=== PATIENT | male | born 1950 | race Caucasian/White ===

== ENCOUNTER → 2020-12-21 14:18 | Outpatient (CLI) | payer MEDICARE, OTHER, SELFPAY ==
[2020-12-21 14:54] LABS: Hematocrit 48.9 % (40-54); Hemoglobin 15.7 g/dL (13.0-16.5); Mean Corp Hgb Conc 32.1 g/dL (32-36); Mean Corpuscular Hgb 31.2 pg (27.0-32.0); Mean Corpuscular Volume 97.2 fL (80-94); Mean Platelet Vol. 8.6 fl (6.2-12.0); Platelet Count 229 K/mm3 (150-450); RBC Distribution Width CV 14.2 % (11.6-14.6); RBC Distribution Width SD 51.6 fl (35.1-43.9); Red Blood Count 5.03 M/mm3 (4.6-6.2); White Blood Count 6.3 K/mm3 (4.4-11.0)
[2020-12-21 15:49] LABS: Anion Gap 4 (5-15); BUN 10 mg/dL (7-18); BUN/Creat Ratio 8.8 RATIO (10-20); Calcium,Total 8.8 mg/dL (8.5-10.1); Chloride 106 mmol/L (98-107); Creatinine, Serum 1.13 mg/dL (0.70-1.30); EST Glomerular Filtration Rate 68 mL/min (>60); Est Glom Filt Rate - Afr Amer 83 mL/min (>60); Glucose 93 mg/dL (74-106); Potassium 3.8 mmol/L (3.5-5.1); Sodium Level 138 mmol/L (136-145)
== END ==
LOC: LABSPEC 14:29 → LAB 12-22 05:41
PROVIDERS: Referring Provider Urology; Visit Provider Urology
DX: Z01.812 Encounter for preprocedural laboratory examination (principal)
CPT/HCPCS: 36415; 80048; 85027

== ENCOUNTER → 2021-04-11 12:52 | Outpatient (CLI) | payer MEDICARE, OTHER, SELFPAY ==
--- NOTE | 2021-04-11 12:55 | ECHOD_ITS ---
Version 3 Reason For Study: Arrhythmia Procedure This was a 2D Doppler, Color Flow transthoracic echocardiogram. Exam performed in department. Left Ventricle Normal LV size. Left ventricular systolic function is normal. The estimated ejection fraction is 55 %. Stage 1 diastolic dysfunction. No regional wall motion abnormalities noted. Right Ventricle Normal RV size. Normal systolic function. Atria Normal left atrium. Normal right atrium. Mitral Valve Normal mitral valve. Tricuspid Valve Normal tricuspid valve. Mild tricuspid valve insufficiency. Pulmonary artery systolic pressure is 24 mmHg. Aortic Valve Normal aortic valve. Trisinus/trileaflet aortic valve. Pulmonic Valve Normal pulmonic valve. Great Vessels Normal aortic root. The pulmonary artery is normal size. Normal inferior vena cava. Pericardium/Pleural No pericardial effusion. MMode/2D Measurements & Calculations LVIDd: 4.3 cm IVSd: 1.1 cm Ao root diam: 3.5 cm LVIDs: 2.8 cm LVPWd: 1.1 cm RVDd: 3.3 cm FS: 35.5 % LAV(MOD-bp): 42.2 ml LVAd ap4: 37.4 cm2 LVAd ap2: 35.9 cm2 LAV(MOD-bp) Indexed: 19.5 ml/m2 LVLd ap4: 9.2 cm LVLd ap2: 9.7 cm LAV(MOD-sp2): 39.5 ml EDV(MOD-sp4): 127.4 ml EDV(MOD-sp2): 114.9 ml LAV(MOD-sp4): 42.6 ml EDV(sp4-el): 129.4 ml EDV(sp2-el): 113.3 ml LVAs ap4: 25.1 cm2 LVAs ap2: 22.5 cm2 LVLs ap4: 8.3 cm LVLs ap2: 8.1 cm ESV(MOD-sp4): 65.7 ml ESV(MOD-sp2): 55.9 ml ESV(sp4-el): 64.2 ml ESV(sp2-el): 52.7 ml EF(MOD-sp4): 48.4 % EF(MOD-sp2): 51.4 % EF(sp4-el): 50.4 % SV(MOD-sp4): 61.7 ml SV(MOD-sp2): 59.0 ml SV(sp4-el): 65.2 ml LA dimension(2D): 3.7 cm LA A4 area: 17.0 cm2 RA A4 area: 12.2 cm2 Doppler Measurements & Calculations MV E max trey: 48.4 cm/sec Lat Peak E' Trey: 7.6 cm/sec Med Peak E' Trey: 5.5 cm/sec MV A max trey: 68.7 cm/sec E/E' lat: 6.4 E/E' med: 8.8 MV E/A: 0.70 Ao V2 max: 93.2 cm/sec LV V1 max: 85.4 cm/sec PA V2 max: 101.6 cm/sec Ao max P.5 mmHg LV V1 max P.9 mmHg TR max trey: 228.8 cm/sec TR max P.9 mmHg ECHO/Echo Complete Interpretation Summary Normal LV size. Left ventricular systolic function is normal. The estimated ejection fraction is 55 %. Pulmonary artery systolic pressure is 24 mmHg. Stage 1 diastolic dysfunction. Structurally normal valves. Ordering Physician: Roger Love Referring Physician: Zenia PCP Performed By: Jessika Lucas RDCS
== END ==
PROVIDERS: Referring Provider Internal Medicine Cardiovascular Disease; Visit Provider Internal Medicine Cardiovascular Disease
DX: R06.00 Dyspnea, unspecified (principal)
CPT/HCPCS: 93306

== ENCOUNTER → 2021-04-30 13:51 | Outpatient (CLI) | payer MEDICARE, OTHER, SELFPAY ==
[2021-04-30 15:02] LABS: Hematocrit 50.2 % (40-54); Hemoglobin 16.1 g/dL (13.0-16.5); Mean Corp Hgb Conc 32.1 g/dL (32-36); Mean Corpuscular Hgb 31.6 pg (27.0-32.0); Mean Corpuscular Volume 98.4 fL (80-94); Mean Platelet Vol. 8.9 fl (6.2-12.0); Platelet Count 264 K/mm3 (150-450); RBC Distribution Width CV 14.5 % (11.6-14.6); RBC Distribution Width SD 52.9 fl (35.1-43.9); White Blood Count 7.1 K/mm3 (4.4-11.0)
[2021-04-30 15:29] LABS: Anion Gap 6 (5-15); BUN 11 mg/dL (7-18); BUN/Creat Ratio 9.8 RATIO (10-20); Calcium,Total 8.9 mg/dL (8.5-10.1); Chloride 108 mmol/L (98-107); Creatinine, Serum 1.12 mg/dL (0.70-1.30); EST Glomerular Filtration Rate 69 mL/min (>60); Est Glom Filt Rate - Afr Amer 83 mL/min (>60); Glucose 100 mg/dL (74-106); Potassium 4.1 mmol/L (3.5-5.1); Sodium Level 141 mmol/L (136-145)
== END ==
PROVIDERS: Referring Provider Urology; Visit Provider Urology
DX: Z01.812 Encounter for preprocedural laboratory examination (principal)
CPT/HCPCS: 36415; 80048; 85027

== ENCOUNTER 2021-09-27 15:02 | Outpatient (CLI) | payer MEDICARE, OTHER, SELFPAY ==
[2021-09-27 16:34] LABS: PSA,Total - Annual Screen 1.29 ng/mL (0.00-4.00)
== END 2021-09-27 23:59 | disposition home or self-care (01) ==
LOC: LAB 15:04
PROVIDERS: Visit Provider Urology
DX: Z12.5 Encounter for screening for malignant neoplasm of prostate (principal)
CPT/HCPCS: 36415; 84153; G0103

== ENCOUNTER → 2022-09-30 | Outpatient (CLI) | payer MEDICARE, OTHER, SELFPAY ==
[2022-09-30 15:03] LABS: PSA,Total - Annual Screen 1.72 ng/mL (0.00-4.00)
== END | disposition home or self-care (01) ==
LOC: LAB 13:33
PROVIDERS: Referring Provider Urology; Visit Provider Urology
DX: Z12.5 Encounter for screening for malignant neoplasm of prostate (principal)
CPT/HCPCS: 36415; 84153; G0103

== ENCOUNTER 2022-12-26 19:17 | Inpatient (IN) | payer MEDICARE, OTHER, SELFPAY ==
[2022-12-26] VITALS (10 sets, daily range): BP systolic 98–151; BP diastolic 75–105; PULSE 106–152; RESP 12–25; TEMP 36.8–37; O2SAT 95–99; BMI 31.1; BMI 30.4
--- NOTE | 2022-12-26 19:27 | ED.RN ---
Pt attempted to blow into syringe and flip backward with RN assistance before ED doc comes into room. Unsuccessful attempt to reverse SVT.
--- NOTE | 2022-12-26 19:30 | RAD_ITS ---
STUDY: X-RAY CHEST REASON FOR EXAM: Male, 72 years old. Chest pain and shortness of breath beginning this a.m.. TECHNIQUE: Single AP portable view of the chest. COMPARISON: None. FINDINGS: The lungs are well expanded. Question vague infiltrate at the right lung base. There is no demonstrated pleural abnormality. Normal size heart. Normal mediastinum and nickolas. Normal visualized pulmonary arteries. Normal visualized aortic arch and descending thoracic aorta. There are diffuse degenerative changes of the visualized thoracic spine. Normal visualized ribs, clavicles, and shoulders. There is no demonstrated abnormality of the visualized soft tissue structures of the upper abdomen. RAD/Chest 1 View (Portable) IMPRESSION: Question right basilar pneumonia. Electronically Signed: Juliano Mauricio DO at 19:49 EDT ,
[2022-12-26 19:38] LABS: Absolute Lymphocyte Count 1.68 X10^3/uL (0.83-4.51); Absolute Neutrophil Count 9.6 X10^3/uL (2.0-7.7); Basophil# 0.03 X10^3/uL; Basophil% 0.2 % (0-1); Eosinophil# 0.04 X10^3/uL; Eosinophils% 0.3 % (0-5); Hematocrit 47.9 % (40-54); Hemoglobin 15.3 g/dL (13.0-16.5); Lymphocyte # 1.68 X10^3/ul (0.83-4.51); Lymphocyte % 13.2 % (19-41); Mean Corp Hgb Conc 31.9 g/dL (32-36); Mean Corpuscular Hgb 32.2 pg (27.0-32.0); Mean Corpuscular Volume 100.8 fL (80-94); Mean Platelet Vol. 8.5 fl (6.2-12.0); Monocyte# 1.35 X10^3/uL; Monocyte% 10.6 % (0-10); NRBC Flagged by Analyzer 0 % (0-5); Neutrophil # 9.61 X10^3/uL (2.7-7.7); Neutrophil % 75.2 % (47-70); Platelet Count 225 K/mm3 (150-450); RBC Distribution Width CV 14.6 % (11.6-14.6); RBC Distribution Width SD 55.1 fl (35.1-43.9); Red Blood Count 4.75 M/mm3 (4.6-6.2); White Blood Count 12.8 K/mm3 (4.4-11.0)
[2022-12-26] MEDS: Adenosine 6 MG/2 ML Syringe 12 MG IV (19:45)
[2022-12-26 19:47] LABS: International Normalized Ratio 1.1; Prothrombin Time (Protime)PT. 14.3 SECONDS (11.7-14.9)
[2022-12-26] MEDS: dilTIAZem 25 MG/5 ML Vial 20 MG IV BOLUS ×2 (19:49→20:39)
[2022-12-26 19:56] LABS: Anion Gap 6 (5-15); BUN 12 mg/dL (7-18); BUN/Creat Ratio 10.5 RATIO (10-20); Chloride 108 mmol/L (98-107); Creatinine, Serum 1.14 mg/dL (0.70-1.30); EST Glomerular Filtration Rate 67 mL/min (>60); Est Glom Filt Rate - Afr Amer 81 mL/min (>60); Estimated Creatinine Clearance 61.37 ml/min; Glucose 119 mg/dL (74-106); Potassium 4.1 mmol/L (3.5-5.1); Sodium Level 142 mmol/L (136-145); Troponin-I HS (w/2H Reflex) 33 pg/mL (3.0-78.0)
--- NOTE | 2022-12-26 20:51 | ED.VIS.CHEST ---
HPI <SRIKANTH Mcfadden - Last Filed: 12/26/22 20:59> History of Present Illness Chief Complaint: Chest Pain Narrative Narrative: Patient presenting today with midsternal aching chest pain that he has had intermittently all day. He reports that the pain is worsened when he takes a deep breath. He denies any cardiac history, history of arrhythmia, or history of blood clots. He denies any recent surgery/procedures, recent immobilization. He denies any fever, chills, abdominal pain, nausea, and vomiting. PMH includes macular degeneration and psoriasis. PFSH <SRIKANTH Mcfadden - Last Filed: 12/26/22 20:59> PFSH Medical History Diverticulosis Hydrocele Obesity Right bundle branch block (RBBB) with left anterior fascicular block Home Medications omega-3 fatty acids 1,000 mg capsule (Fish Oil Concentrate) 1,000 mg PO DAILY 03/21/21 [History Last Taken Unknown] vitamins A,C,R-qhfj-[id number] 4,296 mcg-226 mg-90 mg capsule (PreserVision AREDS) 1 cap PO BID 03/21/21 [History Last Taken Unknown] triamcinolone acetonide 0.1 % topical cream 1 applic topical DAILY 12/26/22 [History Last Taken Unknown] Allergy/AdvReac Type Severity Reaction Status Date / Time No Known Allergies Allergy Verified 12/26/22 19:24 Family History Father CAD (coronary artery disease) CABG Brother CAD (coronary artery disease), Onset Age: 56 stents Surgical History H/O total colectomy History of appendectomy Social History Smoking Status: Former smoker quit date: 05/28/20 pack-years: 45 alcohol intake: current alcohol intake frequency: other Alcohol type: beer substance use type: marijuana ROS <SRIKANTH Mcfadden - Last Filed: 12/26/22 20:59> ROS ED Constitutional Constitutional ED: Denies chills or fever(s) Eyes Eyes: Denies change in vision Cardiovascular Cardiovascular: Reports chest pain; Denies palpitations Respiratory/Chest Respiratory/Chest: Denies cough, dyspnea or dyspnea on exertion Gastrointestinal Gastrointestinal: Denies abdominal pain, nausea or vomiting Musculoskeletal Musculoskeletal: Denies arthralgias or myalgias Integumentary Denies abscess, Abrasions or rash Neurologic Neurologic: Denies dizziness or weakness EXAM <SRIKANTH Mcfadden - Last Filed: 12/26/22 20:59> Physical Exam Const Vital Signs: 12/26/22 19:18 12/26/22 19:21 12/26/22 20:16 Temperature 98.2 F Temperature Source Temporal Pulse Rate 152 H 120 H Respiratory Rate 21 H 25 H Respiratory Effort Short of Breath Blood Pressure 98/75 Blood Pressure Mean 82 Blood Pressure Position Blood Pressure Location Pulse Ox 97 96 Oxygen Delivery Method Room Air Room Air Oxygen Flow Rate (L/min) 12/26/22 20:44 12/26/22 21:27 12/26/22 21:00 Temperature Temperature Source Pulse Rate 118 H 112 H 106 H Respiratory Rate 19 H 17 17 Respiratory Effort Blood Pressure 130/105 H 146/98 H 146/98 H Blood Pressure Mean 113 114 114 Blood Pressure Position Semi-Fowlers Blood Pressure Location Right Arm Pulse Ox 95 99 96 Oxygen Delivery Method Room Air Nasal Cannula Nasal Cannula Oxygen Flow Rate (L/min) 2 2 12/26/22 22:00 12/26/22 22:12 Temperature Temperature Source Pulse Rate 115 H 121 H Respiratory Rate 15 18 Respiratory Effort Blood Pressure 141/85 H 141/85 H Blood Pressure Mean 103 103 Blood Pressure Position Semi-Fowlers Blood Pressure Location Right Arm Pulse Ox 99 98 Oxygen Delivery Method Room Air Oxygen Flow Rate (L/min) 2 Positive well nourished, well developed and no apparent distress General Appearance ED: well developed HEENT Reports normocephalic and head/scalp atraumatic Mouth ED: Yes moist mucous membranes normal Eyes PERRL and EOMs intact bilaterally Neck full ROM and supple Chest Wall inspection of chest normal Resp normal respiratory effort and clear to auscultation bilaterally Cardio regular rhythm Rate: tachycardic GI soft to palpation, non-tender, non-distended and no masses Back/Spine normal ROM and normal to inspection Extremity normal to inspection and full ROM Neuro oriented x3, CN's II-XII intact bilaterally, moves all extremities, no focal motor deficits and no sensory deficits noted Sensorium / Orientation: awake and alert Psych mental status grossly normal and thought process normal Skin no rashes or lesions noted and no wounds <Dr. Sandeep Carty DO - Last Filed: 12/26/22 22:37> Physical Exam Const Vital Signs: 12/26/22 19:18 12/26/22 19:21 12/26/22 20:16 Temperature 98.2 F Temperature Source Temporal Pulse Rate 152 H 120 H Respiratory Rate 21 H 25 H Respiratory Effort Short of Breath Blood Pressure 98/75 Blood Pressure Mean 82 Blood Pressure Position Blood Pressure Location Pulse Ox 97 96 Oxygen Delivery Method Room Air Room Air Oxygen Flow Rate (L/min) 12/26/22 20:44 12/26/22 21:27 12/26/22 21:00 Temperature Temperature Source Pulse Rate 118 H 112 H 106 H Respiratory Rate 19 H 17 17 Respiratory Effort Blood Pressure 130/105 H 146/98 H 146/98 H Blood Pressure Mean 113 114 114 Blood Pressure Position Semi-Fowlers Blood Pressure Location Right Arm Pulse Ox 95 99 96 Oxygen Delivery Method Room Air Nasal Cannula Nasal Cannula Oxygen Flow Rate (L/min) 2 2 12/26/22 22:00 12/26/22 22:12 Temperature Temperature Source Pulse Rate 115 H 121 H Respiratory Rate 15 18 Respiratory Effort Blood Pressure 141/85 H 141/85 H Blood Pressure Mean 103 103 Blood Pressure Position Semi-Fowlers Blood Pressure Location Right Arm Pulse Ox 99 98 Oxygen Delivery Method Room Air Oxygen Flow Rate (L/min) 2 [facility] <SRIKANTH Mcfadden - Last Filed: 12/26/22 20:59> [facility] Narrative Medical decision making narrative: Patient presenting due to midsternal chest pain he has had intermittently since this morning. Patient was tachycardic in the ambulance at 150 bpm, he was given 6mg of adenosine. On arrival, he was still tachycardic at 152 bpm. Patient was given 12 mg of adenosine. This did not seem to slow patient down very much, he was then given 20 mg Cardizem, this brought him down to around 120 BPM, was given another 20 mg of Cardizem which brought him down to around 100 bpm. D-dimer will be obtained to rule out PE, labs to be obtained to rule out leukocytosis, anemia, electrolyte abnormality. Patient is in atrial flutter and has no prior history of atrial flutter or any arrhythmia, he is not on any blood thinners. D-dimer is positive, CTA will be obtained to rule out PE. Lab Data Attestation: I reviewed the patient's lab results. Lab results narrative: WBC 12.88, troponin 33 Labs: Laboratory Results - last 24 hr 12/26/22 12/26/22 12/26/22 19:25 19:25 19:25 WBC 12.8 H RBC 4.75 Hgb 15.3 Hct 47.9 MCV 100.8 H MCH 32.2 H MCHC 31.9 L RDW Std Deviation 55.1 H RDW Coeff of Jessica 14.6 Plt Count 225 MPV 8.5 Immature Gran % (Auto) 0.500 Neut % (Auto) 75.2 H Lymph % (Auto) 13.2 L Cottle % (Auto) 10.6 H Eos % (Auto) 0.3 Baso % (Auto) 0.2 Absolute Neuts (auto) 9.6 H Absolute Lymphs (auto) 1.68 Nucleated RBC % 0 PT 14.3 INR 1.1 D-Dimer Quant (PE/DVT) Sodium 142 Potassium 4.1 Chloride 108 H Carbon Dioxide 28.0 Anion Gap 6 BUN 12 Creatinine 1.14 Estim Creat Clear Calc 61.37 Est GFR (MDRD) Af Amer 81 Est GFR (MDRD) Non-Af 67 BUN/Creatinine Ratio 10.5 Glucose 119 H Calcium 9.0 Troponin I High Sens 33 12/26/22 12/26/22 19:25 21:47 WBC RBC Hgb Hct MCV MCH MCHC RDW Std Deviation RDW Coeff of Jessica Plt Count MPV Immature Gran % (Auto) Neut % (Auto) Lymph % (Auto) Cottle % (Auto) Eos % (Auto) Baso % (Auto) Absolute Neuts (auto) Absolute Lymphs (auto) Nucleated RBC % PT INR D-Dimer Quant (PE/DVT) 0.75 H* Sodium Potassium Chloride Carbon Dioxide Anion Gap BUN Creatinine Estim Creat Clear Calc Est GFR (MDRD) Af Amer Est GFR (MDRD) Non-Af BUN/Creatinine Ratio Glucose Calcium Troponin I High Sens 35 Radiography X-Ray: Read by ED Physician and Read by Radiologist Diagnostic Testing: Clinical Impression(s) from Imaging Studies Chest X-Ray 12/26/22 19:30 IMPRESSION: Question right basilar pneumonia. Electronically Signed: Juliano Mauricio DO at 19:49 EDT , Chest CTA 12/26/22 20:58 IMPRESSION: Atelectatic changes versus infiltrate in the posterior right lower lobe. The study is otherwise unremarkable. Electronically Signed: Juliano Mauricio DO at 21:28 EDT , EKG Initial EKG: Comments: Initial EKG shows 152 bpm, atrial flutter, no ST elevation. Reviewed and interpreted by attending ED physician. <Dr. Sandeep Carty, DO - Last Filed: 12/26/22 22:37> [facility] Narrative Medical decision making narrative: Patient presenting due to midsternal chest pain he has had intermittently since this morning. Patient was tachycardic in the ambulance at 150 bpm, he was given 6mg of adenosine. On arrival, he was still tachycardic at 152 bpm. Patient was given 12 mg of adenosine. This slowed the patient down enough to I could see the rhythm is a flutter. he was then given 20 mg Cardizem, this brought him down to around 120 BPM, was given another 20 mg of Cardizem which brought him down to around 100 bpm. D-dimer will be obtained to rule out PE, labs to be obtained to rule out leukocytosis, anemia, electrolyte abnormality. Patient is in atrial flutter and has no prior history of atrial flutter or any arrhythmia, he is not on any blood thinners. D-dimer is positive, CTA will be obtained to rule out PE. This patient was seen with a PA/STOCK FITTER Individually assessed they patient including history and physical. I have reviewed everything on the chart that is available and agree with the documentation provided by the PA/STOCK FITTER including discussion about the assessment, treatment plan, discussion, and return precautions. After patient's heart rate came down to about 100 I did obtain a CTA of the chest which does not show evidence of PE. There is a small area in the right lung which is identified on the CTA as atelectasis or infiltrate. Patient has not any fevers, chills, cough Solox unclear whether this is pneumonia. There is no evidence of PE or aortic dissection otherwise. Patient's heart rate came back up and has been between 100?130 beats per minute. At this point it was determined he would need a Cardizem drip. I was informed that the patient became hypoxic while getting his CTA and was placed on oxygen. When the patient came back he was still complaining of some sharp pain in the chest and the site he was given morphine and Zofran. CBC shows a slight leukocytosis at 12.8, hemoglobin hematocrit are stable. Platelets are normal. PT/INR normal. Renal function and electrolytes unremarkable. Delta troponin came back at 35 therefore there is no significant interval change from his initial 33. I discussed him with the hospitalist for admission. Impression: 1. Chest pain 2. Atrial flutter Lab Data Labs: Laboratory Results - last 24 hr 12/26/22 12/26/22 12/26/22 19:25 19:25 19:25 WBC 12.8 H RBC 4.75 Hgb 15.3 Hct 47.9 MCV 100.8 H MCH 32.2 H MCHC 31.9 L RDW Std Deviation 55.1 H RDW Coeff of Jessica 14.6 Plt Count 225 MPV 8.5 Immature Gran % (Auto) 0.500 Neut % (Auto) 75.2 H Lymph % (Auto) 13.2 L Cottle % (Auto) 10.6 H Eos % (Auto) 0.3 Baso % (Auto) 0.2 Absolute Neuts (auto) 9.6 H Absolute Lymphs (auto) 1.68 Nucleated RBC % 0 PT 14.3 INR 1.1 D-Dimer Quant (PE/DVT) Sodium 142 Potassium 4.1 Chloride 108 H Carbon Dioxide 28.0 Anion Gap 6 BUN 12 Creatinine 1.14 Estim Creat Clear Calc 61.37 Est GFR (MDRD) Af Amer 81 Est GFR (MDRD) Non-Af 67 BUN/Creatinine Ratio 10.5 Glucose 119 H Calcium 9.0 Troponin I High Sens 33 12/26/22 12/26/22 19:25 21:47 WBC RBC Hgb Hct MCV MCH MCHC RDW Std Deviation RDW Coeff of Jessica Plt Count MPV Immature Gran % (Auto) Neut % (Auto) Lymph % (Auto) Cottle % (Auto) Eos % (Auto) Baso % (Auto) Absolute Neuts (auto) Absolute Lymphs (auto) Nucleated RBC % PT INR D-Dimer Quant (PE/DVT) 0.75 H* Sodium Potassium Chloride Carbon Dioxide Anion Gap BUN Creatinine Estim Creat Clear Calc Est GFR (MDRD) Af Amer Est GFR (MDRD) Non-Af BUN/Creatinine Ratio Glucose Calcium Troponin I High Sens 35 Radiography Diagnostic Testing: Clinical Impression(s) from Imaging Studies Chest X-Ray 12/26/22 19:30 IMPRESSION: Question right basilar pneumonia. Electronically Signed: Juliano Mauricio DO at 19:49 EDT Reading Location ID and State: [employer] / [place] Tel [phone], Service support , Chest CTA 12/26/22 20:58 IMPRESSION: Atelectatic changes versus infiltrate in the posterior right lower lobe. The study is otherwise unremarkable. Electronically Signed: Juliano Mauricio DO at 21:28 EDT Reading Location ID and State: [facility] / [place] Tel [phone], Service support , Discharge Plan Triage Chief Complaint: Chest Pain ED Midlevel Provider: Reina Paris ED Provider: Sandeep Carty Dx/Rx/DC Orders Primary Care Provider: Care Physician,No Primary
[2022-12-26 20:57] LABS: D-Dimer Quantitative (DVT/PE) 0.75 FEU/ug/m (0.27-0.49)
--- NOTE | 2022-12-26 20:58 | CT_ITS ---
STUDY: CTA CHEST REASON FOR EXAM: Male, 72 years old. Chest pain. RADIATION DOSAGE (If Supplied By Facility): CTDIvol = ( 28.53 ) mGy, DLP = ( 566.05 ) mGycm TECHNIQUE: The examination was performed with the intravenous administration of IV 100mL Isovue-300. Post-processing of the angiographic images was performed, with multiplanar reformation and 3D reconstruction. Individualized dose optimization techniques were used for this CT. COMPARISON: Chest, December 26, 2022. FINDINGS: Normal enhancement of the main pulmonary artery and right and left pulmonary arteries. Normal enhancement of the bilateral peripheral pulmonary arteries. There is no demonstrated pulmonary embolism. Normal thoracic aorta and visualized great vessels. There is no demonstrated aortic dissection. Normal heart and pericardium. Femoral coronary artery calcifications. Normal mediastinum. Normal hilar regions. Normal visualized trachea and bronchi. The lungs are well expanded. Mild dependent changes in the right posterior costophrenic angle. The lungs are otherwise clear. Normal pleura. Normal chest wall structures. There are degenerative changes of thoracic spine. Normal visualized upper abdomen. CT/CTA Chest W/WO Contrast IMPRESSION: Atelectatic changes versus infiltrate in the posterior right lower lobe. The study is otherwise unremarkable. Electronically Signed: Juliano Mauricio DO at 21:28 EDT ,
[2022-12-26 21:35] LABS: Reflex Troponin-HS? (from REC) Y
[2022-12-26 22:19] LABS: Troponin-I HS 35 pg/mL (3.0-78.0)
--- NOTE | 2022-12-26 22:35 | HP.PCM.HOS_ITS ---
HPI - General General Date of Admission: 12/26/22 Date of Service: 12/26/22 Chief Complaint: chest pain HPI Narrative DOYLE RAMIREZ, is a 72 M who presents awoke with chest pain today. Said its been constant but worse with movements and deep respirations. States that it is midsternal but goes to his back. Denies ever having had this before. Patient presented to the emergency room with this and there was concerning the patient may have SVT so did have adenosine. The underlying rhythm appeared to be atrial flutter. Patient received 40 mg of IV diltiazem bolus and then was placed on diltiazem drip. Heart rate improved from the 150s to 120s. Despite the improved heart rate, patient is still having chest pain. Patient did have an elevated D-dimer and went to CAT scan when he lied flat he became very short of breath. [facility] Medical History Diverticulosis Hydrocele Obesity Right bundle branch block (RBBB) with left anterior fascicular block Home Medications omega-3 fatty acids 1,000 mg capsule (Fish Oil Concentrate) 1,000 mg PO DAILY 03/21/21 [History Last Taken Unknown] vitamins A,C,X-bhaa-fvnsui 4,296 mcg-226 mg-90 mg capsule (PreserVision AREDS) 1 cap PO BID 03/21/21 [History Last Taken Unknown] triamcinolone acetonide 0.1 % topical cream 1 applic topical DAILY 12/26/22 [History Last Taken Unknown] Allergy/AdvReac Type Severity Reaction Status Date / Time No Known Allergies Allergy Verified 12/26/22 19:24 Family History Father CAD (coronary artery disease) CABG Brother CAD (coronary artery disease), Onset Age: 56 stents Surgical History H/O total colectomy History of appendectomy Social History Smoking Status: Former smoker quit date: 05/28/20 pack-years: 45 alcohol intake: current alcohol intake frequency: other Alcohol type: beer substance use type: marijuana ROS ROS Narrative States he has been feeling rundown over the past few weeks. Denies any fever chills or sore throat or rhinitis. Stated that he did previous feel like he had a chest cold. All review of systems were negative except as mentioned above in the history of present illness and the other review of systems. Vital Signs Vital Signs Vital Signs: 12/26/22 19:18 12/26/22 19:21 12/26/22 20:16 Temperature 36.8 C Temperature Source Temporal Pulse Rate 152 H 120 H Respiratory Rate 21 H 25 H Respiratory Effort Short of Breath Blood Pressure 98/75 Blood Pressure Mean 82 Blood Pressure Position Blood Pressure Location Pulse Ox 97 96 Oxygen Delivery Method Room Air Room Air Oxygen Flow Rate (L/min) 12/26/22 20:44 12/26/22 21:27 12/26/22 21:00 Temperature Temperature Source Pulse Rate 118 H 112 H 106 H Respiratory Rate 19 H 17 17 Respiratory Effort Blood Pressure 130/105 H 146/98 H 146/98 H Blood Pressure Mean 113 114 114 Blood Pressure Position Semi-Fowlers Blood Pressure Location Right Arm Pulse Ox 95 99 96 Oxygen Delivery Method Room Air Nasal Cannula Nasal Cannula Oxygen Flow Rate (L/min) 2 2 12/26/22 22:00 12/26/22 22:12 Temperature Temperature Source Pulse Rate 115 H 121 H Respiratory Rate 15 18 Respiratory Effort Blood Pressure 141/85 H 141/85 H Blood Pressure Mean 103 103 Blood Pressure Position Semi-Fowlers Blood Pressure Location Right Arm Pulse Ox 99 98 Oxygen Delivery Method Room Air Oxygen Flow Rate (L/min) 2 Weight Weight: 98.4 kg Body Mass Index (BMI) 31.1 Physical Exam Const alert and no apparent distress HEENT normocephalic, head/scalp atraumatic, hearing grossly normal bilaterally and moist oral mucous membranes Eyes EOMs intact bilaterally Eyes Narrative: No icterus Neck no lymphadenopathy Neck Narrative: No thyromegaly. Resp normal respiratory effort, no retractions and no use of accessory muscles Cardio Cardio Narrative: Distant heart sounds irregularly irregular GI normal to inspection, nondistended, normoactive bowel sounds and soft to palpation Extremity normal to inspection and full ROM Neuro oriented x3 and CN's II-XII intact bilaterally Psych affect normal Results Lab / Micro Data Attestation: I reviewed the patient's lab results. Result Diagrams: 12/26/22 19:25 12/26/22 19:25 Labs: Laboratory Results - last 24 hr 12/26/22 19:25: WBC 12.8 H, RBC 4.75, Hgb 15.3, Hct 47.9, MCV 100.8 H, MCH 32.2 H, MCHC 31.9 L, RDW Std Deviation 55.1 H, RDW Coeff of Jessica 14.6, Plt Count 225, MPV 8.5, Immature Gran % (Auto) 0.500, Neut % (Auto) 75.2 H, Lymph % (Auto) 13.2 L, Hancock % (Auto) 10.6 H, Eos % (Auto) 0.3, Baso % (Auto) 0.2, Absolute Neuts (auto) 9.6 H, Absolute Lymphs (auto) 1.68, Nucleated RBC % 0 12/26/22 19:25: PT 14.3, INR 1.1 12/26/22 19:25: Sodium 142, Potassium 4.1, Chloride 108 H, Carbon Dioxide 28.0, Anion Gap 6, BUN 12, Creatinine 1.14, Estim Creat Clear Calc 61.37, Est GFR (MDRD) Af Amer 81, Est GFR (MDRD) Non-Af 67, BUN/Creatinine Ratio 10.5, Glucose 119 H, Calcium 9.0, Troponin I High Sens 33 12/26/22 19:25: D-Dimer Quant (PE/DVT) 0.75 H* 12/26/22 21:47: Troponin I High Sens 35 EKG Initial EKG: Attestation: I personally reviewed and interpreted this EKG as follows: Prior EKG tracings: available for review EKG Rhythm Intrepretation: Atrial Flutter Radiology Impression Chest X-Ray 12/26/22 19:30 IMPRESSION: Question right basilar pneumonia. Electronically Signed: Juliano Mauricio DO at 19:49 EDT Reading Location ID and State: [address] [place] [address] Tel [phone], Service support , Chest CTA 12/26/22 20:58 IMPRESSION: Atelectatic changes versus infiltrate in the posterior right lower lobe. The study is otherwise unremarkable. Electronically Signed: Juliano Mauricio DO at 21:28 EDT Reading Location ID and State: [address] [place] [address] Tel [phone], Service support , Assessment & Plan Assessment/Plan (1) Atrial flutter with rapid ventricular response: PLAN: New onset [id number] score of 1 Given the patient's symptoms, I am concerned the patient may have some underlying pericarditis. In addition to rate control which she is currently on diltiazem, patient may need to be added additional agent such as amiodarone if that does not seem to be sufficient. Since I am concerned that this could be pericarditis we will initiate high-dose ibuprofen as well as PPI therapy. Thus far, the patient's troponins are unremarkable and if they do become elevated then patient may need to be started on anticoagulation. PLAN: Plan VTE prophylaxis with enoxaparin. Charges/Coding Visit Charges Inpatient E&M: 68473 Init Hosp L3
[2022-12-26] MEDS: Morphine 4 MG/ML Syringe IV (22:40)
[2022-12-26] MEDS: Ondansetron 4 MG/2 ML Vial IV (22:40)
--- NOTE | 2022-12-26 23:15 | ED.RN ---
Dr. Mckeon aware of pt HR 140s-150s on 15mL/hr Cardizem. No new orders at this time.
--- NOTE | 2022-12-26 23:38 | ECHOD_ITS ---
Reason For Study: ATRIAL FIB-FLUTTER Procedure This was a 2D Doppler, Color Flow transthoracic echocardiogram. Exam performed portable in patient room. Left Ventricle Normal size and thickness. Mild global left ventricular systolic dysfunction. The left ventricular ejection fraction is 40 %. Right Ventricle Moderately dilated right ventricle. Mild to moderate global right ventricular systolic dysfunction. Atria The left atrium is mildly enlarged. The right atrium is mildly enlarged. Mitral Valve Mild (1+) mitral valve insufficiency. Tricuspid Valve Mild tricuspid valve insufficiency. Right ventricular systolic pressure estimated to be 33 mmHg. Aortic Valve There is no aortic stenosis. Pulmonic Valve The pulmonic valve is not well visualized. Great Vessels Normal sized aortic root. Pericardium/Pleural No pericardial effusion. MMode/2D Measurements & Calculations LVIDd: 5.0 cm IVSd: 1.1 cm Ao root diam: 3.7 cm LVIDs: 4.3 cm LVPWd: 1.1 cm RVDd: 4.3 cm FS: 15.0 % LAV(MOD-bp): 72.8 ml LVAd ap4: 35.2 cm2 SV(MOD-sp4): 48.0 ml LAV(MOD-bp) Indexed: 34.0 ml/m2 LVLd ap4: 8.3 cm LAV(MOD-sp2): 69.5 ml EDV(MOD-sp4): 123.2 ml LAV(MOD-sp4): 71.5 ml EDV(sp4-el): 126.2 ml LVAs ap4: 26.0 cm2 LVLs ap4: 7.8 cm ESV(MOD-sp4): 75.2 ml ESV(sp4-el): 73.3 ml EF(MOD-sp4): 39.0 % EF(sp4-el): 41.9 % SV(sp4-el): 52.9 ml LA A4 area: 24.5 cm2 LA dimension(2D): 3.9 cm RA A4 area: 19.9 cm2 Doppler Measurements & Calculations MV E max trey: 80.8 cm/sec Lat Peak E' Trey: 11.9 cm/sec Med Peak E' Trey: 9.8 cm/sec MV A max trey: 32.8 cm/sec E/E' lat: 6.8 E/E' med: 8.3 MV E/A: 2.5 Ao V2 max: 83.0 cm/sec LV V1 max: 70.1 cm/sec PA V2 max: 59.5 cm/sec Ao max P.8 mmHg LV V1 max P.0 mmHg Ao V2 mean: 60.1 cm/sec LV V1 mean P.1 mmHg Ao mean P.6 mmHg LV V1 mean: 49.0 cm/sec Ao V2 VTI: 13.7 cm LV V1 VTI: 11.6 cm AV (velocity ratio): 0.85 TR max trey: 239.8 cm/sec TR max P.0 mmHg ECHO/Echo Complete Interpretation Summary Mild global left ventricular systolic dysfunction. The left ventricular ejection fraction is 40 %. Moderately dilated right ventricle. Mild to moderate global right ventricular systolic dysfunction. The left atrium is mildly enlarged. The right atrium is mildly enlarged. Mild (1+) mitral valve insufficiency. Mild tricuspid valve insufficiency. Ordering Physician: Neo Mckeon Performed By: Margret Khanna RDCS
[2022-12-26] MEDS: Contrast Allergy Safety Check IV (23:59)
[2022-12-27] VITALS (25 sets, daily range): BP systolic 72–146; BP diastolic 39–95; PULSE 50–150; RESP 16–27; TEMP 36–36.8; O2SAT 93–96
[2022-12-27] MEDS: Ibuprofen 400 MG Tablet 800 MG PO ×2 (00:28→06:07)
[2022-12-27 05:23] LABS: Absolute Lymphocyte Count 1.11 X10^3/uL (0.83-4.51); Absolute Neutrophil Count 9.6 X10^3/uL (2.0-7.7); Basophil# 0.02 X10^3/uL; Basophil% 0.2 % (0-1); Hematocrit 45.3 % (40-54); Hemoglobin 14.3 g/dL (13.0-16.5); Lymphocyte # 1.11 X10^3/ul (0.83-4.51); Lymphocyte % 8.9 % (19-41); Mean Corp Hgb Conc 31.6 g/dL (32-36); Mean Corpuscular Hgb 31.8 pg (27.0-32.0); Mean Corpuscular Volume 100.9 fL (80-94); Monocyte# 1.67 X10^3/uL; Monocyte% 13.4 % (0-10); NRBC Flagged by Analyzer 0 % (0-5); Neutrophil # 9.64 X10^3/uL (2.7-7.7); Neutrophil % 77.2 % (47-70); POSITIVE DIFFERENTIAL YES; Platelet Count 214 K/mm3 (150-450); RBC Distribution Width CV 14.8 % (11.6-14.6); RBC Distribution Width SD 55.5 fl (35.1-43.9); Red Blood Count 4.49 M/mm3 (4.6-6.2); White Blood Count 12.5 K/mm3 (4.4-11.0)
[2022-12-27 05:29] LABS: Differential Indicated SCAN CRITERIA MET
[2022-12-27 05:58] LABS: Thyroid Stim Hormone (TSH) 1.48 uIU/mL (0.358-3.74)
[2022-12-27] MEDS: 0.9% Saline Lock 10 ML Syringe IV (06:06)
[2022-12-27 06:18] LABS: Anisocytosis 1+; Macrocytosis 1+
--- NOTE | 2022-12-27 08:02 | PCM.PN.HOSP ---
Reason for Visit Reason for Visit: Diagnoses Unspecified atrial flutter (12/26/22) Subjective Subjective Still short of breath, feeling slightly better today but has wheezes and some conversational dyspnea despite heart rate improving. Denies cough that is any different from previous, no chest pain Objective Data Objective Data Vital Signs: Vital Signs Temp Pulse Resp BP Pulse Ox O2 Del Method O2 Flow Rate 98.2 F 76 20 H 100/69 94 Room Air 2 12/27/22 00:36 12/27/22 07:00 12/27/22 07:00 12/27/22 07:00 12/27/22 07:20 12/27/22 07:20 12/26/22 23:00 Oxygen Flow Rate (L/min) 2 Oxygen Delivery Method Room Air Weight: 96.2 kg Body Mass Index (BMI) 30.4 Intake & Output: Intake and Output for Last 24 Hours 12/25/22 12/26/22 12/27/22 23:59 23:59 23:59 Intake Total 10.25 / 27.50 418.39 / 418.39 Output Total 0 / 0 Balance 10.25 / 27.50 418.39 / 418.39 Lab / Micro Data Result Diagrams: 12/27/22 04:24 12/26/22 19:25 Labs: Laboratory Results - last 24 hr 12/26/22 19:25: WBC 12.8 H, RBC 4.75, Hgb 15.3, Hct 47.9, MCV 100.8 H, MCH 32.2 H, MCHC 31.9 L, RDW Std Deviation 55.1 H, RDW Coeff of Jessica 14.6, Plt Count 225, MPV 8.5, Immature Gran % (Auto) 0.500, Neut % (Auto) 75.2 H, Lymph % (Auto) 13.2 L, Douglas % (Auto) 10.6 H, Eos % (Auto) 0.3, Baso % (Auto) 0.2, Absolute Neuts (auto) 9.6 H, Absolute Lymphs (auto) 1.68, Nucleated RBC % 0 12/26/22 19:25: PT 14.3, INR 1.1 12/26/22 19:25: Sodium 142, Potassium 4.1, Chloride 108 H, Carbon Dioxide 28.0, Anion Gap 6, BUN 12, Creatinine 1.14, Estim Creat Clear Calc 61.37, Est GFR (MDRD) Af Amer 81, Est GFR (MDRD) Non-Af 67, BUN/Creatinine Ratio 10.5, Glucose 119 H, Calcium 9.0, Troponin I High Sens 33 12/26/22 19:25: D-Dimer Quant (PE/DVT) 0.75 H* 12/26/22 21:47: Troponin I High Sens 35 12/27/22 04:24: WBC 12.5 H, RBC 4.49 L, Hgb 14.3, Hct 45.3, MCV 100.9 H, MCH 31.8, MCHC 31.6 L, RDW Std Deviation 55.5 H, RDW Coeff of Jessica 14.8 H, Plt Count 214, MPV 9.0, Immature Gran % (Auto) 0.300, Neut % (Auto) 77.2 H, Lymph % (Auto) 8.9 L, Douglas % (Auto) 13.4 H, Eos % (Auto) 0.0, Baso % (Auto) 0.2, Absolute Neuts (auto) 9.6 H, Absolute Lymphs (auto) 1.11, Nucleated RBC % 0, Diff Path Review May foll, Anisocytosis 1+, Macrocytosis 1+ 12/27/22 04:24: TSH 1.48 Radiography Diagnostic Testing: Radiology Impression Chest X-Ray 12/26/22 19:30 IMPRESSION: Question right basilar pneumonia. Electronically Signed: Juliano Mauricio DO at 19:49 EDT Reading Location ID and State: [address] [place] [address] Tel [phone], Service support , Chest CTA 12/26/22 20:58 IMPRESSION: Atelectatic changes versus infiltrate in the posterior right lower lobe. The study is otherwise unremarkable. Electronically Signed: Juliano Mauricio DO at 21:28 EDT Reading Location ID and State: [employer] / [place] Tel [phone], Service support , Physical Exam Narrative General: Alert, oriented, no apparent distress HEENT: Atraumatic, normocephalic Eyes: Anicteric, normal conjunctiva, extraocular movements grossly intact Neck: Supple Respiratory: Diffuse wheezes, component of conversational dyspnea Cardiovascular: Regular rate, appears fib/flutter GI: Soft, nontender, nondistended Extremities: No edema Musculoskeletal: Moving all extremities Neuro: No overt focal neurological deficits Skin: No rashes appreciated Psych: Cooperative Assessment & Plan Assessment/Plan (1) Atrial flutter with rapid ventricular response: PLAN: Plan #New onset a flutter with RVR -Rate control with diltiazem. Initial on diltiazem drip and amio and this is being cross titrated with oral diltiazem, amio has been discontinued -There had been concern especially given his chest pain that there may be a component of pericarditis so he had been started on high-dose ibuprofen and PPI but ibuprofen discontinued per cardiology recommendations for low suspicion -Trops unremarkable -D-dimer very mildly elevated at 0.71 so CTA obtained which demonstrated some atelectatic changes versus infiltrate posterior right lower lobe but otherwise unremarkable -Last echocardiogram 04/16/2021 with EF of 55%, PASP 24, stage I diastolic dysfunction -Repeat echo ordered which showed mild global left ventricular systolic dysfunction with an EF of 40%, moderately dilated right ventricle with mild to moderate global right ventricular systolic dysfunction. -Cardiology consulted and noted CHADS2-VASc score of 2 and recommended anticoagulation, patient started on Eliquis #Shortness of breath -Patient has diffuse wheezing and shortness of breath despite his heart rate now under control -Has borderline EF but does not appear volume overloaded -Has a significant smoking history and quit 1 week ago, suspect underlying COPD and he reports he has been told he has this in the past -We will start ipratropium nebs so as not to exacerbate heart rate with albuterol and may need inhaler on discharge and will provide information to follow-up with pulmonology for further work-up and management of COPD -CTA obtained on admissions which was negative for PE but did demonstrate some atelectatic changes versus infiltrate posterior right lower lobe. Patient has not had any increased cough or sputum production only increased shortness of breath and wheezing, will hold off on antibiotics at this time and treat with inhaler with a low threshold for antibiotics and further work-up for pneumonia if not improving #Concern for coronary artery disease -Seen incidentally on CT scan, outpatient pharmacologic stress test recommended #DVT ppx: eliquis Kaila Willingham, MD Time spent in the patient's overall evaluation,decision-making process, review of diagnostic data, adjustment of management, discussion with other providers, nursing nursing and ancillary staff involved in patient's care documentation, 30 minutes Charges/Coding Visit Charges Inpatient E&M: 46957 Subs Hosp L2
--- NOTE | 2022-12-27 09:54 | PCM.CONS.C ---
Assessment & Plan Assessment/Plan (1) Atrial flutter: PLAN: Patient's CHADS2?VASc score is 2. Recommend oral anticoagulation. Start on Eliquis. Start on p.o. diltiazem. Stop amiodarone. For rate control with diltiazem. An echo has already been ordered for the patient. Recommend pharmacological stress test as outpatient. (2) Coronary artery disease: PLAN: Coronary calcifications noted as an incidental finding on her CT scan of the chest. Recommend pharmacological stress test to evaluate for physiological significance. Please see above. Check lipid profile. (3) COPD (chronic obstructive pulmonary disease): PLAN: Bilateral wheezing. Per patient, he has been told in the past by his doctor that he probably has COPD. Consider pulmonology consult. (4) Pleuritic chest pain: PLAN: No pericardial friction rub. Doubt that the patient has pericarditis. HPI Consult Data Date of Consult: 12/27/22 HPI Narrative Reason for Consultation: Atrial flutter HPI Narrative: This gentleman presented to the hospital with chest congestion and palpitations. Patient denies any previous cardiac history. Denies any angina with exertion. According to him, he has been having chest pain with deep inspiration. Denies any recent fevers or chills. No recent viral illness. No orthopnea. No PND. No ankle edema. Patient was noted to have atrial flutter with rapid ventricular response in the emergency room. He has since been started on amiodarone and diltiazem infusions. Presently feels better but still having some pleuritic chest discomfort. [facility] Medical History Diverticulosis Hydrocele Obesity Right bundle branch block (RBBB) with left anterior fascicular block Home Medications omega-3 fatty acids 1,000 mg capsule (Fish Oil Concentrate) 1,000 mg PO DAILY 03/21/21 [History Last Taken Unknown] vitamins A,C,H-gboi-ioyvpk 4,296 mcg-226 mg-90 mg capsule (PreserVision AREDS) 1 cap PO BID 03/21/21 [History Last Taken Unknown] triamcinolone acetonide 0.1 % topical cream 1 applic topical DAILY 12/26/22 [History Last Taken Unknown] Allergy/AdvReac Type Severity Reaction Status Date / Time No Known Allergies Allergy Verified 12/26/22 19:24 Family History Father CAD (coronary artery disease) CABG Brother CAD (coronary artery disease), Onset Age: 56 stents Surgical History H/O total colectomy History of appendectomy Social History Smoking Status: Former smoker quit date: 05/28/20 pack-years: 45 alcohol intake: current alcohol intake frequency: other Alcohol type: beer substance use type: marijuana Physical Exam Narrative Comfortable. No apparent distress. Heart sounds 1 and 2 are noted. No murmurs or rubs are noted. Chest examination shows bilateral mild wheezing. Abdomen soft. Alert oriented x3. No ankle edema noted. Risk Stratification Risk Stratification Applicable: No Objective Data Vital Signs: Vital Signs Temp Pulse Resp BP Pulse Ox O2 Del Method O2 Flow Rate 98.2 F 76 20 H 100/69 94 Room Air 2 12/27/22 00:36 12/27/22 07:00 12/27/22 07:00 12/27/22 07:00 12/27/22 07:20 12/27/22 09:35 12/26/22 23:00 Oxygen Flow Rate (L/min) 2 Oxygen Delivery Method Room Air Weight: 212 lb 1.355 oz Body Mass Index (BMI) 30.4 Intake & Output: Intake and Output for Last 24 Hours 12/25/22 12/26/22 12/27/22 23:59 23:59 23:59 Intake Total 10.25 / 27.50 418.39 / 418.39 Output Total 0 / 0 Balance 10.25 / 27.50 418.39 / 418.39 Lab / Micro Data Result Diagrams: 12/27/22 04:24 12/26/22 19:25 Labs: Laboratory Results - last 24 hr 12/26/22 19:25: WBC 12.8 H, RBC 4.75, Hgb 15.3, Hct 47.9, MCV 100.8 H, MCH 32.2 H, MCHC 31.9 L, RDW Std Deviation 55.1 H, RDW Coeff of Jessica 14.6, Plt Count 225, MPV 8.5, Immature Gran % (Auto) 0.500, Neut % (Auto) 75.2 H, Lymph % (Auto) 13.2 L, [place] % (Auto) 10.6 H, Eos % (Auto) 0.3, Baso % (Auto) 0.2, Absolute Neuts (auto) 9.6 H, Absolute Lymphs (auto) 1.68, Nucleated RBC % 0 12/26/22 19:25: PT 14.3, INR 1.1 12/26/22 19:25: Sodium 142, Potassium 4.1, Chloride 108 H, Carbon Dioxide 28.0, Anion Gap 6, BUN 12, Creatinine 1.14, Estim Creat Clear Calc 61.37, Est GFR (MDRD) Af Amer 81, Est GFR (MDRD) Non-Af 67, BUN/Creatinine Ratio 10.5, Glucose 119 H, Calcium 9.0, Troponin I High Sens 33 12/26/22 19:25: D-Dimer Quant (PE/DVT) 0.75 H* 12/26/22 21:47: Troponin I High Sens 35 12/27/22 04:24: WBC 12.5 H, RBC 4.49 L, Hgb 14.3, Hct 45.3, MCV 100.9 H, MCH 31.8, MCHC 31.6 L, RDW Std Deviation 55.5 H, RDW Coeff of Jessica 14.8 H, Plt Count 214, MPV 9.0, Immature Gran % (Auto) 0.300, Neut % (Auto) 77.2 H, Lymph % (Auto) 8.9 L, [place] % (Auto) 13.4 H, Eos % (Auto) 0.0, Baso % (Auto) 0.2, Absolute Neuts (auto) 9.6 H, Absolute Lymphs (auto) 1.11, Nucleated RBC % 0, Diff Path Review May foll, Anisocytosis 1+, Macrocytosis 1+ 12/27/22 04:24: TSH 1.48 Cardiology Labs/Tests 12/26/22 19:25: WBC 12.8 H, RBC 4.75, Hgb 15.3, Hct 47.9, MCV 100.8 H, MCH 32.2 H, MCHC 31.9 L, Plt Count 225, MPV 8.5, Immature Gran % (Auto) 0.500, Neut % (Auto) 75.2 H, Lymph % (Auto) 13.2 L, [place] % (Auto) 10.6 H, Eos % (Auto) 0.3, Baso % (Auto) 0.2, Absolute Neuts (auto) 9.6 H, Nucleated RBC % 0 12/26/22 19:25: PT 14.3, INR 1.1 12/26/22 19:25: Sodium 142, Potassium 4.1, Chloride 108 H, Carbon Dioxide 28.0, Anion Gap 6, BUN 12, Creatinine 1.14, Est GFR (MDRD) Af Amer 81, Est GFR (MDRD) Non-Af 67, BUN/Creatinine Ratio 10.5, Glucose 119 H, Calcium 9.0 12/26/22 19:25: D-Dimer Quant (PE/DVT) 0.75 H* 12/27/22 04:24: WBC 12.5 H, RBC 4.49 L, Hgb 14.3, Hct 45.3, MCV 100.9 H, MCH 31.8, MCHC 31.6 L, Plt Count 214, MPV 9.0, Immature Gran % (Auto) 0.300, Neut % (Auto) 77.2 H, Lymph % (Auto) 8.9 L, [place] % (Auto) 13.4 H, Eos % (Auto) 0.0, Baso % (Auto) 0.2, Absolute Neuts (auto) 9.6 H, Nucleated RBC % 0 Rhythm: EKG: ECHO: Stress Test: Cardiac Cath: PCI: CT Surgery: Holter monitor: EPS: PPM: CXR: Chest CT Scan: Radiography Diagnostic Testing: Radiology Impression Chest X-Ray 12/26/22 19:30 IMPRESSION: Question right basilar pneumonia. Electronically Signed: Juilano Mauricio DO at 19:49 EDT Reading Location ID and State: [place] / [place] Tel [phone], Service support , Chest CTA 12/26/22 20:58 IMPRESSION: Atelectatic changes versus infiltrate in the posterior right lower lobe. The study is otherwise unremarkable. Electronically Signed: Juliano Mauricio DO at 21:28 EDT Reading Location ID and State: [place] / [place] Tel [phone], Service support ,
[2022-12-27] MEDS: Multivitamin (Healthy Eyes) Capsule 1 CAP PO ×2 (10:00→23:04)
[2022-12-27] MEDS: Enoxaparin 40 MG/0.4 ML Syringe SC (10:00)
[2022-12-27] MEDS: Pantoprazole Sodium 40 MG Tablet PO (10:00)
--- NOTE | 2022-12-27 10:30 | CASEMGMT ---
RN ELIAS Face to Face with patient for initial transition planning/care coordination assessment. RN CM introduced self and role at [facility]. Patient lying in bed, alert and oriented. Patient willing to participate in assessment and is able to answer all questions appropriately. Care providers, pharmacy, and demographics verified. Patient wishes to discharge home, denies need for home health at this time. Patient states he has no further needs or concerns at this time. CM to follow for discharge planning needs that may arise. PCP: [facility] [place] Specialists: Ava Patino Pharmacy: [facility] Insurance: [facility], [employer] Prescription Benefit: yes Living Will/HPOA: none LNOK: daughter Living Arrangements: Patient lives alone in a 2 story home. Patient is independent and able to ambulate the stairs. Transportation: self, daughter DME/HHC: Patient denies DME in the home. No previous HHC or SNF. Disposition Plan: Patient to discharge home with family support and follow-up plans in place. Nita MARTINEZ, RN, CM
[2022-12-27] MEDS: dilTIAZem 60 MG Tablet PO ×2 (10:48→23:03)
[2022-12-27] MEDS: APIXABAN 5 MG TABLET PO ×2 (10:48→23:04)
[2022-12-27 11:04] LABS: Cholesterol 129 mg/dL (200); High Density Lipoprotein 35 mg/dL; Triglycerides 67 mg/dL; Very Low Density Lipoprotein 13 mg/dL (5-40)
[2022-12-27 14:07] LABS: Pathologist Review Reviewed
--- NOTE | 2022-12-27 14:29 | EKG12_ITS ---
Test Reason : Blood Pressure : / mmHG Vent. Rate : 073 BPM Atrial Rate : 073 BPM P-R Int : 162 ms QRS Dur : 146 ms QT Int : 412 ms P-R-T Axes : 055 -67 -02 degrees QTc Int : 453 ms Normal sinus rhythm Right bundle branch block Left anterior fascicular block Bifascicular block T wave abnormality, consider lateral ischemia Abnormal ECG Confirmed by ANSLEY MERINO, KAYLA ([id number]), television news video editor MANA GONZALES ([id number]) on 12/31/2022 9:10:48 AM Referred By: AIME Confirmed By:KAYLA PANCHAL MD
[2022-12-27] MEDS: Ipratropium 0.5 MG/2.5 ML SOLUTION INHALATION (18:44)
[2022-12-28] VITALS (14 sets, daily range): BP systolic 105–119; BP diastolic 50–85; PULSE 46–134; RESP 16–18; TEMP 36.6–37.2; O2SAT 93–97
[2022-12-28] MEDS: dilTIAZem 60 MG Tablet PO ×4 (03:50→23:34)
[2022-12-28 05:29] LABS: Absolute Lymphocyte Count 1.31 X10^3/uL (0.83-4.51); Absolute Neutrophil Count 7.3 X10^3/uL (2.0-7.7); Basophil# 0.02 X10^3/uL; Basophil% 0.2 % (0-1); Eosinophil# 0.07 X10^3/uL; Eosinophils% 0.7 % (0-5); Hematocrit 41.4 % (40-54); Hemoglobin 13.5 g/dL (13.0-16.5); Lymphocyte # 1.31 X10^3/ul (0.83-4.51); Lymphocyte % 12.7 % (19-41); Mean Corp Hgb Conc 32.6 g/dL (32-36); Mean Corpuscular Hgb 32.5 pg (27.0-32.0); Mean Corpuscular Volume 99.5 fL (80-94); Mean Platelet Vol. 8.2 fl (6.2-12.0); Monocyte# 1.54 X10^3/uL; NRBC Flagged by Analyzer 0 % (0-5); Neutrophil # 7.32 X10^3/uL (2.7-7.7); Neutrophil % 71.1 % (47-70); POSITIVE DIFFERENTIAL YES; Platelet Count 184 K/mm3 (150-450); RBC Distribution Width CV 14.7 % (11.6-14.6); RBC Distribution Width SD 54.4 fl (35.1-43.9); Red Blood Count 4.16 M/mm3 (4.6-6.2); White Blood Count 10.3 K/mm3 (4.4-11.0)
[2022-12-28 05:48] LABS: Anion Gap 5 (5-15); BUN 16 mg/dL (7-18); BUN/Creat Ratio 15.5 RATIO (10-20); Calcium,Total 8.8 mg/dL (8.5-10.1); Chloride 106 mmol/L (98-107); Creatinine, Serum 1.03 mg/dL (0.70-1.30); EST Glomerular Filtration Rate 76 mL/min (>60); Est Glom Filt Rate - Afr Amer 91 mL/min (>60); Estimated Creatinine Clearance 67.92 ml/min; Glucose 106 mg/dL (74-106); Sodium Level 137 mmol/L (136-145)
[2022-12-28 05:55] LABS: Differential Indicated SCAN CRITERIA MET
[2022-12-28 05:58] LABS: Differential Comment SCANNED
[2022-12-28] MEDS: Ipratropium 0.5 MG/2.5 ML SOLUTION INHALATION ×3 (08:14→20:03)
--- NOTE | 2022-12-28 09:40 | CASEMGMT ---
MARIA T GRIFFIN Follow-up: Face to face with pt at bedside. Pt awake, discussed Eliquis need at discharge and discount card provided to pt. Pt denies any additional discharge needs at this time. Mychal Guillaume RN CM
--- NOTE | 2022-12-28 10:26 | PCM.PN.CARD ---
Subjective Subjective Started on Independence dilators. Feels much better. Breathing improved. No chest tightness. Objective Data Vital Signs: Vital Signs Temp Pulse Resp BP Pulse Ox O2 Del Method O2 Flow Rate 98.9 F 77 16 105/79 94 Room Air 2 12/28/22 05:22 12/28/22 08:14 12/28/22 08:14 12/28/22 05:22 12/28/22 08:14 12/28/22 08:14 12/26/22 23:00 Oxygen Flow Rate (L/min) 2 Oxygen Delivery Method Room Air Weight: 212 lb 1.355 oz Body Mass Index (BMI) 30.4 Intake & Output: Intake and Output for Last 24 Hours 12/26/22 12/27/22 12/28/22 23:59 23:59 23:59 Intake Total 10.25 / 27.50 1128.71 / 1128.71 100 / 100 Output Total 850 / 850 250 / 250 Balance 10.25 / 27.50 278.71 / 278.71 -150 / -150 Lab / Micro Data Result Diagrams: 12/28/22 05:17 12/28/22 05:17 Labs: Laboratory Results - last 24 hr 12/27/22 04:24: Diff Path Review Reviewed 12/27/22 04:24: Triglycerides 67, Cholesterol 129, LDL Cholesterol 81, VLDL Cholesterol 13, HDL Cholesterol 35 L 12/28/22 05:17: WBC 10.3, RBC 4.16 L, Hgb 13.5, Hct 41.4, MCV 99.5 H, MCH 32.5 H, MCHC 32.6, RDW Std Deviation 54.4 H, RDW Coeff of Jessica 14.7 H, Plt Count 184, MPV 8.2, Immature Gran % (Auto) 0.300, Neut % (Auto) 71.1 H, Lymph % (Auto) 12.7 L, [place] % (Auto) 15.0 H, Eos % (Auto) 0.7, Baso % (Auto) 0.2, Absolute Neuts (auto) 7.3, Absolute Lymphs (auto) 1.31, Nucleated RBC % 0, Differential Comment SCANNED 12/28/22 05:17: Sodium 137, Potassium 4.0, Chloride 106, Carbon Dioxide 26.0, Anion Gap 5, BUN 16, Creatinine 1.03, Estim Creat Clear Calc 67.92, Est GFR (MDRD) Af Amer 91, Est GFR (MDRD) Non-Af 76, BUN/Creatinine Ratio 15.5, Glucose 106, Calcium 8.8 Rhythm Strip Rhythm Strip: A-fib Cardiology Labs/Tests 12/27/22 04:24: Triglycerides 67, Cholesterol 129, LDL Cholesterol 81, VLDL Cholesterol 13, HDL Cholesterol 35 L 12/28/22 05:17: WBC 10.3, RBC 4.16 L, Hgb 13.5, Hct 41.4, MCV 99.5 H, MCH 32.5 H, MCHC 32.6, Plt Count 184, MPV 8.2, Immature Gran % (Auto) 0.300, Neut % (Auto) 71.1 H, Lymph % (Auto) 12.7 L, [place] % (Auto) 15.0 H, Eos % (Auto) 0.7, Baso % (Auto) 0.2, Absolute Neuts (auto) 7.3, Nucleated RBC % 0 12/28/22 05:17: Sodium 137, Potassium 4.0, Chloride 106, Carbon Dioxide 26.0, Anion Gap 5, BUN 16, Creatinine 1.03, Est GFR (MDRD) Af Amer 91, Est GFR (MDRD) Non-Af 76, BUN/Creatinine Ratio 15.5, Glucose 106, Calcium 8.8 Rhythm: EKG: ECHO: Stress Test: Cardiac Cath: PCI: CT Surgery: Holter monitor: EPS: PPM: CXR: Chest CT Scan: Radiography Diagnostic Testing: Radiology Impression Echocardiogram 12/26/22 23:38 Interpretation Summary Mild global left ventricular systolic dysfunction. The left ventricular ejection fraction is 40 %. Moderately dilated right ventricle. Mild to moderate global right ventricular systolic dysfunction. The left atrium is mildly enlarged. The right atrium is mildly enlarged. Mild (1+) mitral valve insufficiency. Mild tricuspid valve insufficiency. Ordering Physician: Neo Mckeon Performed By: Margret Khanna RDCS Physical Exam Narrative Comfortable. No apparent distress. Heart sounds 1 and 2 are noted. Irregularly irregular. No murmurs or rubs are noted. Chest examination shows bilateral minimal wheezing. Abdomen soft. Alert oriented x3. No ankle edema noted. Assessment & Plan Assessment/Plan (1) Paroxysmal atrial fibrillation: PLAN: Back in atrial fibrillation. Continue diltiazem. Start low-dose metoprolol. Continue Eliquis. Discussed with patient. He agrees with the plan for chronic oral anticoagulation. (2) Cardiomyopathy: PLAN: Start on low-dose beta-blockers and COREY inhibitors. Presently not volume overloaded. Will need coronary angiography versus stress test as outpatient. (3) Coronary artery disease: PLAN: Coronary calcifications noted as an incidental finding on her CT scan of the chest. (4) COPD (chronic obstructive pulmonary disease): PLAN: Wheezing improved since starting on bronchodilators. Follow as per internal medicine.
[2022-12-28] MEDS: APIXABAN 5 MG TABLET PO ×2 (10:37→21:14)
[2022-12-28] MEDS: Metoprolol Tartrate 25 MG Tablet PO ×2 (10:37→21:15)
[2022-12-28] MEDS: Pantoprazole Sodium 40 MG Tablet PO (10:37)
[2022-12-28] MEDS: Multivitamin (Healthy Eyes) Capsule 1 CAP PO ×2 (10:37→21:15)
--- NOTE | 2022-12-28 12:30 | PN.HOSP_ITS ---
Reason for Visit Reason for Visit: Diagnoses Atherosclerotic heart disease of [place] coronary artery without angina pectoris (12/26/22) Cardiomyopathy, unspecified (12/26/22) Paroxysmal atrial fibrillation (12/26/22) Unspecified atrial flutter (12/26/22) Chronic obstructive pulmonary disease, unspecified (12/26/22) Pleurodynia (12/26/22) Subjective Subjective Still having shortness of breath but does feel the breathing treatment was helpful. No chest pain, did have increased. Overnight had metoprolol added this morning which has been helpful. Objective Data Objective Data Vital Signs: Vital Signs Temp Pulse Resp BP Pulse Ox O2 Del Method O2 Flow Rate 98.1 F 96 18 112/74 96 Room Air 2 12/28/22 10:30 12/28/22 10:37 12/28/22 10:30 12/28/22 10:37 12/28/22 10:30 12/28/22 10:30 12/26/22 23:00 Oxygen Flow Rate (L/min) 2 Oxygen Delivery Method Room Air Weight: 96.2 kg Body Mass Index (BMI) 30.4 Intake & Output: Intake and Output for Last 24 Hours 12/26/22 12/27/22 12/28/22 23:59 23:59 23:59 Intake Total 10..50 1128.71 / 1128.71 340 / 340 Output Total 850 / 850 650 / 650 Balance 10..50 278.71 / 278.71 -310 / -310 Lab / Micro Data Result Diagrams: 12/28/22 05:17 12/28/22 05:17 Labs: Laboratory Results - last 24 hr 12/27/22 04:24: Diff Path Review Reviewed 12/28/22 05:17: WBC 10.3, RBC 4.16 L, Hgb 13.5, Hct 41.4, MCV 99.5 H, MCH 32.5 H , MCHC 32.6, RDW Std Deviation 54.4 H, RDW Coeff of Jessica 14.7 H, Plt Count 184, MPV 8.2, Immature Gran % (Auto) 0.300, Neut % (Auto) 71.1 H, Lymph % (Auto) 12.7 L, [place] % (Auto) 15.0 H, Eos % (Auto) 0.7, Baso % (Auto) 0.2, Absolute Neuts (auto) 7.3, Absolute Lymphs (auto) 1.31, Nucleated RBC % 0, Differential Comment SCANNED 12/28/22 05:17: Sodium 137, Potassium 4.0, Chloride 106, Carbon Dioxide 26.0, Anion Gap 5, BUN 16, Creatinine 1.03, Estim Creat Clear Calc 67.92, Est GFR (MDRD) Af Amer 91, Est GFR (MDRD) Non-Af 76, BUN/Creatinine Ratio 15.5, Glucose 106, Calcium 8.8 Rhythm Strip Rhythm Strip: A-fib Physical Exam Narrative General: Alert, oriented, no apparent distress HEENT: Atraumatic, normocephalic Eyes: Anicteric, normal conjunctiva, extraocular movements grossly intact Neck: Supple Respiratory: Diffuse wheezes but slightly improved, dyspnea slightly improved Cardiovascular: Regular rate, appears fib/flutter GI: Soft, nontender, nondistended Extremities: No edema Musculoskeletal: Moving all extremities Neuro: No overt focal neurological deficits Skin: No rashes appreciated Psych: Cooperative Assessment & Plan Assessment/Plan (1) Atrial flutter with rapid ventricular response: PLAN: Plan #New onset a flutter with RVR -Rate control with diltiazem. Initial on diltiazem drip and amio and this is being cross titrated with oral diltiazem, amio has been discontinued -There had been concern especially given his chest pain that there may be a component of pericarditis so he had been started on high-dose ibuprofen and PPI but ibuprofen discontinued per cardiology recommendations for low suspicion -Trops unremarkable -D-dimer very mildly elevated at 0.71 so CTA obtained which demonstrated some atelectatic changes versus infiltrate posterior right lower lobe but otherwise unremarkable -Last echocardiogram 04/16/2021 with EF of 55%, PASP 24, stage I diastolic dysfunction -Repeat echo ordered which showed mild global left ventricular systolic dysfunction with an EF of 40%, moderately dilated right ventricle with mild to moderate global right ventricular systolic dysfunction. -Cardiology consulted and noted CHADS2-VASc score of 2 and recommended anticoagulation, patient started on Eliquis -12/28: Tolerating Eliquis, did have elevated heart rates overnight despite Cardizem 60 every 6 and had metoprolol 25 twice daily added which is improved. Discussed with cardiology, will monitor today given medication changes and reevaluate how he is doing tomorrow. #Cardiomyopathy -Unclear etiology, could be ischemic or rate dependent versus other etiology -12/27/2022 echocardiogram with mild global left ventricular systolic dysfunction EF of 40% -Stress test versus heart cath in the future -On Cardizem, metoprolol and lisinopril added to medications -Does not appear overloaded so have not started any diuretics #Shortness of breath -Patient has diffuse wheezing and shortness of breath despite his heart rate now under control -Has borderline EF but does not appear volume overloaded -Has a significant smoking history and quit 1 week ago, suspect underlying COPD and he reports he has been told he has this in the past -We will start ipratropium nebs so as not to exacerbate heart rate with albuterol and may need inhaler on discharge and will provide information to follow-up with pulmonology for further work-up and management of COPD -CTA obtained on admissions which was negative for PE but did demonstrate some atelectatic changes versus infiltrate posterior right lower lobe. Patient has not had any increased cough or sputum production only increased shortness of breath and wheezing, will hold off on antibiotics at this time and treat with inhaler with a low threshold for antibiotics and further work-up for pneumonia if not improving -12/28: Again verified no increased cough or sputum production, responded to ipratropium but does still have wheezing, will give trial of albuterol not metoprolol's been added in regards to heart rate as he will likely need albuterol rescue upon discharge. If he continues to have difficulties after receiving both may need steroids. Discussed importance of outpatient follow-up and patient verbalizes understanding #Concern for coronary artery disease -Seen incidentally on CT scan, outpatient pharmacologic stress test versus cardiac cath -Lipid panel with LDL of 81 and HDL of 32 and total cholesterol of 129 #DVT ppx: zhen Willingham MD Time spent in the patient's overall evaluation,decision-making process, review of diagnostic data, adjustment of management, discussion with other providers, nursing nursing and ancillary staff involved in patient's care documentation, 30 minutes Charges/Coding Visit Charges Inpatient E&M: 30531 Subs Hosp L2
[2022-12-28] MEDS: Albuterol 2.5 MG/3 ML VIAL.NEB. INHALATION (20:03)
[2022-12-28] MEDS: Lisinopril 2.5 MG Tablet PO (21:16)
[2022-12-29 03:18] VITALS: BP 95/59; PULSE 71; RESP 16; TEMP 36.7; O2SAT 95
[2022-12-29] MEDS: dilTIAZem 60 MG Tablet PO (06:51)
[2022-12-29 06:52] LABS: Absolute Lymphocyte Count 1.48 X10^3/uL (0.83-4.51); Absolute Neutrophil Count 5.5 X10^3/uL (2.0-7.7); Basophil# 0.02 X10^3/uL; Basophil% 0.3 % (0-1); Eosinophil# 0.15 X10^3/uL; Eosinophils% 1.9 % (0-5); Hematocrit 41.1 % (40-54); Hemoglobin 13.5 g/dL (13.0-16.5); Lymphocyte # 1.48 X10^3/ul (0.83-4.51); Lymphocyte % 18.5 % (19-41); Mean Corp Hgb Conc 32.8 g/dL (32-36); Mean Corpuscular Hgb 32.3 pg (27.0-32.0); Mean Corpuscular Volume 98.3 fL (80-94); Monocyte# 0.86 X10^3/uL; Monocyte% 10.8 % (0-10); NRBC Flagged by Analyzer 0 % (0-5); Neutrophil # 5.46 X10^3/uL (2.7-7.7); Neutrophil % 68.1 % (47-70); Platelet Count 207 K/mm3 (150-450); RBC Distribution Width CV 14.6 % (11.6-14.6); RBC Distribution Width SD 53.1 fl (35.1-43.9); Red Blood Count 4.18 M/mm3 (4.6-6.2)
[2022-12-29 07:06] LABS: Anion Gap 4 (5-15); BUN 16 mg/dL (7-18); BUN/Creat Ratio 15.4 RATIO (10-20); Calcium,Total 8.5 mg/dL (8.5-10.1); Chloride 105 mmol/L (98-107); Creatinine, Serum 1.04 mg/dL (0.70-1.30); EST Glomerular Filtration Rate 75 mL/min (>60); Est Glom Filt Rate - Afr Amer 90 mL/min (>60); Estimated Creatinine Clearance 67.27 ml/min; Glucose 102 mg/dL (74-106); Sodium Level 138 mmol/L (136-145)
[2022-12-29] MEDS: Ipratropium 0.5 MG/2.5 ML SOLUTION INHALATION (07:29)
[2022-12-29 07:30] VITALS: BP 115/54; PULSE 78; PULSE 89; RESP 14; RESP 18; TEMP 36.8; O2SAT 94; O2SAT 96
[2022-12-29] MEDS: Multivitamin (Healthy Eyes) Capsule 1 CAP PO (08:39)
[2022-12-29] MEDS: Pantoprazole Sodium 40 MG Tablet PO (08:39)
[2022-12-29] MEDS: APIXABAN 5 MG TABLET PO (08:39)
[2022-12-29 09:15] VITALS: BP 119/75; PULSE 79
[2022-12-29] MEDS: Metoprolol Tartrate 25 MG Tablet PO (09:15)
--- NOTE | 2022-12-29 11:01 | PCM.PN.CARD ---
Subjective Subjective Feels good. No complaints. Objective Data Vital Signs: Vital Signs Temp Pulse Resp BP Pulse Ox O2 Del Method O2 Flow Rate 98.2 F 79 14 119/75 96 Room Air 2 12/29/22 07:30 12/29/22 09:15 12/29/22 07:30 12/29/22 09:15 12/29/22 07:30 12/29/22 08:08 12/26/22 23:00 Oxygen Flow Rate (L/min) 2 Oxygen Delivery Method Room Air Weight: 212 lb 1.355 oz Body Mass Index (BMI) 30.4 Intake & Output: Intake and Output for Last 24 Hours 12/27/22 12/28/22 12/29/22 23:59 23:59 23:59 Intake Total 1128.71 / 1128.71 640 / 880 540 / 540 Output Total 850 / 850 1050 / 1650 1000 / 1000 Balance 278.71 / 278.71 -410 / -770 -460 / -460 Lab / Micro Data Result Diagrams: 12/29/22 05:57 12/29/22 05:57 Labs: Laboratory Results - last 24 hr 12/29/22 05:57: WBC 8.0, RBC 4.18 L, Hgb 13.5, Hct 41.1, MCV 98.3 H, MCH 32.3 H, MCHC 32.8, RDW Std Deviation 53.1 H, RDW Coeff of Jessica 14.6, Plt Count 207, MPV 9.0, Immature Gran % (Auto) 0.400, Neut % (Auto) 68.1, Lymph % (Auto) 18.5 L, [place] % (Auto) 10.8 H, Eos % (Auto) 1.9, Baso % (Auto) 0.3, Absolute Neuts (auto) 5.5, Absolute Lymphs (auto) 1.48, Nucleated RBC % 0 12/29/22 05:57: Sodium 138, Potassium 4.0, Chloride 105, Carbon Dioxide 29.0, Anion Gap 4 L, BUN 16, Creatinine 1.04, Estim Creat Clear Calc 67.27, Est GFR (MDRD) Af Amer 90, Est GFR (MDRD) Non-Af 75, BUN/Creatinine Ratio 15.4, Glucose 102, Calcium 8.5 Rhythm Strip Rhythm Strip: A-fib Cardiology Labs/Tests 12/29/22 05:57: WBC 8.0, RBC 4.18 L, Hgb 13.5, Hct 41.1, MCV 98.3 H, MCH 32.3 H, MCHC 32.8, Plt Count 207, MPV 9.0, Immature Gran % (Auto) 0.400, Neut % (Auto) 68.1, Lymph % (Auto) 18.5 L, [place] % (Auto) 10.8 H, Eos % (Auto) 1.9, Baso % (Auto) 0.3, Absolute Neuts (auto) 5.5, Nucleated RBC % 0 12/29/22 05:57: Sodium 138, Potassium 4.0, Chloride 105, Carbon Dioxide 29.0, Anion Gap 4 L, BUN 16, Creatinine 1.04, Est GFR (MDRD) Af Amer 90, Est GFR (MDRD) Non-Af 75, BUN/Creatinine Ratio 15.4, Glucose 102, Calcium 8.5 Rhythm: EKG: ECHO: Stress Test: Cardiac Cath: PCI: CT Surgery: Holter monitor: EPS: PPM: CXR: Chest CT Scan: Physical Exam Narrative Comfortable. No distress. Heart sounds 1 and 2 noted. Irregularly irregular. Chest clear to auscultation bilaterally. Abdomen soft. Alert oriented x3. No ankle edema. Assessment & Plan Assessment/Plan (1) Paroxysmal atrial fibrillation: PLAN: Atrial flutter/fibrillation. Ventricular rate controlled. Change diltiazem to long-acting. Continue beta-blockers. Continue Eliquis. (2) Cardiomyopathy: PLAN: Started on low-dose beta-blockers and COREY inhibitors. Presently not volume overloaded. Will need coronary angiography versus stress test as outpatient. (3) Coronary artery disease: PLAN: Coronary calcifications noted as an incidental finding on her CT scan of the chest. (4) COPD (chronic obstructive pulmonary disease): PLAN: Wheezing improved since starting on bronchodilators. Follow as per internal medicine. PLAN: Plan May discharge home today from cardiology standpoint. Follow-up as outpatient.
--- NOTE | 2022-12-29 11:35 | PCM.DC ---
Discharge Instructions Diet Discharge Diet: - (DASH diet) Activity Discharge Activity: Return to Normal Activity Follow Up Care Test Results: Test results from this visit will be discussed in further detail at your follow-up appointment, if applicable. Discharge Plan Admission Admit Date/Time: 12/26/22 22:14 Primary Reason for Your Visit: Shortness of breath Attending Provider: Kaila Willingham Primary Care Provider: Care Physician,No Primary Consulting Providers: Neo Mckeon ; Yisel Arshad ; Allison Silvestre ; Reilly Garcia ; Tk Rm ; Roger Love ; Rajesh Busby ; Neo Anderson ; Don Nicolas ; Nakul Johnson ; Willow Calderon ; Valerie Sims ; Ned Collazo ; João David ; Jeronimo Valle ; Reynaldo Jerez HYDRAULIC MODELING ENGINEER ; Yisel Smiley HYDRAULIC MODELING ENGINEER ; Jeannie Richardson PA Instructions Patient Instructions: ED Atrial Flutter Additional Instructions / Restrictions: DISCHARGE INSTRUCTIONS PLEASE READ *Please take this with you to your next doctors appointment* -Please follow-up with cardiology upon discharge. Please call their office to schedule hospital follow-up appointment upon discharge. You will need either stress test or heart catheterization moving forward and this can be coordinated through their office -You have been started on a blood thinner for your abnormal heart rhythm, atrial flutter, and you have also been started on a medication called diltiazem as well as metoprolol to help with your heart rate and lisinopril to help with your heart health and an aspirin was added. -You will be discharged with an inhaler to use routinely and another to use as needed and would recommend following up with pulmonology upon discharge for evaluation for COPD with pulmonary function tests and management. Please call their office upon discharge to schedule an establish care appointment. -You have indicated that throughout your life you have had problems with feeling like something sticks in the back of her throat, please discuss this with your primary care physician as well as he may need further evaluation or swallow study on outpatient basis -Please call your primary care provider's office upon discharge to schedule a hospital follow up within 1 week. -If you do not have a primary care physician of list of local primary care physicians can be provided for you upon discharge. Please ask for this list prior to discharge -For any concerning signs or symptoms please call 911 or proceed to the nearest emergency department Discharge Orders/Prescriptions Prescriptions: New Spiriva Respimat 2.5 mcg/actuation mist 2 puff inhalation DAILY Qty: 4 0RF albuterol sulfate [Ventolin HFA] 90 mcg/actuation HFA aerosol inhaler 1 puff inhalation Q6H PRN (Reason: shortness of breath or wheezing) Qty: 8.5 0RF Rx Instructions: 1-2 puffs q6hr prn shortness of breath or wheezing diltiazem HCl 240 mg Capsule,Extended Release 24hr 240 mg PO DAILY 30 Days Qty: 30 0RF lisinopril 2.5 mg Tablet 2.5 mg PO QHS 30 Days Qty: 30 0RF metoprolol tartrate 25 mg Tablet 25 mg PO BID 30 Days Qty: 60 0RF Eliquis 5 mg Tablet 5 mg PO BID 30 Days Qty: 60 0RF aspirin 81 mg capsule 81 mg PO DAILY Qty: 30 0RF Continued omega-3 fatty acids [Fish Oil Concentrate] 1,000 mg capsule 1,000 mg PO DAILY PreserVision AREDS [id number] capsule 1 cap PO BID triamcinolone acetonide 0.1 % cream 1 applic TOPICAL DAILY Referrals / Follow Up: [facility] [Provider Group] - See Referral Note (It is recommended you call the [place] pulmonology office to schedule an appointment to establish care for evaluation and possible treatment for COPD) Allison Silvestre MD [Med Staff - Active Staff] - Within 1 Month (Please follow-up with cardiology upon discharge. Please call their office to schedule hospital follow-up appointment upon discharge.) Care Physician,No Primary [Primary Care Provider] - Within 1 Week (-If you do not have a primary care physician of list of local primary care physicians can be provided for you upon discharge. Please ask for this list prior to discharge) Disposition Disposition (needs filled in before D/C Order can be placed): Home, Self Care
--- NOTE | 2022-12-29 11:46 | DS.PCM_ITS ---
Providers Date of Admission: 12/26/22 Date of Discharge: 12/29/22 Primary Care Physician: [facility] in [place] Consultations 12/26/22 23:20 Consult: Cardiology Routine Consulting Provider: [facility] Reason for Consult: atrial flutter with rvr EMERGENT Consult: No MD Notified: Yes Date Notified: 12/26/22 Time Notified: 06:23 Method of Notification: Text Reason For Visit: AFLUTTER W RVR Diagnosis Discharge Diagnosis (1) Paroxysmal atrial fibrillation: Status: Acute Code(s): I48.0 - Paroxysmal atrial fibrillation (2) Cardiomyopathy: Status: Acute Code(s): I42.9 - Cardiomyopathy, unspecified (3) Coronary artery disease: Status: Acute Code(s): I25.10 - Atherosclerotic heart disease of syc[place] coronary artery without angina pectoris (4) COPD (chronic obstructive pulmonary disease): Status: Chronic Code(s): J44.9 - Chronic obstructive pulmonary disease, unspecified Plan #New onset a flutter/fib with RVR #Cardiomyopathy #Shortness of breath, suspect copd #Coronary artery calcification seen on CT scan Medications at Discharge Home Medications omega-3 fatty acids 1,000 mg capsule (Fish Oil Concentrate) 1,000 mg PO DAILY 03/21/21 vitamins A,C,C-igro-ubvmfx 4,296 mcg-226 mg-90 mg capsule (PreserVision AREDS) 1 cap PO BID 03/21/21 triamcinolone acetonide 0.1 % topical cream 1 applic topical DAILY 12/26/22 albuterol sulfate 90 mcg/actuation aerosol inhaler (Ventolin HFA) 1 puff inhalation Q6H PRN shortness of breath or wheezing #8.5 grams 12/29/22 apixaban 5 mg tablet (Eliquis) 5 mg PO BID 30 days #60 tabs 12/29/22 aspirin 81 mg capsule 81 mg PO DAILY #30 caps 12/29/22 diltiazem HCl 240 mg capsule,extended release 24 hr 240 mg PO DAILY 30 days #30 caps 12/29/22 lisinopril 2.5 mg tablet 2.5 mg PO QHS 30 days #30 tabs 12/29/22 metoprolol tartrate 25 mg tablet 25 mg PO BID 30 days #60 tabs 12/29/22 tiotropium bromide 2.5 mcg/actuation mist for inhalation (Spiriva Respimat) 2 puff inhalation DAILY #4 grams 12/29/22 Hospital Course Procedures Transthoracic echo Summary of Care Provided Minutes Spent on Discharge: 40 Hospital Course: 72-year-old male with history of hydrocele presented to [facility] 12/26 after waking up with chest pain. In the ED he was found to have elevated rate and initially thought to be in SVT and was given adenosine however it slowed his heart rate enough to identify the underlying rhythm is atrial f lutter. Received IV diltiazem bolus and placed on drip. He was admitted to PCU and additionally had amiodarone drip started plan to transition to orals. Given his pain and rapid heart rate admitting physician had concern that he could have pericarditis and initiated PPI and high-dose ibuprofen and cardiology consulted. Cardiology recommended oral anticoagulation and cross titrated to p.o. dilt iazem ultimately requiring addition of metoprolol. Did have CTA of his chest on admission due to increased D-dimer which was negative for PE but did show some coronary calcifications and a stress test versus cath was recommended on an outpatient basis. Cardiology did not feel he had pericarditis and discontinued ibuprofen. Patient did additionally have significant wheezing and prolonged expiratory phase and has been told in the past that he may have COPD. His breathing did improve significantly with neb treatments. CTA demonstrated some atelectatic changes versus infiltrate posterior right lower lobe but patient did not have increased cough or sputum production and no fever or other symptoms consistent with pneumonia so he was not treated with antibiotics and did improve independent of that while treating underlying rhythm as well as his presumed COPD. Ultimately echo demonstrated mild global left ventricular dysfunction with EF of 40% and cardiology adjusted medications to try to optimize management. Ultimately heart rate brought under control and breathing improved. On day of discharge patient feeling better. Prior to discharge she did report he chronically have a feeling like pills no longer go down the back of his throat but denies any choking episodes and reports as long as he eats them with food or drinks liquid he is able to compensate for this. Given that this is not a new/acute change and he has adequate compensatory mechanisms do not think he needs to stay inpatient for swallow eval and feel this can be done on an outpatient basis with PCP if they find this applicable, discussed with this patient and he was agreeable and felt comfortable going home. Discharge instructions as follows: DISCHARGE INSTRUCTIONS PLEASE READ *Please take this with you to your next doctors appointment* -Please follow-up with cardiology upon discharge.? Please call their office to schedule hospital follow-up appointment upon discharge.? You will need either stress test or heart catheterization moving forward and this can be coordinated through their office -You have been started on a blood thinner for your abnormal heart rhythm, atrial flutter, and you have also been started on a medication called diltiazem as well as metoprolol to help with your heart rate and lisinopril to help with your heart health and an aspirin was added. -You will be discharged with an inhaler to use routinely and another to use as needed and would recommend following up with pulmonology upon discharge for evaluation for COPD with pulmonary function tests and management.? Please call their office upon discharge to schedule an establish care appointment. -You have indicated that throughout your life you have had problems with feeling like something sticks in the back of her throat, please discuss this with your primary care physician as well as he may need further evaluation or swallow study on outpatient basis -Please call your primary care provider's office upon discharge to schedule a hospital follow up within 1 week. -If you do not have a primary care physician of list of local primary care physicians can be provided for you upon discharge.? Please ask for this list prior to discharge -For any concerning signs or symptoms please call 911 or proceed to the nearest emergency department Physical Exam Narrative General: Alert, oriented, no apparent distress HEENT: Atraumatic, normocephalic Eyes: Anicteric, normal conjunctiva, extraocular movements grossly intact Neck: Supple Respiratory: Wheezing and dyspnea significantly improved Cardiovascular: Regular rate, appears fib/flutter GI: Soft, nontender, nondistended Extremities: No edema Musculoskeletal: Moving all extremities Neuro: No overt focal neurological deficits Skin: No rashes appreciated Psych: Cooperative Weight / BMI Weight Weight: 96.2 kg Body Mass Index (BMI) 30.4 ABG / Lab / Microbiology Data Result Diagrams: 12/29/22 05:57 12/29/22 05:57 Laboratory: Laboratory Results - last 24 hr 12/29/22 05:57: WBC 8.0, RBC 4.18 L, Hgb 13.5, Hct 41.1, MCV 98.3 H, MCH 32.3 H, MCHC 32.8, RDW Std Deviation 53.1 H, RDW Coeff of Jessica 14.6, Plt Count 207, MPV 9.0, Immature Gran % (Auto) 0.400, Neut % (Auto) 68.1, Lymph % (Auto) 18.5 L, Moody % (Auto) 10.8 H, Eos % (Auto) 1.9, Baso % (Auto) 0.3, Absolute Neuts (auto) 5.5, Absolute Lymphs (auto) 1.48, Nucleated RBC % 0 12/29/22 05:57: Sodium 138, Potassium 4.0, Chloride 105, Carbon Dioxide 29.0, Anion Gap 4 L, BUN 16, Creatinine 1.04, Estim Creat Clear Calc 67.27, Est GFR (MDRD) Af Amer 90, Est GFR (MDRD) Non-Af 75, BUN/Creatinine Ratio 15.4, Glucose 102, Calcium 8.5 D/C Instructions Discharge Diet: - (DASH diet) Meaningful Use Info Meaningful Use Diagnoses (Choose all that apply): None applicable Discharge Plan Admission Admit Date/Time: 12/26/22 22:14 Primary Reason for Your Visit: Shortness of breath Attending Provider: Kaila Willingham Primary Care Provider: Care Physician,No Primary Consulting Providers: Neo Mckeon ; Yisel Arshad ; Allison Silvestre ; Reilly Garcia ; Tk Rm ; Roger Love ; Rajesh Busby ; Neo Anderson ; Don Nicolas ; Nakul Johnson ; Willow Calderon ; Valerie Sims ; Ned Collazo ; João David ; Jeronimo Valle ; Reynaldo Jerez PROCESSING MGR ; Yisel Smiley NP ; Jeannie Richardson PA Instructions Patient Instructions: ED Atrial Flutter Additional Instructions / Restrictions: DISCHARGE INSTRUCTIONS PLEASE READ *Please take this with you to your next doctors appointment* -Please follow-up with cardiology upon discharge. Please call their office to schedule hospital follow-up appointment upon discharge. You will need either stress test or heart catheterization moving forward and this can be coordinated through their office -You have been started on a blood thinner for your abnormal heart rhythm, atrial flutter, and you have also been started on a medication called diltiazem as well as metoprolol to help with your heart rate and lisinopril to help with your heart health and an aspirin was added. -You will be discharged with an inhaler to use routinely and another to use as needed and would recommend following up with pulmonology upon discharge for e valuation for COPD with pulmonary function tests and management. Please call their office upon discharge to schedule an establish care appointment. -You have indicated that throughout your life you have had problems with feeling like something sticks in the back of her throat, please discuss this with your primary care physician as well as he may need further evaluation or swallow study on outpatient basis -Please call your primary care provider's office upon discharge to schedule a hospital follow up within 1 week. -If you do not have a primary care physician of list of local primary care physicians can be provided for you upon discharge. Please ask for this list prior to discharge -For any concerning signs or symptoms please call 911 or proceed to the nearest emergency department Discharge Orders/Prescriptions Prescriptions: New Spiriva Respimat 2.5 mcg/actuation mist 2 puff inhalation DAILY Qty: 4 0RF albuterol sulfate [Ventolin HFA] 90 mcg/actuation HFA aerosol inhaler 1 puff inhalation Q6H PRN (Reason: shortness of breath or wheezing) Qty: 8.5 0RF Rx Instructions: 1-2 puffs q6hr prn shortness of breath or wheezing diltiazem HCl 240 mg Capsule,Extended Release 24hr 240 mg PO DAILY 30 Days Qty: 30 0RF lisinopril 2.5 mg Tablet 2.5 mg PO QHS 30 Days Qty: 30 0RF metoprolol tartrate 25 mg Tablet 25 mg PO BID 30 Days Qty: 60 0RF Eliquis 5 mg Tablet 5 mg PO BID 30 Days Qty: 60 0RF aspirin 81 mg capsule 81 mg PO DAILY Qty: 30 0RF Continued omega-3 fatty acids [Fish Oil Concentrate] 1,000 mg capsule 1,000 mg PO DAILY PreserVision AREDS [id number],[id number] hpbi-qd-epal capsule 1 cap PO BID triamcinolone acetonide 0.1 % cream 1 applic TOPICAL DAILY Referrals / Follow Up: [facility] [Provider Group] - See Referral Note (It is re commended you call the [place] pulmonology office to schedule an appointment to establish care for evaluation and possible treatment for COPD) Allison Silvestre MD [Med Staff - Active Staff] - Within 1 Month (Please follow-up with cardiology upon discharge. Please call their office to schedule hospital follow-up appointment upon discharge.) Care Physician,No Primary [Primary Care Provider] - Within 1 Week (-If you do not have a primary care physician of list of local primary care physicians can be provided for you upon discharge. Please ask for this list prior to discharge) Disposition Disposition (needs filled in before D/C Order can be placed): Home, Self Care Charges/Coding Visit Charges Inpatient E&M: 12523 Disch Hosp >30min
[2022-12-29] MEDS: dilTIAZem CD 240 MG Capsule PO (12:15)
--- NOTE | 2022-12-29 12:40 | CPS ---
Patient being discharged and did not want TX
== END 2022-12-29 13:08 | disposition home or self-care (01) | DRG 310 ==
LOC: ED 22:17 → PCU 22:31
PROVIDERS: Internal Medicine Cardiovascular Disease; Emergency Provider Student in an Organized Health Care Education/Training Program; Visit Provider Internal Medicine
DX: I48.92 Unspecified atrial flutter (principal); I42.9 Cardiomyopathy, unspecified; I48.0 Paroxysmal atrial fibrillation; J44.9 Chronic obstructive pulmonary disease, unspecified; I25.10 Atherosclerotic heart disease of native coronary artery without angina pectoris; Z87.891 Personal history of nicotine dependence; Z79.01 Long term (current) use of anticoagulants
CPT/HCPCS: 36415; 71045; 71275; 80048; 80061; 84443; 84484; 85025; 85379; 85610; 93005; 93306; 94640; 94762; 97802; 99285; 99406; Q9967; A4216; J0153; J2405

== ENCOUNTER → 2023-01-07 | Outpatient (CLI) | payer MEDICARE, OTHER, SELFPAY ==
[2023-01-07 14:07] VITALS: PULSE 100; PULSE 102; PULSE 85; PULSE 87; PULSE 94; PULSE 97; PULSE 98; PULSE 99; O2SAT 93; O2SAT 94; O2SAT 95
--- NOTE | 2023-01-07 16:23 | PCM.PSN.6M ---
PSN 6 Minute Walk Test 6 Minute Walk Test 6 Minute Walk Test: 6 Minute Walk Test PSN:6-Minute Walk Test Start: 01/07/23 14:05 Freq: Status: Active Protocol: [id number] Document 01/07/23 14:07 (Rec: 01/07/23 14:10 JR [id number]) 6 Minute Walk Test Date Performed 01/07/23 Time Performed 13:45 Height 5 ft 10 in Weight: 205 lb Weight in Pounds 205.[address]: Yohan Stanley Assistive device used: None Pre-test Oxygen Delivery Method Room Air Pulse Ox (%) 95 Pulse Rate (60-100 beats/min) 85 Dyspnea Tahmina Scale (0-10) 0.5 Exertion Tahmina Scale (6-20) 6 1st minute Oxygen Delivery Method Room Air Pulse Ox (%) 94 Pulse Rate (60-100 beats/min) 98 2nd minute Oxygen Delivery Method Room Air Pulse Ox (%) 93 Pulse Rate (60-100 beats/min) 97 3rd minute Oxygen Delivery Method Room Air Pulse Ox (%) 93 Pulse Rate (60-100 beats/min) 99 4th minute Oxygen Delivery Method Room Air Pulse Ox (%) 94 Pulse Rate (60-100 beats/min) 102 H 5th minute Oxygen Delivery Method Room Air Pulse Ox (%) 93 Pulse Rate (60-100 beats/min) 100 6th minute Oxygen Delivery Method Room Air Pulse Ox (%) 94 Pulse Rate (60-100 beats/min) 94 Dyspnea Tahmina Scale (0-10) 3 Exertion Tahmina Scale (6-20) 12 Post-test Oxygen Delivery Method Room Air Pulse Ox (%) 94 Pulse Rate (60-100 beats/min) 87 Full Laps Walked 22 Partial Lap, Number of Tiles Walked 0 Total Distance Walked (ft) 1298 Interpretation Interpretation: The patient ambulated 1290 feet over the course of 6 minutes beginning on room air without assistive devices. Pretesting oxygen saturation was noted to be 95% on room air. With ambulation, the sofy oxygen saturation was 93%. There was no significant exertional oxygen desaturation. Recommendations Recommendations: There is no indication for the use of supplemental oxygen at this time.
== END | disposition home or self-care (01) ==
LOC: PSN 13:48
PROVIDERS: PCP Nurse Practitioner Family; Referring Provider Internal Medicine Critical Care Medicine; Visit Provider Internal Medicine Critical Care Medicine
DX: J44.9 Chronic obstructive pulmonary disease, unspecified (principal)
CPT/HCPCS: 94618

== ENCOUNTER → 2023-01-16 | Outpatient (CLI) | payer MEDICARE, OTHER, SELFPAY ==
--- NOTE | 2023-01-17 05:50 | PFTCOMP_ITS ---
COMPLETE PULMONARY FUNCTION TEST INTERPRETATION Brief HPI: Patient is a 72-year-old male, currently under the care of Dr. Stanley, who presents to [facility] for complete pulmonary function tests secondary to diagnosis of COPD. Respiratory therapist reports good effort and reproducible results. Interpretation: Forced expiration spirometry shows a moderate large airways obstructive ventilatory defect with an FEV1 of 66% predicted. There is a significant bronchodilator response in FVC and FEV1 by strict ATS criteria. Spirograms are of good quality and plateau slowly, indicating slowly emptying areas of the lungs. The respiratory flow volume loop shows decreased expiratory flow rates a t all lung volumes consistent with airway obstruction. Lung volumes by body plethysmography show a decreased total lung capacity at 4.31 L, 66% predicted. All other lung volumes are reduced symmetrically. Diffusion capacity by carbon monoxide is normal at 91% predicted. The airway resistance is elevated. No previous pulmonary function tests were available for review. Impression: Partially reversible moderate mixed ventilatory defect with relatively preserved diffusion capacity
== END | disposition home or self-care (01) ==
LOC: PSN 13:13
PROVIDERS: PCP Nurse Practitioner Family; Referring Provider Internal Medicine Critical Care Medicine; Visit Provider Internal Medicine Critical Care Medicine
DX: J44.9 Chronic obstructive pulmonary disease, unspecified (principal)
CPT/HCPCS: 94060; 94726; 94729

== ENCOUNTER → 2023-02-10 | Outpatient (CLI) | payer MEDICARE, OTHER, SELFPAY ==
--- NOTE | 2023-02-11 11:02 | STRESSREP ---
Stress Test Report Date: 02/10/2023 Procedure: Pharmacologic stress nuclear imaging study Indications: Arrhythmia Consent: Per the patient Procedure: The patient underwent pharmacologic (Regadenoson 0.4mg ) evaluation with a peak heart rate of 125 beats per minute (83%predicted maximal heart rate) and a peak blood pressure of 140/82 mmHg. The baseline ECG demonstrated atrial fibrillation with right bundle branch block. The peak pharmacologic ECG demonstrated no diagnostic changes. There were no cardiac dysrhythmias pretest, during pharmacologic infusion, or recovery. There was no complaint of chest discomfort during pharmacologic infusion or recovery. The patient was injected with 14.5 millicuries of technetium 99m Cardiolite and subsequently rest SPECT Cardiolite nuclear imaging was obtained in the horizontal long, vertical long, and short axis views. The patient underwent pharmacologic (Regadenoson) evaluation. The patient was injected with 44 millicuries of technetium 99m Cardiolite and subsequently stress SPECT Cardiolite nuclear imaging was obtained in the horizontal long, vertical long, and short axis views. A gated Cardiolite study at peak stress was obtained. The examination was stopped secondary to completion of protocol. Rest and stress SPECT Cardiolite nuclear imaging status post realignment, normalization, and attenuation correction demonstrate no fixed or reversible perfusion defect. No gated images available. Impression: 1. Pharmacologic (Regadenoson) evaluation 2. Peak pharmacologic ECG with no diagnostic changes secondary to baseline abnormality. 3. Atrial flutter/fibrillation at baseline. No ventricular arrhythmias noted. 5. Rest and stress SPECT Cardiolite nuclear imaging demonstrate relative uniform tracer uptake and myocardial perfusion appearing within normal limits. 6. No gated images available. This note was generated with [employer] software. It may contain incorrect words, spelling, and punctuation that were not noted in checking the note before signing.
== END | disposition home or self-care (01) ==
LOC: CVS 07:03
PROVIDERS: PCP Nurse Practitioner Family; Referring Provider Internal Medicine Cardiovascular Disease; Visit Provider Internal Medicine Cardiovascular Disease
DX: I48.0 Paroxysmal atrial fibrillation (principal); J44.9 Chronic obstructive pulmonary disease, unspecified; I48.92 Unspecified atrial flutter; F17.211 Nicotine dependence, cigarettes, in remission; I25.10 Atherosclerotic heart disease of native coronary artery without angina pectoris; R06.00 Dyspnea, unspecified
CPT/HCPCS: 78452; 93017; A9500; A4216; J2785

== ENCOUNTER → 2023-04-02 | Outpatient (CLI) | payer MEDICARE, OTHER, SELFPAY ==
--- NOTE | 2023-04-02 10:55 | RAD_ITS ---
STUDY: X-RAY CHEST REASON FOR EXAM: Male, 72 years old. Shortness of breath. TECHNIQUE: Frontal and lateral views of the chest. COMPARISON: December 26, 2022. FINDINGS: Mild hyperinflation with minimal basilar scarring, unchanged. There is no demonstrated pleural abnormality. Stable cardiomegaly. Normal mediastinum and nickolas. Normal visualized pulmonary arteries. Normal visualized aortic arch and descending thoracic aorta. Diffuse thoracic spondylosis unchanged. Normal visualized ribs, clavicles, and shoulders. No abnormality of the visualized soft tissue structures of the upper abdomen. RAD/Chest PA and Lateral IMPRESSION: Stable chest with no acute or active cardiopulmonary disease. Electronically Signed: Eamon Juarez MD at 11:48 EDT ,
[2023-04-02 11:09] LABS: Hematocrit 50.5 % (40-54); Hemoglobin 16.1 g/dL (13.0-16.5); Mean Corp Hgb Conc 31.9 g/dL (32-36); Mean Corpuscular Hgb 31.6 pg (27.0-32.0); Mean Platelet Vol. 8.3 fl (6.2-12.0); Platelet Count 285 K/mm3 (150-450); RBC Distribution Width CV 14.2 % (11.6-14.6); RBC Distribution Width SD 52.7 fl (35.1-43.9); White Blood Count 8.9 K/mm3 (4.4-11.0)
[2023-04-02 11:30] LABS: BNP,B-Type NATRIURETIC PEPTIDE 99.4 pg/mL (0-100)
[2023-04-02 11:42] LABS: T4 Total, Thyroxin 9.3 ug/dL (4.5-12.1); Thyroid Stim Hormone (TSH) 2.25 uIU/mL (0.358-3.74)
[2023-04-03 15:16] LABS: Anion Gap 5 (5-15); BUN 16 mg/dL (7-18); BUN/Creat Ratio 12.7 RATIO (10-20); Calcium,Total 9.5 mg/dL (8.5-10.1); Chloride 108 mmol/L (98-107); Creatinine, Serum 1.26 mg/dL (0.70-1.30); EST Glomerular Filtration Rate 60 mL/min (>60); Est Glom Filt Rate - Afr Amer 72 mL/min (>60); Glucose 105 mg/dL (74-106); Potassium 4.7 mmol/L (3.5-5.1); Sodium Level 141 mmol/L (136-145)
== END | disposition home or self-care (01) ==
LOC: LAB 10:25
PROVIDERS: PCP Nurse Practitioner Family; Referring Provider Nurse Practitioner Gerontology; Visit Provider Nurse Practitioner Gerontology
DX: R53.83 Other fatigue (principal); J44.9 Chronic obstructive pulmonary disease, unspecified; I42.9 Cardiomyopathy, unspecified; I48.0 Paroxysmal atrial fibrillation; R06.02 Shortness of breath; Z79.01 Long term (current) use of anticoagulants
CPT/HCPCS: 71046; 80048; 83880; 84436; 84443; 85027

== ENCOUNTER → 2023-05-02 | Outpatient (CLI) | payer MEDICARE, OTHER, SELFPAY ==
[2023-05-02 13:25] VITALS: BP 149/80; PULSE 71; RESP 18; TEMP 36.6; O2SAT 94; BMI 30.8
[2023-05-02] MEDS: 0.9% Saline Lock 10 ML Syringe IV (13:28)
--- NOTE | 2023-05-02 13:30 | CT_ITS ---
STUDY: CT CHEST WITHOUT CONTRAST REASON FOR EXAM: Male, 73 years old. Fatigue, dyspnea. Cardiac over read examination. RADIATION DOSAGE (If Supplied By Facility): CTDIvol = ( 34.26 ) mGy, DLP = ( 1399.63 ) mGycm TECHNIQUE: Transaxial imaging was performed without the administration of intravenous contrast material. Individualized dose optimization techniques were used for this CT. COMPARISON: Comparison is made with prior examination dated December 26, 2022. FINDINGS: CHEST Mild increased markings in the peripheral lateral aspect of the right lung base suggestive of scarring. This is improved as compared to prior study. There is no demonstrated pleural abnormality. There are calcifications of the coronary arteries. Normal mediastinum. Normal hilar regions. Normal unenhanced pulmonary arteries. Normal aorta arch and descending thoracic aorta. There are degenerative changes of the thoracic spine. There is no demonstrated abnormality of the visualized upper abdomen. CT/Limited Chest CT Cardiac Only IMPRESSION: Coronary artery calcification. Residual changes at the right lung base suggestive of scarring. There has been improvement as compared to prior study. Electronically Signed: Bony Cardona MD at 15:16 EDT ,
[2023-05-02 13:40] VITALS: BP 138/71; PULSE 78
[2023-05-02] MEDS: Nitroglycerin SL (ED/IMG/CATH) 0.4 MG TABLET SL (13:40)
[2023-05-02 13:48] VITALS: BP 138/71; PULSE 78; RESP 18
--- NOTE | 2023-05-03 09:14 | CCTA.WCONT ---
CCTA w/Cont Coronary Arteries Date of Study:: 05/02/23 Dyspnea on exertion and reduced EF Coronary Calcium Scoring: High-resolution Computed Tomographic imaging of the chest was performed on [05/02/2023], with particular attention paid to the coronary arteries. Intravenous contrast agent was administered per protocol and images reconstructed and displayed. LEFT MAIN CORONARY ARTERY: This arose from the left coronary cusp and bifurcating into a left anterior descending artery and a left circumflex artery. No significant stenosis was noted in this vessel. [] LEFT ANTERIOR DESCENDING CORONARY ARTERY: This vessel had at least 3 areas of calcification in the proximal and mid and mid to distal area. There were multiple areas of hard and soft plaque noted with an eccentric moderate to moderately severe proximal soft plaque area noted. [] LEFT CIRCUMFLEX CORONARY ARTERY: Nondominant vessel with no significant atherosclerotic plaquing noted. [] RIGHT CORONARY ARTERY: Dominant vessel with no significant atherosclerotic plaquing noted. Arises from the right coronary cusp. [] CORONARY CALCIUM SCORE: Not performed. Conclusion: At least moderate coronary disease noted involving the proximal and mid left anterior descending artery with areas of hard and soft plaque noted. []
== END | disposition home or self-care (01) ==
LOC: CT 12:57
PROVIDERS: PCP Nurse Practitioner Family; Referring Provider Internal Medicine Cardiovascular Disease; Visit Provider Internal Medicine Cardiovascular Disease
DX: R94.30 Abnormal result of cardiovascular function study, unspecified (principal)
CPT/HCPCS: 75574; 76380; Q9967

== ENCOUNTER → 2023-05-21 | Day surgery (SDC) | payer MEDICARE, OTHER, SELFPAY ==
--- NOTE | 2023-05-13 12:32 | HP.PCM_ITS ---
History and Physical TTmir Estevez is a 73 year old male that presents here today for a diagnostic heart cath. He was admitted to the hospital on 12/26/22 with shortness of breath. He was diagnosed with atrial fibrillation with rapid ventricular response. He also has bronchospastic disease with COPD. He had an echocardiogram done which showed ejection fraction of 40%. Mild to moderate right ventricular dysfunction was also noted. Patient had a CT scan of his chest done which showed coronary calcification as an incidental finding. He had a stress test which demonstrated Peak pharmacologic ECG with no diagnostic changes secondary to baseline abnormality, Atrial flutter/fibrillation at baseline. No ventricular arrhythmias noted, Rest and stress SPECT Cardiolite nuclear imaging demonstrate relative uniform tracer uptake and myocardial perfusion appearing within normal limits. He had called our office in March with concerns over increase in fa tigue and SOB. She underwent a Cardiac CTA, this demonstrated moderate coronary disease involving the proximal and mid LAD with areas of hard and soft plaque. Because of this and pts symptoms would like to pursue a heart cath. Medications omega-3 fatty acids 1,000 mg capsule (Fish Oil Concentrate) 1,000 mg PO DAILY 03/21/21 [History Confirmed 01/23/23] vitamins A,C,V-zrdm-bnrdib 4,296 mcg-226 mg-90 mg capsule (PreserVision AREDS) 1 cap PO BID 03/21/21 [History Confirmed 01/23/23] triamcinolone acetonide 0.1 % topical cream 1 applic topical DAILY 12/26/22 [History Confirmed 01/23/23] albuterol sulfate 90 mcg/actuation aerosol inhaler (Ventolin HFA) 1 puff inhalation Q6H PRN shortness of breath or wheezing #8.5 grams 12/29/22 [Rx Confirmed 01/23/23] apixaban 5 mg tablet (Eliquis) 5 mg PO BID 30 days #60 tabs 12/29/22 [Rx Confirmed 01/23/23] aspirin 81 mg capsule 81 mg PO DAILY #30 caps 12/29/22 [Rx Confirmed 01/23/23] diltiazem HCl 240 mg capsule,extended release 24 hr 240 mg PO DAILY 30 days #30 caps 12/29/22 [Rx Confirmed 01/23/23] lisinopril 2.5 mg tablet 2.5 mg PO QHS 30 days #30 tabs 12/29/22 [Rx Confirmed 01/23/23] metoprolol tartrate 25 mg tablet 25 mg PO BID 30 days #60 tabs 12/29/22 [Rx Confirmed 01/23/23] tiotropium bromide 2.5 mcg/actuation mist for inhalation (Spiriva Respimat) 2 puff inhalation DAILY #4 grams 12/29/22 [Rx Confirmed 01/23/23] doxycycline hyclate 100 mg tablet 100 mg PO BID 01/23/23 [History Confirmed 01/23/23] omeprazole magnesium 20 mg tablet,delayed release 20 mg PO DAILY PRN 01/23/23 [History Confirmed 01/23/23] Ejection fraction %: 40 to 44 PFSH Medical History Diverticulosis Hydrocele Obesity Right bundle branch block (RBBB) with left anterior fascicular block Surgical History H/O total colectomy History of appendectomy Family History Father CAD (coronary artery disease) CABGBrother CAD (coronary artery disease), Onset Age: 56 stents Social History (Updated 01/23/23 @ 14:30 by Yisel Arshad) Smoking Status: Former smoker quit date: 05/28/20 pack-years: 45 alcohol intake: current alcohol intake frequency: a few times a month Alcohol type: beer substance use type: marijuana caffeine: Yes Type: coffee Number of servings: 2 ROS Const Const: Positive for fatigue, daytime sleepiness and difficulty sleeping; Negative for weakness, headache(s), frequent falls or excessive sweating Eyes Eyes: Negative for loss of peripheral vision, transient loss of vision, blurry vision, double vision or tunnel vision ENT ENT: Negative for headache(s), dizziness, Nosebleed/epistaxis or balance problems Cardio Chest Pain: Yes Frequency: other Character: sharp Location: mid sternal Duration: minutes Palpitations: No Edema: None Muscle aches with walking: None Resp Respiratory: Positive for SOB with activity; Negative for SOB at rest, SOB orthopnea\SOB lying down, Cough or paroxysmal nocturnal dyspnea GI GI: Positive for heartburn; Negative nausea, vomiting or black,tarry stools : Positive for frequent nighttime urination/ nocturia and erectile dysfunction; Negative for hematuria Musc Musc: Positive for muscle weakness and joint pain; Negative for muscle aches/ myalgia or balance problems Skin Skin: Negative non-healing lesions, rash or unusual bruising Neuro Neuro: Positive for lightheadedness; Negative for dizziness, near syncope, syncope, frequent falls, headache(s), weakness, blurry vision, double vision or lack of coordination Luke Hematologic/Lymphatic: Negative for easy bleeding or easy bruising Endo Endo: Positive for fatigue; Negative for excessive sweating or increased thirst/drinking Psych Psych: Negative for anxiety or depression Allergy Allergy/Immunology: Negative for hives and Negative for rash Cardiology Exam Const Appearance: comfortable and no acute distress Nutritional Appearance: well nourished Neck Neck: no JVD Carotids: Negative bruit Chest Auscultation: Bilateral: Diminished Lung Sounds Cardio Rhythm: irregularly irregular Heart sounds: S1 normal and S2 normal Neuro General: patient alert, patient awake and patient oriented x3 Extremities Lower Extremity Edema: None: Bilateral Assessment and Plan Assessment and Plan (1) Atrial flutter: Status: Chronic Plan: Continue Eliquis. Continue diltiazem and metoprolol for rate control. (2) Cardiomyopathy: Status: Chronic Plan: Functional class II. Will check Lexiscan stress Myoview to rule out ischemic heart disease. (3) Coronary artery disease: Status: Chronic Plan: Coronary calcification noted as incidental finding on CT scan of the chest. Check Lexiscan stress Myoview to evaluate physiological significance. For risk factor modification. Start on pravastatin 20 mg once daily. (4) COPD (chronic obstructive pulmonary disease): Status: Chronic Plan: Severe COPD. Follow as per pulmonology. (5) Dyslipidemia: Status: Chronic Plan: Target LDL cholesterol less than 70 mg/dL. Start on pravastatin. Repeat Assessment & Plan Assessment/Plan (1) Fatigue: (2) Cardiomyopathy: (3) Shortness of breath: (4) Paroxysmal atrial fibrillation: (5) Abnormal findings diagnostic imaging of heart and coronary circulation: PLAN: Plan Pt will undergo a diagnostic heart cath based on her Coronary Angiography CT and symptoms. Follow up will be based on findings.
[2023-05-15 15:45] LABS: Absolute Lymphocyte Count 2.27 X10^3/uL (0.83-4.51); Absolute Neutrophil Count 4.8 X10^3/uL (2.0-7.7); Basophil# 0.04 X10^3/uL; Basophil% 0.5 % (0-1); Eosinophil# 0.12 X10^3/uL; Eosinophils% 1.5 % (0-5); Hematocrit 48.5 % (40-54); Hemoglobin 15.3 g/dL (13.0-16.5); Lymphocyte # 2.27 X10^3/ul (0.83-4.51); Lymphocyte % 27.5 % (19-41); Mean Corp Hgb Conc 31.5 g/dL (32-36); Mean Corpuscular Hgb 31.5 pg (27.0-32.0); Mean Platelet Vol. 8.6 fl (6.2-12.0); Monocyte# 0.97 X10^3/uL; Monocyte% 11.8 % (0-10); NRBC Flagged by Analyzer 0 % (0-5); Neutrophil # 4.82 X10^3/uL (2.7-7.7); Neutrophil % 58.3 % (47-70); Platelet Count 233 K/mm3 (150-450); RBC Distribution Width SD 51.8 fl (35.1-43.9); Red Blood Count 4.85 M/mm3 (4.6-6.2); White Blood Count 8.3 K/mm3 (4.4-11.0)
[2023-05-15 15:54] LABS: International Normalized Ratio 1.3; Prothrombin Time (Protime)PT. 15.8 SECONDS (11.7-14.9)
[2023-05-15 15:55] LABS: Partial Thromboplast Time 36.3 Seconds (24.1-36.2)
[2023-05-15 16:24] LABS: AST(SGOT) 15 U/L (15-37); Alanine Aminotransfer ALT/SGPT 28 U/L (16-61); Anion Gap 7 (5-15); BUN 14 mg/dL (7-18); BUN/Creat Ratio 12.5 RATIO (10-20); Calcium,Total 8.9 mg/dL (8.5-10.1); Chloride 109 mmol/L (98-107); Cholesterol 143 mg/dL (200); Creatinine, Serum 1.12 mg/dL (0.70-1.30); EST Glomerular Filtration Rate 69 mL/min (>60); Est Glom Filt Rate - Afr Amer 83 mL/min (>60); Glucose 108 mg/dL (74-106); High Density Lipoprotein 39 mg/dL; Potassium 4.2 mmol/L (3.5-5.1); Sodium Level 141 mmol/L (136-145); Triglycerides 121 mg/dL; Very Low Density Lipoprotein 24 mg/dL (5-40)
[2023-05-20 08:19] VITALS: BMI 33.0
--- NOTE | 2023-05-21 10:53 | NURSING ---
Upon arrival Pt. stated that he took his Eliquis this morning. notified. Due to concern of bleeding complication procedure cancelled to be rescheduled for a later date.
== END | disposition home or self-care (01) ==
LOC: CLSP 10:37
PROVIDERS: PCP Nurse Practitioner Family; Referring Provider Internal Medicine Cardiovascular Disease; Visit Provider Internal Medicine Cardiovascular Disease
DX: I48.0 Paroxysmal atrial fibrillation (principal); J44.9 Chronic obstructive pulmonary disease, unspecified; I42.9 Cardiomyopathy, unspecified; I48.92 Unspecified atrial flutter; R53.83 Other fatigue; Z87.891 Personal history of nicotine dependence; R06.02 Shortness of breath; E78.5 Hyperlipidemia, unspecified; R94.39 Abnormal result of other cardiovascular function study
CPT/HCPCS: 36415; 80048; 80061; 84450; 84460; 85025; 85610; 85730

== ENCOUNTER 2023-07-31 10:07 | Observation (INO) | payer MEDICARE, OTHER, SELFPAY ==
[2023-07-30 09:28] VITALS: BMI 30.8
[2023-07-31] VITALS (14 sets, daily range): BP systolic 104–136; BP diastolic 54–82; PULSE 52–70; RESP 10–19; TEMP 35.8–36.9; O2SAT 95–100; BMI 41.3
--- NOTE | 2023-07-31 10:13 | DCINST_ITS ---
Discharge Instructions Diet Discharge Diet: Low fat / Low cholesterol Activity Discharge Activity: Return to Normal Activity May resume sexual activity in: No Restrictions Dressing / Incision Call your doctor if your incision/area has: Continuous Slow Oozing, Sudden Increased Bleeding, Increased Pain/ Swelling, Increased Redness, Foul Smelling Discharge and Swelling at the incision site Follow Up Care Please Follow Up With: Allison Silvestre MD When: 2-4 weeks Test Results: Test results from this visit will be discussed in further detail at your follow- up appointment, if applicable. Discharge Plan Admission Attending Provider: Allison Silvestre Primary Care Provider: FABRICIO CONTRERAS Discharge Orders/Prescriptions Prescriptions: New clopidogrel 75 mg Tablet 75 mg PO DAILY Qty: 30 11RF Continued PreserVision AREDS 14,[id number] tlio-iz-xlrj capsule 1 cap PO BID omeprazole magnesium 20 mg tablet,delayed release (DR/EC) 20 mg PO DAILY PRN (Reason: heartburn) pravastatin 20 mg tablet 20 mg PO QHS Qty: 30 11RF Eliquis 5 mg tablet 5 mg PO BID 30 Days Qty: 60 11RF diltiazem HCl 240 mg capsule,extended release 24hr 240 mg PO DAILY 30 Days Qty: 90 3RF glucosamine HCl 500 mg tablet 500 mg PO DAILY Rx Instructions: administer with a meal lisinopril 5 mg tablet 5 mg PO DAILY Qty: 90 3RF triamcinolone acetonide 0.1 % cream 1 applic TOPICAL DAILY Spiriva Respimat 2.5 mcg/actuation mist 2 puff inhalation DAILY Qty: 4 6RF metoprolol tartrate 25 mg tablet 25 mg PO BID Qty: 180 3RF albuterol sulfate [Ventolin HFA] 90 mcg/actuation HFA aerosol inhaler 1 puff inhalation Q6H PRN (Reason: shortness of breath or wheezing) Qty: 8.5 11RF Rx Instructions: 1-2 puffs q6hr prn shortness of breath or wheezing Discontinued aspirin 81 mg capsule 81 mg PO DAILY Qty: 30 0RF Referrals / Follow Up: FABRICIO CONTRERAS, NURSE LEADER-C [Primary Care Provider] - Disposition Disposition (needs filled in before D/C Order can be placed): Home, Self Care
--- NOTE | 2023-07-31 10:39 | CL.I_ITS ---
Patient Name: DOYLE RAMIREZ Study Date: 07/31/2023 Performing: Allison Silvestre MD Ht: 70 inches 177.8 cm : 1950 Wt: 214.99 lbs 97.52 kg Age: 73 Gender: male BSA: 2.15 PROCEDURE(S) PERFORMED DC02-(58709)LHC/COR IC12-([id number])MARYSE W/WO PTCA, SINGLE CORONARY ARTERY CLINICAL PROFILE AND CO-MORBIDITIES Indications: Suspected CAD, Cardiomyopathy Heart Failure: None CAD Presentations: Other: Dyspnea CONCLUSIONS 70% Prox, 50% Mid LAD 50% Mid LCX Mild disease RCA Successful MARYSE Prox LAD usinfg [place] 3.0x12 mm, optimized proximally using 3.5 mm balloon RECOMMENDATIONS Plavix for at least 12 months Continue Apixaban DESCRIPTION OF PROCEDURE The patient arrived to the procedure lab. The risks and benefits of the procedure as well as a full description of our services here and lack of surgical backup were fully explained to the patient and/or their significant other prior to the catheterization. The Timeout was completed, verifying the correct patient and procedure. The patient's procedural site was prepped and draped in the usual fashion. Local anesthetic was given subcutaneously to right radial region with Lidocaine 2%. Using a modified Seldinger technique, arterial access was obtained via the right radial artery, a 5Fr sheath was inserted.. Left Coronary Artery selective angiography was performed in multiple views using a 5 Fr. 4.0 Waldo catheter. Right Coronary Artery selective angiography was then performed in multiple views using a 5 Fr. 4.0 Waldo catheterThe images were reviewed and options discussed. A decision was then made to proceed with an Intervention, IVUS or other adjunct procedure. xb3 Guide catheter was inserted and engaged into the LCA. runthrough Guide wire was advanced to the LAD. nawaf frontier 3 x12 Drug Eluting stent was inserted. Drug Eluting stent was advanced across the lesion in the LAD, proximal. Angiogram performed post stent deployment. nc emerge 3 x12 Balloon catheter was inserted. Balloon catheter was inserted post stent. PTCA balloon inflated at 6 atms for 11 secs. PTCA balloon inflated at 12 atms for 8 secs. nc euphora 3.5 x6 Balloon catheter was inserted. Balloon catheter was inserted post stent. PTCA balloon inflated at 14 atms for 6 secs. PTCA balloon inflated at 14 atms for 6 secs. PTCA balloon inflated at 12 atms for 6 secs. Angiogram performed post balloon dilatation. The arterial sheath was pulled and a TR Band was applied for hemostasis 10 ml of air sheath flushed CORONARY ANGIOGRAPHY DOMINANCE: Right Dominant LEFT MAIN: Angiographically normal LEFT ANTERIOR DESCENDING ARTERY: LAD: Tubular 50% Mid lesion in LAD Tubular 70% Proximal lesion in LAD RIGHT CORONARY ARTERY: RCA: Tubular 40% Proximal lesion in RCA Tubular 40% Distal lesion in RCA INTERVENTION INFORMATION LESION SITE: LAD (Proximal) Lesion Complexity: Non-High/Non-C, lesion length: 10 mm Pre Stenosis: 70 % Pre intervention DOMINICK flow: 3 PROCEDURE: Drug Eluting Stent with post dilatation Post Stenosis: 0 % Post intervention DOMINICK flow: 3 Lesion Devices: Medtronic NC EUPHORA RX 3.5x06 BALLOON Brian Sci NC EMERGE MR 3.00x12 BALLOON Medtronic 3.0 x 12 NAWAF FRONTIER MARYSE Cordis 6 Fr XB3.0 100cm Guide Catheter Terumo .014 180cm Runthrough Extra Floppy straight COMPLICATIONS No Complications PROCEDURE MEDICATIONS Versed 1 mg IV Fentanyl 50 mcg IV Fentanyl 25 mcg IV Oxygen: 2 L/min via nasal cannula Brilinta 180 mg PO @ 07/31/2023 09:48:38 Heparin given IA 07/31/2023 09:26:20 Heparin 7000 unit(s) IV 07/31/2023 09:47:57 Nitro 200 mcg IC 07/31/2023 09:55:54 Verapamil 2.5mg, Ntg 200mcgs, 2000 units of Heparin given IA 07/31/2023 09:26:20 SUMMARY OF HEMODYNAMIC DATA Time AIR REST ECG 08:52:50 AO 137/77 (100) SA 09:39:30 Signed By Allison Silvestre MD On 07/31/2023 10:38:20 Allison Silvestre MD
[2023-07-31] MEDS: 0.9% Normal Saline (1000mL) 1,000 ML 75 ML IV (11:25)
--- NOTE | 2023-07-31 11:56 | CRPHASE1 ---
Patient Communication Patient Information Former Patient:: Phase I Guide to Cardiac Rehab Given to Patient:: Yes Cardiac Rehab Facility Choice List Given to Patient:: Yes Communication to Cardiac Rehab Choice Program [facility] CR PHII:: Communication Given to CR Choice Program Other:: Communication Given to CR Practical Nursing Faculty:: Allison Silvestre Medical/Surgical History Medical History MD:: No Angina:: Yes Congestive Heart Failure: CVA/TIA: Cardiac Rehabilitation Info Program Information Cardiac Rehabilitation Program Information: Cardiac Rehab The cardiac rehab team at [facility] consists of highly skilled exercise physiologists, nurses, respiratory therapists and physicians working together with you. Our purpose is to help you have a full recovery and achieve the goals you set for yourself. Over the years many of our patients have returned to activities they assumed they would never do again! We can help restore your confidence and motivation to make lifestyle changes that can have a significant impact on your health and quality of life! We can help answer questions and concerns you may have about exercise, lifestyle, medications, diet, stress and anxiety which are common following a hospitalization. WE monitor ECG and vital signs during exercise and discuss your progress with you and report to your physician(s). Cardiac Rehab is proven to help reduce readmissions, improve functional capacity and lower recurrence of problems with your heart. Our Cardiac Rehab program is Certified by the [place] [employer]-V[employer] Pulmonary [employer] (AACVPR) and Accredited by the [place] [employer] through our [facility]. You can contact us at . We invite you to call us with your questions or to get started in our program. If you have other questions or concerns be sure to ask your physician/provider during your follow-up visit. WE look forward to seeing you!
--- NOTE | 2023-07-31 11:58 | CRPH1.INST_ITS ---
General Education Discussed with Patient CAD and cardiac anatomy and function:: Patient communicates acknowledgment Explanation of diagnoses and procedures:: Patient communicates acknowledgment Sign/Symptoms of VA:: Patient communicates acknowledgment Antiplatelet therapy: Patient communicates acknowledgment Proper use of NTG-SL: Patient communicates acknowledgment Emergency procedures and activation of EMS: Patient communicates acknowledgment Compliance of all prescribed medications: Patient communicates acknowledgment Smoking Risk Factors Patient Nicotine/Smoking Risk Factors Are:: Illicit drug use Recommendations Recommendations Include:: Previous smoker; encourage continued cessation Response Code Nicotine/Smoking Response Code:: Patient communicates acknowledgment Dyslipidemia Risk Factors Patient Dyslipidemia Risk Factors Are:: Total Cholesterol, Triglycerides, HDL and LDL Recommendations Recommendations Include:: Lipid profile not available, Reviewed NCEP/ATP guidelines and Therapeutic Lifestyle Change dietary guidelines Response Code Dyslipidemia Response Code:: Patient communicates acknowledgment Overweight/Obesity Risk Factors Patient Overweight/Obesity Risk Factors Are:: Obesity - > or = 30 Recommendations Recommendations Include:: Weight loss of 5-10%, Reduced calorie diet and Ex ercise 5-7 times/week Response Code Overweight/Obesity:: Patient communicates acknowledgment Hypertension Risk Factors Patient Hypertension Risk Factors Are:: No documented hx of HTN Recommendations Recommendations Include:: BP <130/80 if diabetic, DASH dietary guidelines, Decrease/maintain normal body weight and Moderation of ETOH Response Code Hypertension:: Patient communicates acknowledgment Heart Disease Risk Factors Patient Heart Disease Risk Factors Are:: Family history of heart disease < 65 years old Recommendations Recommendations Include:: Educated family members of their risk Response Code Heart Disease Response Code:: Patient communicates acknowledgment Diabetes Risk Factors Patient Diabetes Risk Factors Are:: Elevated blood sugars and Post-op hyperglycemia Recommendations Recommendations Include:: Maintain fasting blood sugars 70-110 md/dL, Maintain HgbA1c of 6% or less, Monitor blood sugar as prescribed, Diabetic dietary guidelines and Decrease/maintain body weight Metabolic Syndrome Risk Factors Patient Metabolic Syndrome Risk Factors Are [3 of 5]:: Fasting blood sugar > 100 mg/dL, Waist circumference > 35 [female] or 40 [male], High triglyceride >150 and Low HDL <40 [male] or < 50 [female] Recommendations Recommendations Include:: Reinforce compliance to risk factor modifications, Patient is diabetic and Encouraged follow-up with Primary Care Physician Sedentary Risk Factors Patient Sedentary Risk Factors Are:: Lack of regular exercise Recommendations Recommendations Include:: Aerobic exercise 5-7 times/week for 20-30 minutes continuously, Benefits of regular exercise, Discussed home walking program and Monitored Outpatient Cardiac Rehab Response Code Sedentary Response Code:: Patient communicates acknowledgment Stress Risk Factors Patient Stress Risk Factors Are:: Patient denies stress as a risk factor Recommendations Recommendations Include:: Identification of stressors, and assessment of coping skills and Stress management techniques Response Code Stress Response Code:: Patient communicates acknowledgment
[2023-07-31] MEDS: Ipratropium 0.5 MG/2.5 ML SOLUTION INHALATION ×2 (13:54→20:00)
[2023-07-31] MEDS: Clopidogrel Bisulfate 300 MG Tablet PO (17:35)
[2023-07-31] MEDS: Acetaminophen 325 MG Tablet 650 MG PO (17:37)
[2023-07-31 19:41] LABS: ACT Activated Clotting Time 266 sec (74-137)
[2023-07-31] MEDS: APIXABAN 5 MG TABLET PO (20:40)
[2023-07-31] MEDS: Multivitamin (Healthy Eyes) Capsule 1 CAP PO (20:40)
[2023-07-31] MEDS: Pravastatin 20 MG Tablet PO (20:40)
[2023-08-01 04:56] VITALS: BP 113/90; PULSE 64; RESP 17; TEMP 36.4; O2SAT 97
[2023-08-01] MEDS: Ipratropium 0.5 MG/2.5 ML SOLUTION INHALATION (07:05)
[2023-08-01 07:15] VITALS: PULSE 82; RESP 17; O2SAT 96
[2023-08-01 07:17] LABS: Hematocrit 41.7 % (40-54); Hemoglobin 13.3 g/dL (13.0-16.5); Mean Corp Hgb Conc 31.9 g/dL (32-36); Mean Corpuscular Hgb 31.5 pg (27.0-32.0); Mean Corpuscular Volume 98.8 fL (80-94); Mean Platelet Vol. 8.5 fl (6.2-12.0); Platelet Count 165 K/mm3 (150-450); RBC Distribution Width CV 14.2 % (11.6-14.6); RBC Distribution Width SD 51.6 fl (35.1-43.9); Red Blood Count 4.22 M/mm3 (4.6-6.2)
[2023-08-01 07:51] LABS: ALB/GLOB Ratio 1.1 RATIO (0.9-2.4); AST(SGOT) 16 U/L (15-37); Alanine Aminotransfer ALT/SGPT 21 U/L (16-61); Albumin, Serum 3.1 g/dL (3.2-5.0); Alkaline Phosphatase 57 U/L (45-117); Anion Gap 3 (5-15); BUN 11 mg/dL (7-18); BUN/Creat Ratio 11.4 RATIO (10-20); Calcium,Total 8.2 mg/dL (8.5-10.1); Chloride 113 mmol/L (98-107); Creatinine, Serum 0.97 mg/dL (0.70-1.30); EST Glomerular Filtration Rate 81 mL/min (>60); Est Glom Filt Rate - Afr Amer 98 mL/min (>60); Estimated Creatinine Clearance 50.92 ml/min; Globulin 2.8 g/dL (2.2-4.2); Glucose 96 mg/dL (74-106); Potassium 3.7 mmol/L (3.5-5.1); Protein, Total 5.9 g/dL (6.4-8.2); Sodium Level 142 mmol/L (136-145)
[2023-08-01 09:24] VITALS: BP 144/84; PULSE 76; RESP 16; TEMP 36.6; O2SAT 96
[2023-08-01 09:28] VITALS: PULSE 76
[2023-08-01] MEDS: Multivitamin (Healthy Eyes) Capsule 1 CAP PO (09:28)
[2023-08-01] MEDS: Clopidogrel Bisulfate 75 MG Tablet PO (09:28)
[2023-08-01] MEDS: APIXABAN 5 MG TABLET PO (09:28)
[2023-08-01] MEDS: dilTIAZem CD 240 MG Capsule PO (09:28)
[2023-08-01] MEDS: Metoprolol Tartrate 25 MG Tablet PO (09:28)
[2023-08-01] MEDS: Lisinopril 5 MG Tablet PO (09:28)
--- NOTE | 2023-08-01 09:42 | CASEMGMT ---
MARIA T GRIFFIN NOTE: Pt being discharged home. Pt to resume on Eliquis that he was on prior to admission and new Rx sent to [facility] in [place]. MARIA T GRIFFIN to room. Pt aware script sent to [facility] in [place] and he states he can pick this up today. He states he lives alone, drives, is independent, and manages his own medications w/out difficulty. He denies having any discharge planning needs/concerns. Kaykay MARTINEZ RN CM
--- NOTE | 2023-08-01 10:05 | CASEMGMT ---
Met with patient to complete LEPE form. LEPE form explained to patient who voiced understanding and signed form. Original form placed in pt?s chart and copy provided to?patient. Sheyla Celestin, Discharge Planning Asst
--- NOTE | 2023-08-01 11:07 | PHA.DC_ITS ---
Pharmacy [facility] has performed discharge medication reconciliation and counseling for this patient. The patient's discharge medication list was reviewed for discrepancies and discrepancies were resolved. The patient was counseled on the following discharge medications and changes in medications for homegoing were reviewed. The Reason for Use, instructions for use, and potential side effects were reviewed for all new medications. The patient's questions regarding all of their medications were answered. 1. Clopidogrel 75 mg PO daily The patient was able to verbally demonstrate an understanding of their discharge medications. Medications at Discharge Home Medications vitamins A,C,O-obvz-bjeklm 4,296 mcg-226 mg-90 mg capsule (PreserVision AREDS) 1 cap PO BID 03/21/21 triamcinolone acetonide 0.1 % topical cream 1 applic topical DAILY 12/26/22 apixaban 5 mg tablet (Eliquis) 5 mg PO BID 30 days #60 tabs 01/23/23 diltiazem HCl 240 mg capsule,extended release 24 hr 240 mg PO DAILY 30 days #90 caps 01/23/23 omeprazole magnesium 20 mg tablet,delayed release 20 mg PO DAILY PRN heartburn 01/23/23 pravastatin 20 mg tablet 20 mg PO QHS #30 tabs 01/23/23 tiotropium bromide 2.5 mcg/actuation mist for inhalation (Spiriva Respimat) 2 puff inhalation DAILY #4 grams 04/07/23 metoprolol tartrate 25 mg tablet 25 mg PO BID #180 tabs 05/26/23 albuterol sulfate 90 mcg/actuation aerosol inhaler (Ventolin HFA) 1 puff inhalation Q6H PRN shortness of breath or wheezing #8.5 grams 05/27/23 glucosamine HCl 500 mg tablet 500 mg PO DAILY 07/08/23 lisinopril 5 mg tablet 5 mg PO DAILY #90 tabs 07/08/23 clopidogrel 75 mg tablet 75 mg PO DAILY #30 tabs 07/31/23
== END 2023-08-01 10:18 | disposition home or self-care (01) ==
LOC: CLSP 10:15 → PCU 10:53
PROVIDERS: Admitting Provider Internal Medicine Cardiovascular Disease; PCP Nurse Practitioner Family; Referring Provider Internal Medicine Cardiovascular Disease; Visit Provider Internal Medicine Cardiovascular Disease
DX: I25.10 Atherosclerotic heart disease of native coronary artery without angina pectoris (principal); J44.9 Chronic obstructive pulmonary disease, unspecified; I42.9 Cardiomyopathy, unspecified; I48.0 Paroxysmal atrial fibrillation; R06.02 Shortness of breath; R07.89 Other chest pain; Z79.82 Long term (current) use of aspirin; Z79.01 Long term (current) use of anticoagulants; Z79.899 Other long term (current) drug therapy; E78.5 Hyperlipidemia, unspecified; Z87.891 Personal history of nicotine dependence
CPT/HCPCS: 36415; 80053; 85027; 85347; 92928; 93005; 93454; 94640; 99152; 99153; 99221; 99252; C1725; J7030; J7040; Q9967; C1769; C1874; C1887; C1894; C9600; G0378; G0463

== ENCOUNTER 2023-08-22 12:47 | Outpatient (RCR) | payer MEDICARE, OTHER, SELFPAY ==
--- NOTE | 2023-08-22 12:52 | PCM.CR.HP2 ---
CR - History & Physical General Arrival date:: 08/22/23 Arrival time:: 12:52 Date of Referral:: 07/31/23 Date of CR Evaluation:: 08/22/23 Referring Physician: Dr. Silvestre Primary Diagnosis: PCI with stenting History of Present Cardiac Event Onset Date PTCA or coronary stenting:: Yes Vessel: LAD 07/31/23 Medications Ambulatory Orders Medication Instructions Recorded vitamins A,C,U-uryy-gtuxiv 4,296 1 cap PO BID 03/21/21 mcg-226 mg-90 mg capsule (PreserVision AREDS) triamcinolone acetonide 0.1 % 1 applic topical DAILY 12/26/22 topical cream apixaban 5 mg tablet (Eliquis) 5 mg PO BID 30 days #60 tabs 01/23/23 diltiazem HCl 240 mg 240 mg PO DAILY 30 days #90 caps 01/23/23 capsule,extended release 24 hr omeprazole magnesium 20 mg 20 mg PO DAILY PRN heartburn 01/23/23 tablet,delayed release pravastatin 20 mg tablet 20 mg PO QHS #30 tabs 01/23/23 tiotropium bromide 2.5 2 puff inhalation DAILY #4 grams 04/07/23 mcg/actuation mist for inhalation (Spiriva Respimat) metoprolol tartrate 25 mg tablet 25 mg PO BID #180 tabs 05/26/23 albuterol sulfate 90 mcg/actuation 1 puff inhalation Q6H PRN 05/27/23 aerosol inhaler (Ventolin HFA) shortness of breath or wheezing #8.5 grams glucosamine HCl 500 mg tablet 500 mg PO DAILY 07/08/23 lisinopril 5 mg tablet 5 mg PO DAILY #90 tabs 07/08/23 clopidogrel 75 mg tablet 75 mg PO DAILY #30 tabs 07/31/23 Allergies Allergies No Known Allergies Allergy (Verified 07/08/23 14:22) Sleep Disorder Evaluation Hx of Sleep Apnea: No Do you snore loudly (louder than talking or can be heard through closed doors)?: No Do you often feel tired/ fatigued/ sleepy during daytime?: No Has anyone observed you stop breathing during sleep?: No History of Hypertension (for STOP score): No STOP Results: Negative Advanced Directives Advanced Directives Power of Director Of Education: No Living Will: No Advance Directives Information Provided: No Advance Directives on File: No DNR Order?:: No Past Medical History Covid-19 Screening Physicial Symptoms Other Clinical Concerns Exposure Risk Pertinent Comorbidities Has a serious heart condition:: Yes Past Medical Illness Past Medical History Abnormal EKG R94.31 Abnormal findings diagnostic imaging of heart and coronary circulation R93.1 Atrial flutter I48.92 Atrial flutter with rapid ventricular response I48.92 Cardiac left ventricular ejection fraction 21-40 percent R94.30 Cardiomyopathy I42.9 COPD (chronic obstructive pulmonary disease) J44.9 Coronary artery disease I25.10 Diverticulosis K57.90 Dizziness R42 Dyslipidemia E78.5 Dyspnea R06.00 Encounter for pre-operative cardiovascular clearance Z01.810 Fatigue R53.83 Hydrocele N43.3 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 Nicotine dependence, cigarettes, 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 Obesity E66.9 Paroxysmal atrial fibrillation I48.0 Premature ventricular contractions I49.3 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 Shortness of breath R06.02 Past Surgical History Past Surgical History (Updated 07/31/23 @ 12:09 by Yisel Arshad) H/O total colectomy Z90.49 History of appendectomy Z90.49 Hx of cardiac catheterization (~07/31/23) Z98.890 Stented coronary artery (~07/31/23) Z95.5 MARYSE Prox LAD using [place] 3.0x12 mm Family History Summary Family History Father CAD (coronary artery disease) CABG Brother CAD (coronary artery disease), Onset Age: 56 stents Other COPD (chronic obstructive pulmonary disease) Dyspnea Paroxysmal atrial fibrillation Social History Smoking History Smoking Status: Former smoker Years Smokin (less than a pack a day) Hx Smoking Cessation Date: 12/26/22 Alcohol Use Alcohol Usage: Yes Substance Abuse Hx Substance Use: No Occupation Occupation (List type of work in comments):: Retired Hobbies, Recreation, Social Activities Hobbies: Watch TV Recreational Activities: I am able to engage in all my recreational activities Social Environment Status Marital Status: Single Current Living Arrangements Living Environment:: Alone Children How many children do you have?: 3 Do any of your children live nearby?: Yes Safety Do you feel safe in your surroundings?: Yes Assistance Do you need any assistance at home?: no Review of Systems Review of Systems Hints Review of Present Symptoms: Reports Shortness of Breath with Exertion, Angina, Dizziness/Lightheadedness, Fatigue, Appetite - Normal, Appetite - Special Diet and Sleep - Normal; Denies Shortness of Breath at Rest, PVD, Operative Discomfort, Wound Healing, Heart Arrhythmia/Irregularities or Sexual Changes Pain Is Patient Pain Free?: No Pain Location: back Pain Level: 09/06 Risk Factor Assessment Chief Complaint Chief Complaint: PCI with stenting Vital Signs Pulse Ox: 95 Blood Pressure: 138/80 Pulse Pulse Rate: 87 Pulse Rhythm: Regular Hypertension Blood Pressure Sitting - Right Arm: 138/80 Diabetes Nutrition Referral for Diabetes: No Obesity Height: 5 ft 7 in Weight:: 228 lb Weight in Pounds: 228.0 lbs Body Mass Index (BMI): 35.6 Physical Inactivity Physical Inactivity: Reg Exercise 30 min/day, Physically demanding job, Recreational activity and None Risk Stratification Risk Guidelines: Moderate Risk: Risk Factor for Diabetes, Risk Factor for Hypertension, Risk Factor for Sedentary Lifestyle and Risk Factor for Depression and Highest Risk: Risk Factor for Smoking, Risk Factor for Dyslipidemia and Risk Factor for Obesity For Smoking Smoking Risk Guidelines For Dyslipidemia Dyslipidemia Risk Guidelines For Diabetes Mellitus Diabetes Risk Guidelines For Obesity/Overweight Obesity/Overweight Risk Guidelines For Hypertension Hypertension Risk Guidelines For Sedentary Lifestyle Sedentary Lifestyle Risk Guidelines For Depression Depression Risk Guidelines Family History Family History Father CAD (coronary artery disease) CABG Brother CAD (coronary artery disease), Onset Age: 56 stents Other COPD (chronic obstructive pulmonary disease) Dyspnea Paroxysmal atrial fibrillation Motivation Motivation to Participate On a scale of 1 to 10, how prepared are you to commit to attending program?: 5 What do you see as barriers to successfully being able to complete the program?: nothing What do you see as the benefits of succesfully completing the program? In other words, what do you hope to get out of participating in the program?: more energy Are there issues you are dealing with that will interfere with completing the program?: no Do you have a spouse or signficant other, family or friends who will help support you to complete the program?: yes
--- NOTE | 2023-08-22 13:01 | CR.ITP_ITS ---
Diagnosis General Information Admitting Diagnosis: PCI with stenting Personal Learning Style:: Audio/Visual Stage of change r/t lifestyle modifications:: Contemplation Gave educational material for:: Treating Heart Disease, How The Heart Works, What it means to have Heart Disease, How Coronary Artery Disease is Diagnosed, Heart Procedures, What Heart Medications Do, Risk Factors & Modifications, Living an Active Life, Nutrition, Emotions & Heart Disease, Stress Management & Relaxation and Sleep Disorders & Heart Disease Education/Goals Cardiac Rehabilitation Goals Personal Goals: Initial Assessment: Quit smoking (participate in smoking cessation, Improve management of stress and emotions, Improve energy level, Participate in home exercise program, Improve knowledge of cardiac disease, Improve muscle strength and endurance, Improve diet and eating habits (eat healthier) and Control risk factors (learn risk factor modification) Scale for measuring improvement of personal goals Diagnosis & Disease Process Outcomes/Goals: Pt IDs own risk factors & lifestyle modifications by Session 10, Verbalizes symptoms of angina & response by session 3., Pt independently manages and Other Additional Outcomes/Goals: Plan/Interventions: Assist Pt to ID & engage in lifestyle modification to reduce CVD risk, Instruct on individual risk factors, Review symptoms of angina & emergency actions, Review secondary diagnosis & identify educational needs. and Other see comment 30 day Reassessments:: Not Met 30 day Reassessments:: Not Met 30 day Reassessments:: Not Met 30 day Reassessments:: Not Met Final Reassessments:: Not Met Safety Referral to Physical Therapy: No Referral to [facility] Case Management: No Fall Risk Assessed:: Yes Assistive Devices:: None Exercise - Initial Assessment Visit Date of Eval: 08/22/23 (initial eval ) Mets: Pre-: >3 METS for 30 minutes by discharge, >5 METS for 30 minutes by discharge, >7 METS for 30 minutes by discharge and Unable to meet goal due to: (see comment below) Physician Prescribed Exercise Modalities: Treadmill, Rower, Airdyne, NuStep, SciFit and Lateral [place] Frequency: 2x/week for 18 weeks [36 sessions] and 3x/week for 12 weeks [36 sessions] Intensity: 60-80% of age predicted maximum heart rate reserve Duration: 30 - 45 minutes Current METSs:: 3 Target Heart Rate:: 89-104 Resting Blood Pressure: 138/80 EKG Type: SB RBBB Outcomes & Goals Goals:: Verbalizes understanding of THR, RPE & goal METS by session 6, Documents in home exercise log/reports 30 min aerobic 5 day/wk by DC, Demonstrates accurate pulse taking by DC and Other additional outcome/goals: see below Intervention & Plan Exercise Program Goals: Instruct on personal THR & RPE, Instruct on MET level & personal MET goal, Show patient to take own pulse /validate performance until accurate, Instruct on home exercise and Other additional plan/int Physical Activity Home Exercise Physical Activity - Home Exercise: Safe Exercise, Warm-up, Self-monitoring, Cool-Down, Home Exercise > 30 min Daily and Sitting Time <3 hours/daily Outcomes & Goals Outcomes/Goals: Demonstrates correct Warm-up/exercise Cool-Down (S3) if = 2.5 METs, Verbalizes symptoms of exercise intolerance by Session 3 (S3), Demonstrate safe equipment use (S3) & follows exercise prescrition (6) and Other: See below Intervention & Plan Plan/Intervention: Instruct warm-up & cool-down if exercising at > 2 METs, Instruct on symptoms of exercise intolerance & actions to take, Instruct & monitor on saf, Assess intial functional capacity & safety risk and Other See below Nutrition - Initial Assessment Program Goals Nutrition Program Goals Patient has diagnosis of Hyperlipidemia (ICD E78)?: Yes Visit Date of Eval: 08/22/23 (initial eval) Cholesterol/Lipids (Other Core Measures) Determine presence & major risk factors that modify LDL goal: Cigarette smoking, Hypertension or hypertensive medication, Low HDL cholesterol <40 mg/dL*, Family history of premature CHD in Male < 55 years: female <65 yearsFa and Age men > 45 years; women >/= 55 years Outcomes/Goals: Pt IDs own risk factors & lifestyle modifications by Session 10, Verbalizes symptoms of angina & response by session 3., Pt independently manages and Other Additional Outcomes/Goals: Intervention/Plan: Advocate for lipid panel cholesterol medication if applicable, Instruct on personal lipid levels & lipid goals/NCEP guidelines, Instruct on cholesterol and Other additional plan/int Referral to dietitian:: No Diabetes (Other Core Measures) Diabetes Type: Not Applicable Weight Mgt (Other Care) Height: 5 ft 7 in Weight:: 228 lb BMI: 35.6 Diagnosis Overweight/Obesity BMI> 30% ICD-10 E66: Yes Diagnosis High BMI/Morbid Obesity BMI> 35% ICD-10 Z68: Yes Outcomes/Goals: Pt sets, maintains & shows weight loss goal & trend during rehab and Other additional outcomes/goals Intervention/Plan: Instruct on ideal BMI & set weight loss goal w/patient, Assist pt to ID & incorporate diet changes for weight loss by S9, Refer to [facility] program as appropriate, Encourage goal of using 250-300dcal per session for weight loss and Other additional plan/interventions Healthy Eating Habits Will attend diet classes:: Yes Outcomes/Goals:: Consume diet rich in vegs,fruits,whole grain/high fiber,fish,lean meat, Limit sat/trans fats,cholesterol & added salts & sugars and Other additional outcome/goals: Intervention/Plan:: Assess current eating habits and Other Additional plan/interventions Education Gave educational materials for:: Signs & symptoms of hypoglycemia, Signs & symptoms of hyperglycemia, Relate diabetes to coronary artery disease and Healthy eating Core - Initial Assessment Visit Date of Eval: 08/22/23 (initial eval) Medication Compliance Preventative Medication(s):: Aspirin, Statin/lipid, Beta antoni and Eliquis H/O mental health issues: depression, anxiety, or addiction?: No Doesn?t believe in the benefits of treatment?: No Believes medications are unnecessary or harmful?: No Has a concern about medication side effects?: No Expresses concern over the cost of medications?: No Outcomes/Goals: Verbalizes medications,desired effect & common side effects @ DC, Pt self-reports following medication regimen, Keeps card in wallet w/medications listed by DC and Other additional outcome/goals: Interventions/plans: Instruct on medication effects & side effects, Review medication list w/patient every two weeks, Instruct importance of taking meds as ordered & assist problem solving and Other additional Tobacco Use Tobacco Use: Non-smoker How long ago did you quit using tobacco products?: Greater than or equal to 6 months ago Do you use smokeless tobacco?: No Outcomes/Goals: Smoking cessation achieved or maintained by discharge, Identify aids/strategies for achieving smoking cessation by session 6 and Other additional outcome/goals Interventions/plan: Instruct on effects of smoking & provide smoking cessation resource, Assist pt to set quit date & provide encouragement, Assist pt to develop strategies to achieve/maintain quit date, Assist pt w/nicotine replacement & medication for cessation success and Other additional plan/interventions Hypertension Hypertension Diagnosis:: Not Applicable Resting Blood Pressure:: 138/80 [place] [employer] Hypertension Guidelines Outcomes/Goals: Able to verbalize/achieve optimal blood pressure <130/80, Incorporates diet changes & exercise for blood pressure control by DC and Other additional outcomes/goals Interventions/plan: Instruct on optimal blood pressure, hypertension & medications, Instruct on effects of sodium, alcohol, stress, exercise &hypertension and Other additional plan/interventions Tobacco Cessation Referral Smoking Cessation Referral:: No Individual Education/Counseling:: No Education Schedule Given:: Yes Psychosocial - Initial Assess VIsit Date of Eval: 08/22/23 (initial eval) History of previous Mental disease:: No Target Goals Target Goals Outcomes/Goals: See list Psychosocial Outcomes/Goals:: ID's personal stressors & 2 strategies to manage stress by discharge and Other Additional outcome/goals: Intervention/Plan: See List Interventions/Plan:: Assess stressors,coping strategies & signs of derpression on admission, Instruct/assist pt to develop coping & personal stress Mgt strategies, Refer to Behavioral Health if appropriate, Refer to Physician if appropriate, Instruct patient to recognize signs & symptoms of depression, Instruct patient to recog and Other additional plan/intervention Patient Health Questionnaire PHQ-9 Screening Initial Assessment: 1. Little interest or pleasure in doing things: Not at all 2. Feeling down, depressed, or hopeless: Several days 3. Trouble falling or staying asleep, or sleeping too much: More than half the days 4. Feeling tired or having little energy: Nearly every day 5. Poor appetite or overeating: Not at all 6. Feeling bad about yourself -- or that you are a failure or have let yourself or your family down: Not at all 7. Trouble concentrating on things, such as reading the newspaper or watching television: Several days 8. Moving or speaking so slowly that other people could have noticed. Or the opposite - being so fidgety or restless that you have been moving around a lot more than usual: Not at all 9. Thoughts that you would be better off , or of hurting yourself in some way: Not at all How difficult have these problems made it for you to do your work, take care of things at home, or get along with other people?: Not difficult at all Total Score: 7 MELISSA-Q SV Test Statements CAD is a disease of the arteries in the heart: False Examples of risk factors for heart disease: True Angina is chest pain or discomfort: False The benefits of resistance training include: True Eating more meat and dairy products: False Anti-platelet medications such as aspirin are important: True The only effective way to manage stress: False An exercise warm-up slowly increases heart rate: True Prepared, processed foods usually have high sodium: True Depression is common after a heart attack: True The statin medications lower cholesterol: True To control blood pressure, lower the amount of sodium: True If someone gets chest discomfort during walking: False Transfats are partially hydrogenated vegetable oils: True Sleep apnea that is not treated increases the risk: True To control cholesterol, one should become a vegetarian: False Someone knows if he/she is exercising at the right level: True Diabetes cannot be prevented with exercise & health eating: True Stress is a large risk for heart attack: True A diet that can help lower blood pressure is rich in: True Total Score Total Correct Responses: 17 Self-Efficacy 6-Item Scale Initial Assessment: We would like to know how confident you are in doing certain activities. Please select your confidence level for: Fatigue Select Number: 8 Physical Discomfort or Pain Select Number: 8 Emotional Distress Select Number: 9 Other Symptoms or Health Problems Select Number: 8 Different Tasks and Activities Select Number: 8 Medication Select Number: 8 Total Score:: 8 Nutrition Survey Nutrition Survey Instructions Scoring Instructions Nutrition Survey Initial: Have you lost >10 lbs over the past 2 months without trying?: No Are you following a special diet at home for diabetes, low fat, or low salt?: No Are you interested in meeting with a dietitian for help understanding your diet?: Yes Do you eat less than 3 meals a day?: Yes Do you eat fatty meats (trejo, sausage, ribs, etc), fried foods, desserts, large amounts of salad dressings, margarine, butter, or cheese most days?: Yes Do you have food allergies? [Enter types in comment field]: No Do you eat in restaurants more than 3 times a week?: No Do you season food with salt, seasoning salt, or garlic salt?: Yes Do you used canned, boxed, frozen meals, or soups, seasoning packets?: Yes Total Score:: 5 Exercise - Final/Discharge Physician Prescribed Exercise Modalities: Treadmill, Rower, Airdyne, NuStep, SciFit and Lateral Vending Machine Refiller Frequency: 2x/week for 18 weeks [36 sessions] and 3x/week for 12 weeks [36 sessions] Intensity: 60-80% of age predicted maximum heart rate reserve Current METSs:: 3 Target Heart Rate:: 89-104 Nutrition - 30-Day Assessment Weight Mgt (Other Care) Height: 5 ft 7 in Weight:: 228 lb BMI: 35.6 Nutrition - 60-Day Assessment Weight Mgt (Other Care) Height: 5 ft 7 in Weight:: 228 lb BMI: 35.6 Core - Final Assessment Hypertension Resting Blood Pressure:: 138/80 [place] [employer] Hypertension Guidelines Core - 60-Day Assessment Hypertension Resting Blood Pressure:: 138/80 [place] [employer] Hypertension Guidelines Psychosocial - 30-Day Assess Target Goals Target Goals Psychosocial - 60-Day Assess Target Goals Target Goals Psychosocial - 90-Day Assess Target Goals Target Goals Psychosocial - Final Assessmen Target Goals Target Goals Nutrition - 90-Day Assessment Weight Mgt (Other Care) Height: 5 ft 7 in Weight:: 228 lb BMI: 35.6 Nutrition - Final Assessment Program Goals Patient has diagnosis of Hyperlipidemia (ICD E78)?: Yes Weight Mgt (Other Care) Height: 5 ft 7 in Weight:: 228 lb BMI: 35.6
[2023-08-22 13:25] VITALS: BP 138/80; PULSE 87; O2SAT 95; BMI 35.6
[2023-08-22 13:53] VITALS: BP 138/80
[2023-08-22 13:54] VITALS: BMI 35.6
== END 2023-08-27 23:59 ==
LOC: CR 12:47
PROVIDERS: PCP Nurse Practitioner Family; Referring Provider Internal Medicine Cardiovascular Disease; Visit Provider Internal Medicine Cardiovascular Disease
DX: Z95.5 Presence of coronary angioplasty implant and graft (principal)

== ENCOUNTER → 2023-10-04 | Outpatient (CLI) | payer MEDICARE, OTHER, SELFPAY ==
--- NOTE | 2023-10-04 09:05 | CT_ITS ---
STUDY: LOW DOSE CT LUNG CANCER SCREENING REASON FOR EXAM: Male, 73 years old. Tobacco Dependency RADIATION DOSAGE (If Supplied By Facility): CTDIvol = ( 4.02 ) mGy, DLP = ( 148.98 ) mGycm TECHNIQUE: No contrast was administered. Low dose technique was utilized (average mAS-38 and kVp 120). 1.25 mm axial source images with a slice interval of 1.25-mm were reconstructed in lung windows. 2.5 mm axial source images with a slice interval of 2.5-mm were reconstructed in lung windows. 5.0 mm axial source images with a slice interval of 5.0-mm were reconstructed in soft tissue windows. COMPARISON: 12/26/2022 Emphysema: Mild emphysema. Some right lower lobe linear scarring. No change in a 6 mm noncalcified nodule periphery left lower lobe lungs on image 167 and follow-up CT is recommended in 6 months document stability. Also no change in another 4 mm noncalcified nodule periphery left lower lobe lungs on image 201 consistent with a noncalcified granuloma or scar. No new noncalcified nodule or mass. Endobronchial lesion: None Aorta: No aortic aneurysm. CORONARY ARTERIES: Coronary artery calcification is seen. Heart: No cardiomegaly. Pulmonary artery: Mediastinal nodes: Normal Other chest and abdominal findings: None CT/Low Dose CT Lung Screening IMPRESSION: Lung-RADS category 3 - Continue screening with LDCT in 6 months. IMPORTANT NOTES FOR USE: ACR Lung-RADS Version 1.1 Assessment Categories Release Date: 2018 Category: Coded 0-4 bases on nodule(s) with highest degree of suspicion. Negative screen is defined as categories 1 and 2; a positive screen is defined as categories 3 and 4. Category 3 and 4A nodules that are unchanged on interval CT should be coded as category 2, and individuals returned to screening in 12 months. Category 4X: Category 3 or 4 nodules with additional imaging findings that increase the suspicion of lung cancer, such as spiculation, GGN that doubles in size in 1 year, enlarged lymph notes, etc. Category Modifiers: S (significant finding unrelated to lung cancer) Electronically Signed: Chris Yen MD at 20:05 EST ,
--- OUTSIDE RECORDS SUMMARY | 2023-10-04 09:06 | XMS RPT_ITS | CCD ---
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 Name Role Phone SAMANTHA MCCLELLAND MD Attending Unavailable SAMANTHA MCCLELLAND MD Primary Care Unavailable STASSAMANTHA BARKER MD Admitting Unavailable LUZ LAWLER Consulting Unavailable PROVIDER, UNKNOWN Consulting Unavailable KIRBY ZHU Attending Unavailable KIRBY ZHU Primary Care Unavailable KIRBY ZHU Admitting Unavailable LUZ LAWLER Consulting Unavailable PROVIDER, UNKNOWN Consulting Unavailable SAMANTHA MCCLELLAND MD Attending Unavailable SAMANTHA MCCLELLAND MD Primary Care Unavailable STASSAMANTHA BARKER MD Admitting Unavailable LUZ LAWLER Consulting Unavailable PROVIDER, UNKNOWN Consulting Unavailable Results Test Name Value Interpretation Reference Range Facil ity Encounters Encounter Date Encounter Type Care Provider Facility Start: 08-29-2023 ambulatory SAMANTHA MERINO STAS [facility] Start: 07-17-2023 End: 07-17-20[address] [facility] Start: 11-19-2022 End: 11-19-[address] [facility] Payers Date Payer Category Payer Unknown [id number] 1950 Unknown [id number] 1950 Unknown [id number] Medicare [id number] Private Health Insurance [id number] Summary Purpose Family History No Family History Records FoundNo Family History Records FoundNo Family History Records Found Advance Directives No Advanced Directives Records FoundNo Advanced Directives Records FoundNo Advanced Directives Records Found Additional Source Comments (unrecognized sect ion and content) No Status Records FoundNo Status Records FoundNo Status Records Found INFORMATION SOURCE (unrecogn ized section and content) DATE CREATED AUTHOR AUTHOR'S ORGANIZ ATION 12/07/2022 [facility] DATE CREATED AUTHOR AUTHOR'S ORGANIZ ATION 08/30/2023 [facility] FOR RECORDS PERTAINING TO PATIENTS WHO ARE OR HAVE BEEN ENROLLED IN A CHEMICAL DEPENDENCY/SUBSTANCEABUSE PROGRAM, SOME INFORMATION MAY BE OMITTED. This clinical summary was aggregated from multiple sources. Caution should be exercised in using it in the provision of clinical care. This summary normalizes information from multiple sources, and as a consequence, information in this document may materially change the coding, format and clinical context of patient data. In addition, data may be omitted in some cases. CLINICAL DECISIONS SHOULD BE BASED ON THE PRIMARY CLINICAL RECORDS. [facility]. provides no warranty or guarantee of the accuracy or completeness of information in this document.
== END | disposition home or self-care (01) ==
LOC: CT 09:04
PROVIDERS: PCP Nurse Practitioner Family; Referring Provider Internal Medicine Critical Care Medicine; Visit Provider Internal Medicine Critical Care Medicine
DX: F17.211 Nicotine dependence, cigarettes, in remission (principal)
CPT/HCPCS: 71271

== ENCOUNTER → 2024-05-13 | Outpatient (CLI) | payer MEDICARE, SELFPAY | END | disposition home or self-care (01) | LOC: SL 20:11 | PROVIDERS: PCP Nurse Practitioner Family; Referring Provider Nurse Practitioner Acute Care; Visit Provider Nurse Practitioner Acute Care | DX: G47.10 Hypersomnia, unspecified (principal) | CPT/HCPCS: 95810 ==

== ENCOUNTER → 2024-09-09 | Outpatient (CLI) | payer MEDICARE, OTHER, SELFPAY | END | disposition home or self-care (01) | LOC: SL 13:33 | PROVIDERS: PCP Nurse Practitioner Family; Referring Provider Nurse Practitioner Acute Care; Visit Provider Nurse Practitioner Acute Care | DX: G47.33 Obstructive sleep apnea (adult) (pediatric) (principal) | CPT/HCPCS: 98960; G0463 ==

== ENCOUNTER → 2024-09-10 | Outpatient (CLI) | payer MEDICARE, OTHER, SELFPAY ==
--- NOTE | 2024-09-10 14:05 | ECHOD_ITS ---
Reason For Study Reason For Study: CAD/ASHD Procedure This was a 2D Doppler, Color Flow transthoracic echocardiogram. Exam performed in department. Left Ventricle Normal size and thickness. LVEF approximately 50%. Inferior septal and apical hypokinesis. Right Ventricle Normal right ventricle. Atria The left and right atria are normal. Mitral Valve Trivial mitral valve insufficiency. Tricuspid Valve Trivial tricuspid valve insufficiency. Normal pulmonary artery pressure. Aortic Valve Trisinus/trileaflet aortic valve. Pulmonic Valve The pulmonic valve is not well visualized. Trivial pulmonic valve insufficiency. Great Vessels Mildly dilated aortic root. Pericardium/Pleural No pericardial effusion. MMode/2D Measurements & Calculations LVIDd: 4.9 cm IVSd: 1.0 cm Ao root diam: 3.9 cm LVIDs: 3.8 cm LVPWd: 0.95 cm RVDd: 3.6 cm FS: 23.7 % LAV(MOD-bp): 42.2 ml LVAd ap4: 35.3 cm2 SV(MOD-sp4): 51.7 ml LAV(MOD-bp) Indexed: 19.4 ml/m2 LVLd ap4: 9.1 cm SI(MOD-sp4): 23.7 ml/m2 LAV(MOD-sp2): 52.6 ml EDV(MOD-sp4): 115.0 ml LAV(MOD-sp4): 32.8 ml EDV(sp4-el): 115.8 ml LVAs ap4: 23.9 cm2 LVLs ap4: 7.8 cm ESV(MOD-sp4): 63.2 ml ESV(sp4-el): 62.0 ml EF(MOD-sp4): 45.0 % EF(sp4-el): 46.5 % SV(sp4-el): 53.8 ml LA A4 area: 14.8 cm2 LA dimension(2D): 3.9 cm RA A4 area: 16.4 cm2 TAPSE: 1.8 cm Time Measurements MV dec time: 0.22 sec Doppler Measurements & Calculations MV E max trey: 57.8 cm/sec Lat Peak E' Trey: 9.5 cm/sec Med Peak E' Trey: 7.7 cm/sec MV A max trey: 73.9 cm/sec E/E' lat: 6.1 E/E' med: 7.5 MV E/A: 0.78 MV V2 max: 74.7 cm/sec MV P1/2t max trey: 48.0 cm/sec Ao V2 max: 83.1 cm/sec MV max P.2 mmHg MV P1/2t: 63.4 msec Ao max P.8 mmHg MV V2 mean: 32.9 cm/sec Ao V2 mean: 61.8 cm/sec MV mean P.52 mmHg MV dec slope: 221.8 cm/sec2 Ao mean P.7 mmHg MV V2 VTI: 20.1 cm MVA(P1/2t): 3.5 cm2 Ao V2 VTI: 16.8 cm AV (velocity ratio): 1.0 LV V1 max: 78.2 cm/sec PA V2 max: 99.0 cm/sec TR max trey: 237.5 cm/sec LV V1 max P.5 mmHg PA V2 mean: 71.0 cm/sec TR max P.6 mmHg LV V1 mean P.3 mmHg LV V1 mean: 53.9 cm/sec LV V1 VTI: 17.1 cm ECHO/Echo Complete Interpretation Summary LVEF approximately 50%. Inferior septal and apical hypokinesis. Mildly dilated aortic root. Ordering Physician: Allison Silvestre Referring Physician: Allison Silvestre Performed By: Contreras Whitley [facility]
== END | disposition home or self-care (01) ==
LOC: CVS 14:03
PROVIDERS: PCP Nurse Practitioner Family; Referring Provider Internal Medicine Cardiovascular Disease; Visit Provider Internal Medicine Cardiovascular Disease
DX: I25.10 Atherosclerotic heart disease of native coronary artery without angina pectoris (principal); I48.92 Unspecified atrial flutter; I42.9 Cardiomyopathy, unspecified; R94.31 Abnormal electrocardiogram [ECG] [EKG]
CPT/HCPCS: 93306

== ENCOUNTER → 2024-09-17 | Outpatient (CLI) | payer MEDICARE, OTHER, SELFPAY ==
[2024-09-17 15:09] LABS: Cholesterol 171 mg/dL (200); High Density Lipoprotein 43 mg/dL; Triglycerides 196 mg/dL; Very Low Density Lipoprotein 39 mg/dL (5-40)
== END | disposition home or self-care (01) ==
LOC: LAB 14:05
PROVIDERS: PCP Nurse Practitioner Family; Referring Provider Internal Medicine Cardiovascular Disease; Visit Provider Internal Medicine Cardiovascular Disease
DX: E78.5 Hyperlipidemia, unspecified (principal)
CPT/HCPCS: 36415; 80061

== ENCOUNTER → 2024-09-27 | Outpatient (CLI) | payer MEDICARE, OTHER, SELFPAY ==
--- NOTE | 2024-09-27 14:03 | CT_ITS ---
PROCEDURE: LOW DOSE CT LUNG SCREENING REASON FOR EXAM: Current smoker. Patient has smoked 1 pack per day for 45 years. TECHNIQUE: Low Dose CT Lung Screening without contrast COMPARISON: Comparison is made with prior study October 04, 2023. FINDINGS: PULMONARY NODULES: (Only nodules >6mm are reported) Nodules described below are on series unless otherwise specified. Pulmonary Nodules: Stable 6 mm noncalcified nodule in the peripheral lateral aspect of the left lower lobe. Stable 4 mm nodule in the peripheral lateral aspect of the left lower lobe as seen on axial image number [id number] Hardware:None Lymph Nodes:No mediastinal hilar or axillary lymphadenopathy. Heart and Vasculature:Normal heart size. No pericardial effusion.Thoracic aorta and pulmonary arteries have normal contours; noncontrast technique limits evaluation. Coronary Artery Calcifications: Present Lungs and Airways: Mild emphysematous changes are present. Pleura:No pleural effusion. No pneumothorax. Upper Abdomen:Visualized portions of the upper abdominal viscera are unremarkable. Bones:Degenerative changes of the thoracic spine. CT/Low Dose CT Lung Screening IMPRESSION: 1. BASED ON THE ACR LUNG RADS FOR THE MOST SUSPICIOUS NODULE (IF ANY) DESCRIBE D IN THIS REPORT, THE OVERALL LUNG RADS SCORE IS 2.2 - BENIGN (BASED ON IMAGING FEATURES OR INDOLENT BEHAVIOR). RECOMMEND 12-MON TH SCREENING LDCT.. 2. SMOKING CESSATION COUNSELING IS RECOMMENDED IF THE PATIENT IS STILL SMOKING . 3. OTHER SIGNIFICANT FINDINGSNone. One or more dose reduction techniques were used (e.g., Automated exposure contr ol, adjustment of the mA and/or kV according to patient size, use of iterative reconstruction technique). The following information is provided for reference:Lung-RADS 2021 Assessment C ategories. Additional information involving Lung-RADS is available at www.acr.org. 0-INCOMPLETE 1-NEGATIVE:No nodules or definitely benign nodules. Complete, central, popcorn , or centric ring calcifications OR fat containing 2-BENIGN APPEARANCE (based on imaging features or indolent behavior). Juxtaple ural nodule: < 10mm AND solid; smooth margins; oval, entiform, or triangular shape Solid nodule: <6mm at baseline or new< 4mm Part solid Nodule: < 6mm total mean diameter at baseline Nonsolid nodule:(GGN) < 30mm OR >=30mm stable or slowly growing Airway nodule, subsegmental at baseline, new, or stable Category 3 nodule stabl e or decreased in size at 6-month follow-up CT or Category 3 or 4A nodules that resolve on follow-up OR category 4B findings prov en to be benign following diagnotic work up. 3 - Probably Benign (Based on imaging features or behavior) Solid Nodule: >= 6 to <8mm at baseline OR new 4 to <6mm Part-solid nodule: >= 6mm toal mean diam. with solid component <6mm at baseline OR new < 6mm total mean diam. Non-solid nodule: GGN >= 30mm at baseline or new Atypical pulmonary cyst: Growing cystic component (mean diam.) of thick-walled cyst Category 4A nodule stable or decreased in size at 3-month follow-up CT (excl.ai rway). 4A - Suspicious Solid nodule: >=8 to < 15mm at baseline OR growing < 8mm OR new 6 to < 8mm Part solid nodule: >= 6mm total mean diam. w/ solid component >=6mm to < 8mm at baseline OR new or growing < 4mm solid component Airway nodule, segmental or more proximal at baseline or new Atypical pulmonary cyst: Thick-walled OR multilocular at baseline OR becomes mu ltilocular 4B - Very Suspicious Airway nodule, segmental or more proximal, and stable or growing Solid nodule: >= 15mm at baseline OR new or growing >= 8mm Part solid nodule: Solid component >= 8mm OR new or growing >= 4mm solid compon ent Atypical pulmonary cyst: Thick-walled with growing wall thickness/nodularity OR Growing multilocular (mean diam.) OR Multilocular with increased loculation or new/increased opacity Slow-growing solid or part solid nodule w/ growth over multiple screening exams 4X - Very Suspicious Category 3 or 4 nodules with additional features that increase the suspicion fo r lung cancer. S - Clinically Significant or potentially significant findings (non-lung cancer ) Reading Location: [facility]
== END | disposition home or self-care (01) ==
LOC: CT 14:00
PROVIDERS: PCP Nurse Practitioner Family; Referring Provider Nurse Practitioner Acute Care; Visit Provider Nurse Practitioner Acute Care
DX: F17.211 Nicotine dependence, cigarettes, in remission (principal)
CPT/HCPCS: 71271

== ENCOUNTER → 2024-09-30 | Outpatient (CLI) | payer MEDICARE, OTHER, SELFPAY ==
[2024-09-30] MEDS: Zaleplon 5 MG Capsule 10 MG PO (22:02)
== END | disposition home or self-care (01) ==
LOC: SL 20:14
PROVIDERS: PCP Nurse Practitioner Family; Referring Provider Nurse Practitioner Family; Visit Provider Nurse Practitioner Family
DX: G47.33 Obstructive sleep apnea (adult) (pediatric) (principal)
CPT/HCPCS: 95811

== ENCOUNTER → 2024-12-30 | Outpatient (CLI) | payer MEDICARE, OTHER, SELFPAY | END | disposition home or self-care (01) | LOC: PSN 13:24 | PROVIDERS: PCP Nurse Practitioner Family; Referring Provider Nurse Practitioner Gerontology; Visit Provider Nurse Practitioner Gerontology | DX: R42 Dizziness and giddiness (principal); I48.0 Paroxysmal atrial fibrillation; R00.2 Palpitations | CPT/HCPCS: 93225; 93226 ==

== ENCOUNTER → 2025-07-06 | Outpatient (CLI) | payer MEDICARE, OTHER, SELFPAY | END | disposition home or self-care (01) | LOC: PSN 10:12 | PROVIDERS: PCP Internal Medicine; Referring Provider Nurse Practitioner Family; Visit Provider Nurse Practitioner Family | DX: J43.2 Centrilobular emphysema (principal) | CPT/HCPCS: 94060; 94726; 94729 ==

== ENCOUNTER → 2025-07-11 | Outpatient (CLI) | payer MEDICARE, OTHER, SELFPAY ==
[2025-07-11 13:30] VITALS: PULSE 60; PULSE 73; PULSE 88; PULSE 89; PULSE 91; PULSE 92; PULSE 95; O2SAT 95; O2SAT 96; O2SAT 97
--- NOTE | 2025-07-11 13:55 | CPS ---
Pt needed to take a rest at 4minutes into walk for hip pain.
--- OUTSIDE RECORDS SUMMARY | 2025-07-11 19:48 | XMS RPT_ITS | CCD ---
Author Organization [facility] Care Team Providers Care Global Recruiter Name Role Phone Care Physician, No Primary Primary Care Provider Unavailable Dr. Sandeep Carty Emergency Provider Dr. Neo Mckeon Admit Provider Dr. Neo Mckeon Attending Provider Dr. Neo Mckeon Other Provider Dr. Kaila Willingham Attending Provider Dr. Kaila Willingham Other Provider Yisel Arshad Other Provider Unavailable Dr. Allison Silvestre Other Provider Dr. Reilly Garcia Other Provider Dr. Tk Rm Other Provider Unavailable Dr. Roger Love Other Provider Dr. Rajesh Busby Other Provider Dr. Neo Anderson Other Provider Dr. Don Nicolas Other Provider Dr. Nakul Johnson Other Provider [phone] Willow Calderon Other Provider Dr. Valerie Sims Other Provider Dr. Ned Collazo Other Provider Dr. João David Other Provider Dr. Jeronimo Valle Other Provider Roof RADIATION / CHEMISTRY TECHNICIAN, RADIATION / CHEMISTRY TECHNICIAN-C Reynaldo Treviño Other Provider Baljit RADIATION / CHEMISTRY TECHNICIAN, RADIATION / CHEMISTRY TECHNICIAN-C Yisel Other Provider [phone] Debra DUKE, SRIKANTH Anderson Other Provider Dr. Allison Silvestre Attending Provider Care Physician, No Primary Referring Provider Un available Dr. Yohan Stanley Attending Provider Dr. Yohan Stanley Referring Provider Dr. Yohan Stanley Other Provider BEN, RADIATION / CHEMISTRY TECHNICIAN-C FABRICIO Primary Care Provider Dr. Georgi Simmons Attending Provider Konrad, Dr. Cooper Referring Provider Konrad, Dr. Cooper Referring Provider BEN, RADIATION / CHEMISTRY TECHNICIAN-C FABRICIO Referring Provider SRIKANTH Fajardo Attending Provider BEN, RADIATION / CHEMISTRY TECHNICIAN-C FABRICIO Primary Care Provider BEN, RADIATION / CHEMISTRY TECHNICIAN-C FABRICIO Referring Provider SRIKANTH Fajardo Attending Provider Dr. Allison Silvestre Referring Provider Dr. Allison Silvestre Other Provider Dr. Roger Love Attending Provider Roof RADIATION / CHEMISTRY TECHNICIAN, RADIATION / CHEMISTRY TECHNICIAN-C Reynaldo Attending Provider Dr. Allison Silvestre Attending Provider BEN, RADIATION / CHEMISTRY TECHNICIAN-C FABRICIO Primary Care Provider SRIKANTH Fajardo Attending Provider BEN, RADIATION / CHEMISTRY TECHNICIAN-C FABRICIO Referring Provider Dr. Yohan Stanley Attending Provider BEN, RADIATION / CHEMISTRY TECHNICIAN-C FABRICIO Primary Care Provider BEN, RADIATION / CHEMISTRY TECHNICIAN-C FABRICIO Referring Provider Dr. Allison Silvestre Attending Provider Dr. Yohan Stanley Attending Provider Dex PA-C, Yessica J Unavailable Counseling Provider Unavailable Unavailable (Mitchell), [facility] Unavailable Cardiology Provider Unavailable Unavailable Kate MERINO, Dr. Cece Hernandez Unavailable Rey MERINO, Dr. Perez Unavailable Dr. Aristides Hilton MD Unavailable Laci MARROQUIN, Yessica Unavailable Jaden MERINO, José Antonio Michelle Unavailable Long PA-C, Vishnu E Unavailable Maryse Alves C Unavailable Unavailable Edwar OGDEN, Stefani Unavailable Unavailable Arnulfo PHILLIPSN, Jeannie Unavailable Unavailable Chayito LIVE, Erikca Chong Unavailable Unavaila ble Chi PHILLIPSN, Porsha Unavailable Unavailable Clay PHILLIPSN, Parker Unavailable Unavailable Shakila OGDEN, Jeannie Unavailable Unavailable Unavailable Unavailable BEN RADIATION / CHEMISTRY TECHNICIAN-C, FABRICIO Primary Care Provider BEN RADIATION / CHEMISTRY TECHNICIAN-C, FABRICIO Referring Provider Konrad MERINO, Dr. Cooper Attending Provider Jayme RADIATION / CHEMISTRY TECHNICIAN-C, Marissa Attending Provider Jayme RADIATION / CHEMISTRY TECHNICIAN-CMarissa Referring Provider Dr. Allison Silvestre MD Referring Provider Patricia RADIATION / CHEMISTRY TECHNICIAN-CBhumi Attending Provider Patricia RADIATION / CHEMISTRY TECHNICIAN-CBhumi Referring Provider BEN RADIATION / CHEMISTRY TECHNICIAN-C, FABRICIO Primary Care Provider Dr. Allison Silvestre MD Attending Provider BEN RADIATION / CHEMISTRY TECHNICIAN-C, FABRICIO Referring Provider Baljit CASAS-C, Yisel Attending Provider Baljit RADIATION / CHEMISTRY TECHNICIAN-C, Yisel Referring Provider Dalila Rangel Unavailable Unavailable BEN RADIATION / CHEMISTRY TECHNICIAN-C, FABRICIO Primary Care Provider [phone] BEN RADIATION / CHEMISTRY TECHNICIAN-C, FABRICIO Referring Provider Patricia RADIATION / CHEMISTRY TECHNICIAN-C, Bhumi Anderson Attending Provider Konrad MERINO, Dr. Cooper Attending Provider Solitario RADIATION / CHEMISTRY TECHNICIAN-C, Reynaldo Treviño Attending Provider Dr. Jose Villegas MD Attending Provider [phone] BEN, FABRICIO Primary Care Unavailable Smiley RADIATION / CHEMISTRY TECHNICIAN, Yisel Referring Unavailable Smiley RADIATION / CHEMISTRY TECHNICIAN, Yisel Attending Unavailable Delacruz RADIATION / CHEMISTRY TECHNICIAN, Marissa Attending Unavailable BEN, FABRICIO Primary Care Unavailable Delacruz RADIATION / CHEMISTRY TECHNICIAN, Marissa Referring Unavailable Delacruz RADIATION / CHEMISTRY TECHNICIAN, Marissa Attending Unavailable BEN, FABRICIO Primary Care Unavailable Delacruz RADIATION / CHEMISTRY TECHNICIAN, Marissa Referring Unavailable BEN, FABRICIO Referring Unavailable Jose Villegas Attending Unavailable BEN, FABRICIO Primary Care Unavailable Konrad, Allison Attending Unavailable BEN, FABRICIO Primary Care Unavailable BEN, FABRICIO Primary Care Unavailable KonradAllison Attending Unavailable Baljit RADIATION / CHEMISTRY TECHNICIAN, Yisel Referring Unavailable BEN, FABRICIO Referring Unavailable Delacruz RADIATION / CHEMISTRY TECHNICIAN, Marissa Attending Unavailable BEN, FABRICIO Primary Care Unavailable BEN, FABRICIO Referring Unavailable KonradAllison Attending Unavailable BEN, FABRICIO Primary Care Unavailable BEN, FABRICIO Referring Unavailable Bhumi Gomez Attending Unavailable BEN, FABRICIO Primary Care Unavailable BEN, FABRICIO Primary Care Unavailable BEN, FABRICIO Referring Unavailable Bhumi Gomez Attending Unavailable BEN, FABRICIO Primary Care Unavailable BEN, FABRICIO Referring Unavailable Bhumi Gomez Attending Unavailable BEN, FABRICIO Primary Care Unavailable BEN, FABRICIO Referring Unavailable Solitario RADIATION / CHEMISTRY TECHNICIAN, Reynaldo Treviño Attending Unavailable KonradAllison Referring Unavailable KonradAllison Attending Unavailable BEN, FABRICIO Primary Care Unavailable Konrad, Allison Referring Unavailable Konrad, Allison Attending Unavailable BEN, FABRICIO Primary Care Unavailable Bhumi Gomez Referring Unavailable Bhumi Gomez Attending Unavailable BEN, FABRICIO Primary Care Unavailable BEN, FABRICIO Primary Care Unavailable Delacruz RADIATION / CHEMISTRY TECHNICIAN, Marissa Referring Unavailable Delacruz RADIATION / CHEMISTRY TECHNICIAN, Marissa Attending Unavailable JUAN ALBERTO COKER Unavailable IRMA DUVAL PAC Attending Unavailable IRMA DUVAL Primary Care Unavailable IRMA DUVAL PAC Admitting Unavailable PROVIDER, UNKNOWN Consulting Unavailable Medications Current Medications Medication Drug Class(es) Dates Sig (Normalized) Sig (Original) apixaban 5 mg oral tablet (20 sources) Factor Xa Inhibitor Start: 12-29-2022 End: 03-04-2025 take 1 tablet by mouth twice daily Apixaban (Eliquis) 5 mg tablet Active 5 mg PO TWICE A DAY 60 11 March 04, 2025 10:14am ascorbic acid 226 mg / beta carotene 93818 unt / cuprous oxide 0.8 mg / dl-alpha tocopheryl acetate 200 unt / zinc oxide 34.8 mg oral capsule (4 sources) Vitamin C take 1 capsule by mouth twice daily PreserVision AREDS Oral Capsule ; 1 two times daily Budesonide-Glycopy r-Formoterol (12 sources) Corticosteroid, beta2-Adrenergic Agonist Start: 02-17-2025 Budesonide-Glycopyr -Formoterol (Breztri Aerosphere) 160-9-4.8 mcg/actuation HFA aerosol inhaler Active 2 NMA INHALATION TWICE A DAY as needed February 17, 2025 3:08pm Start: 12-14-2024 End: 02-17-2025 Eyseadpcio-Amhqchzn-Dtdvyvav ol (Breztri Aerosphere) 160-9-4.8 mcg/actuation HFA aerosol inhaler Discontinued 2 NMA INHALATION TWICE A DAY 10.7 6 December 14, 2024 3:24pm February 17, 2025 3:10pm Start: 12-14-2024 Budesonide-Gly copyr-Formoterol (Breztri Aerosphere) 160-9-4.8 mcg/actuation HFA aerosol inhaler Active 2 NMA INHALATION TWICE A DAY 10.7 December 14, 2024 3:24pm Start: 04-20-2024 End: 12-14-2024 Xalnnozoze-Znmacano-Mfejjkec ol (Breztri Aerosphere) 160-9-4.8 mcg/actuation HFA aerosol inhaler Discontinued 2 NMA INHALATION TWICE A DAY 10.7 6 April 20, 2024 12:00am December 14, 2024 3:25pm Start: 04-20-2024 End: 12-14-2024 Mayaiszkmg-Zpqkstas-Yfsuflmu ol (Breztri Aerosphere) 160-9-4.8 mcg/actuation HFA aerosol inhaler Discontinued 2 NMA INHALATION TWICE A DAY 10.April 20, 2024 12:00am December 14, 2024 3:25pm Start: 04-20-2024 Budesonide-Gly copyr-Formoterol (Breztri Aerosphere) 160-9-4.8 mcg/actuation HFA aerosol inhaler Active 2 NMA INHALATION TWICE A DAY 10.April 20, 2024 12:00am Glucosamine Chondroitin Complx Oral Capsule (4 sources) take 3 capsules by mouth once daily Glucosamine Chondroitin Complx Oral Capsule ; 1500mg-1200mg 3 daily lisinopril 5 mg oral tablet (20 sources) Angiotensin Converting Enzyme Inhibitor Start: 07-08-20 End: 07-30-19 take 1 tablet by mouth once daily Lisinopril 5 mg tablet Active 5 mg PO DAILY 90 July 30, 2024 4:12pm Start: 12-29-2022 End: 07-08-2023 take 1 tablet by mouth once daily Lisinopril 2.5 mg tablet Discontinued 2.5 mg PO DAILY 90 May 29, 2023 12:00am July 08, 2023 3:45pm nitroglycerin 0.4 mg sublingual tablet (6 sources) Nitrate Vasodilator Start: 08-24-2024 Nitroglyce rin 0.4 mg tablet, sublingual Active 0.4 mg SL every 5 to 15 minutes as needed for chest pain 30 August 24, 2024 1:00am do not exceed 3 doses per episode predniSONE 20 mg oral tablet (9 sources) Start: 01-25-2025 predniSONE 20 mg tablet ; 1 (one) Tablet as directed for 0 days Quantity: 20 {Tablet} Refills: 0 Ordered: 25-Jan-2025 ALEXA Kowalski Start: 25-Jan-2025 Comments: Take 3tabs qd for 3 days thenTake 2tabs qd for 3 days thenTake 1tab qd for 3 days thenTake 1/2tab qd for 4 days. Start: 10-13-2024 End: 12-14-2024 take 3 tablets by mouth once daily, then take 2 tablets by mouth once daily Prednisone 10 mg tablet Discontinued 10 mg PO As Directed 13 October 13, 2024 12:00am December 14, 2024 3:13pm Smoking greater than 20 pack years Nicotine dependence, cigarettes, uncomplicated Take 3 tablets daily for 3 days, then 2 tablets daily for 2 days. Start: 11-12-2022 End: 01-06-2023 take 3 tablets by mouth once daily, then take 2 tablets by mouth once daily, then take 1 tablet by mouth once daily, then take 0.5 tablet by mouth once daily predniSONE 20 MG Oral Tablet ; 1 (one) Tablet take as directed for 0 days Quantity: 20 {Tablet} Refills: 0 Ordered: 06-Jan-2023 MARIA T Stratton Start: 12-Nov-2022 End: 06-Jan-2023 Status: Inactive Comments: Take 3tabs qd for 3 days thenTake 2tabs qd for 3 days thenTake 1tab qd for 3 days thenTake 1/2tab qd for 4 days. Comment on above: Take 3tabs qd for 3 days thenTake 2tabs qd for 3 days thenTake 1tab qd for 3 days thenTake 1/2tab qd for 4 days. triamcinolone acetonide 1 mg/ml topical cream (20 sources) Corticosteroid Start: 02-17-2025 Triamcinolone Acetonide 0.1 % cream Active 1 NMA TOPICAL DAILY as needed February 17, 2025 3:10pm Start: 12-26-2022 End: 02-17-2025 Triamcinolone Acetonide 0.1 % cream Discontinued 1 NMA TOPICAL DAILY December 26, 2022 12:00am February 17, 2025 3:10pm Triamcinolone Ac etonide 0.1 % External Cream ; daily (0.1 %) Vit C,L-Tb-Vikeu-Lutein-Zeax an (Preservision Areds-2) 250-90-40-1 mg capsule (2 sources) Start: 02-17-2025 take 2 capsules by mouth twice daily Vit C,E-Dc-Xktgu-Lutein-Zeaxan (Preservision Areds-2) 250-90-40-1 mg capsule Active 1 {tbl} PO TWICE A DAY February 17, 2025 12:00am Completed/Discontinued Medications Medication Drug Class(es) Dates Sig (Normalized) Sig (Original) [id number] 200 actuat albuterol 0.09 mg/actuat metered dose inhaler (20 sources) beta2-Adrenergic Agonist Start: 12-29-2022 End: 12-14-2024 take 1-2 puff(s) by inhalation every six hours as needed for wheezing Albuterol Sulfate (Ventolin Hfa) 90 mcg/actuation HFA aerosol inhaler Discontinued 1 NMA INHALATION EVERY 6 HOURS as needed for shortness of breath or wheezing 8.5 July 30, 2024 4:45pm December 14, 2024 3:25pm 1-2 puffs q6hr prn shortness of breath or wheezing Start: 12-29-2022 End: 05-27-2023 take 1-2 puff(s) by inhalation every six hours as needed for wheezing Albuterol Sulfate (Ventolin Hfa) 90 mcg/actuation HFA aerosol inhaler Discontinued 1 PUFF INHALATION EVERY 6 HOURS 8.5 January 31, 2023 12:44pm May 27, 2023 7:57am 1-2 puffs q6hr prn shortness of breath or wheezing take 1 puff(s) by in halation every six hours as needed for wheezing Ventolin HFA 108 (90 Base) MCG/ACT Inhalation Aerosol Solution ; 1 puff every 6 hours as needed for SOB or wheezing (108 (90 Base) MCG/ACT) Comments: Medication taken as needed. Comment on above: Medication taken as needed. aspirin 81 mg oral tablet (19 sources) Platelet Aggregation Inhibitor, Nonsteroidal Anti-inflammatory Drug Start: 3 End: take 1 capsule by mouth once daily Aspirin 81 mg capsule Discontinued 81 mg PO DAILY 30 0 December 29, 2022 12:00am July 31, 2023 11:16am take 1 tablet by mouth once joan y Aspirin 81 MG Oral Tablet Delayed Release ; 1 daily (81 MG) azithromycin 250 mg oral tablet (4 sources) Macrolide Antimicrobial Start: 10-13-2024 End: 12-14-2024 Azithromycin 250 mg tablet Discontinued 0 PO .COMPLEX 6 0 October 13, 2024 12:00am December 14, 2024 3:13pm Smoking greater than 20 pack years Nicotine dependence, cigarettes, uncomplicated For 250 mg dose pack: take 500 mg today (day 1), then 250 mg for 4 days (days 2-5) PO clopidogrel 75 mg oral tablet (20 sources) [id number] Platelet Inhibitor Start: 07-31-2023 End: 08-18-2024 take 1 tablet by mouth once daily Clopidogrel 75 mg tablet Discontinued 75 mg PO DAILY 90 3 August 09, 2024 2:51pm August 18, 2024 10:54am 24 hr dilTIAZem hydrochloride 240 mg extended release oral capsule (20 sources) Calcium Channel Lian Start: 12-29-2022 End: 03-17-2025 take 1 capsule by mouth once daily Diltiazem Hcl 240 mg capsule,extended release 24hr Discontinued 240 mg PO DAILY 90 30 0 January 05, 2024 3:56pm March 17, 2025 2:01pm take 1 capsule by [facility] every twenty-four hours dilTIAZem HCl ER 240 MG Oral Capsule Extended Release 24 Hour ; 1 daily (240 MG) doxycycline hyclate 100 mg oral tablet (16 sources) Tetracycline-class Drug Start: 01-23-2023 End: 05-02-2023 take 1 tablet by mouth twice daily Doxycycline Hyclate 100 mg tablet Discontinued 100 mg PO TWICE A DAY January 23, 2023 12:00am May 02, 2023 1:19pm Start: 01-13-2023 End: 01-20-2023 take 1 tablet by mouth twice daily Doxycycline Hyclate 100 MG Oral Tablet ; 1 (one) Tablet two times daily for 7 days Quantity: 14 {Tablet} Refills: 0 Ordered: 13-Jan-2023 ALEXA Kowalski Start: 13-Jan-2023 End: 20-Jan-2023 Status: Inactive empagliflozin 10 mg oral tablet (10 sources) Sodium-Glucose Cotransporter 2 Inhibitor Start: 07-08-2023 End: 07-11-2023 take 1 tablet by mouth once daily Empagliflozin (Jardiance) 10 mg tablet Discontinued 10 mg PO DAILY 90 3 July 08, 2023 1:00am July 11, 2023 11:27am Fish Oils (4 sources) take 1 mg by mouth once daily Fish Oil 1000 MG Oral Capsule ; daily (1000 MG) Status: Inactive glucosamine 500 mg oral tablet (10 sources) Start: 07-08-2023 End: 03-17-2025 take 1 tablet by mouth once daily Glucosamine Hcl 500 mg tablet Discontinued 500 mg PO DAILY July 08, 2023 1:00am March 17, 2025 2:01pm administer with a meal metoprolol tartrate 25 mg oral tablet (20 sources) beta-Adrenergic Lian Start: 12-29-2022 End: 02-14-2025 take 1 tablet by mouth twice daily Metoprolol Tartrate 25 mg tablet Discontinued 25 mg PO TWICE A DAY 180 3 January 20, 2024 11:17am February 14, 2025 4:06pm Harrison-3 Fatty Acids (Fish Oil Concentrate) 1,000 mg capsule (17 sources) Start: 03-21-2021 End: 05-02-2023 take 1 capsule by mouth once daily Harrison-3 Fatty Acids (Fish Oil Concentrate) 1,000 mg capsule Discontinued 1000 mg PO DAILY March 21, 2021 12:00am May 02, 2023 1:20pm Start: 03-21-2021 End: 05-02-2023 take 1 capsule by mouth once daily Harrison-3 Fatty Acids (Fish Oil Concentrate) 1,000 mg capsule Discontinued 1000 MG PO DAILY March 21, 2021 12:00am May 02, 2023 1:20pm Start: 03-21-2021 End: 05-02-2023 take 1 capsule by mouth once daily Harrison-3 Fatty Acids (Fish Oil Concentrate) 1,000 mg capsule Discontinued 1000 MG PO DAILY March 20, 2021 11:00pm May 02, 2023 12:20pm Start: 03-21-2021 take 1 capsule by mo [facility] once daily Harrison-3 Fatty Acids (Fish Oil Concentrate) 1,000 mg capsule Active 1000 MG PO DAILY March 21, 2021 12:00am omeprazole 20 mg delayed release oral tablet (12 sources) Proton Pump Inhibitor Start: 01-23-2023 End: 08-24-2024 take 1 tablet by mouth once daily as needed for gastroesophageal reflux disease Omeprazole Magnesium 20 mg tablet,delayed release (DR/EC) Discontinued 20 mg PO DAILY as needed for heartburn January 23, 2023 12:00am August 24, 2024 3:50pm pravastatin sodium 20 mg oral tablet (20 sources) HMG-CoA Reductase Inhibitor Start: 01-23-2023 End: 03-30-2024 take 1 tablet by mouth at bedtime Pravastatin 20 mg tablet Discontinued 20 mg PO AT BEDTIME 30 0 February 23, 2024 8:51am March 30, 2024 7:59am sertraline 25 mg oral tablet (4 sources) Serotonin Reuptake Inhibitor Start: 01-14-2022 End: 01-06-2023 take 1 tablet by mouth once daily Sertraline HCl 25 MG Oral Tablet ; 1 (one) Tablet daily for 0 days Quantity: 60 {Tablet} Refills: 0 Ordered: 06-Jan-2023 MARIA T Stratton Start: 14-Jan-2022 End: 06-Jan-2023 Status: Inactive sulfamethoxazole 800 mg / trimethoprim 160 mg oral tablet (4 sources) Dihydrofolate Reductase Inhibitor Antibacterial, Sulfonamide Antimicrobial Start: 01-06-2023 End: 01-13-2023 take 1 tablet by mouth twice daily Sulfamethoxazole -Trimethoprim 800-160 MG Oral Tablet ; 1 (one) Tablet two times daily for 7 days Quantity: 14 {Tablet} Refills: 0 Ordered: 06-Jan-2023 ALEXA Kowalski Start: 06-Jan-2023 End: 13-Jan-2023 Status: Inactive 60 actuat tiotropium 0.0025 mg/actuat inhalation spray (20 sources) Anticholinergic Start: 12-29-2022 End: 09-17-2024 take 2.5 ug by inhalation once daily Tiotropium [place] (Spiriva Respimat) 2.5 mcg/actuation mist Discontinued 2 NMA INHALATION DAILY 10 31April 07, 2023 5:45pm August 27, 2023 3:06pm Start: 12-29-2022 End: 08-27-2023 take 1 puff(s) by inhalation once daily Tiotropium [place] (Spiriva Respimat) 2.5 mcg/actuation mist Discontinued 2 PUFF INHALATION DAILY April 07, 2023 5:45pm August 27, 2023 3:06pm take 2 puff(s) by in halation once Spiriva Respimat 2.5 MCG/ACT Inhalation Aerosol Solution ; 2 puff daily (2.5 MCG/ACT) Vitamins A,C,P-Jghh-Jmearu (Preservision Areds) 14,320-226-200 qaal-qy-bfao capsule (17 sources) Start: 03-21-2021 End: 02-17-2025 Vitamins A,C,N-Kzor-Tqszzw (Preservision Areds) 14,320-226-200 ihvr-qs-gqtr capsule Discontinued 1 NMA PO TWICE A DAY March 21, 2021 12:00am February 17, 2025 3:09pm Start: 03-21-2021 Vitamins A,C,E -Zinc-Copper (Preservision Areds) 14,320-226-200 kcdp-yq-eevl capsule Active 1 NMA PO TWICE A DAY March 21, 2021 12:00am Start: 03-21-2021 take 1 capsule by [facility] twice daily Vitamins A,C,H-Mnmy-Oruryh (Preservision Areds) 14,320-226-200 mdsf-ix-jhxs capsule Active 1 CAP PO TWICE A DAY March 20, 2021 11:00pm Start: 03-21-2021 take 1 capsule by [facility] twice daily Vitamins A,C,E-Ijmh-Wggcva (Preservision Areds) 14,320-226-200 dkxh-bq-xnvw capsule Active 1 CAP PO TWICE A DAY March 21, 2021 12:00am Problems Active Problems Problem Classification Problem Date Documented Date Episodic/Chronic Cardiac dysrhythmias (20 sources) Multiple premature ventricular complexes; Translations: [Ventricular premature depolarization] Onset: 5 03-21-2021 Chronic Chronic obstructive pulmonary disease and bronchiectasis (20 sources) Chronic obstructive lung disease; Translations: [Chronic obstructive pulmonary disease, unspecified] Onset: 5 12-27-2022 Chronic Conditions associated with dizziness or vertigo (20 sources) Dizziness; Translations: [Dizziness and giddiness] Onset: 5 03-20-2021 Episodic Conduction disorders (20 sources) Right 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; Translations: [Bifascicular block] 03-20-2021 Chronic Coronary atherosclerosis and other heart disease (20 sources) Coronary arteriosclerosis; Translations: [Atherosclerotic heart disease of [place] coronary artery without angina pectoris] Onset: 5 12-27-2022 Chronic Disorders of lipid metabolism (20 sources) Dyslipidemia; Translations: [Hyperlipidemia, unspecified] Onset: 5 01-23-2023 Chronic Malaise and fatigue (11 sources) Fatigue; Translations: [Other fatigue] 04-01-2023 Episodic Mood disorders (15 sources) Mild major depression; Translations: [Major depressive disorder, single episode, mild] 05-19-2023 Chronic Other aftercare (11 sources) Long-term current use of anticoagulant; 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] 04-01-2023 Episodic Other and unspecified benign neoplasm (8 sources) Multiple benign melanocytic nevi ; Translations: [Melanocytic nevi, unspecified] 05-19-2023 Episodic Other and unspecified benign neoplasm (8 sources) Hemangioma; Translations: [Hemangioma unspecified site] 05-19-2023 Episodic Other inflammatory condition of skin (16 sources) Psoriasis; Translations: [Psoriasis, unspecified] 05-19-2023 Chronic Other lower respiratory disease (20 sources) Dyspnea; Translations: [Dyspnea, unspecified] 03-20-2021 Episodic Other lower respiratory disease (15 sources) Pleuritic pain; Translations: [Pleurodynia] 12-27-2022 Episodic Other lower respiratory disease (5 sources) Pleurodynia; Translations: [Painful respiration] 12-29-2022 Episodic Other lower respiratory disease (3 sources) Shortness of breath; Translations: [Shortness of breath] 05-21-2023 Episodic Other lower respiratory disease (8 sources) Dyspnea on exertion; Translations: [Shortness of breath] 05-19-2023 Episodic Other lower respiratory disease (4 sources) Cough; Translations: [Cough] 10-13-2024 Episodic Other male genital disorders (8 sources) Disorder of male genital organ; Translations: [Hydrocele, unspecified] 05-19-2023 Episodic Other screening for suspected conditions (not mental disorders or infectious disease) (20 sources) Electrocardiogram abnormal; Translations: [Abnormal electrocardiogram [ECG] [EKG]] 04-07-2023 Episodic Other skin disorders (8 sources) Skin tag; Translations: [Other hypertrophic disorders of the skin] 05-19-2023 Episodic Other skin disorders (8 sources) Disorder of skin of lower limb; Translations: [Disorder of the skin and subcutaneous tissue, unspecified] 11-19-2022 Episodic Other skin disorders (8 sources) Mass of skin of right lower limb; Translations: [Disorder of the skin and subcutaneous tissue, unspecified] 05-19-2023 Episodic Rita-; endo-; and myocarditis; cardiomyopathy (except that caused by tuberculosis or sexually transmitted disease) (20 sources) Cardiomyopathy; Translations: [Cardiomyopathy, unspecified] Onset: 5 12-28-2022 Chronic Residual codes; unclassified (15 sources) Obstructive sleep apnea syndrome; Translations: [Obstructive sleep apnea (adult) (pediatric)] 09-01-2024 Chronic Residual codes; unclassified (6 sources) Daytime hypersomnia; Translations: [Hypersomnia, unspecified] 04-20-2024 Chronic Residual codes; unclassified (1 source) Obstructive sleep apnea (adult) (pediatric); Translations: [Obstructive sleep apnea (adult) (pediatric)] Onset: 5 Chronic Residual codes; unclassified (1 source) Hypersomnia, unspecified; Translations: [Hypersomnia, unspecified] Onset: 4 Chronic Skin and subcutaneous tissue infections (12 sources) Abscess; Translations: [Cutaneous abscess, unspecified] 05-19-2023 Episodic Spondylosis; intervertebral disc disorders; other back problems (8 sources) Low back pain; Translations: [Lumbago] 05-19-2023 Episodic Sprains and strains (2 sources) Low back strain; Translations: [Strain of muscle, fascia and tendon of lower back, initial encounter] 01-25-2025 Episodic Substance-related disorders (20 sources) Tobacco dependence in remission; Translations: [Nicotine dependence, cigarettes, in remission] Onset: 5 01-01-2023 Chronic Comment on above: Someday smoker Unclassified (3 sources) Skin lesion - The skin lesion appeared gradually and has been occurring for 1 month. It has been increasing in size. The lesion is characterized as red, bleeding and raised above the skin. The lesion is located on the back (right mid-upper back). Note for Skin lesion: The area has become very painful. Last night, the area started bleeding and having a foul smelling discharge. He denies any fever or chills at this time. 01-06-2023 Unclassified (3 sources) [ADDITIONAL REASON] Transition into care - The patient is transitioning into care from a hospital ([facility] 12/26/22 to 12/29/22) and a summary of care was reviewed. 01-06-2023 Unclassified (4 sources) [ADDITIONAL REASON] Follow up from hospital stay - Name of Hospital: [facility]. Date of Admission: 12/26/2022. Date of Discharge: 12/29/2022. The patient was hospitalized for New onset AFlutter/Afib with RVR, Cardiomyopathy,COPD. New medications include Spiriva, Albuterol Inhaler, Diltiazem, Lisinopril, Metoprolol Tartrate, Eliquis, Aspirin. Consultations ordered while in the hospital include cardiology (Has appt scheduled later this month Dr. Konrad Carballo [facility]iology) and pulmonology (he is scheduled for a 6 minute walk-test tomorrow, then has appt with [facility] on Friday01/10/23). No post hospital therapies were ordered. Patient was discharged to home. Current Symptoms: back pain (he has lower back pain, pt states he was told he has arthritis.) and feels short of breath with increased activity . 01-06-2023 Unclassified (4 sources) MCR Well Adult - In general the patient feels well with minor complaints, has good energy level and is sleeping poorly (does not sleep well sometimes, naps often during the day). The patient has a balanced diet (somewhat) and takes supplemental vitamins. The patient exercises none (no planned exercise but stays active around the home) and sleeps 5 (or 6) hours per night. The patient denies having trouble with bathing, dressing/grooming, toileting, preparing meals and ambulating. The patient denies having trouble with grocery shopping, driving, use of telephone, housework, laundry, preparing/taking medications and finances. 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 Note for MCR Well Adult: also has a mole on his back that he wants looked atPatient has had a colonoscopy in the last 5-6 years. Has had a partial colectomy related to diverticulitis.Patient reports that he has been feeling some fatigue and lack of motivation since after he retired. He denies any previous history of anxiety or depression. 01-14-2022 Unclassified (3 sources) MCR Well Adult - In general the patient feels well with no complaints, has good energy level and is sleeping well. The patient has a balanced diet and takes no supplemental vitamins & iron. The patient does not exercise and sleeps 6 hours per night. The patient denies having trouble with bathing, dressing/grooming, toileting, preparing meals and ambulating. The patient denies having trouble with grocery shopping, driving, use of telephone, housework, laundry, preparing/taking medications and finances. 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 Note for [facility] Well Adult: Patient is fasting for labs today.He received his flu shot through his workplace. 05-24-2024 Unclassified (1 source) Transition into care - The patient is transitioning into care from a hospital ([facility] 12/26/22 to 12/29/22) and a summary of care was reviewed. 01-06-2023 Unclassified (1 source) [ADDITIONAL REASON] Skin lesion - The skin lesion appeared gradually and has been occurring for 1 month. It has been increasing in size. The lesion is characterized as red, bleeding and raised above the skin. The lesion is located on the back (right mid-upper back). Note for Skin lesion: The area has become very painful. Last night, the area started bleeding and having a foul smelling discharge. He denies any fever or chills at this time. 01-06-2023 Unclassified (1 source) Cough, unspecified; Translations: [Cough, unspecified] Onset: Past or Other Problems Problem Classification Problem Date Documented Date Episodic/Chronic Coronary atherosclerosis and other heart disease (10 sources) Stented coronary artery; Translations: [Presence of coronary angioplasty implant and graft] Onset: 07-28-2023 07-31-2023 Episodic Comment on above: MARYSE Prox LAD using O nyx Mchenry 3.0x12 mm Unclassified (4 sources) [facility] Well Adult - In general the patient feels well with minor complaints, has good energy level and is sleeping well. The patient has a balanced diet and takes supplemental vitamins. The patient does not exercise and sleeps 6 hours per night. The patient denies having trouble with bathing, dressing/grooming, toileting, preparing meals and ambulating. The patient denies having trouble with grocery shopping, driving, use of telephone, housework, laundry, preparing/taking medications and finances. 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 Note for [facility] Well Adult: Patient had labs completed to [facility] prior to this appointment.Patient reports that he is having some mild symptoms of depression (lack of motivation, changes in sleep, loss of interest). He is not currently under any treatment for this though he does have a past diagnosis of depression.Patient continues to follow with cardiology regarding management of his CAD. 05-19-2023 Unclassified (4 sources) Follow-up - Patient is here today for a 1 week follow-up for abscess. He was last seen on 01/06/2023 and put on Bactrim DS two times daily X 7 days. The area is much less painful. Continues to have open area at the site with dark redness surrounding. Has drained some purulent blood drainage. No recent fever or chills. Reports that he is feeling better overall. 01-13-2023 Unclassified (4 sources) skin lesion removal - Lesions are present on the posterior aspect of the left upper leg, anterior aspect of the right lower leg, and on the back. Lesions previously evaluated and determined to be atypical in appearance, therefore biopsy was discussed and recommended. 11-19-2022 Unclassified (4 sources) Back pain - The onset of the back pain has been gradual and has been occurring in an intermittent pattern for 2 months. The course has been recurrent (it varies). The pain is characterized as a dull ache. The pain is located in the lower back and radiates to the upper abdomen (radiates to more mid back or up). There are no precipitating factors. The symptoms are aggravated by prolonged standing and are relieved by heat. The pain has been associated with back stiffness and leg weakness, while there has been no associated abdominal pain, flank pain, hip pain, history of back surgery or paresthesias in leg. Note for Back pain: pt has seen chiro years ago for this-- said he had deteriorating discpt has many dry spots on his arms and now face-- 1 month now- itchy at times using gold junior on it 11-12-2022 Unclassified (4 sources) concern - Patient presents today for evaluation of shortness of breath on exertion. He reports that this has been happing in an increasing pattern for the past year. He states that he has started to have to stop and take breaks doing activities that he used to be able to do without breaks, such as carrying 50 lbs bags of bird seed up the stairs at his home. This shortness of breath is relieved with rest. He denies chest pain, palpitations, or dizziness associated with this shortness of breath. He denies any shortness of breath at rest. He reports that he smoked cigarettes for many years before quitting six months ago. He currently smokes marijuana daily. Patient denies any family or personal history of heart disease. Patient was scheduled to have surgery with urology to correct a hydrocele, but the anesthesiologist will not complete the surgery until the patient is evaluated by cardiology due to a left anterior fascicular block on the patient's EKG in July. 01-12-2021 Unclassified (3 sources) Dizziness - The onset of the dizziness has been variable and has been occurring in an intermittent pattern for 1 year. The course has been recurrent. The dizziness is characterized as lightheadedness and feeling in the head. The dizziness is precipitated by standing suddenly. There has been no associated nausea, vomiting, headache, fever, upper respiratory infection symptoms, tinnitus, ear pain, ear fullness, neck pain, neck stiffness, visual changes, facial paralysis or falling episodes. The dizziness is relieved by rest (the patient states that he will hold still for a moment and the dizziness will resolve). The dizziness is exacerbated by getting up quickly. There has been no associated cerebrovascular disease, diplopia, ear infection, fever, headache, loss of balance, loss of hearing, neurologic disease, palpitations, paresthesia, seizures or sweating. Note for Dizziness: Patient reports that he will get some dizziness when he stands from a seated position. Pt says the dizziness is not every time he stands up. Will only last a few seconds. The patient reports that this feeling happens most days. He states that he does not drink much water and wonders if the dizziness is related to that. 08-25-2020 Unclassified (3 sources) [ADDITIONAL REASON] Testicular symptoms - Symptoms include testicular swelling, but do not include testicular pain, scrotal redness, urethral discharge, dysuria, urinary retention or hematuria. Symptoms are located in the right testicle. Onset was 18 month(s) ago. The patient describes this as unchanged. Note for Testicular symptoms: Pt seen by [facility] about a year ago. Did not seem too concerned, did ultrasound. Was told to watch. Seems to be getting larger.Patient states that he was told that it was a collection of fluid in his scrotum at the time. No new symptoms besides the swelling increasing over the past 3-4 months. 08-25-2020 Unclassified (1 source) Back pain - The onset of the back pain has been gradual and has been occurring in a persistent pattern for 2 weeks (2-3 weeks). 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 The pain is characterized as stabbing and shooting. The pain is located in the lower back (right side) and lumbar area and does not radiate. The pain is precipitated by nothing (Patient denies any known injury). The symptoms are aggravated by exertion and are relieved by rest and NSAIDs (Ibuprofen). There has been no associated abdominal pain, chills, bladder dysfunction, dysuria, fever, flank pain, incontinence of stool, incontinence of urine, leg weakness or paresthesias in leg. Note for Back pain: Pt states that pain is localized to right lower back area. 01-25-2025 Unclassified (1 source) Testicular symptoms - Symptoms include testicular swelling, but do not include testicular pain, scrotal redness, urethral discharge, dysuria, urinary retention or hematuria. Symptoms are located in the right testicle. Onset was 18 month(s) ago. The patient describes this as unchanged. Note for Testicular symptoms: Pt seen by [facility] about a year ago. Did not seem too concerned, did ultrasound. Was told to watch. Seems to be getting larger.Patient states that he was told that it was a collection of fluid in his scrotum at the time. No new symptoms besides the swelling increasing over the past 3-4 months. 08-25-2020 Unclassified (1 source) [ADDITIONAL REASON] Dizziness - The onset of the dizziness has been variable and has been occurring in an intermittent pattern for 1 year. The course has been recurrent. The dizziness is characterized as lightheadedness and feeling in the head. The dizziness is precipitated by standing suddenly. There has been no associated nausea, vomiting, headache, fever, upper respiratory infection symptoms, tinnitus, ear pain, ear fullness, neck pain, neck stiffness, visual changes, facial paralysis or falling episodes. The dizziness is relieved by rest (the patient states that he will hold still for a moment and the dizziness will resolve). The dizziness is exacerbated by getting up quickly. There has been no associated cerebrovascular disease, diplopia, ear infection, fever, headache, loss of balance, loss of hearing, neurologic disease, palpitations, paresthesia, seizures or sweating. Note for Dizziness: Patient reports that he will get some dizziness when he stands from a seated position. Pt says the dizziness is not every time he stands up. Will only last a few seconds. The patient reports that this feeling happens most days. He states that he does not drink much water and wonders if the dizziness is related to that. 08-25-2020 Results Test Name Value Interpretation Reference Range Facility Cardiology Visit Reporton Cardiology Visit Report [facility] [address] [place] [address] OFFICE VISIT Date of Service: 03/17/25 MR#: [id number] Acct: [id number] Name: DOYLE ESTEVEZ Rep #: [id number] : 1950 Provider: Dr. Jose rodriguez MD Age/Sex: 74/M [place] [facility] Status: Signed HPI HPI History of Present Illness Surgical H P: No Details: The patient presents for electrophysiology consultation regarding an abnormal EKG and consideration for a pacemaker. The patient is a 74-year-old male with a history of coronary artery disease status post drug-eluting stent placement, paroxysmal atrial flutter, and chronic obstructive pulmonary disease. The referral was prompted by a pre-operative EKG for a planned hydrocele surgery which demonstrated a new bifascicular block. He denies true syncope but describes two episodes of near-syncope that occurred approximately 10-11 years prior, characterized by a slow onset of symptoms leading to a fall with spontaneous resolution within 30 seconds. He also endorses occasionally noticing a hesitation in his pulse, which he describes as a sensation of skipped heartbeats. The patient was referred for cardiac evaluation after an EKG showed a new bifascicular block. He subsequently had a hospital admission for shortness of breath and was diagnosed with atrial fibrillation with a rapid ventricular response. He has a history of coronary artery disease status post drug-eluting stent (MARYSE) to the proximal right coronary artery and a separate MARYSE to the proximal left anterior descending artery. His history is also significant for paroxysmal atrial flutter and COPD. An echocardiogram on 12/26/2022 showed mild global left ventricular systolic dysfunction with an ejection fraction of 40%, a moderately dilated right ventricle with mild to moderate systolic dysfunction, and mildly enlarged atria. A pharmacologic nuclear stress test on 02/10/2023 demonstrated uniform myocardial perfusion within normal limits. A coronary angiography CT scan on 05/03/2023 revealed at least moderate coronary disease in the proximal and mid left anterior descending artery. A cardiac catheterization on 07/31/2023 showed a 70% proximal LAD stenosis, which was successfully stented. The report also noted a 50% mid LAD stenosis, 50% mid LCX stenosis, and mild RCA disease. An echocardiogram on 09/10/2024 showed an improved LVEF of approximately 50% with inferior septal and apical hypokinesis and a mildly dilated aortic root. A 24-hour Holter monitor on 12/30/2024 showed an average heart rate of 73 bpm with periods of type I second-degree AV block. No atrial fibrillation, SVT, or VT was noted. No symptoms were reported during monitoring. An in-office 12-lead EKG today shows sinus rhythm at 67 bpm, right bundle branch block, and left anterior fascicular block. A single PVC is noted. ROS: RESPIRATORY: Shortness of breath positive CARDIOVASCULAR: Palpitations positive NEUROLOGICAL: Dizziness positive PE: GENERAL APPEARANCE: The patient is an alert and cooperative male who appears his stated age and is in no acute distress. LUNGS: Lungs are clear to auscultation bilaterally. Respiratory effort is non-labored. CARDIAC: Auscultation reveals a regular rate and rhythm. No murmurs or other extra heart sounds are appreciated. NEUROLOGICAL: The patient is alert and oriented. Speech is clear and coherent. PSYCHIATRIC: Mood is euthymic with an affect that is appropriate to the situation. 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 Medicare Required: No Accompanied by: Self Is patient in pain?: No Allergies No Known Allergies Allergy (Verified 03/17/25 13:54) Medications ???Medication ???Instructions ???Recorded ???Confirmed ???Type pravastatin 20 mg tablet 20 mg PO QHS #90 tabs 03/30/24 Rx lisinopril 5 mg tablet 5 mg PO DAILY #90 TABLETS 07/30/24 03/17/25 Rx clopidogrel 75 mg tablet 75 mg PO DAILY #90 tabs 08/18/24 0 03/17/25 Rx nitroglycerin 0.4 mg sublingual 0.4 mg sublingual Q5-15M PRN chest 08/24/24 03/17/25 Rx tablet pain #30 tabs Ventolin HFA 90 mcg/actuation 2 puff inhalation Q6H PRN 12/14/24 03/17/25 Rx aerosol inhaler (albuterol sulfate) shortness of breath or wheezing #18 grams metoprolol tartrate 25 mg tablet 25 mg PO BID #180 tabs 02/14/25 Rx budesonide 160 mcg-glycopyr 9 2 inh inhalation BID PRN 02/17/25 03/17/25 History mcg-formot 4.8 mcg/actuation HFA inhaler (more content not included)... Normal [facility] Cardiology Visit Reporton Cardiology Visit Report [facility] [address] [place] [address] OFFICE VISIT Date of Service: 02/17/25 MR#: [id number] Acct: [id number] Name: DOYLE ESTEVEZ Rep #: [id number] : 1950 Provider: GINO michelle Age/Sex: 74/M [place] [facility] Status: Signed HPI HPI History of Present Illness Details: He does have a history of previous tobacco use after 46 years he quit using tobacco. He is scheduled to have hydrocele surgery and was sent for cardiac evaluation. He was noted to have an EKG demonstrating a bifascicular block with a right bundle branch block which appears to be new. Later, he was admitted to the hospital with shortness of breath. He was diagnosed with atrial fibrillation with rapid ventricular response. Also bronchospastic disease with COPD. He had an echocardiogram done which showed ejection fraction of 40%. Mild to moderate right ventricular dysfunction was also noted. Patient had a CT scan of his chest done which showed coronary calcification as an incidental finding. Heart catheterization on 07/31/2023 resulted in MARYSE to prox LAD. Echocardiogram from August 2024 showed an EF of 50%. He had a Holter monitor in December of 2024 that showed no atrial fibrillation and an episode of 2nd degree type I heart block. He was referred to EP for input. He denies chest, arm, jaw, or neck discomfort. He denies palpitations or bilateral lower extreme edema. He acknowledges shortness of breath activity. He denies shortness of breath at rest, orthopnea, cough, or PND. He acknowledges dizziness and lightheadedness. He denies near-syncope, syncope, or weakness. He acknowledges fatigue that he attributes to back pain. 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4 mg sublingual Q5-15M PRN chest 08/24/24 02/17/25 Rx tablet pain #30 tabs Ventolin HFA 90 mcg/actuation 2 puff inhalation Q6H PRN 12/14/24 02/17/25 Rx aerosol inhaler (albuterol sulfate) shortness of breath or wheezing #18 grams metoprolol tartrate 25 mg tablet 25 mg PO BID #180 tabs 02/14/25 Rx budesonide 160 mcg-glycopyr 9 2 inh inhalation BID PRN 02/17/25 History mcg-formot 4.8 mcg/actuation HFA inhaler (Breztri Aerosphere) triamcinolone acetonide 0.1 % 1 applic topical DAILY PRN 5 02/17/25 History topical cream vit C 250 mg-vit E 90 mg-zinc 40 1 tab PO BID 02/17/25 02/17/25 His tory mg-copper 1 ho-sjvjvo-gizrlc capsule (PreserVision AREDS-2) apixaban 5 mg tablet (Eliquis) 5 mg PO BID #60 tabs 03/04/25 Rx Ejection fraction %: 50 Have you fallen in the past year?: No PFSH Medical History COPD (chronic obstructive pulmonary disease) Abnormal findings diagnostic imaging of heart and coronary circulation Cardiac left ventricular ejection fraction 21-40 percent Abnormal EKG care home current use of anticoagulant Shortness of breath Fatigue Dyslipidemia Atrial flutter Nicotine dependence, cigarettes, in remission Cardiomyopathy Paroxysmal atrial fibrillation Coronary artery disease Atrial flutter with rapid ventricular response Encounter for pre-operative cardiovascular clearance Premature ventricular contractions Diverticulosis Obesity Hydrocele Dizziness Right bundle branch block (RBBB) with left anterior fascicular block Dyspnea Surgical History Hx of cardiac catheterization ( 07/31/23) Stented coronary artery ( 07/31/23) H/O total colectomy History of appendectomy Family History Father CAD (coronary artery disease) CABG Brother CAD (coronary artery disease), Onset Age: 56 stents Other COPD (chronic obstructive pulmonary disease) Dys (more content not included)... [facility] Pulmonary Visit Reporton Pulmonary Visit Report [facility] [place] [address] [place] [address] OFFICE VISIT Date of Service: 12/14/24 MR#: [id number] Acct: [id number] Name: DOYLE ESTEVEZ Rep #: [id number] : 1950 Provider: Bhumi Gomez NP Age/Sex: 74/M [place] [facility] Status: Signed Assessment and Plan Assessment and Plan (1) PHILOMENA (obstructive sleep apnea): Status: Acute Plan: The current settings are controlling his apnea well and he has been able to increase use of therapy since transitioning to BiPAP and has met compliance on therapy. Continue to work on increasing use of the device. Continue with current style mask. Compliance download on follow-up in 6 months. (2) COPD (chronic obstructive pulmonary disease): Status: Chronic Qualifiers: COPD type: emphysema Emphysema type: centrilobular Qualified Code(s): J43.2 - Centrilobular emphysema Plan: The oral prednisone along with a Z-Jules did improve his respiratory symptoms and exam from previous visit. I have asked for him to routinely use his triple therapy and continue with use of albuterol on an as-needed basis, refilled accordingly today. The patient should notify this practice if his respiratory symptoms worsen. No further testing at this time. Reassess on follow-up in 6 months. (3) Smoking greater than 20 pack years: Status: Chronic Comment: Someday smoker Plan: Complete smoking cessation is recommended and encouraged today. LDCT, due in September 2025, previously ordered. Medications: Changed From albuterol sulfate 90 mcg/actuation (Ventolin HFA) 1-2 puffs q6hr prn shortness of breath or wheezing 1 puff inhalation Q6H PRN 8.5 grams 11RF shortness of breath or wheezing To Ventolin HFA 90 mcg/actuation (albuterol sulfate) 1-2 puffs q6hr prn shortness of breath or wheezing 2 puffs inhalation Q6H PRN 18 grams 11RF shortness of breath or wheezing NS Refilled pxopcqqqnu-asfcpbrj-yj rmoterol 160-9-4.8 mcg/actuation (Breztri Aerosphere) 2 inhalations inhalation BID 10.7 grams 6RF Plan Details Follow Up: 6-month (LMR) HPI HPI Comments Details: Patient is a 74-year-old male who presents to the office today for follow-up of sleep apnea and COPD. He is ambulatory and currently on room air. He has not recently been seen in the ED or urgent care for any respiratory illness. He did complete zpak and prednisone from last visit and reports that it improved his breathing. He has been using Breztri more routinely. He is asking for a refill today. He has not experienced side effects such as sore throat or thrush. He reports he is rinsing his mouth after use. He uses albuterol rescue inhaler every morning. He reports that he would like to use Ventolin instead of albuterol as albuterol leaves a bad taste in my mouth . He states that he now is a social smoker, smokes when he drinks. For the last few weeks he has had worsening respiratory symptoms like he has a chest cold . He reports mid back pain on the right side previously and then left side. Coughing occurs on occasion that is atypical which is clear to productive. He denies chest pain and chest tightness. He denies fever, chills, body aches. He reports shortness of breath with exertion and occasional wheeze at night. He has utilized his rescue inhaler couple of times during the day. He is using BiPAP and he is more comfortable with the way the air is coming at him now. He has now been able to wear the device for about 4 hours whereas previously he was only able to use the device for about 2 hours. He is not willig to use a full face mask, he is using a nasal mask with a chin strap. He feels like this has worked best for him. He does experience dry mouth. He denies morning headache. He does feel rested upon awakening. He does nap on occasion. ESS today is 7. LDCT from September 27, 2024 which shows stable 6 mm noncalcified nodule in the peripheral lateral aspect of the left lower lobe. Stable 4 mm nodule in the peripheral lateral aspect of the left lower lobe on image 198. PSG from May 13, 2024 which shows AHI 27.7. Documentation reviewed with patient today includes: Compliance download from December 12, 2024 shows 87% compliance, using the device 4 hours and 49 minutes for an AHI of 3.9 on BiPAP 11/7 cm. Minimal air leak identified. Intake Vital Signs 10/13/24 08:18 12/14/24 12:30 Height 5 ft 10 in 5 ft 10 in Weight: 224 lb BMI 32.1 BP 135/74 H Blood Pressure Location Lt brachial Position Sitting Respiration 18 Pulse 66 Pulse Source Monitor Temp 97.6 F L Temperature Source Temporal Artery Pulse Oximetry (%) 94 Oxygen Delivery Method room air Intake Visit Reasons: Compliance Manager Medicare Required: No Accompanied by: Self Is patient in pain?: No Allergies No Known Allergies Allergy (Verifie (more content not included)... [facility] Pulmonary Visit Reporton Pulmonary Visit Report [facility] [address] [place] [address] OFFICE VISIT Date of Service: 10/13/24 MR#: [id number] Acct: [id number] Name: DOYLE ESTEVEZ Rep #: [id number] : 1950 Provider: Bhumi Gomez NP Age/Sex: 74/M [place] [facility] [place] Status: Signed Assessment and Plan Assessment and Plan (1) PHILOMENA (obstructive sleep apnea): Status: Acute Plan: The patient has been transition to BiPAP therapy. I have recommended that he use [place] gel and work with vendor for comfort settings to help with the dryness that he experiences at the 4-hour mariah of using the mask. I have also recommended that he restart the ramp at that time as this may help him with compliance. The current settings are controlling his apnea well and he has been able to increase use of therapy since transitioning to BiPAP. I have recommended a compliance download on follow-up. I have discussed the use of nasal steroid spray on an as-needed basis for nasal congestion. (2) COPD (chronic obstructive pulmonary disease): Status: Chronic Qualifiers: COPD type: emphysema Emphysema type: centrilobular Qualified Code(s): J43.2 - Centrilobular emphysema Plan: I did obtain a NIOX due to wheeze and cough but it is not elevated today but this is not always beneficial in a patient who has COPD. I do believe that the patient is exacerbating today and have recommended a short course of oral prednisone along with a Z-Jules. I have asked for him to routinely use his triple therapy and continue with use of albuterol on an as-needed basis. The patient should notify this practice if his respiratory symptoms worsen. (3) Smoking greater than 20 pack years: Status: Chronic Comment: Someday smoker Plan: Complete smoking cessation is recommended. LDCT, due in September 2025 and is ordered accordingly. Patient is agreeable to continue with this recommendation. Orders: Orders Low Dose CT Lung Screening 12 Months F17.210 - Nicotine dependence, cigarettes, uncomplicated NIOX Today R05.9 - Cough, unspecified Medications: New azithromycin For 250 mg dose pack: take 500 mg today (day 1), then 250 mg for 4 days (days 2-5) PO 6 tabs 0RF F17.210 - Nicotine dependence, cigarettes, uncomplicated prednisone Take 3 tablets daily for 3 days, then 2 tablets daily for 2 days. 10 mg PO DIRECTED 13 tabs 0RF F17.210 - Nicotine dependence, cigarettes, uncomplicated Plan Details Follow Up: 6 Months (LMR) HPI HPI Comments Details: Patient is a 74-year-old male who presents to the office today for follow-up of sleep apnea and COPD. He is ambulatory and currently on room air. He has not recently been seen in the ED or urgent care for any respiratory illness. He has not required any antibiotics or prednisone for any breathing problems. He has attempted to become more routine with using Breztri. He previously had Sprivia. He uses albuterol rescue inhaler every morning. He states that he now is a social smoker, smokes when he drinks. For the last few weeks he has had worsening respiratory symptoms like he has a chest cold . He reports mid back pain between the shoulder blades is present along with chest tightness. He indicates that there is coughing present with productive white sputum. He reports shortness of breath with exertion and occasional wheeze at night. He has utilized his rescue inhaler couple of times during the day. The patient is struggling to use his mask. He also feels like the air is too strong in his nose. But since transitioning to BiPAP he is more comfortable with the way the air is coming at him now. He has now been able to wear the device for about 4 hours whereas previously he was only able to use the device for about 2 hours. He reports that his sinuses have been stuffy lately and harder for him to use his machine . He has not tried nasal sprays. He does experience dry mouth. He denies headaches but reports that his head feels stuffy . He does not feel rested upon awakening. ESS today is 7. He continues to smoke on occasion. He reports that last Friday he did smoke 2 cigarettes. Low-dose CT lung screen completed on October 04, 2023. Noted is mild emphysema. Some right lower lobe lineal scarring. No change in a 6 mm noncalcified nodule periphery left lower lobe. No change in a 4 mm noncalcified nodule perforate left lower lobe. PSG from May 13, 2024 which shows AHI 27.7. Compliance download from September 14, 2024 shows 100% compliance, using the device 3 hours and 44 minutes for the past 5 days with an AHI of 7.4 on straight CPAP 9 cm. Prior to that he was utilizing an AutoPap at 5 to 15 cm with average pressure at 11 cm. AHI was 4.7. He was using the device 3.5 hours nightly. Documentation reviewed with patient today includes: LDCT from September 27, 2024 which shows stable (more content not included)... 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 Patient has smoked 1 pack per day for 45 years. TECHNIQUE: Low Dose CT Lung Screening without contrast COMPARISON: Comparison is made with prior study October 04, 2023. FINDINGS: PULMONARY NODULES: (Only nodules >6mm are reported) Nodules described below are on series unless otherwise specified. Pulmonary Nodules: Stable 6 mm noncalcified nodule in the peripheral lateral aspect of the left lower lobe. Stable 4 mm nodule in the peripheral lateral aspect of the left lower lobe as seen on axial image number 198 Hardware:None Lymph Nodes:No mediastinal hilar or axillary lymphadenopathy. Heart and Vasculature:Normal heart size. No pericardial effusion.Thoracic aorta and pulmonary arteries have normal contours; noncontrast technique limits evaluation. Coronary Artery Calcifications: Present Lungs and Airways: Mild emphysematous changes are present. Pleura:No pleural effusion. No pneumothorax. Upper Abdomen:Visualized portions of the upper abdominal viscera are unremarkable. Bones:Degenerative changes of the thoracic spine. CT/Low Dose CT Lung Screening IMPRESSION: 1. BASED ON THE ACR LUNG RADS FOR THE MOST SUSPICIOUS NODULE (IF ANY) DESCRIBED IN THIS REPORT, THE OVERALL LUNG RADS SCORE IS 2.2 - BENIGN (BASED ON IMAGING FEATURES OR INDOLENT BEHAVIOR). RECOMMEND 12-MONTH SCREENING LDCT.. 2. SMOKING CESSATION COUNSELING IS RECOMMENDED IF THE PATIENT IS STILL SMOKING. 3. OTHER SIGNIFICANT FINDINGSNone. One or more dose reduction techniques were used (e.g., Automated exposure control, adjustment of the mA and/or kV according to patient size, use of iterative reconstruction technique). The following information is provided for reference:Lung-RADS 2022 Assessment Categories. Additional information involving Lung-RADS is available at www.acr.org. 0-INCOMPLETE 1-NEGATIVE:No nodules or definitely benign nodules. Complete, central, popcorn, or centric ring calcifications OR fat containing 2-BENIGN APPEARANCE (based on imaging features or indolent behavior). Juxtapleural nodule: < 10mm AND solid; smooth margins; oval, entiform, or triangular shape Solid nodule: <6mm at baseline or new< 4mm Part solid Nodule: < 6mm total mean diameter at baseline Nonsolid nodule:(GGN) < 30mm OR >=30mm stable or slowly growing Airway nodule, subsegmental at baseline, new, or stable Category 3 nodule stable or decreased in size at 6-month follow-up CT or Category 3 or 4A nodules that resolve on follow-up OR category 4B findings proven to be benign following diagnotic work up. 3 - Probably Benign (Based on imaging features or behavior) Solid Nodule: >= 6 to <8mm at baseline OR new 4 to <6mm Part-solid nodule: >= 6mm toal mean diam. with solid component <6mm at baseline OR new < 6mm total mean diam. Non-solid nodule: GGN >= 30mm at baseline or new Atypical pulmonary cyst: Growing cystic component (mean diam.) of thick-walled cyst Category 4A nodule stable or decreased in size at 3-month follow-up CT (excl.airway). 4A - Suspicious Solid nodule: >=8 to < 15mm at baseline OR growing < 8mm OR new 6 to < 8mm Part solid nodule: >= 6mm total mean diam. w/ solid component >=6mm to < 8mm at baseline OR new or growing < 4mm solid component Airway nodule, segmental or more proximal at baseline or new Atypical pulmonary cyst: Thick-walled OR multilocular at baseline OR becomes multilocular 4B - Very Suspicious Airway nodule, segmental or more proximal, and stable or growing Solid nodule: >= 15mm at baseline OR new or growing >= 8mm Part solid nodule: Solid component >= 8mm OR new or growing >= 4mm solid component Atypical pulmonary cyst: Thick-walled with growing wall thickness/nodularity OR Growing multilocular (mean diam.) OR Multilocular with increased loculation or new/increased opacity Slow-growing solid or part solid nodule w/ growth over multiple screening exams 4X - Very Suspicious Category 3 or 4 nodules with additional features that increase the suspicion for lung cancer. S - Clinically Significant or potentially significant findings (non-lung cancer) Reading Location: [id number] CC: GINO Delacruz; FABRICIO CONTRERAS Clinical Implementation Specialist: Signed [facility] High density lipoprotein (HD L) measurementOrdered By: Allison Silvestre on 09-17-2024 Cholesterol in HDL [Mass/Vol] 43 mg/dL >40 [facility] Comment on above: The drugs N-Acetylcy steine and Metamizole may falsely depress this assay. Reference Range HDL <40 mg/dL Low HDL Cholesterol HDL >or= 60 mg/dL High HDL Cholesterol Lipid Profileon 09-17-2024 Cholesterol [Mass/Vol] 171 mg/dL Normal [address] [facility] Comment on above: Result Comment: <200 mg/dL Desirable 200-240 mg/dL Borderline >240 mg/dL High Risk Performed By: #### L 500.4104 #### [facility] [address] [place], [address] Cholesterol in HDL [Mass/Vol] 43 mg/dL [facility] Comment on above: Result Comment: The drugs N-Acetylcysteine and Metamizole may falsely depress this assay. Reference Range HDL <40 mg/dL Low HDL Cholesterol HDL >or= 60 mg/dL High HDL Cholesterol Performed By: #### L 500.4100 #### [facility] [address] [place], [address] Cholesterol in LDL [Mass/Vol] 89 mg/dL Normal 0-130 [facility] Comment on above: Performed By: #### L 500.4100 #### [facility] [address] [place], [address] Cholesterol in VLDL [Mass/Vol] 39 mg/dL Normal 5-40 [facility] Comment on above: Performed By: #### L 500.4100 #### [facility] [address] [place], [address] Triglyceride [Mass/Vol] 196 mg/dL [facility] Comment on above: Result Comment: The drugs N-Acetylcysteine and Metamizole may falsely depress this assay. Serum Triglycerides Reference Interval Normal <150 mg/dL Borderline high 150 - 199 mg/dL High 200 - 499 mg/dL Very High > or = 500 mg/dL Performed By: #### L 500.4100 #### [facility] [address] [place], [address] Low density lipoprotein (LDL ) cholesterol measurementOrdered By: Allison Silvestre on 09-17-2024 Cholesterol in LDL [Mass/Vol] 89 mg/dL 0-130 [facility] Pulmonary Visit Reporton Pulmonary Visit Report [facility] [address] [place], [place] [address] OFFICE VISIT Date of Service: 09/17/24 MR#: [id number] Acct: [id number] Name: DOYLE ESTEVEZ Bobby Rep #: [id number] : 1950 Provider: Bhumi Gomez NP Age/Sex: 74/M [place] [facility] [place] Status: Signed Assessment and Plan Assessment and Plan (1) PHILOMENA (obstructive sleep apnea): Status: Acute Plan: Failing PAP therapy despite adjustments to the machine and trialing both AutoPap and CPAP. He has also worked with RT for recommendations. I have recommended a titration study at this point. The patient is agreeable to this plan and willing to proceed. He is concerned that he may not be able to sleep for the sleep study as he does have a delayed bedtime. I have recommended the use of Sonata 10 mg to be used for the night of sleep testing if the patient is unable to fall asleep. The mechanical sound technician should perform a mini neuro evaluation prior to releasing the patient in the morning. Compliance download on follow-up. (2) COPD (chronic obstructive pulmonary disease): Status: Chronic Qualifiers: COPD type: emphysema Emphysema type: centrilobular Qualified Code(s): J43.2 - Centrilobular emphysema Plan: I believe that his symptoms are suboptimally controlled because he has not consistently utilized triple therapy as previously recommended. He is agreeable to return to using his maintenance inhal er, Breztri. Use albuterol as needed, reassess on follow-up. No need for prednisone or antibiotic. An acute visit can typically be arranged within 1-2 days. Follow-up in 3 to 4 months. (3) Smoking greater than 20 pack years: Status: Chronic Comment: Someday smoker Plan: Complete smoking cessation is recommended. LDCT, due in September 2024 and was previously ordered, this is scheduled. Orders: Orders Polysomnography with PAP Today G47.33 - Obstructive sleep apnea (adult) (pediatric) Medications: Discontinued tiotropium bromide 2.5 mcg/actuation (Spiriva Respimat) Discontinued Reason: Order Changed 2 puffs inhalation DAILY 4 grams 6RF Plan Details Follow Up: 4 Weeks (LMR) HPI HPI Comments Details: Patient is a 74-year-old male who presents to the office today for follow-up of sleep apnea and COPD. He is ambulatory and currently on room air. He has not recently been seen in the ED or urgent care for any respiratory illness. He has not required any antibiotics or prednisone for any breathing problems. He has not routinely used Breztri. He previously had Sprivia. He uses albuterol rescue inhaler every morning. He states that he now is a social smoker, smokes when he drinks. He denies shortness of breath. His chest does burn with cold air. There is occasional coughing and his cough will be productive, feeling like his chest needs to be cleared. He denies any wheezing, chest tightness, chest pain or palpitations. He has not had any fever, chills or body aches. The patient is struggling to use his mask. He reports that he is able to use his device for the first hour or 2 and is fine then he is having difficulty with a seal around his face. He feels like the mask is going to leak and the seal breaks after the pressure increases. He also feels like the air is too strong in his nose and it is causing his nose to feel cold. He has not been able to keep the device on despite working with respiratory therapy. He does experience dry mouth. He denies headaches but reports that his head feels stuffy . He does not feel rested upon awakening. ESS today is 7. Low-dose CT lung screen completed on October 04, 2023. Noted is mild emphysema. Some right lower lobe lineal scarring. No change in a 6 mm noncalcified nodule periphery left lower lobe. No change in a 4 mm noncalcified nodule perforate left lower lobe. Documentation reviewed with patient today includes: PSG from May 13, 2024 which shows AHI 27.7. Compliance download from September 14, 2024 shows 100% compliance, using the device 3 hours and 44 minutes for the past 5 days with an AHI of 7.4 on straight CPAP 9 cm. Prior to that he was utilizing an AutoPap at 5 to 15 cm with average pressure at 11 cm. AHI was 4.7. He was using the device 3.5 hours nightly. Intake Vital Signs 04/20/24 11:24 09/17/24 08:44 Height 5 ft 10 in 5 ft 10 in Weight: 218 lb BMI 31.2 BP 131/78 H Blood Pressure Location Lt brachial Position Sitting Respiration 20 H Pulse 83 Pulse Source Monitor Temp 97.3 F L Temperature Source Temporal Artery Pulse Oximetry (%) 96 Oxygen Delivery Method room air Intake Visit Reasons: 4 M FU Manager Medicare Required: No DME Vendor: frederick Ibarra Accompanied by: Self Is patient in pain?: No Allergies No Known Allergies Allergy (Verified 09/17/24 13:32) Have you fallen in the p (more content not included)... [facility] Serum or plasma cholesterol measurement (mass/volume)Ordered By: Allison Silvestre on 09-17-2024 Cholesterol [Mass/Vol] 171 mg/dL <[address] [facility] Comment on above: <200 mg/dL Desirable 200-240 mg/dL Borderline >240 mg/dL High Risk Triglycerides measurementOrd ered By: Allison Silvestre on 09-17-2024 Triglyceride [Mass/Vol] 196 mg/dL <199 [facility] Comment on above: The drugs N-Acetylcy steine and Metamizole may falsely depress this assay.Serum Triglycerides Reference Interval Normal <150 mg/dL Borderline high 150 - 199 mg/dL High 200 - 499 mg/dL Very High > or = 500 mg/dL Very low density lipoprotein (VLDL) cholesterol measurementOrdered By: Allison Silvestre on 09-17-2024 Very low density lipoprotein (VLDL) cholesterol measurement 39 mg/dL 5-40 [facility] VLDL Cholesterol 39 mg/dL 5-40 [facility] Echo Completeon 09-10-2024 Echo Complete [facility] [address] [place] [address] Echo Complete 09/10/24 1406 MR#: [id number] Acct: [id number] Name: DOYLE ESTEVEZ Rep #: [id number] : 1950 74 From: Allison Silvestre MD Attending Dr: Dr. Allison Silvestre MD Status: REG I Ordering Dr: Allison Silvestre MD Date: 09/10/24 Location: [facility] Sex: M C Admitted: Reason For Study Reason For Study: CAD/ASHD Procedure This was a 2D Doppler, Color Flow transthoracic echocardiogram. Exam performed in department. Left Ventricle Normal size and thickness. LVEF approximately 50%. Inferior septal and apical hypokinesis. Right Ventricle Normal right ventricle. Atria The left and right atria are normal. Mitral Valve Trivial mitral valve insufficiency. Tricuspid Valve Trivial tricuspid valve insufficiency. Normal pulmonary artery pressure. Aortic Valve Trisinus/trileaflet aortic valve. Pulmonic Valve The pulmonic valve is not well visualized. Trivial pulmonic valve insufficiency. Great Vessels Mildly dilated aortic root. Pericardium/Pleural No pericardial effusion. MMode/2D Measurements Calculations LVIDd: 4.9 cm IVSd: 1.0 cm Ao root diam: 3.9 cm LVIDs: 3.8 cm LVPWd: 0.95 cm RVDd: 3.6 cm FS: 23.7 % LAV(MOD-bp): 42.2 ml LVAd ap4: 35.3 cm2 SV(MOD-sp4): 51.7 ml LAV(MOD-bp) Indexed: 19.4 ml/m2 LVLd ap4: 9.1 cm SI(MOD-sp4): 23.7 ml/m2 LAV(MOD-sp2): 52.6 ml EDV(MOD-sp4): 115.0 ml LAV(MOD-sp4): 32.8 ml EDV(sp4-el): 115.8 ml LVAs ap4: 23.9 cm2 LVLs ap4: 7.8 cm ESV(MOD-sp4): 63.2 ml ESV(sp4-el): 62.0 ml EF(MOD-sp4): 45.0 % EF(sp4-el): 46.5 % SV(sp4-el): 53.8 ml LA A4 area: 14.8 cm2 LA dimension(2D): 3.9 cm RA A4 area: 16.4 cm2 TAPSE: 1.8 cm Time Measurements MV dec time: 0.22 sec Doppler Measurements Calculations MV E max jevon: 57.8 cm/sec Lat Peak E' Jevon: 9.5 cm/sec Med Peak E' Jevon: 7.7 cm/sec MV A max jevon: 73.9 cm/sec E/E' lat: 6.1 E/E' med: 7.5 MV E/A: 0.78 MV V2 max: 74.7 cm/sec MV P1/2t max jevon: 48.0 cm/sec Ao V2 max: 83.1 cm/sec MV max P.2 mmHg MV P1/2t: 63.4 msec Ao max P.8 mmHg MV V2 mean: 32.9 cm/sec Ao V2 mean: 61.8 cm/sec MV mean P.52 mmHg MV dec slope: 221.8 cm/sec2 Ao mean P.7 mmHg MV V2 VTI: 20.1 cm MVA(P1/2t): 3.5 cm2 Ao V2 VTI: 16.8 cm AV (velocity ratio): 1.0 LV V1 max: 78.2 cm/sec PA V2 max: 99.0 cm/sec TR max jevon: 237.5 cm/sec LV V1 max P.5 mmHg PA V2 mean: 71.0 cm/sec TR max P.6 mmHg LV V1 mean P.3 mmHg LV V1 mean: 53.9 cm/sec LV V1 VTI: 17.1 cm ECHO/Echo Complete Interpretation Summary LVEF approximately 50%. Inferior septal and apical hypokinesis. Mildly dilated aortic root. Ordering Physician: Allison Silvestre Referring Physician: Allison Silvestre Performed By: Contreras Whitley RCS 09/13/24 1114 Date Allison Silvestre MD CC: Dr. Allison Silvestre MD; FABRICIO RADIATION / CHEMISTRY TECHNICIAN-C BEN Date Dictated: 09/10/24 1406 Date Transcribed: 09/13/24 1114 Clinical Implementation Specialist: Signed [facility] Cardiology Visit Reporton Cardiology Visit Report [facility] [address] [place], [place] [id number] OFFICE VISIT Date of Service: 08/24/24 MR#: [id number] Acct: [id number] Name: DOYLE ESTEVEZ Rep #: [id number] : 1950 Provider: Dr. Allison Silvestre MD Age/Sex: 74/M [place] [facility] [place] Status: Signed HPI HPI History of Present Illness Details: This gentleman is here for follow-up visit. Denies any chest pains or shortness of breath. No orthopnea. No PND. No ankle edema. No palpitations. Tolerating pravastatin well and denies any muscle aches or pains. Intake Vital Signs 04/20/24 11:24 08/24/24 11:25 Height 5 ft 10 in 5 ft 10 in Weight: 221 lb 222 lb BMI 31.7 31.8 BP 136/86 H 116/68 Blood Pressure Location Lt brachial Lt brachial Position Sitting Sitting Respiration 18 18 Pulse 73 71 Pulse Source Monitor NIBP Temp 97.2 F L Temperature Source Temporal Artery Pulse Oximetry (%) 95 Oxygen Delivery Method room air Intake Visit Reasons: 7 M Manager Medicare Required: No Accompanied by: Self Is patient in pain?: No Allergies No Known Allergies Allergy (Verified 08/24/24 14:48) Medications ???Medication ???Instructions ???Recorded ???Confirmed ???Type vitamins A,C,L-goec-bjshhg 4,296 1 cap PO BID 03/21/21 08/24/24 History mcg-226 mg-90 mg capsule (PreserVision AREDS) triamcinolone acetonide 0.1 % 1 applic topical DAILY 12/26/22 08/24/24 History topical cream glucosamine HCl 500 mg tablet 500 mg PO DAILY 07/08/23 08/24/24 History tiotropium bromide 2.5 2 puff inhalation DAILY #4 grams 08/27/23 08/24/24 Rx mcg/actuation mist for inhalation (Spiriva Respimat) diltiazem HCl 240 mg 240 mg PO DAILY 30 days #90 caps 01/05/24 08/24/24 Rx capsule,extended release 24 hr metoprolol tartrate 25 mg tablet 25 mg PO BID #180 tabs 01/20/24 08/24/24 Rx apixaban 5 mg tablet (Eliquis) 5 mg PO BID #60 tabs 02/06/24 08/24/24 Rx pravastatin 20 mg tablet 20 mg PO QHS #90 tabs 03/30/24 08/24/24 Rx budesonide 160 mcg-glycopyr 9 2 inh inhalation BID #10.7 grams 04/20/24 08/24/24 Rx mcg-formot 4.8 mcg/actuation HFA inhaler (Breztri Aerosphere) albuterol sulfate 90 mcg/actuation 1 puff inhalation Q6H PRN 07/30/24 08/24/24 Rx aerosol inhaler (Ventolin HFA) shortness of breath or wheezing #8.5 grams lisinopril 5 mg tablet 5 mg PO DAILY #90 TABLETS 07/30/24 08/24/24 Rx clopidogrel 75 mg tablet 75 mg PO DAILY #90 tabs 08/18/24 08/24/24 Rx Ejection fraction %: 40 Have you fallen in the past year?: No PFSH Medical History Abnormal EKG Abnormal findings diagnostic imaging of heart and coronary circulation Atrial flutter Atrial flutter with rapid ventricular response Cardiac left ventricular ejection fraction 21-40 percent Cardiomyopathy COPD (chronic obstructive pulmonary disease) Coronary artery disease Diverticulosis Dizziness Dyslipidemia Dyspnea Encounter for pre-operative cardiovascular clearance Fatigue Hydrocele care home current use of anticoagulant Nicotine dependence, cigarettes, in remission Obesity Paroxysmal atrial fibrillation Premature ventricular contractions Right bundle branch block (RBBB) with left anterior fascicular block Shortness of breath Surgical History H/O total colectomy History of appendectomy Hx of cardiac catheterization ( 07/31/23) Stented coronary artery ( 07/31/23) Family History Father CAD (coronary artery disease) CABG Brother CAD (coronary artery disease), Onset Age: 56 stents Other COPD (chronic obstructive pulmonary disease) Dyspnea Paroxysmal atrial fibrillation Social History Smoking Status: Current some day smoker tobacco type: cigarettes alcohol intake: current alcohol intake frequency: a few times a month Alcohol type: beer substance use type: marijuana caffeine: Yes Type: coffee Number of servings: 2 ROS Const Const: Positive for fatigue; Negative for weakness, headache(s) or weight gain ENT ENT: Positive for dizziness (chronic with rapid positional changes); Negative for headache(s), Nosebleed/epistaxis or balance problems Cardio Chest Pain: Yes (occasional twinge; pt states it feels more external/muscular related) Frequency: weekly (once a week) Character: other (twinge/discomfort) Location: left chest Duration: brief (seconds) Palpitations: No Edema: None Muscle aches with walking: None Resp Respiratory: Positive for SOB with activity; Negative for SOB at rest or SOB orthopnea SOB lying down GI GI: Negative nausea, vomiting or heartburn Musc Musc: Negative for muscle aches/ myalgia, (more content not included)... Normal [facility] COMPREHENSIVE METABOLIC PANE Zaki 05-25-2024 Albumin [Mass/Vol] 4.3 g/dL Normal 3.6-5.1 [facility] Comment on above: Performed By: #### 1 0231, 5363, 7600 #### [facility] [place] [address] [employer] Operator: Sarthak Anthony MD Albumin/Globulin [Mass ratio] 1.9 {ratio} Normal 1.0-2.5 [facility] Comment on above: Performed By: #### 1 0231, 5363, 5950 #### [facility] [place] [address] [employer] Operator: Sarthak Anthony MD ALP [Catalytic activity/Vol] 72 U/L Normal 35-144 [facility] Comment on above: Performed By: #### 1 0231, 5363, 7600 #### [facility] of [place] [address] [employer] Operator: Sarthak Anthony MD ALT [Catalytic activity/Vol] 12 U/L Normal 9-46 [facility] Comment on above: Performed By: #### 1 0231, 5363, 7600 #### [facility] [place] [address] [employer] Operator: Sarthak Anthony MD AST [Catalytic activity/Vol] 15 U/L Normal 10-35 [facility] Comment on above: Performed By: #### 1 0231, 5363, 7600 #### [facility] [place] [address] [employer] Operator: Sarthak Anthony MD Bilirubin [Mass/Vol] 0.9 mg/dL Normal 0.2-1.2 [facility] Comment on above: Performed By: #### 1 0231, 5363, 7600 #### [facility] [place] [address] [employer] Operator: Sarthak Anthony MD BUN/CREATININE RATIO SEE NOTE: Normal 6-22 [facility] Comment on above: Result Comment: Not Reported: BUN and Creatinine are within reference range. Performed By: #### 1 023, 5363, 7600 #### [facility] [address], [address] [place] [address] [employer] Operator: Sarthak Anthony MD Calcium [Mass/Vol] 9.2 mg/dL Normal 8.6-10.3 [facility] Comment on above: Performed By: #### 1 023, 5363, 7600 #### [facility] [place] [address] [employer] Operator: Sarthak Anthony MD Chloride [Moles/Vol] 106 mmol/L Normal 98-110 [facility] Comment on above: Performed By: #### 1 023, 5363, 7600 #### [facility] [place] [address] [employer] Operator: Sarthak Anthony MD CO2 [Moles/Vol] 27 mmol/L Normal 20-32 [facility] Comment on above: Performed By: #### 1 023, 5363, 7600 #### [facility] [place] [address] [employer] Operator: Sarthak Anthony MD Creatinine [Mass/Vol] 0.96 mg/dL Normal 0.70-1.[address] [facility] Comment on above: Performed By: #### 1 0231, 5363, 7600 #### [facility] of [place] [address] [employer] Operator: Sarthak Anthony MD GFR/1.73 sq M.predicted among non-blacks MDRD (S/P/Bld) [Vol rate/Area] 83 mL/min/{1.73_m2} Normal > OR = 60 [facility] Comment on above: Performed By: #### 1 023, 5363, 7600 #### [facility] [place] [address] [employer] Operator: Sarthak Anthony MD Globulin (S) [Mass/Vol] 2.3 g/dL Normal 1.9-3.7 [facility] Comment on above: Performed By: #### 1 230, 5363, 7600 #### [facility] [place] [address] [employer] Operator: Sarthak Anthony MD Glucose [Mass/Vol] 99 mg/dL Normal 65-99 [facility] Comment on above: Result Comment: Fasting reference interval Performed By: #### 1 230, 5363, 7600 #### [facility] [place] [address] [employer] Operator: Sarthak Anthony MD Potassium [Moles/Vol] 4.3 mmol/L Normal 3.5-5.3 [facility] Comment on above: Performed By: #### 1 230, 5363, 7600 #### [facility] [place] [address] [employer] Operator: Sarthak Anthony MD Protein [Mass/Vol] 6.6 g/dL Normal 6.1-8.1 [facility] Comment on above: Performed By: #### 1 230, 5363, 7600 #### [facility] [place] [address] [employer] Operator: Sarthak Anthony MD Sodium [Moles/Vol] 143 mmol/L Normal 135-146 [facility] Comment on above: Performed By: #### 1 023, 5363, 7600 #### [facility] [place] [address] [employer] Operator: Sarthak Anthony MD Urea nitrogen [Mass/Vol] 16 mg/dL Normal 7-25 [facility] Comment on above: Performed By: #### 1 0231, 5363, 7600 #### [facility] [address], [address] [place] [address] [employer] Machine Operator: Sarthak Anthony MD LIPID PANEL, [facility] 10-2 Cholesterol [Mass/Vol] 142 mg/dL Normal <200 [facility] Comment on above: Performed By: #### 1 0231, 5363, 7600 #### [facility] [address], [address] [place] [address] [employer] Operator: Sarthak Anthony MD Cholesterol in HDL [Mass/Vol] 35 mg/dL Low > OR = 40 [facility] Comment on above: Performed By: #### 1 023, 5363, 7600 #### [facility] of [address], [address] [place] [address] [employer] Operator: Sarthak Anthony MD Cholesterol in LDL [Mass/Vol] 86 mg/dL Normal [facility] Comment on above: Result Comment: Refe rence range: <100 Desirable range <100 mg/dL for primary prevention; <70 mg/dL for patients with CHD or diabetic patients with > or = 2 CHD risk factors. LDL-C is now calculated using the Travis-La calculation, which is a validated novel method providing better accuracy than the Friedewald equation in the estimation of LDL-C. Travis CAPELLAN et al. CORTEZ. 2013;310(19): 2334-0705 (http://education.[employer]umora.[employer]/faq/NES420) Performed By: #### 1 023, 5363, 7600 #### [facility] of [address], [address] [place] [address] [employer] Machine Operator: Sarthak Anthony MD Cholesterol.total/Chol esterol in HDL [Mass ratio] 4.1 {ratio} Normal <5.0 [facility] Comment on above: Performed By: #### 1 023, 5363, 7600 #### [facility] [address], [address] [place] [address] [employer] Machine Operator: Sarthak Anthony MD NON HDL CHOLESTEROL 107 mg/dL (calc) Normal <130 [facility] Comment on above: Result Comment: For patients with diabetes plus 1 major ASCVD risk factor, treating to a non-HDL-C goal of <100 mg/dL (LDL-C of <70 mg/dL) is considered a therapeutic option. Performed By: #### 1 0231, 5363, 7600 #### [facility] [address], [address] [place], [place] [id number] [employer] Operator: Sarthak Anthony MD Triglyceride [Mass/Vol] 110 mg/dL Normal <150 [facility] Comment on above: Performed By: #### 1 0231, 5363, 7600 #### [facility] [address], [address] [place] [address] [employer] Machine Operator: Sarthak Anthony MD PSA, TOTALon 05-25-2024 PSA, TOTAL 1.23 ng/mL Normal < OR = 4.00 [facility] Comment on above: Result Comment: The total PSA value from this assay system is standardized against the WHO standard. The test result will be approximately 20% lower when compared to the equimolar-standardized total PSA (Yokasta Connelly). Comparison of serial PSA results should be interpreted with this fact in mind. This test was performed using the Siemens chemiluminescent method. Values obtained from different assay methods cannot be used interchangeably. PSA levels, regardless of value, should not be interpreted as absolute evidence of the presence or absence of disease. Performed By: #### 1 7911, 5342, 8460 #### [facility] [address], [address] [place], [place] [id number] [employer] Machine Operator: Sarthak Anthony MD Laboratory - Chemistry and C hemistry - challengeon 05-24-2024 Albumin [Mass/Vol] 4.3 g/dL Normal 3.6 - 5.1 g/dL [facility] [employer] Albumin/Globulin [Mass ratio] 1.9 {ratio} Normal 1.0 - 2.5 [facility], [facility].; [employer] [facility] ALP [Catalytic activity/Vol] 72 U/L Normal 35 - 144 U/L [facility] [employer] [facility] ALT [Catalytic activity/Vol] 12 U/L Normal 9 - 46 U/L [facility], [facility].; [facility], [facility]. AST [Catalytic activity/Vol] 15 U/L Normal 10 - 35 U/L [facility], [facility]. Bilirubin [Mass/Vol] 0.9 mg/dL Normal 0.2 - 1 .2 mg/dL [facility], [facility].; [facility], [facility]. Calcium [Mass/Vol] 9.2 mg/dL Normal 8.6 - 10. 3 mg/dL [facility], [facility].; [facility], [facility]. Chloride [Moles/Vol] 106 mmol/L Normal 98 - 11 0 mmol/L [facility], [facility].; [facility], [facility]. Cholesterol [Mass/Vol] 142 mg/dL Normal [facility].; [facility], [facility] Cholesterol in HDL [Mass/Vol] 35 mg/dL Abnormal [facility], [facility].; [facility], [facility] Cholesterol in LDL [Mass/Vol] 86 mg/dL Normal [facility], [facility].; [facility], [facility]. CO2 [Moles/Vol] 27 mmol/L Normal 20 - 32 mmol/L [facility], [facility].; [facility], [facility]. Creatinine [Mass/Vol] 0.96 mg/dL Normal 0.70 - 1.28 mg/dL [facility], [facility].; [facility], [facility]. GFR/1.73 sq M.predicted among non-blacks MDRD (S/P/Bld) [Vol rate/Area] 83 mL/min/{1.73_m2} Normal [facility], [facility].; [employer] [facility] Glucose [Mass/Vol] 99 mg/dL Normal 65 - 99 mg/dL [facility], [facility].; [facility], [facility]. Potassium [Moles/Vol] 4.3 mmol/L Normal 3.5 - 5.3 mmol/L [facility], [facility].; [facility] Protein [Mass/Vol] 6.6 g/dL Normal 6.1 - 8.1 g/dL [facility], [facility].; [facility] Sodium [Moles/Vol] 143 mmol/L Normal 135 - 146 mmol/L [facility].; [employer] [facility]. Triglyceride [Mass/Vol] 110 mg/dL Normal [facility].; [employer]. Urea nitrogen [Mass/Vol] 16 mg/dL Normal 7 - 25 mg/dL [facility].; [employer], [employer]. No Panel Informationon 05-24 BUN/CREATININE RATIO SEE NOTE: Normal 6 - 22 [facility].; [employer] CHOL/HDLC RATIO 4.1 Normal [facility], [facility].; [place]. GLOBULIN 2.3 Normal 1.9 - 3.7 [facility] [employer] [facility], [employer]. NON HDL CHOLESTEROL 107 Normal [facility] [employer] [facility], [employer]. PSA, TOTAL 1.23 ng/mL Normal [facility].; [employer]. Pulmonary Visit Reporton Pulmonary Visit Report [facility] of [address] [place] [address] OFFICE VISIT Date of Service: 04/20/24 MR#: [id number] Acct: [id number] Name: DOYLE ESTEVEZ Rep #: [id number] : 1950 Provider: GINO Delacruz Age/Sex: 73/M [place] [facility] [place] Status[place] Signed Assessment and Plan Assessment and Plan (1) Daytime hypersomnia: Status: Acute Plan: New. Lengthy discussion about the pathophysiology of obstructive sleep apnea. We discussed the risks of untreated sleep apnea as well as the benefits. I am sending him for a polysomnogram of, he is aware that if the polysomnogram indicates an AHI greater than 5 we are going to start him on PAP therapy. Initial goal will be to wear PAP at least 4 hours nightly. Ultimately, it should be worn any time spent sleeping. I have encouraged the patient to call the office with any difficulties acclimating to PAP therapy. Follow up in the office in 3 months, at which time I anticipate the patient will be on PAP therapy for 4-6 weeks. (2) COPD (chronic obstructive pulmonary disease): Status: Chronic Qualifiers: COPD type: emphysema Emphysema type: centrilobular Qualified Code(s): J43.2 - Centrilobular emphysema Plan: Stable, he does not appear to be an exacerbation of COPD today, however escalating therapy. No need for prednisone or antibiotic. Given that he uses albuterol daily, I am going to place him on a d aily maintenance inhaler, putting him on Breztri. No additional testing at this time. Contact the office for any new or worsening symptoms. An acute visit and typically be arranged within 1-2 days. Follow-up in 3 to 4 months. (3) Smoking greater than 20 pack years: Status: Chronic Comment: Someday smoker Plan: Encourage complete smoking cessation. The patient remains appropriate for repeat LDCT, due in September 2024. Ordered accordingly. Orders: Orders Low Dose CT Lung Screening 09/25/24 F17.200 - Nicotine dependence, unspecified, uncomplicated, F17.211 - Nicotine dependence, cigarettes, in remission Polysomnography 04/20/24 G47.10 - Hypersomnia, unspecified Medications: New fxizqrfvvf-azvgticl-za rmoterol 160-9-4.8 mcg/actuation (Breztri Aerosphere) 2 inhalations inhalation BID 10.7 grams 6RF HPI 6 M FU Chief Complaint: Snoring HPI Comments Details: This patient presents to the office today to discuss test results. He is ambulatory and currently on room air. He has not recently been seen in the ED or urgent care for any respiratory illness. He has not required any antibiotics or prednisone for any breathing problems. He is compliant with the use of Spiriva 2 puffs once daily. He uses albuterol rescue inhaler every morning. He last smoked cigarettes 2 weeks ago. He states that he now is a social smoker, smokes when he drinks. The patient reports that few weeks ago he was at his sister's house and had about 6 beers. When he fell asleep on her couch she noticed that he was snoring and occasionally gasping for air. The patient does report persistent daytime hypersomnia. He does nap. He occasionally nods off to sleep unintentionally. He has difficulty with dry mouth and has a couple episodes of nocturia nightly. He denies any difficulty with shortness of breath. He denies any cough, sputum production or hemoptysis. He denies any wheezing, chest tightness, chest pain or palpitations. He has not had any fever, chills or body aches. Test results personally viewed the patient: Low-dose CT lung screen completed on October 04, 2023. Noted is mild emphysema. Some right lower lobe lineal scarring. No change in a 6 mm noncalcified nodule periphery left lower lobe. No change in a 4 mm noncalcified nodule perforate left lower lobe. STOP-BANG Assessment: 1. Do you snore? Y 2. Are you frequently tired during the day? Y 3. Have you been observed gasping or choking while asleep? Y 4. Do you have high blood pressure? Y 5. BMI - greater than 35kg/m2? N 6. Age - over 50 years old? Y 7. Neck Circumference - greater than 37 cm for females or 40 cm for males? Y 8. Gender - male? Y Total STOP-BANG score = 7 which indicates HIGH risk for obstructive sleep apnea (yes to 3 or more questions = high risk of sleep apnea). Intake Vital Signs 08/27/23 11:59 01/06/24 14:53 04/20/24 07:56 04/20/24 11:24 Height 5 ft 10 in 5 ft 10 in 5 ft 10 in 5 ft 10 in Weight: 221 lb BMI 31.7 BP 136/86 H Blood Pressure Location Lt brachial Position Sitting Respiration 18 Pulse 73 Pulse Source Monitor Temp 97.2 F L Temperature Source Temporal Artery Pulse Oximetry (%) 95 Oxygen Delivery Method room air Intake Visit Reasons: 6 M FU DME Vendor: n/a Accompanied by: Self Allergies No Known Allergies Allergy (Verified 04/20/24 11:27) Medications (more content not included)... Normal [facility] Basophil percentageOrdered B y: Allison Silvestre on 08-01-2023 Bilirubin [Mass/Vol] 0.60 mg/dL 0.20-1.00 [facility] Comment on above: For patients on eltr ombopag therapy, use of Dimension [place] TBIL is not recommended. Chloride [Moles/Vol] 113 mmol/L 98-107 [facility] Glucose [Mass/Vol] 96 mg/dL 74-106 [facility] Potassium [Moles/Vol] 3.7 mmol/L 3.5-5.1 [place] Protein [Mass/Vol] 5.9 g/dL 6.4-8.2 [facility] Sodium [Moles/Vol] 142 mmol/L 136-145 [facility] WBC (Bld) [#/Vol] 6.0 10*3/uL 4.4-11.0 [facility] Blood erythrocytes count (nu mber/volume)Ordered By: Allison Silvestre on 08-01-2023 RBC (Bld) [#/Vol] 4.22 10*6/uL 4.6-6.2 [facility] Blood hemoglobin measurement (mass/volume)Ordered By: Allison Silvestre on 08-01-2023 Hemoglobin (Bld) [Mass/Vol] 13.3 g/dL 13.0-16.5 [facility] Blood platelet mean volumeOr dered By: Allisonjeffery Silvestre on 08-01-2023 Platelet mean volume (Bld) [Entitic vol] 8.5 fL 6.2-12.0 [facility] Determination of erythrocyte mean corpuscular volume (MCV)Ordered By: Allison Silvestre on 08-01-2023 MCV (RBC) [Entitic vol] 98.8 fL 80-94 [facility] Hematocrit Auto (Bld) [Volum e fraction]Ordered By: Allisonjeffery Silvestre on 08-01-2023 Hematocrit (Bld) [Volume fraction] 41.7 % 40-54 [facility] Laboratory - Chemistry and C hemistry - challengeOrdered By: Allisonjeffery Silvestre on 08-01-2023 ALP [Catalytic activity/Vol] 57 U/L 45-117 [facility] ALT [Catalytic activity/Vol] 21 U/L 16-61 [facility] CO2 [Moles/Vol] 26.0 mmol/L 21.0-32.0 [facility] Globulin (S) [Mass/Vol] 2.8 g/dL 2.2-4.2 [facility] Urea nitrogen/Creatinine [Mass ratio] 11.4 mg/mg 10-20 [facility] Laboratory - Hematology and Cell countsOrdered By: Allison Silvestre on 08-01-2023 Erythrocyte distribution width (RBC) [Entitic vol] 51.6 fL 35.1-43.9 [facility] Erythrocyte distribution width (RBC) [Ratio] 14.2 % 11.6-14.6 [facility] MCH (RBC) [Entitic mass] 31.5 pg 27.0-32.0 [facility] MCHC Auto (RBC) [Mass/Vol]Or dered By: Allison Silvestre on 08-01-2023 MCHC (RBC) [Mass/Vol] 31.9 g/dL 32-36 [place] No Panel InformationOrdered By: Allison Silvestre on 08-01-2023 Estimated Creatinine Clearance Calc 50.92 ml/min [facility] Estimated GFR (MDRD) Amer 98 mL/min >60 [facility] Comment on above: GFR Calc Estimated GFR (MDRD) Non-Af Amer 81 mL/min >60 [facility] Comment on above: Non- GFR Calc Platelets bldOrdered By: Giacomo Silvestre on 08-01-2023 Platelets (Bld) [#/Vol] 165 10*3/uL 150-450 [facility] Serum or plasma albumin emelyn urement (mass/volume)Ordered By: Allison Silvestre on 08-01-2023 Albumin [Mass/Vol] 3.1 g/dL 3.2-5.0 [facility] Serum or plasma albumin/glob ulin mass ratioOrdered By: Allison Silvestre on 08-01-2023 Albumin/Globulin [Mass ratio] 1.1 {ratio} 0.9-2.4 [facility] Serum or plasma calcium emelyn urement (mass/volume)Ordered By: Allison Silvestre on 08-01-2023 Calcium [Mass/Vol] 8.2 mg/dL 8.5-10.1 [facility] Serum or plasma creatinine m easurement (mass/volume)Ordered By: Allison Silvestre on 08-01-2023 Creatinine [Mass/Vol] 0.97 mg/dL 0.70-1.30 [place] Comment on above: The validity of the calculated GFR & GFRAA in patients over 70 years has not been determined. Clinical correlation is essential. Serum or plasma urea nitroge n measurement (mass/volume)Ordered By: Allison Silvestre on 08-01-2023 Urea nitrogen [Mass/Vol] 11 mg/dL 7-18 [facility] Thin prep Papanicolaou smear with manual screeningOrdered By: Allison Silvestre on 08-01-2023 Thin prep Papanicolaou smear with manual screening 16 U/L 15-37 [facility] Thin prep Papanicolaou smear with manual screening 3 5-15 [facility] No Panel InformationOrdered By: Allison Silvestre on 07-31-2023 Activated Clotting Time 266 sec 74-137 [facility] Absolute lymphocyte countOrd ered By: Allison Silvestre on 05-15-2023 Lymphocytes Auto (Unsp spec) [#/Vol] 2.27 10*3/uL 0.83-4.51 [facility] Basophil percentageOrdered B y: Allison Silvestre on 05-15-2023 Basophils/100 WBC (Bld) 0.5 % 0-1 [facility] Chloride [Moles/Vol] 109 mmol/L 98-107 [place] [facility] Cholesterol [Mass/Vol] 143 mg/dL <[address] [facility] Comment on above: <200 mg/dL Desirable 200-240 mg/dL Borderline >240 mg/dL High Risk Eosinophils/100 WBC (Bld) 1.5 % 0-5 [facility] Glucose [Mass/Vol] 108 mg/dL 74-106 [facility] Comment on above: Fasting Glucose resu lt from 100 to 125 mg/dL suggests IMPAIRED HOMEOSTASIS per A.D.A. criteria. Neutrophils (Bld) [#/Vol] 4.8 10*3/uL 2.0-7.7 [facility] Neutrophils/100 WBC (Bld) 58.3 % 47-70 [facility] Potassium [Moles/Vol] 4.2 mmol/L 3.5-5.1 [place] Sodium [Moles/Vol] 141 mmol/L 136-145 [facility] Triglyceride [Mass/Vol] 121 mg/dL <199 [facility] Comment on above: The drugs N-Acetylcy steine and Metamizole may falsely depress this assay.Serum Triglycerides Reference Interval Normal <150 mg/dL Borderline high 150 - 199 mg/dL High 200 - 499 mg/dL Very High > or = 500 mg/dL WBC (Bld) [#/Vol] 8.3 10*3/uL 4.4-11.0 [facility] Blood erythrocytes count (nu mber/volume)Ordered By: Allison Silvestre on 05-15-2023 RBC (Bld) [#/Vol] 4.85 10*6/uL 4.6-6.2 [facility] Blood hemoglobin measurement (mass/volume)Ordered By: Alliosn Silvestre on 05-15-2023 Hemoglobin (Bld) [Mass/Vol] 15.3 g/dL 13.0-16.5 [facility] Blood lymphocytes/100 leukoc ytesOrdered By: Allisonjeffery Silvestre on 05-15-2023 Lymphocytes/100 WBC (Bld) 27.5 % 19-41 [facility] Blood monocytes/100 leukocyt esOrdered By: Allisonjeffery Silvestre on 05-15-2023 Monocytes/100 WBC (Bld) 11.8 % 0-10 [facility] Blood platelet mean volumeOr dered By: Allison Silvestre on 05-15-2023 Platelet mean volume (Bld) [Entitic vol] 8.6 fL 6.2-12.0 [facility] Determination of erythrocyte mean corpuscular volume (MCV)Ordered By: Allison Silvestre on 05-15-2023 MCV (RBC) [Entitic vol] 100.0 fL 80-94 [facility] Hematocrit Auto (Bld) [Volum e fraction]Ordered By: Allisonjeffery Silvestre on 05-15-2023 Hematocrit (Bld) [Volume fraction] 48.5 % 40-54 [facility] INR in Blood by Coagulation assayOrdered By: Allison Silvestre on 05-15-2023 INR Coag (Bld) [Relative time] 1.3 {INR} [facility] - Chemistry and C hemistry - challengeOrdered By: Allison Silvestre on 05-15-2023 ALT [Catalytic activity/Vol] 28 U/L - [facility] CO2 [Moles/Vol] 25.0 mmol/L 21.0-32.0 [facility] Urea nitrogen/Creatinine [Mass ratio] 12.5 mg/mg 10- [facility] - CoagulationOrde red By: Allison Silvestre on 05-15-2023 aPTT Coag (Bld) [Time] 36.3 s 24.1-36.[address] [facility] PT Coag (PPP) [Time] 15.8 s 11.7-14.9 [facility] - Hematology and Cell countsOrdered By: Allison Silvestre on 05-15-2023 Erythrocyte distribution width (RBC) [Entitic vol] 51.8 fL 35.1-43.9 [facility] Erythrocyte distribution width (RBC) [Ratio] 14.0 % 11.6-14.6 [facility] Immature granulocytes/100 WBC (Bld) 0.400 % 0.0-0.9 [facility] Comment on above: IG% - Immature Granu locytes (promyelocytes, myelocytes and metamyelocytes) > 1% indicates that a LEFT SHIFT is Present. MCH (RBC) [Entitic mass] 31.5 pg 27.0-32.0 [facility] Nucleated RBC/100 WBC (Bld) [Ratio] 0 % 0-5 [facility] MCHC Auto (RBC) [Mass/Vol]Or dered By: Allison Silvestre on 05-15-2023 MCHC (RBC) [Mass/Vol] 31.5 g/dL 32-36 [place] No Panel InformationOrdered By: Allison Silvestre on 05-15-2023 Estimated GFR (MDRD) Amer 83 mL/min >60 [facility] Comment on above: GFR Calc Estimated GFR (MDRD) Non-Af Amer 69 mL/min >60 [facility] Comment on above: Non- GFR Calc Platelets bldOrdered By: Giacomo Silvestre on 05-15-2023 Platelets (Bld) [#/Vol] 233 10*3/uL 150-450 [facility] Serum or plasma calcium emelyn urement (mass/volume)Ordered By: Allison Silvestre on 05-15-2023 Calcium [Mass/Vol] 8.9 mg/dL 8.5-10.1 [facility] Serum or plasma cholesterol in HDL measurement (mass/volume)Ordered By: Allison Silvestre on 05-15-2023 Cholesterol in HDL [Mass/Vol] 39 mg/dL >40 [facility] Comment on above: The drugs N-Acetylcy steine and Metamizole may falsely depress this assay. Reference Range HDL <40 mg/dL Low HDL Cholesterol HDL >or= 60 mg/dL High HDL Cholesterol Serum or plasma cholesterol in VLDL measurement (mass/volume)Ordered By: Allison Silvestre on 05-15-2023 Cholesterol in VLDL [Mass/Vol] 24 mg/dL 5-40 [facility] Serum or plasma creatinine m easurement (mass/volume)Ordered By: Allison Silvestre on 05-15-2023 Creatinine [Mass/Vol] 1.12 mg/dL 0.70-1.30 [place] Comment on above: The validity of the calculated GFR & GFRAA in patients over 70 years has not been determined. Clinical correlation is essential. Serum or plasma low density lipoprotein (LDL) cholesterol measurement (mass/volume)Ordered By: Allison Silvestre on 05-15-2023 Cholesterol in LDL [Mass/Vol] 80 mg/dL 0-130 [facility] Serum or plasma urea nitroge n measurement (mass/volume)Ordered By: Allison Silvestre on 05-15-2023 Urea nitrogen [Mass/Vol] 14 mg/dL 7-18 [facility] Thin prep Papanicolaou smear with manual screeningOrdered By: Allisonjeffery Silvestre on 05-15-2023 Thin prep Papanicolaou smear with manual screening 15 U/L 15-37 [facility] Thin prep Papanicolaou smear with manual screening 7 5-15 [facility] Basophil percentageOrdered B y: Yisel Smiley on 04-02-2023 Chloride [Moles/Vol] 108 mmol/L 98-107 [facility] Glucose [Mass/Vol] 105 mg/dL 74-106 [facility] Comment on above: Fasting Glucose resu lt from 100 to 125 mg/dL suggests IMPAIRED HOMEOSTASIS per A.D.A. criteria. Potassium [Moles/Vol] 4.7 mmol/L 3.5-5.1 [place] Sodium [Moles/Vol] 141 mmol/L 136-145 [facility] WBC (Bld) [#/Vol] 8.9 10*3/uL 4.4-11.0 [facility] Blood erythrocytes count (nu mber/volume)Ordered By: Yisel Smiley on 04-02-2023 RBC (Bld) [#/Vol] 5.10 10*6/uL 4.6-6.2 [facility] Blood hemoglobin measurement (mass/volume)Ordered By: Yisel Smiley on 04-02-2023 Hemoglobin (Bld) [Mass/Vol] 16.1 g/dL 13.0-16.5 [facility] Blood platelet mean volumeOr dered By: Yisel Smiley on 04-02-2023 Platelet mean volume (Bld) [Entitic vol] 8.3 fL 6.2-12.0 [facility] Determination of erythrocyte mean corpuscular volume (MCV)Ordered By: Yisel Smiley on 04-02-2023 MCV (RBC) [Entitic vol] 99.0 fL 80-94 [facility] Hematocrit Auto (Bld) [Volum e fraction]Ordered By: Yisel Smiley on 04-02-2023 Hematocrit (Bld) [Volume fraction] 50.5 % 40-54 [facility] - Chemistry and C hemistry - challengeOrdered By: Yisel Smiley on 04-02-2023 CO2 [Moles/Vol] 28.0 mmol/L 21.0-32.0 [facility] Natriuretic peptide B (Bld) [Mass/Vol] 99.4 pg/mL 0-100 [facility] T4 [Mass/Vol] 9.3 ug/dL 4.5-12.1 [facility] Urea nitrogen/Creatinine [Mass ratio] 12.7 mg/mg 10-20 [facility] - Hematology and Cell countsOrdered By: Yisel Smiley on 04-02-2023 Erythrocyte distribution width (RBC) [Entitic vol] 52.7 fL 35.1-43.9 [facility] Erythrocyte distribution width (RBC) [Ratio] 14.2 % 11.6-14.6 [facility] MCH (RBC) [Entitic mass] 31.6 pg 27.0-32.0 [facility] MCHC Auto (RBC) [Mass/Vol]Or dered By: Yisel Smiley on 04-02-2023 MCHC (RBC) [Mass/Vol] 31.9 g/dL 32-36 [place] No Panel InformationOrdered By: Yisel Smiley on 04-02-2023 Estimated GFR (MDRD) Amer 72 mL/min >60 [facility] Comment on above: GFR Calc Estimated GFR (MDRD) Non-Af Amer 60 mL/min >60 [facility] Comment on above: Non- GFR Calc Thyroid Stimulating Hormone (TSH) 2.25 uIU/mL 0.358-3.74 [facility] Platelets bldOrdered By: Hung Smiley on 04-02-2023 Platelets (Bld) [#/Vol] 285 10*3/uL 150-450 [facility] Serum or plasma calcium emelyn urement (mass/volume)Ordered By: Yisel Smiley on 04-02-2023 Calcium [Mass/Vol] 9.5 mg/dL 8.5-10.1 [facility] Serum or plasma creatinine m easurement (mass/volume)Ordered By: Yisel Smiley on 04-02-2023 Creatinine [Mass/Vol] 1.26 mg/dL 0.70-1.30 [place] Comment on above: The validity of the calculated GFR & GFRAA in patients over 70 years has not been determined. Clinical correlation is essential. Serum or plasma urea nitroge n measurement (mass/volume)Ordered By: Yisel Smiley on 04-02-2023 Urea nitrogen [Mass/Vol] 16 mg/dL 7-18 [facility] Thin prep Papanicolaou smear with manual screeningOrdered By: Yisel Smiley on 04-02-2023 Thin prep Papanicolaou smear with manual screening 5 5-15 [facility] Absolute lymphocyte countOrd ered By: Dr. Willingham on 12-29-2022 Lymphocytes Auto (Unsp spec) [#/Vol] 1.48 10*3/uL 0.83-4.51 [facility] Basophil percentageOrdered B y: Dr. Willingham on 12-29-2022 Basophils/100 WBC (Bld) 0.3 % 0-1 [facility] Chloride [Moles/Vol] 105 mmol/L 98-107 [facility] Eosinophils/100 WBC (Bld) 1.9 % 0-5 [facility] Glucose [Mass/Vol] 102 mg/dL 74-106 [facility] Comment on above: Fasting Glucose resu lt from 100 to 125 mg/dL suggests IMPAIRED HOMEOSTASIS per A.D.A. criteria. Neutrophils (Bld) [#/Vol] 5.5 10*3/uL 2.0-7.7 [facility] Neutrophils/100 WBC (Bld) 68.1 % 47-70 [facility] Potassium [Moles/Vol] 4.0 mmol/L 3.5-5.1 [place] Sodium [Moles/Vol] 138 mmol/L 136-145 [facility] WBC (Bld) [#/Vol] 8.0 10*3/uL 4.4-11.0 [facility] Blood erythrocytes count (nu mber/volume)Ordered By: Dr. Willingham on 12-29-2022 RBC (Bld) [#/Vol] 4.18 10*6/uL 4.6-6.2 [facility] Blood hemoglobin measurement (mass/volume)Ordered By: Dr. Willingham on 12-29-2022 Hemoglobin (Bld) [Mass/Vol] 13.5 g/dL 13.0-16.5 [facility] Blood lymphocytes/100 leukoc ytesOrdered By: Dr. Willingham on 12-29-2022 Lymphocytes/100 WBC (Bld) 18.5 % 19-41 [facility] Blood monocytes/100 leukocyt esOrdered By: Dr. Willingham on 12-29-2022 Monocytes/100 WBC (Bld) 10.8 % 0-10 [facility] Blood platelet mean volumeOr dered By: Dr. Willingham on 12-29-2022 Platelet mean volume (Bld) [Entitic vol] 9.0 fL 6.2-12.0 [facility] Determination of erythrocyte mean corpuscular volume (MCV)Ordered By: Dr. Willingham on 12-29-2022 MCV (RBC) [Entitic vol] 98.3 fL 80-94 [facility] Hematocrit Auto (Bld) [Volum e fraction]Ordered By: Dr. Willingham on 12-29-2022 Hematocrit (Bld) [Volume fraction] 41.1 % 40-54 [facility] - Chemistry and C hemistry - challengeOrdered By: Dr. Willingham on 12-29-2022 CO2 [Moles/Vol] 29.0 mmol/L 21.0-32.0 [facility] Urea nitrogen/Creatinine [Mass ratio] 15.4 mg/mg 10-20 [facility] - Hematology and Cell countsOrdered By: Dr. Willingham on 12-29-2022 Erythrocyte distribution width (RBC) [Entitic vol] 53.1 fL 35.1-43.9 [facility] Erythrocyte distribution width (RBC) [Ratio] 14.6 % 11.6-14.6 [facility] Immature granulocytes/100 WBC (Bld) 0.400 % 0.0-0.9 [facility] Comment on above: IG% - Immature Granu locytes (promyelocytes, myelocytes and metamyelocytes) > 1% indicates that a LEFT SHIFT is Present. MCH (RBC) [Entitic mass] 32.3 pg 27.0-32.0 [facility] Nucleated RBC/100 WBC (Bld) [Ratio] 0 % 0-5 [facility] MCHC Auto (RBC) [Mass/Vol]Or dered By: Dr. Willingham on 12-29-2022 MCHC (RBC) [Mass/Vol] 32.8 g/dL 32-36 [place] No Panel InformationOrdered By: Dr. Willingham on 12-29-2022 Estimated Creatinine Clearance Calc 67.27 ml/min [facility] Estimated GFR (MDRD) Amer 90 mL/min >60 [facility] Comment on above: GFR Calc Estimated GFR (MDRD) Non-Af Amer 75 mL/min >60 [facility] Comment on above: Non- GFR Calc Platelets bldOrdered By: Dr. Willingham on 12-29-2022 Platelets (Bld) [#/Vol] 207 10*3/uL 150-450 [facility] Serum or plasma calcium emelyn urement (mass/volume)Ordered By: Dr. Willingham on 12-29-2022 Calcium [Mass/Vol] 8.5 mg/dL 8.5-10.1 [facility] Serum or plasma creatinine m easurement (mass/volume)Ordered By: Dr. Willingham on 12-29-2022 Creatinine [Mass/Vol] 1.04 mg/dL 0.70-1.30 [place] Comment on above: The validity of the calculated GFR & GFRAA in patients over 70 years has not been determined. Clinical correlation is essential. Serum or plasma urea nitroge n measurement (mass/volume)Ordered By: Dr. Willingham on 12-29-2022 Urea nitrogen [Mass/Vol] 16 mg/dL 7-18 [facility] Thin prep Papanicolaou smear with manual screeningOrdered By: Dr. Willingham on 12-29-2022 Thin prep Papanicolaou smear with manual screening 4 5-15 [facility] Blood manual differential co mment interpretation (narrative result)Ordered By: Dr. Willingham on 12-28-2022 Manual differential comment Anant (Bld) [Interp] SCANNED [facility] Comment on above: MONOCYTOSISPrevious reported result: SCANNED Edited by: RHONDA on 12/28/22:0558 AMENDED REPORT 12/28/[id number] SMEAR COMMENT previously reported as: SCANNED BANDS PRESENT Basophil percentageOrdered B y: Dr. Silvestre on 12-27-2022 Cholesterol [Mass/Vol] 129 mg/dL <[address] [facility] Comment on above: <200 mg/dL Desirable 200-240 mg/dL Borderline >240 mg/dL High Risk Triglyceride [Mass/Vol] 67 mg/dL <199 [facility] Comment on above: The drugs N-Acetylcy steine and Metamizole may falsely depress this assay.Serum Triglycerides Reference Interval Normal <150 mg/dL Borderline high 150 - 199 mg/dL High 200 - 499 mg/dL Very High > or = 500 mg/dL Laboratory - Hematology and Cell countsOrdered By: Dr. Mckeon on 12-27-2022 Anisocytosis Ql (Bld) 1+ [place] Macrocytes detectionOrdered By: Dr. Mckeon on 12-27-2022 Macrocytes Ql (Bld) 1+ [facility] No Panel InformationOrdered By: Dr. Mckeon on 12-27-2022 Thyroid Stimulating Hormone (TSH) 1.48 uIU/mL 0.358-3.74 [facility] Review by pathologistOrdered By: Dr. Mckeon on 12-27-2022 Pathologist review Anant (Unsp spec) [Interp] Reviewed [facility] Comment on above: Previous reported re sult: November mona Edited by: YANIV on 12/27/22:1407Neutrophilic leukocytosis.Macrocytosis. Clinical correlation necessary.Papo Montalvo M.D. 12/27/22 AMENDED REPORT 06/02/23 1407 PATH REV previously reported as: May foll Serum or plasma cholesterol in HDL measurement (mass/volume)Ordered By: Dr. Silvestre on 12-27-2022 Cholesterol in HDL [Mass/Vol] 35 mg/dL >40 [facility] Comment on above: The drugs N-Acetylcy steine and Metamizole may falsely depress this assay. Reference Range HDL <40 mg/dL Low HDL Cholesterol HDL >or= 60 mg/dL High HDL Cholesterol Serum or plasma cholesterol in VLDL measurement (mass/volume)Ordered By: Dr. Silvestre on 12-27-2022 Cholesterol in VLDL [Mass/Vol] 13 mg/dL 5-40 [facility] Serum or plasma low density lipoprotein (LDL) cholesterol measurement (mass/volume)Ordered By: Dr. Silvestre on 12-27-2022 Cholesterol in LDL [Mass/Vol] 81 mg/dL 0-130 [facility] Absolute lymphocyte countOrd ered By: ED PROVIDER on 12-26-2022 Lymphocytes Auto (Unsp spec) [#/Vol] 1.68 10*3/uL 0.83-4.51 [facility] Basophil percentageOrdered B y: ED PROVIDER on 12-26-2022 Basophils/100 WBC (Bld) 0.2 % 0-1 [facility] Chloride [Moles/Vol] 108 mmol/L 98-107 [facility] Eosinophils/100 WBC (Bld) 0.3 % 0-5 [facility] Glucose [Mass/Vol] 119 mg/dL 74-106 [facility] Comment on above: Fasting Glucose resu lt from 100 to 125 mg/dL suggests IMPAIRED HOMEOSTASIS per A.D.A. criteria. Neutrophils (Bld) [#/Vol] 9.6 10*3/uL 2.0-7.7 [facility] Neutrophils/100 WBC (Bld) 75.2 % 47-70 [facility] Potassium [Moles/Vol] 4.1 mmol/L 3.5-5.1 [place] Sodium [Moles/Vol] 142 mmol/L 136-145 [facility] WBC (Bld) [#/Vol] 12.8 10*3/uL 4.4-11.0 [facility] Blood erythrocytes count (nu mber/volume)Ordered By: ED PROVIDER on 12-26-2022 RBC (Bld) [#/Vol] 4.75 10*6/uL 4.6-6.2 [facility] Blood hemoglobin measurement (mass/volume)Ordered By: ED PROVIDER on 12-26-2022 Hemoglobin (Bld) [Mass/Vol] 15.3 g/dL 13.0-16.5 [facility] Blood lymphocytes/100 leukoc ytesOrdered By: ED PROVIDER on 12-26-2022 Lymphocytes/100 WBC (Bld) 13.2 % 19-41 [facility] Blood monocytes/100 leukocyt esOrdered By: ED PROVIDER on 12-26-2022 Monocytes/100 WBC (Bld) 10.6 % 0-10 [facility] Blood platelet mean volumeOr dered By: ED PROVIDER on 12-26-2022 Platelet mean volume (Bld) [Entitic vol] 8.5 fL 6.2-12.0 [facility] Determination of erythrocyte mean corpuscular volume (MCV)Ordered By: ED PROVIDER on 12-26-2022 MCV (RBC) [Entitic vol] 100.8 fL 80-94 [facility] Hematocrit Auto (Bld) [Volum e fraction]Ordered By: ED PROVIDER on 12-26-2022 Hematocrit (Bld) [Volume fraction] 47.9 % 40-54 [facility] INR in Blood by Coagulation assayOrdered By: ED PROVIDER on 12-26-2022 INR Coag (Bld) [Relative time] 1.1 {INR} [facility] Laboratory - Chemistry and C hemistry - challengeOrdered By: ED PROVIDER on 12-26-2022 CO2 [Moles/Vol] 28.0 mmol/L 21.0-32.0 [facility] Urea nitrogen/Creatinine [Mass ratio] 10.5 mg/mg 10-20 [facility] - CoagulationOrde red By: ED PROVIDER on 12-26-2022 PT Coag (PPP) [Time] 14.3 s 11.7-14.9 [facility] - Hematology and Cell countsOrdered By: ED PROVIDER on 12-26-2022 Erythrocyte distribution width (RBC) [Entitic vol] 55.1 fL 35.1-43.9 [facility] Erythrocyte distribution width (RBC) [Ratio] 14.6 % 11.6-14.6 [facility] Immature granulocytes/100 WBC (Bld) 0.500 % 0.0-0.9 [facility] Comment on above: IG% - Immature Granu locytes (promyelocytes, myelocytes and metamyelocytes) > 1% indicates that a LEFT SHIFT is Present. MCH (RBC) [Entitic mass] 32.2 pg 27.0-32.0 [facility] Nucleated RBC/100 WBC (Bld) [Ratio] 0 % 0-5 [facility] MCHC Auto (RBC) [Mass/Vol]Or dered By: ED PROVIDER on 12-26-2022 MCHC (RBC) [Mass/Vol] 31.9 g/dL 32-36 [place] No Panel InformationOrdered By: ED PROVIDER on 12-26-2022 Troponin I High Sensitivity 35 pg/mL 3.0-78.0 [facility] Comment on above: Please Note: New Stefania t Units and Gender Specific Reference Ranges. For more information see Policy Stat Procedure [place] High Sensitivity Troponin (TNIH) and attachments. Estimated Creatinine Clearance Calc 61.37 ml/min [facility] Estimated GFR (MDRD) Amer 81 mL/min >60 [facility] Comment on above: GFR Calc Estimated GFR (MDRD) Non-Af Amer 67 mL/min >60 [facility] Comment on above: Non- GFR Calc No Panel InformationOrdered By: Dr. Carty on 12-26-2022 D-Dimer Quantitative (PE/DVT) 0.75 FEU/ug/m 0.27-0.49 [facility] Comment on above: CRITICAL VALUE VERIF IED. CALLED TO SNEHAL COHEN RN [id number] Jarrett Olson.RESULTS READ BACK BY SAME . D-Dimer ELEVATED (>0.49): Additional studies and clinicalassessments are indicated to conclude diagnosis of:Deep Vein Thrombosis (DVT) or Pulmonary Embolism (PE) Platelets bldOrdered By: ED PROVIDER on 12-26-2022 Platelets (Bld) [#/Vol] 225 10*3/uL 150-450 [facility] Serum or plasma calcium emelyn urement (mass/volume)Ordered By: ED PROVIDER on 12-26-2022 Calcium [Mass/Vol] 9.0 mg/dL 8.5-10.1 [facility] Serum or plasma creatinine m easurement (mass/volume)Ordered By: ED PROVIDER on 12-26-2022 Creatinine [Mass/Vol] 1.14 mg/dL 0.70-1.30 [place] Comment on above: The validity of the calculated GFR & GFRAA in patients over 70 years has not been determined. Clinical correlation is essential. Serum or plasma urea nitroge n measurement (mass/volume)Ordered By: ED PROVIDER on 12-26-2022 Urea nitrogen [Mass/Vol] 12 mg/dL 02-11 [facility] Thin prep Papanicolaou smear with manual screeningOrdered By: ED PROVIDER on 12-26-2022 Thin prep Papanicolaou smear with manual screening 12-09 [facility] Laboratory - Cytologyon 10-27 Pathologist Cyto stain Nom (Cvx/Vag) [ID] SEE NOTE Normal [employer] No Panel Informationon 11-19 A DIAGNOSIS SEE NOTE Normal [employer] A GROSS DESCRIPTION SEE NOTE Normal [employer] A MICRO DESCRIPTION SEE NOTE Normal [employer] A SOURCE SEE NOTE Normal [employer] B DIAGNOSIS SEE NOTE Normal [employer] [facility] B GROSS DESCRIPTION SEE NOTE Normal [employer] B MICRO DESCRIPTION SEE NOTE Normal [employer] B SOURCE SEE NOTE Normal [employer] CLINICAL INFORMATION SEE NOTE Normal [employer] No Panel InformationOrdered By: Dr. Hernandez on 09-30-2022 Prostate Specific Antigen Screen 1.72 ng/mL 0.00-4.00 [facility] Comment on above: This test was perfor med using the TPSA assay method for the[employer] chemistry system. Values obtained with differentassay methods cannot be used interchangably.When changing PSA assays in the course of monitoring apatient, additional sequential testing should be carriedout to confirm baseline values. Laboratory - Chemistry and C hemistry - challengeon 01-09-2022 Albumin [Mass/Vol] 4.7 g/dL Normal 3.6 - 5.1 g/dL [facility], [facility].; [facility], [facility]. Albumin/Globulin [Mass ratio] 1.9 {ratio} Normal 1.0 - 2.5 [facility], [facility].; [facility], [facility]. ALP [Catalytic activity/Vol] 76 U/L Normal 35 - 144 U/L [facility], [facility].; [facility], [facility]. ALT [Catalytic activity/Vol] 15 U/L Normal 9 - 46 U/L [facility], [facility].; [facility], [facility]. AST [Catalytic activity/Vol] 17 U/L Normal 10 - 35 U/L [facility], [facility].; [place] [facility], [facility]. Bilirubin [Mass/Vol] 0.8 mg/dL Normal 0.2 - 1 .2 mg/dL [facility], [facility].; [place] [employer] [facility], [facility]. Calcium [Mass/Vol] 9.3 mg/dL Normal 8.6 - 10. 3 mg/dL [facility], [facility].; [place] [employer] [facility], [facility]. Chloride [Moles/Vol] 104 mmol/L Normal 98 - 11 0 mmol/L [facility], [facility].; [place] [employer] [facility] Cholesterol [Mass/Vol] 181 mg/dL Normal [facility], [facility].; [facility], [facility]. Cholesterol in HDL [Mass/Vol] 41 mg/dL Normal [facility], [facility].; [place] [employer] [facility] Cholesterol in LDL [Mass/Vol] 116 mg/dL Abnormal [facility], [facility].; [place] [employer] [facility], [facility]. CO2 [Moles/Vol] 25 mmol/L Normal 20 - 32 mmol/L [facility], [facility].; [facility], [facility]. Creatinine [Mass/Vol] 1.12 mg/dL Normal 0.70 - 1.18 mg/dL [facility], [facility].; [place] [employer] [facility], [facility]. GFR/1.73 sq M.predicted among blacks MDRD (S/P/Bld) [Vol rate/Area] 77 mL/min/{1.73_m2} Normal [facility].; [facility], [facility] Glucose [Mass/Vol] 94 mg/dL Normal 65 - 99 mg/dL [facility]; [facility], [facility] Potassium [Moles/Vol] 4.5 mmol/L Normal 3.5 - 5.3 mmol/L [facility]; [facility], [facility] Protein [Mass/Vol] 7.2 g/dL Normal 6.1 - 8.1 g/dL [facility]; [facility], [facility] Sodium [Moles/Vol] 140 mmol/L Normal 135 - 146 mmol/L [facility]; [facility], [facility] Triglyceride [Mass/Vol] 126 mg/dL Normal [facility]; [facility], [facility] Urea nitrogen [Mass/Vol] 14 mg/dL Normal 7 - 25 mg/dL [facility]; [facility], [facility] No Panel Informationon 01-09 BUN/CREATININE RATIO NOT APPLICABLE Normal 6 - [facility]; [facility] CHOL/HDLC RATIO 4.4 Normal [facility]; [facility], [facility] eGFR NON-AFR. SOUTH AFR[place] 66 Normal [facility]; [facility], [facility] GLOBULIN 2.5 Normal 1.9 - 3.7 [facility]; [facility], [facility] NON HDL CHOLESTEROL 140 Abnormal [facility]; [facility] PSA, TOTAL 1.90 ng/mL Normal [facility]; [employer] [facility]. .Auto Diffon 03-10-2020 Ammonia (P) [Mass/Vol] 0.70 10 3/mcL Normal 0.15-1.00 [facility] ([place] Comment on above: Performed By: #### C BC, ADIFF, ANEU, GFR #### [address] [address] #### CMP #### [address] [address] Basophils (Bld) [#/Vol] 0.00 10 3/mcL Normal 0.00-0.19 [facility] ([place] Comment on above: Performed By: #### C BC, ADIFF, ANEU, GFR #### [address] [address] #### CMP #### [address] [address] Basophils/100 WBC (Bld) 0.6 % Normal 0.0-2.5 [facility] [place] Comment on above: Performed By: #### C BC, ADIFF, ANEU, GFR #### [address] [address] #### CMP #### [address] [address] Eosinophils (Bld) [#/Vol] 0.10 10 3/mcL Normal 0.00-0.40 [facility] ([place] Comment on above: Performed By: #### C BC, ADIFF, ANEU, GFR #### [address] [address] #### CMP #### [address] [address] Eosinophils/100 WBC (Bld) 2.2 % Normal 0.0-7.0 [facility] [place] Comment on above: Performed By: #### C BC, ADIFF, ANEU, GFR #### [address] [address] #### CMP #### [address] [address] Lymphocytes (Bld) [#/Vol] 2.20 10 3/mcL Normal 0.77-3.85 [facility] ([place] Comment on above: Performed By: #### C BC, ADIFF, ANEU, GFR #### [address] [address] #### CMP #### [address] [address] Lymphocytes/100 WBC (Bld) 36.5 % Normal 10.0-50.0 [facility] [place] Comment on above: Performed By: #### C BC, ADIFF, ANEU, GFR #### [address] [address] #### CMP #### [address] [address] Monocytes/100 WBC (Bld) 11.1 % Normal 1.7-13.0 [facility] [place] Comment on above: Performed By: #### C BC, ADIFF, ANEU, GFR #### [address] [address] #### CMP #### [address] [address] Neutrophils/100 WBC (Bld) 49.6 % Normal 37.0-80.0 [facility] [place] Comment on above: Performed By: #### C BC, ADIFF, ANEU, GFR #### [address] [address] #### CMP #### [address] [address] .GFRon 03-10-2020 GFR 66 ml/min/1.73sqm Normal [facility] ([place] Comment on above: Result Comment: GFR Population mean for , Non- Americans Ages 20-29 = 116 mL/min/1.73 sq.m. Ages 30-39 = 107 mL/min/1.73 sq.m. Ages 40-49 = 99 mL/min/1.73 sq.m. Ages 50-59 = 93 mL/min/1.73 sq.m. Ages 60-69 = 85 mL/min/1.73 sq.m. Ages 70+ = 75 mL/min/1.73 sq.m. Chronic Kidney Disease: Less than 60 mL/min/1.73 square meters End Stage Renal Disease: Less than 15 mL/min/1.73 square meters Performed By: #### C BC, ADIFF, ANEU, GFR #### [address] [address] #### CMP #### [address] [address] GFR Non- 54 ml/min/1.73sqm Normal [facility] ([place] Comment on above: Result Comment: GFR Population mean for , Non- Americans Ages 20-29 = 116 mL/min/1.73 sq.m. Ages 30-39 = 107 mL/min/1.73 sq.m. Ages 40-49 = 99 mL/min/1.73 sq.m. Ages 50-59 = 93 mL/min/1.73 sq.m. Ages 60-69 = 85 mL/min/1.73 sq.m. Ages 70+ = 75 mL/min/1.73 sq.m. Chronic Kidney Disease: Less than 60 mL/min/1.73 square meters End Stage Renal Disease: Less than 15 mL/min/1.73 square meters Performed By: #### C BC, ADIFF, ANEU, GFR #### [place] [address] #### CMP #### [address] [address] .NEUABSon 03-10-2020 Neutrophils (Bld) [#/Vol] 3.10 10 3/mcL Normal 2.85-6.16 [facility] ([place] Comment on above: Performed By: #### C BC, ADENIKE, ANEU, GFR #### [place] [address] #### CMP #### [address] [address] CBCon 03-10-2020 Erythrocyte distribution width (RBC) [Ratio] 14.0 % Normal 11.5-14.5 [facility] [place] Comment on above: Performed By: #### C BC, ADIFF, ANEU, GFR #### [place] [address] #### CMP #### [address] [address] Hematocrit (Bld) [Volume fraction] 50.5 % Normal 42.0-52.0 [facility] ([place] Comment on above: Performed By: #### C BC, ADIFF, ANEU, GFR #### [place] [address] #### CMP #### [address] [address] Hemoglobin (Bld) [Mass/Vol] 16.8 G/dL Normal 14.0-18.0 [facility] [place] Comment on above: Performed By: #### C BC, ADIFF, ANEU, GFR #### [place] [address] #### CMP #### [address] [address] MCH (RBC) [Entitic mass] 32.5 pg High 27.0-31.2 [facility] ([place] Comment on above: Performed By: #### C BC, ADIFF, ANEU, GFR #### [place] [address] #### CMP #### [place] [address] MCHC (RBC) [Mass/Vol] 33.3 G/dL Normal 31.8-35.4 [facility] ([place]) Comment on above: Performed By: #### C BC, ADIFF, ANEU, GFR #### [place] [address] #### CMP #### [address] [address] MCV (RBC) [Entitic vol] 97.3 fL High 80.0-94.0 [facility] ([place] Comment on above: Performed By: #### C BC, ADIFF, ANEU, GFR #### [place] [address] #### CMP #### [place] [address] Platelet mean volume (Bld) [Entitic vol] 6.7 fL Low 7.4-10.4 [facility] ([place]) Comment on above: Performed By: #### C BC, ADIFF, ANEU, GFR #### [place] [address] #### CMP #### [address] [address] Platelets (Bld) [#/Vol] 211 10 3/mcL Normal 130-400 [facility] ([place] Comment on above: Performed By: #### C BC, ADIFF, ANEU, GFR #### [address] [address] #### CMP #### [place] [address] RBC (Bld) [#/Vol] 5.19 10 6/mcL Normal 4.04-6.13 [facility] ([place]) Comment on above: Performed By: #### C BC, ADIFF, ANEU, GFR #### [place] [address] #### CMP #### [place] [address] WBC (Bld) [#/Vol] 6.20 10 3/mcL Normal 4.60-10.80 [facility] ([place]) Comment on above: Performed By: #### C BC, ADIFF, ANEU, GFR #### [place] [address] #### CMP #### [address] 03-10-2020 Albumin [Mass/Vol] 4.0 G/dL Normal 3.4-4.8 [facility], [facility] ([place]) Comment on above: Performed By: #### C BC, ADIFF, ANEU, GFR #### [place] [address] #### CMP #### [place] [address] Albumin/Globulin [Mass ratio] 1.3 {ratio} Normal 1.1-2.5 [facility] ([place] Comment on above: Performed By: #### C BC, ADIFF, ANEU, GFR #### [address] [address] #### CMP #### [facility] [address] [place], [place] [address] ALP [Catalytic activity/Vol] 83 U/L Normal 40-135 [facility] ([place] Comment on above: Performed By: #### C BC, ADIFF, ANEU, GFR #### [address] [address] #### CMP #### [address] [address] ALT [Catalytic activity/Vol] 29 U/L Normal 10-35 [facility] ([place] Comment on above: Performed By: #### C BC, ADIFF, ANEU, GFR #### [place] [address] #### CMP #### [address] [address] AST [Catalytic activity/Vol] 20 U/L Normal 10-40 [facility] ([place] Comment on above: Performed By: #### C BC, ADIFF ANEU, GFR #### [place] [address] #### CMP #### [address] [address] Bili Total 0.5 mg/dL Normal 0.2-1.0 [facility] ([place] Comment on above: Result Comment: Use of this assay is not recommended for patients undergoing treatment with eltrombopag due to the potential for falsely elevated results. Performed By: #### C BC, ADIFF, ANEU, GFR #### [place] [address] #### CMP #### [address] [address] Calcium [Mass/Vol] 9.0 mg/dL Normal 8.4-10.2 [facility], [facility] ([place] Comment on above: Performed By: #### C BC, ADMAVERICK, ANEU, GFR #### [place] [address] #### CMP #### [address] [address] Chloride [Moles/Vol] 104 mmol/L Normal 98-107 [facility] ([place] Comment on above: Performed By: #### C BC, ADIFF, ANEU, GFR #### [address] [address] #### CMP #### [address] [address] CO2 [Moles/Vol] 28 mmol/L Normal 23-31 [facility] [place] Comment on above: Performed By: #### C BC, ADIFF, ANEU, GFR #### [address] [address] #### CMP #### [address] [address] Creatinine [Mass/Vol] 1.31 mg/dL High 0.70-1.30 [facility] ([place]) Comment on above: Performed By: #### C BC, ADIFF, ANEU, GFR #### [address] [address] #### CMP #### [address] [address] Electrolyte Balance 12.0 mEq/L Normal [facility] ([place]) Comment on above: Performed By: #### C BC, ADIFF, ANEU, GFR #### [address] [address] #### CMP #### [address] [address] Globulin (S) [Mass/Vol] 3.0 G/dL Normal [facility] ([place] Comment on above: Performed By: #### C BC, ADIFF, ANEU, GFR #### [address] [address] #### CMP #### [address] [address] Glucose [Mass/Vol] 93 mg/dL Normal 80-115 [facility], [facility] ([place] Comment on above: Performed By: #### C BC, ADIFF, ANEU, GFR #### [address] [address] #### CMP #### [address] [address] Potassium [Moles/Vol] 4.3 mmol/L Normal 3.5-5.1 [facility] ([place] Comment on above: Performed By: #### C BC, ADIFF, ANEU, GFR #### [address] [address] #### CMP #### [address] [address] Protein [Mass/Vol] 7.0 G/dL Normal 6.4-8.2 [facility], [facility] ([place] Comment on above: Performed By: #### C BC, ADIFF, ANEU, GFR #### [address] [address] #### CMP #### [address] [address] Sodium [Moles/Vol] 144 mmol/L Normal 136-145 [facility], [facility] ([place] Comment on above: Performed By: #### C BC, ADIFF, ANEU, GFR #### [address] [address] #### CMP #### [address] [address] Urea nitrogen [Mass/Vol] 10 mg/dL Normal 7-18 [facility] ([place] Comment on above: Performed By: #### C BC, ADIFF, ANEU, GFR #### [address] [address] #### CMP #### [address] [address] Urea nitrogen/Creatinine [Mass ratio] 8 ratio Normal 7-27 [facility] ([place] Comment on above: Performed By: #### C BC, ADIFF, ANEU, GFR #### [address] [address] #### CMP #### [address] [address] XR CHEST 2 VIEWSon 0 XR CHEST 2 VIEWS ORIGINAL XR CHEST 2 VIEWS CLINICAL STATEMENT: Abnormal lung sounds active tobacco use COMPARISON: None FINDINGS: The cardiac silhouette is prominent.. There is no consolidation, vascular congestion, pleural effusion, or pneumothorax. Degenerative changes of the visualized spine. Lungs appear hyperexpanded with some flattening of the diaphragm. IMPRESSION: No acute process. COPD. I have personally reviewed the images of this examination and agree with the resident's findings and interpretation. Interpreted By: Albert Corrales MD Preliminary Report By: Kae Callejas Electronically Signed By: Albert Corrales MD Dictated Date: 03/10/2020 3:53:15 PM Prelim Date: 03/10/2020 3:57:49 PM Sign Date: 03/10/2020 4:30:38 PM [facility] Vital Signs Date Time Vital Sign Value Performing Clinician Facility 03-17-2025 13:54-0400 Body height 177.8 cm FABRICIO BEN RADIATION / CHEMISTRY TECHNICIAN-C Work Phone: [facility] 03-17-2025 13:54-0400 Body mass index (BMI) [Ratio] 32.3 kg/m2 FABRICIO BEN RADIATION / CHEMISTRY TECHNICIAN-C Work Phone: [facility] 03-17-2025 13:54-0400 Body weight 102.05 kg FABRICIO BEN RADIATION / CHEMISTRY TECHNICIAN-C Work Phone: [facility] 03-17-2025 13:54-0400 Diastolic blood pressure 83 mm[Hg] FABRICIO BEN RADIATION / CHEMISTRY TECHNICIAN-C Work Phone: [facility] 03-17-2025 13:54-0400 Heart rate 60 /min FABRICIO BEN RADIATION / CHEMISTRY TECHNICIAN-C Work Phone: [facility] 03-17-2025 13:54-0400 Respiratory rate 18 /min FABRICIO BEN RADIATION / CHEMISTRY TECHNICIAN-C Work Phone: [facility] 03-17-2025 13:54-0400 Systolic blood pressure 147 mm[Hg] FABRICIO BEN RADIATION / CHEMISTRY TECHNICIAN-C Work Phone: [facility] 02-17-2025 15:04-0400 Body height 177.8 cm FABRICIO BEN RADIATION / CHEMISTRY TECHNICIAN-C Work Phone: [facility] 02-17-2025 15:04-0400 Body mass index (BMI) [Ratio] 31.4 kg/m2 FABRICIO BEN RADIATION / CHEMISTRY TECHNICIAN-C Work Phone: [facility] 02-17-2025 15:04-0400 Body weight 99.33 kg FABRICIO BEN RADIATION / CHEMISTRY TECHNICIAN-C Work Phone: [facility] 02-17-2025 15:04-0400 Diastolic blood pressure 80 mm[Hg] FABRICIO BEN RADIATION / CHEMISTRY TECHNICIAN-C Work Phone: [facility] 02-17-2025 15:04-0400 Heart rate 84 /min FABRICIO BEN RADIATION / CHEMISTRY TECHNICIAN-C Work Phone: [facility] 02-17-2025 15:04-0400 Respiratory rate 18 /min FABRICIO BEN RADIATION / CHEMISTRY TECHNICIAN-C Work Phone: [facility] 02-17-2025 15:04-0400 Systolic blood pressure 130 mm[Hg] FABRICIO BEN RADIATION / CHEMISTRY TECHNICIAN-C Work Phone: [facility] 01-25-2025 13:16-0400 Body height 180.34 cm Dalila Viera [facility], [facility].; [facility], [facility]. 01-25-2025 13:16-0400 Body mass index (BMI) [Ratio] 31.1 kg/m2 Dalila Viera [facility], [facility].; [facility], [facility]. 01-25-2025 13:16-0400 Body surface area Derived from formula 2.21 m2 Dalila Viera [facility], [facility].; [facility], [facility]. 01-25-2025 13:16-0400 Body temperature 97.5 [degF] Dalila Viera [facility].; [facility], [facility]. Comment on above: Method: Tympanic 01-25-2025 13:16-0400 Body weight 101.15 kg Dalila Viera [facility], [facility].; [facility], [facility]. 01-25-2025 13:16-0400 Diastolic blood pressure 77 mm[Hg] Dalila Viera [facility] Comment on above: Patient Position: Sitting; Cuff Location : Left Arm; Cuff Size: Standard 01-25-2025 13:16-0400 Heart rate 69 /min Dalila Viera [facility] [employer] Comment on above: Pattern: Regular 01-25-2025 13:16-0400 Systolic blood pressure 134 mm[Hg] [facility] [employer] Comment on above: Patient Position: Sitting; Cuff Location : Left Arm; Cuff Size: Standard 12-14-2024 12:30-0400 Body height 177.8 cm FABRICIO BEN RADIATION / CHEMISTRY TECHNICIAN-C Work Phone: [facility] 12-14-2024 12:30-0400 Body mass index (BMI) [Ratio] 32.1 kg/m2 FABRICIO BEN RADIATION / CHEMISTRY TECHNICIAN-C Work Phone: [facility] 12-14-2024 12:30-0400 Body temperature 97.6 [degF] FABRICIO BEN RADIATION / CHEMISTRY TECHNICIAN-C Work Phone: [facility] 12-14-2024 12:30-0400 Body weight 101.6 kg FABRICIO BEN RADIATION / CHEMISTRY TECHNICIAN-C Work Phone: [facility] 12-14-2024 12:30-0400 Diastolic blood pressure 74 mm[Hg] FABRICIO BEN RADIATION / CHEMISTRY TECHNICIAN-C Work Phone: [facility] 12-14-2024 12:30-0400 Heart rate 66 /min FABRICIO BEN RADIATION / CHEMISTRY TECHNICIAN-C Work Phone: [facility] 12-14-2024 12:30-0400 Respiratory rate 18 /min FABRICIO BEN RADIATION / CHEMISTRY TECHNICIAN-C Work Phone: [facility] 12-14-2024 12:30-0400 SaO2% (BldA) [Mass fraction] 94 % FABRICIO BEN RADIATION / CHEMISTRY TECHNICIAN-C Work Phone: [facility] 12-14-2024 12:30-0400 Systolic blood pressure 135 mm[Hg] FABRICIO BEN RADIATION / CHEMISTRY TECHNICIAN-C Work Phone: [facility] 10-13-2024 08:18-0400 Body mass index (BMI) [Ratio] 31.2 kg/m2 FABRICIO BEN RADIATION / CHEMISTRY TECHNICIAN-C Work Phone: [facility] 10-13-2024 08:18-0400 Body temperature 97.7 [degF] FABRICIO BEN RADIATION / CHEMISTRY TECHNICIAN-C Work Phone: 2(131)657-333476 [address] 10-13-2024 08:18-0400 Body weight 98.88 kg FABRICIO BEN RADIATION / CHEMISTRY TECHNICIAN-C Work Phone: 3(318)811-229788 [place] [address] 10-13-2024 08:18-0400 Diastolic blood pressure 88 mm[Hg] FABRICIO BEN RADIATION / CHEMISTRY TECHNICIAN-C Work Phone: 6(021)310-631088 [place] [address] 10-13-2024 08:18-0400 Heart rate 74 /min FABRICIO BEN RADIATION / CHEMISTRY TECHNICIAN-C Work Phone: 1(106)899-727576 [address] 10-13-2024 08:18-0400 Respiratory rate 20 /min FABRICIO BEN RADIATION / CHEMISTRY TECHNICIAN-C Work Phone: [facility] 10-13-2024 08:18-0400 SaO2% (BldA) [Mass fraction] 95 % FABRICIO BEN RADIATION / CHEMISTRY TECHNICIAN-C Work Phone: [facility] 10-13-2024 08:18-0400 Systolic blood pressure 144 mm[Hg] FABRICIO BEN RADIATION / CHEMISTRY TECHNICIAN-C Work Phone: 1(571)[phone] [place] [address] 09-17-2024 08:44-0500 Body mass index (BMI) [Ratio] 31.2 kg/m2 FABRICIO BEN RADIATION / CHEMISTRY TECHNICIAN-C Work Phone: 7(089)[phone] [place] [address] 09-17-2024 08:44-0500 Body temperature 97.3 [degF] FABRICIO BEN RADIATION / CHEMISTRY TECHNICIAN-C Work Phone: 3(490)[phone] [place] [address] 09-17-2024 08:44-0500 Body weight 98.88 kg FABRICIO BEN RADIATION / CHEMISTRY TECHNICIAN-C Work Phone: [facility] 09-17-2024 08:44-0500 Diastolic blood pressure 78 mm[Hg] FABRICIO BEN RADIATION / CHEMISTRY TECHNICIAN-C Work Phone: [facility] 09-17-2024 08:44-0500 Heart rate 83 /min FABRICIO BEN RADIATION / CHEMISTRY TECHNICIAN-C Work Phone: [facility] 09-17-2024 08:44-0500 Respiratory rate 20 /min FABRICIO BEN RADIATION / CHEMISTRY TECHNICIAN-C Work Phone: 0(203)503-274588 [place] [address] 09-17-2024 08:44-0500 SaO2% (BldA) [Mass fraction] 96 % FABRICIO BEN RADIATION / CHEMISTRY TECHNICIAN-C Work Phone: 2(019)911-162988 [place] [address] 09-17-2024 08:44-0500 Systolic blood pressure 131 mm[Hg] FABRICIO BEN RADIATION / CHEMISTRY TECHNICIAN-C Work Phone: 7(401)888-793788 [place] [address] 08-24-2024 11:25-0500 Body height 177.8 cm FABRICIO BEN RADIATION / CHEMISTRY TECHNICIAN-C Work Phone: 9(138)428-871688 [place] [address] 08-24-2024 11:25-0500 Body mass index (BMI) [Ratio] 31.8 kg/m2 FABRICIO BEN RADIATION / CHEMISTRY TECHNICIAN-C Work Phone: [facility] 08-24-2024 11:25-0500 Body weight 100.69 kg FABRICIO BEN RADIATION / CHEMISTRY TECHNICIAN-C Work Phone: [facility] 08-24-2024 11:25-0500 Diastolic blood pressure 68 mm[Hg] FABRICIO BEN RADIATION / CHEMISTRY TECHNICIAN-C Work Phone: [facility] 08-24-2024 11:25-0500 Heart rate 71 /min FABRICIO BEN RADIATION / CHEMISTRY TECHNICIAN-C Work Phone: [facility] 08-24-2024 11:25-0500 Respiratory rate 18 /min FABRICIO BEN RADIATION / CHEMISTRY TECHNICIAN-C Work Phone: [facility] 08-24-2024 11:25-0500 Systolic blood pressure 116 mm[Hg] FABRICIO BEN RADIATION / CHEMISTRY TECHNICIAN-C Work Phone: [facility] 05-24-2024 08:26-0400 Body height 180.34 cm Stefani Vann MA [facility] 05-24-2024 08:26-0400 Body mass index (BMI) [Ratio] 30.06 kg/m2 Stefani Vann MA [facility] 05-24-2024 08:26-0400 Body surface area Derived from formula 2.18 m2 Stefani Vann MA [facility] 05-24-2024 08:26-0400 Body weight 97.78 kg [facility] 05-24-2024 08:26-0400 Diastolic blood pressure 74 mm[Hg] Stefani Vann [facility].; [facility]. Comment on above: Patient Position: Sitting; Cuff Location : Left Arm; Cuff Size: Standard 05-24-2024 08:26-0400 Heart rate 87 /min Stefani Vann [facility].; [employer] [facility] Comment on above: Pattern: Regular 05-24-2024 08:26-0400 Systolic blood pressure 113 mm[Hg] Stefani Vann [facility].; [facility]. Comment on above: Patient Position: Sitting; Cuff Location : Left Arm; Cuff Size: Standard 08-27-2023 11:59-0500 Body height 177.8 cm RADIATION / CHEMISTRY TECHNICIAN-C FABRICIO BEN Work Phone: [facility] 08-27-2023 11:59-0500 Body mass index (BMI) [Ratio] 32.5 kg/m2 RADIATION / CHEMISTRY TECHNICIAN-C FABRICIO BEN Work Phone: [facility] 08-27-2023 11:59-0500 Body temperature 98.2 [degF] RADIATION / CHEMISTRY TECHNICIAN-C FABRICIO BEN Work Phone: [facility] 08-27-2023 11:59-0500 Body weight 102.96 kg RADIATION / CHEMISTRY TECHNICIAN-C FABRICIO BEN Work Phone: [facility] 08-27-2023 11:59-0500 Diastolic blood pressure 73 mm[Hg] RADIATION / CHEMISTRY TECHNICIAN-C FABRICIO BEN Work Phone: 4(629)[phone] [place] [address] 08-27-2023 11:59-0500 Heart rate 71 /min RADIATION / CHEMISTRY TECHNICIAN-C FABRICIO BEN Work Phone: 8(483)516-646788 [place] [address] 08-27-2023 11:59-0500 Respiratory rate 18 /min RADIATION / CHEMISTRY TECHNICIAN-C FABRICIO BEN Work Phone: 2(726)666-103088 [place] [address] 08-27-2023 11:59-0500 SaO2% (BldA) [Mass fraction] 95 % RADIATION / CHEMISTRY TECHNICIAN-C FABRICIO BEN Work Phone: [facility] 08-27-2023 11:59-0500 Systolic blood pressure 120 mm[Hg] RADIATION / CHEMISTRY TECHNICIAN-C FABRICIO BEN Work Phone: [facility] 08-22-2023 13:54-0500 Body mass index (BMI) [Ratio] 35.6 kg/m2 RADIATION / CHEMISTRY TECHNICIAN-C FABRICIO BEN Work Phone: [facility] 08-22-2023 13:25-0500 Diastolic blood pressure 80 mm[Hg] RADIATION / CHEMISTRY TECHNICIAN-C FABRICIO BEN Work Phone: [facility] 08-22-2023 13:25-0500 Heart rate 87 /min RADIATION / CHEMISTRY TECHNICIAN-C FABRICIO BEN Work Phone: [facility] 08-22-2023 13:25-0500 SaO2% (BldA) [Mass fraction] 95 % RADIATION / CHEMISTRY TECHNICIAN-C FABRICIO BEN Work Phone: [facility] 08-22-2023 13:25-0500 Systolic blood pressure 138 mm[Hg] RADIATION / CHEMISTRY TECHNICIAN-C FABRICIO BEN Work Phone: 2(247)[phone] [place] [address] 08-22-2023 13:16-0500 Body weight 103.41 kg RADIATION / CHEMISTRY TECHNICIAN-C FABRICIO BEN Work Phone: [facility] 08-01-2023 09:28-0500 Heart rate 76 /min RADIATION / CHEMISTRY TECHNICIAN-C FABRICIO BEN Work Phone: [facility] 08-01-2023 09:24-0500 Body temperature 97.8 [degF] RADIATION / CHEMISTRY TECHNICIAN-C FABRICIO BEN Work Phone: [facility] 08-01-2023 09:24-0500 Diastolic blood pressure 84 mm[Hg] RADIATION / CHEMISTRY TECHNICIAN-C FABRICIO BEN Work Phone: [facility] 08-01-2023 09:24-0500 Respiratory rate 16 /min RADIATION / CHEMISTRY TECHNICIAN-C FABRICIO BEN Work Phone: [facility] 08-01-2023 09:24-0500 SaO2% (BldA) [Mass fraction] 96 % RADIATION / CHEMISTRY TECHNICIAN-C FABRICIO BEN Work Phone: [facility] 08-01-2023 09:24-0500 Systolic blood pressure 144 mm[Hg] RADIATION / CHEMISTRY TECHNICIAN-C FABRICIO BEN Work Phone: [facility] 07-31-2023 11:00-0500 Body height 155.45 cm RADIATION / CHEMISTRY TECHNICIAN-C FABRICIO BEN Work Phone: [facility] 07-31-2023 11:00-0500 Body mass index (BMI) [Ratio] 41.3 kg/m2 RADIATION / CHEMISTRY TECHNICIAN-C FABRICIO BEN Work Phone: [facility] 07-31-2023 11:00-0500 Body weight 99.8 kg RADIATION / CHEMISTRY TECHNICIAN-C FABRICIO BEN Work Phone: [facility] 07-08-2023 14:22-0500 Body mass index (BMI) [Ratio] 35.6 kg/m2 RADIATION / CHEMISTRY TECHNICIAN-C FABRICIO BEN Work Phone: [facility] 07-08-2023 14:22-0500 Body weight 103.41 kg RADIATION / CHEMISTRY TECHNICIAN-C FABRICIO BEN Work Phone: [facility] 07-08-2023 14:22-0500 Diastolic blood pressure 85 mm[Hg] RADIATION / CHEMISTRY TECHNICIAN-C FABRICIO BEN Work Phone: [facility] 07-08-2023 14:22-0500 Heart rate 84 /min RADIATION / CHEMISTRY TECHNICIAN-C FABRICIO BEN Work Phone: [phone] [place] [id number] 07-08-2023 14:22-0500 Respiratory rate 16 /min RADIATION / CHEMISTRY TECHNICIAN-C FABRICIO BEN Work Phone: [phone] [address] [place] [address] 07-08-2023 14:22-0500 Systolic blood pressure 128 mm[Hg] RADIATION / CHEMISTRY TECHNICIAN-C FABRICIO BEN Work Phone: [phone] [place] [address] 05-20-2023 08:22-0400 Body weight 95.7 kg RADIATION / CHEMISTRY TECHNICIAN-C FABRICIO BEN Work Phone: [phone] [place] [address] 05-20-2023 08:19-0400 Body mass index (BMI) [Ratio] 33 kg/m2 RADIATION / CHEMISTRY TECHNICIAN-C FABIRCIO BEN Work Phone: [phone] [place] [address] 05-19-2023 14:00-0400 Body height 180.34 cm Stefani Vann MA [facility], [facility]. 05-19-2023 14:00-0400 Body mass index (BMI) [Ratio] 31.8 kg/m2 Stefani Vann MA [facility], [facility]. 05-19-2023 14:00-0400 Body surface area Derived from formula 2.23 m2 Stefani Vann MA [facility], [facility].; [facility], [facility]. 05-19-2023 14:00-0400 Body weight 103.42 kg Stefani Vann MA [facility], [facility].; [facility], [facility]. 05-19-2023 14:00-0400 Diastolic blood pressure 78 mm[Hg] Stefani Vann MA [facility], [facility].; [facility], [facility]. Comment on above: Patient Position: Sitting; Cuff Location : Left Arm; Cuff Size: Standard 05-19-2023 14:00-0400 Heart rate 75 /min Stefani Vann MA [facility], [facility]. Comment on above: Pattern: Regular 05-19-2023 14:00-0400 Systolic blood pressure 128 mm[Hg] Stefani Vann MA [facility], [facility]. Comment on above: Patient Position: Sitting; Cuff Location : Left Arm; Cuff Size: Standard 05-02-2023 13:48-0400 Diastolic blood pressure 71 mm[Hg] RADIATION / CHEMISTRY TECHNICIAN-C FABRICIO BEN Work Phone: [phone] [place] [address] 05-02-2023 13:48-0400 Heart rate 78 /min RADIATION / CHEMISTRY TECHNICIAN-C FABRICIO BEN Work Phone: [phone] [place] [address] 05-02-2023 13:48-0400 Respiratory rate 18 /min RADIATION / CHEMISTRY TECHNICIAN-C FABRICIO BEN Work Phone: [phone] [place] [address] 05-02-2023 13:48-0400 Systolic blood pressure 138 mm[Hg] RADIATION / CHEMISTRY TECHNICIAN-C FABRICIO BEN Work Phone: [facility] 05-02-2023 13:25-0400 Body mass index (BMI) [Ratio] 30.8 kg/m2 RADIATION / CHEMISTRY TECHNICIAN-C FABRICIO BEN Work Phone: [facility] 05-02-2023 13:25-0400 Body temperature 97.8 [degF] RADIATION / CHEMISTRY TECHNICIAN-C FABRICIO BEN Work Phone: [facility] 05-02-2023 13:25-0400 Body weight 97.52 kg RADIATION / CHEMISTRY TECHNICIAN-C FABRICIO BEN Work Phone: [facility] 05-02-2023 13:25-0400 SaO2% (BldA) [Mass fraction] 94 % RADIATION / CHEMISTRY TECHNICIAN-C FABRICIO BEN Work Phone: [facility] 04-03-2023 10:06-0400 Body height 177.8 cm No Primary Care Physician [facility] 02-18-2023 09:35-0400 Body mass index (BMI) [Ratio] 30.8 kg/m2 No Primary Care Physician [facility] 02-18-2023 09:35-0400 Body temperature 97.4 [degF] No Primary Care Physician [facility] 02-18-2023 09:35-0400 Body weight 97.52 kg No Primary Care Physician [facility] 02-18-2023 09:35-0400 Diastolic blood pressure 78 mm[Hg] No Primary Care Physician [facility] 02-18-2023 09:35-0400 Heart rate 78 /min No Primary Care Physician [facility] 02-18-2023 09:35-0400 Respiratory rate 18 /min No Primary Care Physician [facility] 02-18-2023 09:35-0400 SaO2% (BldA) [Mass fraction] 95 % No Primary Care Physician [facility] 02-18-2023 09:35-0400 Systolic blood pressure 122 mm[Hg] No Primary Care Physician [facility] 01-23-2023 14:26-0400 Body height 177.8 cm No Primary Care Physician [facility] 01-23-2023 14:26-0400 Body mass index (BMI) [Ratio] 30.2 kg/m2 No Primary Care Physician [facility] 01-23-2023 14:26-0400 Body weight 95.7 kg No Primary Care Physician [facility] 01-23-2023 14:26-0400 Diastolic blood pressure 62 mm[Hg] No Primary Care Physician [facility] 01-23-2023 14:26-0400 Heart rate 84 /min No Primary Care Physician [facility] 01-23-2023 14:26-0400 Respiratory rate 16 /min No Primary Care Physician [facility] 01-23-2023 14:26-0400 Systolic blood pressure 110 mm[Hg] No Primary Care Physician [facility] 01-13-2023 14:25-0400 Body height 180.34 cm Ericka Stratton RN [facility], [facility]. 01-13-2023 14:25-0400 Body mass index (BMI) [Ratio] 29.15 kg/m2 Ericka Stratton RN [facility], [facility]. 06-19-2023 14:25-0400 Body surface area Derived from formula 2.15 m2 Ericka Stratton RN [facility].; [facility]. 01-13-2023 14:25-0400 Body temperature 97.6 [degF] Ericka Stratton RN [facility].; [facility]. Comment on above: Method: Tympanic 01-13-2023 14:25040 Body weight 94.8 kg Ericka Stratton RN [facility].; [employer]. 01-13-2023 14:25-0400 Diastolic blood pressure 64 mm[Hg] Ericka Stratton RN [facility].; [employer] [facility]. Comment on above: Patient Position: Sitting; Cuff Location : Left Arm; Cuff Size: Standard 01-13-2023 14:25-0400 Heart rate 74 /min Ericka Stratton RN [facility].; [employer]. Comment on above: Pattern: Regular 01-13-2023 14:25-0400 Systolic blood pressure 100 mm[Hg] Ericka Stratton RN [facility].; [employer] [facility]. Comment on above: Patient Position: Sitting; Cuff Location : Left Arm; Cuff Size: Standard 01-07-2023 14:07-0400 Body height 177.8 cm No Primary Care Physician [facility] 01-07-2023 [id number] Body weight 92.98 kg No Primary Care Physician [facility] 01-07-2023 14:07-0400 Heart rate 85 /min No Primary Care Physician [facility] 01-07-2023 14:07-0400 SaO2% (BldA) [Mass fraction] 95 % No Primary Care Physician [facility] 01-06-2023 10:20-0400 Body height 180.34 cm Ericka Stratton RN [facility] [employer] [facility] 01-06-2023 10:20-0400 Body mass index (BMI) [Ratio] 29.15 kg/m2 Ericka Stratton RN [facility].; [employer]. 01-06-2023 10:20-0400 Body surface area Derived from formula 2.15 m2 Ericka Stratton RN [facility].; [facility]. 01-06-2023 10:20-0400 Body temperature 98.7 [degF] Ericka Stratton RN [facility].; [employer] [facility]. Comment on above: Method: Tympanic 01-06-2023 10:20-0400 Body weight 94.8 kg rEicka Stratton RN [facility].; [employer] [facility]. 01-06-2023 10:20-0400 Diastolic blood pressure 59 mm[Hg] Ericka Stratton RN [facility].; [employer] [facility]. Comment on above: Patient Position: Sitting; Cuff Location : Left Arm; Cuff Size: Standard 01-06-2023 10:20-0400 Heart rate 89 /min Ericka Stratton RN [facility].; [employer] [facility]. Comment on above: Pattern: Regular 01-06-2023 10:20-0400 Inhaled oxygen concentration 21 % Ericka Stratton RN [facility].; [employer] [facility]. Comment on above: Room air 01-06-2023 10:20-0400 SaO2% (BldA) [Mass fraction] 96 % Ericka Stratton RN [facility].; [employer] [facility] 01-06-2023 10:20-0400 Systolic blood pressure 92 mm[Hg] Ericka Stratton RN [employer] [facility].; [employer]. Comment on above: Patient Position: Sitting; Cuff Location : Left Arm; Cuff Size: Standard 12-31-2022 06:41-0400 Body mass index (BMI) [Ratio] 29.5 kg/m2 No Primary Care Physician [facility] 12-31-2022 06:41-0400 Body temperature 97.3 [degF] No Primary Care Physician [facility] 12-31-2022 06:41-0400 Body weight 93.44 kg No Primary Care Physician [facility] 12-31-2022 06:41-0400 Diastolic blood pressure 67 mm[Hg] No Primary Care Physician [facility] 12-31-2022 06:41-0400 Heart rate 53 /min No Primary Care Physician [facility] 12-31-2022 06:41-0400 Respiratory rate 18 /min No Primary Care Physician [facility] 12-31-2022 06:41-0400 SaO2% (BldA) [Mass fraction] 93 % No Primary Care Physician [facility] 12-31-2022 06:41-0400 Systolic blood pressure 136 mm[Hg] No Primary Care Physician [facility] 12-29-2022 09:15-0400 Diastolic blood pressure 75 mm[Hg] No Primary Care Physician [facility] 12-29-2022 09:15-0400 Heart rate 79 /min No Primary Care Physician [facility] 12-29-2022 09:15-0400 Systolic blood pressure 119 mm[Hg] No Primary Care Physician [facility] 12-29-2022 07:30-0400 Body temperature 98.2 [degF] No Primary Care Physician [facility] 12-29-2022 07:30-0400 Respiratory rate 14 /min No Primary Care Physician [facility] 12-29-2022 07:30-0400 SaO2% (BldA) [Mass fraction] 96 % No Primary Care Physician [facility] 12-27-2022 14:16-0400 Body height 177.8 cm No Primary Care Physician [facility] 12-27-2022 14:16-0400 Body weight 96.2 kg No Primary Care Physician [facility] 12-26-2022 23:38-0400 Body mass index (BMI) [Ratio] 30.4 kg/m2 No Primary Care Physician [facility] 12-26-2022 23:00-0400 Diastolic blood pressure 91 mm[Hg] No Primary Care Physician [facility] 12-26-2022 23:00-0400 Heart rate 151 /min No Primary Care Physician [facility] 12-26-2022 23:00-0400 Inhaled oxygen flow rate 2 L/min No Primary Care Physician [facility] 12-26-2022 23:00-0400 Respiratory rate 19 /min No Primary Care Physician [facility] 12-26-2022 23:00-0400 SaO2% (BldA) [Mass fraction] 98 % No Primary Care Physician [facility] 12-26-2022 23:00-0400 Systolic blood pressure 117 mm[Hg] No Primary Care Physician [facility] 12-26-2022 22:36-0400 Body temperature 98.6 [degF] No Primary Care Physician [facility] 12-26-2022 19:18-0400 Body height 177.8 cm No Primary Care Physician [facility] 12-26-2022 19:18-0400 Body mass index (BMI) [Ratio] 31.1 kg/m2 No Primary Care Physician [facility] 12-26-2022 19:180400 Body weight 98.4 kg No Primary Care Physician [facility] 11-19-2022 13:12-0400 Body temperature 98 [degF] Parker Williamson LPN [facility] 11-19-2022 13:12-0400 Body weight 96.62 kg Parker Williamson LPN [facility] [employer] [facility] 11-19-2022 13:12-0400 Diastolic blood pressure 74 mm[Hg] Parker Williamson LPN [facility] [employer] [facility] Comment on above: Patient Position: Sitting; Cuff Location : Left Arm; Cuff Size: Standard 11-19-2022 13:12-0400 Heart rate 75 /min Parker Williamson LPN [facility] [employer] [facility] Comment on above: Pattern: Regular 11-19-2022 13:12-0400 Inhaled oxygen concentration 21 % Parker Williamson LPN [facility] [employer] Comment on above: Room air 11-19-2022 13:12-0400 SaO2% (BldA) [Mass fraction] 96 % Parker Williamson LPN [facility] [employer] 11-19-2022 13:12-0400 Systolic blood pressure 146 mm[Hg] Parker Williamson LPN [facility] [employer] Comment on above: Patient Position: Sitting; Cuff Location : Left Arm; Cuff Size: Standard 11-12-2022 13:16-0400 Body height 180.34 cm Jeannie Arredondo LPN [facility], [facility].; [facility], [facility]. 11-12-2022 13:16-0400 Body mass index (BMI) [Ratio] 29.99 kg/m2 Jeannie Arredondo LPN [facility], [facility]. 11-12-2022 13:160400 Body surface area Derived from formula 2.17 m2 Jeannie Arredondo LPN [facility], [facility].; [facility], [facility]. 11-12-2022 13:16-0400 Body temperature 98.6 [degF] Jeannie Arredondo LPN [facility].; [facility], [facility]. Comment on above: Method: Tympanic 11-12-2022 13:16-0400 Body weight 97.52 kg Jeannie Arredondo LPN [facility], [facility].; [facility], [facility]. 11-12-2022 13:16-0400 Diastolic blood pressure 79 mm[Hg] Jeannie Arredondo LPN [facility], [facility].; [facility], [facility]. Comment on above: Patient Position: Sitting; Cuff Location : Left Arm; Cuff Size: Standard 11-12-2022 13:16-0400 Heart rate 52 /min Jeannie Arredondo LPN [facility], [facility].; [facility] Comment on above: Pattern: Regular 11-12-2022 13:16-0400 Systolic blood pressure 133 mm[Hg] Jeannie Arredondo LPN [facility], [facility].; [facility], [facility]. Comment on above: Patient Position: Sitting; Cuff Location : Left Arm; Cuff Size: Standard 01-14-2022 14:06-0400 Body height 180.34 cm Jeannie Jhaveri MA [facility], [facility].; [facility], [facility]. 01-14-2022 14:06-0400 Body mass index (BMI) [Ratio] 28.87 kg/m2 Jeannie Jhaveri MA [facility], [facility].; [facility], [facility]. 01-14-2022 14:060400 Body surface area Derived from formula 2.14 m2 Jeannie Jhaveri MA [facility] [employer] [facility]. 01-14-2022 14:06-0400 Body weight 93.9 kg Jeannie Jhaveri MA [facility] [employer] [facility]. 01-14-2022 14:06-0400 Diastolic blood pressure 84 mm[Hg] Jeannie Jhaveri MA [facility] [employer] [facility]. Comment on above: Patient Position: Sitting; Cuff Location : Left Arm; Cuff Size: Standard 01-14-2022 14:06-0400 Heart rate 75 /min Jeannie Jhaveri MA [facility], [facility].; [employer]. Comment on above: Pattern: Regular 01-14-2022 14:06-0400 Systolic blood pressure 134 mm[Hg] Jeannie Jhaveri MA [facility] [employer], [facility]. Comment on above: Patient Position: Sitting; Cuff Location : Left Arm; Cuff Size: Standard 01-12-2021 11:01-0400 Body height 177.8 cm Porsha Mireles LPN [facility], [facility].; [employer] [facility], [facility]. 01-12-2021 11:01-0400 Body mass index (BMI) [Ratio] 30.99 kg/m2 Porsha Mireles LPN [facility], [facility].; [employer] [facility], [facility]. 01-12-2021 11:01-0400 Body surface area Derived from formula 2.16 m2 Porsha Mireles LPN [facility], [facility].; [employer] [facility]. 01-12-2021 11:01-0400 Body weight 97.98 kg Porsha Mireles LPN [facility], [facility].; [employer] [facility]. 01-12-2021 11:01-0400 Diastolic blood pressure 75 mm[Hg] Porsha [facility]ireles LPN [facility].; [employer]. Comment on above: Patient Position: Sitting; Cuff Location : Left Arm; Cuff Size: Standard 01-12-2021 11:01-0400 Heart rate 85 /min Porsha Mireles LPN [facility], [facility].; [employer]. Comment on above: Pattern: Regular 01-12-2021 11:01-0400 Systolic blood pressure 120 mm[Hg] Porsha Mireles LPN [employer]. Comment on above: Patient Position: Sitting; Cuff Location : Left Arm; Cuff Size: Standard 08-25-2020 13:15-0500 Body height 177.8 cm Yessica Kowalski PA-C Work Phone: [employer]; [employer]. 08-25-2020 13:15-0500 Body mass index (BMI) [Ratio] 30.71 kg/m2 Yessica Kowalski PA-C Work Phone: [employer].; [employer]. 08-25-2020 13:15-0500 Body surface area Derived from formula 2.15 m2 Yessica Kowalski PA-C Work Phone: [employer].; [employer]. 08-25-2020 13:15-0500 Body weight 97.07 kg Yessica Kowalski PA-C Work Phone: [employer].; [employer]. 08-25-2020 13:15-0500 Diastolic blood pressure 102 mm[Hg] Yessica Kowalski PA-C Work Phone: [employer].; [employer]. Comment on above: Patient Position: Sitting; Cuff Location : Left Arm; Cuff Size: Standard 08-25-2020 13:15-0500 Heart rate 74 /min Yessica Kowalski PA-C Work Phone: [employer].; [employer]. Comment on above: Pattern: Regular 08-25-2020 13:15-0500 Systolic blood pressure 134 mm[Hg] Yessica Kowalski PA-C Work Phone: [employer].; [employer]. Comment on above: Patient Position: Sitting; Cuff Location : Left Arm; Cuff Size: Standard Encounters Encounter Date Encounter Type Care Provider Facility Start: 04-19-2025 [facility] Start: 03-17-2025 End: 03-17-[address] Jose Villegas MD -[facility] Work Phone: Start: 03-17-2025 End: 03-17-2025 ambulatory FABRICIO BEN RADIATION / CHEMISTRY TECHNICIAN-C Work Phone: -[facility] Start: 02-17-2025 End: 02-17-2025 Patient encounter procedure Reynaldo Jerez RADIATION / CHEMISTRY TECHNICIAN-C -[facility] Work Phone: Start: 02-17-2025 End: 02-17-2025 ambulatory FABRICIO BEN RADIATION / CHEMISTRY TECHNICIAN-C Work Phone: -[facility] Start: 01-25-2025 End: 01-25-2025 Office outpatient visit 15 minutes Yessica Kowalski PA-C Work Phone: [facility] Start: 12-30-2024 Non-patient / Non-visit Dr. Allison shukla MD -[facility] Work Phone: Start: 12-30-2024 End: 12-30-2024 ambulatory FABRICIO BEN RADIATION / CHEMISTRY TECHNICIAN-C Work Phone: [facility] Work Phone: Start: 12-30-2024 End: 12-30-2024 Patient encounter procedure Yisel Smiley RADIATION / CHEMISTRY TECHNICIAN-C -Pulmonary Services/Neurology Work Phone: Start: 12-30-2024 End: 12-30-2024 ambulatory FABRICIO BEN Facility:[facility] Start: 12-14-2024 End: 12-14-2024 Patient encounter procedure AUGUSTO [place] -[facility] Work Phone: Start: 12-14-2024 End: 12-14-2024 ambulatory FABRICIO BEN RADIATION / CHEMISTRY TECHNICIAN-C Work Phone: [facility] Work Phone: Start: 10-13-2024 End: 10-13-2024 Patient encounter procedure AUGUSTO Gomez -[facility] Work Phone: Start: 10-13-2024 End: 10-13-2024 ambulatory FABRICIO BEN Facility:[facility] Start: 09-30-2024 End: 09-30-2024 ambulatory FABRICIO BEN RADIATION / CHEMISTRY TECHNICIAN-C Work Phone: [facility] Work Phone: Start: 09-30-2024 End: 09-30-2024 Patient encounter procedure AUGUSTO Gomez -[facility] Work Phone: Start: 09-30-2024 End: 09-30-2024 ambulatory Bhumi Gomez Facility:[facility] Start: 09-27-2024 End: 09-27-2024 ambulatory FABRICIO BEN RADIATION / CHEMISTRY TECHNICIAN-C Work Phone: [facility] Work Phone: Start: 09-27-2024 End: 09-27-2024 Patient encounter procedure Marissa Delacruz NP-C -Cat Scan, [facility] Work Phone: Start: 09-27-2024 End: 09-27-2024 ambulatory FABRICIO BEN Facility:[facility] Start: 09-17-2024 End: 09-17-2024 Patient encounter procedure AUGUSTO Gomez -[facility] Work Phone: Start: 09-17-2024 End: 09-17-2024 ambulatory FABRICIO BEN Facility:[facility] Start: 09-17-2024 End: 09-17-2024 ambulatory Allison Konrad Facility:[facility] Start: 09-10-2024 ambulatory Allison Konrad Facility:[facility] Start: 09-10-2024 Non-patient / Non-visit Dr. Allison shukla MD -[facility] Start: 09-10-2024 End: 09-10-[address] Allison Silvestre MD -Cardiovascular Services Work Phone: Start: 09-10-2024 End: 09-10-2024 ambulatory Allison Konrad Facility:[facility] Start: 09-09-2024 End: 09-09-2024 Patient encounter procedure Marissa Delacruz RADIATION / CHEMISTRY TECHNICIAN-C -[facility] Work Phone: Start: 09-09-2024 End: 09-09-2024 ambulatory Marissa Delacruz RADIATION / CHEMISTRY TECHNICIAN Facility:[facility] Start: 08-24-2024 End: 08-24-[address] Allison Silvestre MD -[facility] Work Phone: Start: 08-24-2024 End: 08-24-2024 ambulatory FABRICIO BEN Facility:[facility] Start: 05-24-2024 End: 05-24-2024 Patient encounter procedure Yessica Kowalski PA-C Work Phone: [facility]; [facility] Start: 05-24-2024 End: 05-24-2024 Periodic preventive med est patient 65yrs& older Yessica MONTEC Work Phone: [facility] Start: 05-13-2024 End: 05-13-2024 ambulatory Marissa Delacruz RADIATION / CHEMISTRY TECHNICIAN Facility:[facility] Start: 04-20-2024 End: 04-20-2024 ambulatory FABRICIO BEN Facility:[facility] Start: 10-04-2023 End: 10-04-2023 ambulatory RADIATION / CHEMISTRY TECHNICIAN-C FABRICIO BEN Work Phone: [facility] Work Phone: Start: 10-04-2023 End: 10-04-2023 Patient encounter procedure RADIATION / CHEMISTRY TECHNICIAN-C FABRICIO BEN Work Phone: [facility] Work Phone: Start: 08-27-2023 End: 08-27-2023 Patient encounter procedure RADIATION / CHEMISTRY TECHNICIAN-C FABRICIO BEN Work Phone: [facility] Work Phone: Start: 08-22-2023 End: 08-27-2023 ambulatory RADIATION / CHEMISTRY TECHNICIAN-C FABRICIO BEN Work Phone: [facility] Work Phone: Start: 08-22-2023 End: 08-27-2023 Discharged Recurring RADIATION / CHEMISTRY TECHNICIAN-C FABRICIO BEN Work Phone: [facility] Work Phone: Start: 08-22-2023 Registered Recurring RADIATION / CHEMISTRY TECHNICIAN-C FRANK Mitchell BEN Work Phone: [facility] Work Phone: Start: 07-31-2023 Non-patient / Non-visit RADIATION / CHEMISTRY TECHNICIAN-C Mahnaz RAVI BEN Work Phone: [facility] Start: 07-31-2023 End: 08-01-2023 Evaluation and management of inpatient RADIATION / CHEMISTRY TECHNICIAN-C FABRICIO BEN Work Phone: [facility] Work Phone: Start: 07-31-2023 End: 08-01-2023 observation encounter RADIATION / CHEMISTRY TECHNICIAN-C FABRICIO EBN Work Phone: [facility] Work Phone: Start: 07-08-2023 End: 07-08-2023 Patient encounter procedure RADIATION / CHEMISTRY TECHNICIAN-C FABRICIO BEN Work Phone: [facility] Work Phone: Start: 05-21-2023 End: 05-21-2023 Admission to same day surgery center RADIATION / CHEMISTRY TECHNICIAN-C FABRICIO BEN Work Phone: [facility]Mark[facility] Outreach Coordinator/Special Procedures Work Phone: Start: 05-21-2023 End: 05-21-2023 ambulatory RADIATION / CHEMISTRY TECHNICIAN-C FABRICIO BEN Work Phone: [facility] Work Phone: Start: 05-19-2023 End: 05-19-2023 Patient encounter procedure Yessica Kowalski PA-C Work Phone: [facility] Start: 05-13-2023 Non-patient / Non-visit RADIATION / CHEMISTRY TECHNICIAN-C Mahnaz RAVI BEN Work Phone: [facility] Work Phone: Start: 05-03-2023 Non-patient / Non-visit RADIATION / CHEMISTRY TECHNICIAN-C Mahnaz VALIENTEETLER Work Phone: [facility] Start: 05-02-2023 End: 05-02-2023 Patient encounter procedure RADIATION / CHEMISTRY TECHNICIAN-C FABRICIO VALIENTEETLER Work Phone: [facility] Work Phone: Start: 04-03-2023 End: 04-03-2023 Patient encounter procedure No Primary Care Physician [facility] Work Phone: Start: 04-02-2023 End: 04-02-2023 ambulatory No Primary Care Physician [facility] Work Phone: Start: 04-02-2023 End: 04-02-2023 Patient encounter procedure No Primary Care Physician [facility] Work Phone: Start: 02-18-2023 End: 02-18-2023 Patient encounter procedure No Primary Care Physician [facility] Work Phone: Start: 02-11-2023 Non-patient / Non-visit No Tiffany Lomlei Physician [facility] Start: 02-10-2023 End: 02-10-2023 ambulatory No Primary Care Physician [facility] Work Phone: Start: 02-10-2023 End: 02-10-2023 Patient encounter procedure No Primary Care Physician [facility] Work Phone: Start: 02-10-2023 Non-patient / Non-visit No Tiffany hernandez Care Physician [facility] Start: 01-23-2023 End: 01-23-2023 Patient encounter procedure No Primary Care Physician [facility] Work Phone: Start: 01-17-2023 Non-patient / Non-visit No Tiffany Lomeli Physician [facility] Start: 01-16-2023 End: 01-16-2023 ambulatory No Primary Care Physician [facility] Work Phone: Start: 01-16-2023 End: 01-16-2023 Patient encounter procedure No Primary Care Physician [facility]/Neurology Start: 01-13-2023 End: 01-13-2023 Office outpatient visit 15 minutes Yessica Kowalski PA-C Work Phone: [employer] Start: 01-07-2023 Non-patient / Non-visit No Tiffany david Care Physician [facility] Start: 01-07-2023 End: 01-07-2023 ambulatory No Primary Care Physician [facility] Work Phone: Start: 01-07-2023 End: 01-07-2023 Patient encounter procedure No Primary Care Physician [facility]Ne[facility] Start: 01-06-2023 End: 01-06-2023 Office outpatient visit 25 minutes Yessica Kowalski PA-C Work Phone: [employer] Start: 12-31-2022 End: 12-31-2022 Patient encounter procedure No Primary Care Physician [facility] Start: 12-30-2022 End: 12-30-2022 Telephone follow-up Yessica Kowalski PA-C Work Phone: [employer]. Start: 12-29-2022 Non-patient / Non-visit No Tiffany david Care Physician [facility] Start: 12-28-2022 Non-patient / Non-visit No Tiffany david Care Physician [facility] Start: 12-28-2022 Non-patient / Non-visit No Tiffany david Care Physician [facility] Start: 12-27-2022 Non-patient / Non-visit No Tiffany david Care Physician [facility] Start: 12-27-2022 Non-patient / Non-visit No Tiffany hernandez Care Physician [facility] Start: 12-26-2022 Non-patient / Non-visit No Tiffany david Care Physician [facility] Start: 12-26-2022 End: 12-29-2022 Evaluation and management of inpatient No Primary Care Physician [facility] Start: 12-10-2022 End: 12-10-2022 Orders Yessica Kowalski PA-C Work Phone: [employer]. Start: 11-19-2022 End: 11-19-2022 Procedure Yessica Kowalski PA-C Work Phone: [employer] Start: 11-12-2022 End: 11-12-2022 Office outpatient visit 15 minutes Yessica Kowalski PA-C Work Phone: [employer] Start: 09-30-2022 End: 09-30-2022 ambulatory [facility] Work Phone: Start: 09-30-2022 End: 09-30-2022 Patient encounter procedure [facility] Start: 01-14-2022 End: 01-14-2022 Initial preventive medicine new patient 66yrs&> Yessica Kowalski PA-C Work Phone: [employer] Start: 01-14-2022 End: 01-14-2022 Patient encounter procedure Yessica Kowalski PA-C Work Phone: [employer]; [employer] Work Phone: Start: 01-09-2022 End: 01-09-2022 Orders Yessica Kowalski PA-C Work Phone: [employer]. Start: 12-11-2021 End: 12-11-2021 Orders Yessica Kowalski PA-C Work Phone: [employer] Start: 03-21-2021 Patient encounter status [facility] Start: 03-21-2021 Preoperative state FABRICIO HOSTE TLER RADIATION / CHEMISTRY TECHNICIAN-C Work Phone: [facility] Start: 01-12-2021 End: 01-12-2021 Office outpatient visit 25 minutes Yessica Kowalski PA-C [facility] Start: 08-25-2020 End: 08-25-2020 Office outpatient new 30 minutes Yessica Kowalski PA-C Work Phone: [facility] Patient encounter procedure Ericka Stratton RN [facility]; [facility] Patient encounter procedure Yessica J Kowalski PA-C Work Phone: [facility] Patient encounter procedure José Antonio Stanley MD Work Phone: [facility]; [facility] Procedures Date Procedure Procedure Detail Performing Clinician Start: 09-27-2024 CT of chest FABRICIO HOST ETLER RADIATION / CHEMISTRY TECHNICIAN-C Work Phone: Start: 05-24-2024 End: 05-21-2024 Adv care pln/ no alt dcsn mkr docd or refusal Yessica Mahnaz Kowalski PA-C Work Phone: Start: 05-24-2024 End: 05-21-2024 Depression screening Yessica J Kowalski PA-C Work Phone: Start: 05-24-2024 End: 05-21-2024 Falls risk assessment documented Yessica J Kowalski PA-C Work Phone: Start: 05-24-2024 End: 05-21-2024 PPPS, subseq visit Yessica J Kowalski PA-C Work Phone: Start: 05-24-2024 End: 05-21-2024 Pt falls assess docd w/o fall/injury past year Yessica J Kowalski PA-C Work Phone: Start: 05-24-2024 End: 05-21-2024 Scr dep neg, no plan reqd Yessica J Kowalski PA-C Work Phone: Start: 10-04-2023 CT of chest RADIATION / CHEMISTRY TECHNICIAN-C FABRICIO BEN Work Phone: Start: 05-19-2023 End: 05-19-2023 Adv care pln/ no alt dcsn mkr docd or refusal Yessica Kowalski PA-C Work Phone: Start: 05-19-2023 End: 05-19-2023 Depression screening Yessica Kowalski PA-C Work Phone: Start: 05-19-2023 End: 05-19-2023 Falls risk assessment documented Yessica Kowalski PA-C Work Phone: Start: 05-19-2023 End: 05-19-2023 Pos clin depres scrn f/u doc Yessica Kowalski PA-C Work Phone: Start: 05-19-2023 End: 05-19-2023 PPPS, subseq visit Yessica Kowalski PA-C Work Phone: Start: 05-19-2023 End: 05-19-2023 Pt falls assess docd w/o fall/injury past year Yessica Joya Kowalski PA-C Work Phone: Start: 05-02-2023 CT angiography of co ronary arteries RADIATION / CHEMISTRY TECHNICIAN-C FABRICIO CONTRERAS Work Phone: Start: 04-02-2023 Plain chest X-ray No Pr imary Care Physician Start: 02-10-2023 Cardiovascular stres s test using pharmacologic stress agent No Primary Care Physician Start: 01-06-2023 End: 01-06-2023 Incision & drainage abscess simple/single Yessica Joya Kowalski PA-C Work Phone: Start: 12-29-2022 End: 12-29-2022 Lab findings surveillance Stefani Chong Comment on above: glu-102 WC Start: 12-29-2022 End: 12-29-2022 Lipid panel Stefani Vann MA Comment on above: [facility], Trig-67, Chol-1 29, LDL-81, HDL-35 Start: 12-26-2022 CT angiography of ch est with contrast No Primary Care Physician Start: 12-26-2022 Plain chest X-ray No Pr imary Care Physician Start: 11-19-2022 End: 11-19-2022 Punch biopsy skin single lesion Luke Izabel Long PA-C Work Phone: Start: 11-19-2022 End: 11-19-2022 Exc b9 lesion mrgn xcp sk tg t/a/l 0.5 cm/< Luke E Long PA-C Work Phone: Start: 11-12-2022 End: 11-20-2022 Radex spine lumbosacral minimum 4 views Luke E Long PA-C Work Phone: Start: 01-14-2022 End: 01-14-2022 Adv care pln/ no alt dcsn mkr docd or refusal Yessica Joya Kowalski PA-C Work Phone: Start: 01-14-2022 End: 01-14-2022 Depression screening Yessica Joya Kowalski PA-C Work Phone: Start: 01-14-2022 End: 01-14-2022 Falls risk assessment documented Yessica Joya Kowalski PA-C Work Phone: Start: 01-14-2022 End: 01-14-2022 Pos clin depres scrn f/u doc Yessica Joya Kowalski PA-C Work Phone: Start: 01-14-2022 End: 01-14-2022 PPPS, subseq visit Yessica Joya Kowalski PA-C Work Phone: Start: 01-14-2022 End: 01-14-2022 Pt falls assess docd w/o fall/injury past year Yessica Joya Kowalski PA-C Work Phone: Start: 01-09-2022 End: 01-09-2022 Prostate specific antigen measurement Stefani Vann MA Comment on above: 1.90 Start: 01-12-2021 End: 01-16-2021 Ecg routine ecg w/least 12 lds i&r only Yessica Joya Kowalski PA-C Work Phone: Start: 01-12-2021 End: 01-15-2021 Radiologic exam chest 2 views Yessica Kowalski PA-C Work Phone: Start: 08-25-2020 End: 08-29-2020 Ecg routine ecg w/least 12 lds i&r only Yessica Kowalski PA-C Work Phone: Start: 07-28-1974 End: 07-28-1974 Appendectomy Stefani Vann MA Excision of colon Stefani Asif harrison MA Comment on above: 1996 x 2 Excision of colon Stefani Asif harrison MA Comment on above: 1996 x 2 Plan of Treatment Date Care Activity Detail Author Start: 03-17-2025 12 Lead [place] [place] [facility] 12 Lead E[facility] performed by [facility] Start: 03-17-2025 Evaluation of diagnostic study results [facility] Start: 05-24-2024 Assay of prostate specific antigen total PSA TOTAL (PROSTATE SPECIFIC ANTIGEN) ([id number]) Start: 24-May-2024 08:20-04:00 Request [employer]. Start: 05-24-2024 Comprehensive metabolic panel CMP w/ GFR* ([id number]) Start: 24-May-2024 08:20-04:00 Request [employer]. Start: 05-24-2024 Lipid panel LIPID PANEL ([id number]) Start: 24-May-2024 08:20-04:00 Request [employer]. Start: 08-01-2023 Patient discharge [facility] Start: 07-31-2023 Patient referral [facility] Work Phone: Start: 07-31-2023 Following clinical pathway protocol [facility] Start: 07-31-2023 Ambulation without limitation [facility] Start: 07-31-2023 Cardiac monitoring [facility] Start: 07-31-2023 Cardiac rehabilitation - phase 1 [facility] Start: 07-31-2023 Cardiac rehabilitation - phase 2 [facility] Start: 07-31-2023 Notification of physician [facility] Start: 07-31-2023 Oxygen therapy [facility] Start: 07-31-2023 Provision of activity privileges [facility] Start: 07-31-2023 Taking patient vital signs [facility] Start: 07-31-2023 Vascular disease risk assessment [facility] Start: 07-31-2023 Vital signs measurements [facility] Start: 07-31-2023 End: 07-31-2023 [facility] Start: 07-31-2023 Admission procedure [facility] Start: 05-02-2023 Following clinical pathway protocol [facility] Start: 01-03-2023 Blood chemistry [facility] Start: 01-02-2023 Blood chemistry [facility] Start: 01-01-2023 Blood chemistry [facility] Start: 12-31-2022 Blood chemistry [facility] Start: 12-30-2022 Blood chemistry [facility] Start: 12-29-2022 Patient discharge [facility] Start: 12-29-2022 [facility] Start: 12-27-2022 [facility] Start: 12-27-2022 Care planning and problem solving actions [facility] Start: 12-27-2022 Care planning and problem solving actions [facility] Start: 12-27-2022 Following clinical pathway protocol [facility] Start: 12-27-2022 Inhalation therapy procedure [facility] Start: 12-27-2022 Patient referral to dietitian [facility] Start: 12-26-2022 Assessment of risk of venous thromboembolism [facility] Start: 12-26-2022 Insertion of catheter into peripheral vein [facility] Start: 12-26-2022 Measuring intake and output [facility] Start: 12-26-2022 Oxygen therapy [facility] Start: 12-26-2022 Providing care according to standard [facility] Start: 12-26-2022 Provision of activity privileges [facility] Start: 12-26-2022 [facility] Start: 12-26-2022 Referral to building rental superintendent [facility] Start: 12-26-2022 Verification routine [facility] Start: 12-26-2022 Admission procedure [facility] Start: 12-26-2022 End: 12-27-2022 [facility] Alanine aminotransfe rase [Enzymatic activity/volume] in Serum or Plasma [facility] Aspartate aminotrans ferase [Enzymatic activity/volume] in Serum or Plasma [facility] Blood chemistry [facility] Catheterization of l eft heart [facility] CT Chest [facility] CT Chest [facility] Lipid 1996 panel - S kallie or Plasma [facility] Measurement of respi ratory function [facility] Patient Education ED Atrial Flutter [facility] Work Phone: Patient referral [facility] Work Phone: Immunizations Immunization Date Immunization Notes Care Provider Fa josh 04-16-2024 influenza, high dose seasonal, preservative-free Yessica Kowalski PA-C Work Phone: [facility] 06-28-2022 Influenza, high dose seasonal FABRICIO CONTRERAS RADIATION / CHEMISTRY TECHNICIAN-C Work Phone: [facility] 06-28-2022 influenza, high dose seasonal, preservative-free No Primary Care Physician [facility] 05-24-2021 Covid (Moderna) No Primary C are Physician [facility] 11-01-2020 Covid (Moderna) No Primary C are Physician [facility] 10-05-2020 Covid (Moderna) No Primary C are Physician [facility] Payers Date Payer Category Payer Self-pay [id number] 2023 Medicare [id number] [id number] Private Health Insurance [id number] 1950 Unknown [id number] .16.8 [id number] Private Health Insurance [id number] Unknown Unknown [id number] .16.8 [id number] Unknown [id number] 2.16.8 [id number] Unknown [id number] 2.16.8 [id number] Unknown [id number] 2.16.8 [id number] Unknown [id number] 2.16.8 [id number] Unknown [id number] 2.16.8 [id number] Unknown [id number] 2.16.8 [id number] Unknown [id number] 2.16.8 [id number] Unknown [id number] 2.16.8 [id number] Unknown [id number] 2.16.8 [id number] Unknown [id number] 2.16.8 [id number] Unknown [id number] 2.16.8 [id number] Unknown [id number] 2.16.8 [id number] Unknown [id number] 2.16.8 [id number] Unknown [id number] 2.16.8 [id number] Unknown [id number] 2.16.8 [id number] Social History Date Type Detail Facility Start: 03-21-2021 End: 08-27-2023 Tobacco smoking status MSIS Unknown if ever smoked [facility] Start: 1950 Sex Assigned At Male W [facility] Caffeine Use Caffeine Use [facility], [employer] [facility] Tobacco Use: Tobacco Use: ; F ormer smoker. [facility] Smokes tobacco daily [facility] [employer] Work Phone: [facility]-smoker [employer] [facility] [place] [employer] Work Phone: Start: 04-21-2024 Tobacco smoking stat us MSIS Current some day smoker [facility] Start: 10-07-2024 End: 10-11-2024 Sex Male (finding) [facility] Medical Equipment Procedure Code Equipment Code Equipment Origin al Text Equipment Identifier Dates Drug-eluting coronary artery stent, [id number] lymer-coated [id number] FDA Start: 07-31-2023 Goals Date Patient Goal Desired Activity /State Functional Status Date Assessment Result Facility 08-01-2023 Functional status Ambulates [facility] Work Phone: 12-29-2022 Functional status Ambulates [facility] Work Phone: Mental Status Date Assessment Result Facility 08-01-2023 Cognitive function Voice/Name [facility] Work Phone: 05-02-2023 Cognitive function Awake;Alert;Appropriat e [facility] Work Phone: 12-29-2022 Cognitive function Voice/Name [facility] Work Phone: 12-26-2022 Cognitive function Voice/Name [facility] Work Phone: Clinical Notes 12-26-2022 to 12-14-2024 Note Date & Type Note Facility 12-14-2024 Evaluation note Diagnosis Onset Date Resolution PHILOMENA (obstructive sleep apnea) acute December 14, 2024 2:58pm COPD (chronic obstructive pulmonary disease) chronic December 14 2:58pm Smoking greater than 20 pack years chronic December 14, 2024 2:58pm Second degree atrioventricular block, Mobitz (type) I acute February 17, 2025 3:01pm Atrial flutter chronic February 17, 2025 3:01pm Cardiomyopathy chronic February 17, 2025 3:01pm COPD (chronic obstructive pulmonary disease) chronic February 17 3:01pm Coronary artery disease chronic J pavan 2024 3:01pm Dyslipidemia chronic February 17, 2 025 3:01pm [facility] Work Phone: 1(447) 567-931505-20-2025 Evaluation note* Diagnosis Onset Date Resolution Status Admit Date PHILOMENA (obstructive sleep apnea) acute December 14, 2024 2:58pm COPD (chronic obstructive pulmonary disease) chronic December 14 2:58pm Smoking greater than 20 pack years chronic December 14, 2024 2 :58pm Second degree atrioventricul ar block, Mobitz (type) I acute January 3:01pm Atrial flutter chronic February 17, 2025 3:01pm Cardiomyopathy chronic February 17, 2025 3:01pm COPD (chronic obstructive pulmonary disease) chronic February 17 3:01pm Coronary artery disease chronic J pavan 2024 3:01pm Dyslipidemia chronic February 17, 2 025 3:01pm Paroxysmal atrial fibrillation acute March 17, 2025 1:51pm Second degree atrioventricul ar block, Mobitz (type) I acute March 172024 1:51pm Coronary artery disease chronic A ugust 2024 1:51pm [facility] Work Phone: 1(111) 206-895903-04-2025 Radiology Diagnostic study note [facility] Services [address] [place] [id number] Lung Screening MR#: [id number] Acct: [id number] Name: DOYLE ESTEVEZ Rep #: [id number] : 1950 M 74 From: Alex Cardona MD PCP: FABRICIO CONTRERAS 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 Patient has smoked 1 pack per day for 45 years. TECHNIQUE: Low Dose CT Lung Screening without contrast COMPARISON: Comparison is made with prior study October 04, 2023. FINDINGS: PULMONARY NODULES: (Only nodules >6mm are reported) Nodules described below are on series unless otherwise specified. Pulmonary Nodules: Stable 6 mm noncalcified nodule in the peripheral lateral aspect of the left lower lobe. Stable 4 mm nodule in the peripheral lateral aspect of the left lower lobe as seen on axial image number [id number] Hardware:None Lymph Nodes:No mediastinal hilar or axillary lymphadenopathy. Heart and Vasculature:Normal heart size. No pericardial effusion.Thoracic aorta and pulmonary arteries have normal contours; noncontrast technique limits evaluation. Coronary Artery Calcifications: Present Lungs and Airways: Mild emphysematous changes are present. Pleura:No pleural effusion. No pneumothorax. Upper Abdomen:Visualized portions of the upper abdominal viscera are unremarkable. Bones:Degenerative changes of the thoracic spine. CT/Low Dose CT Lung Screening IMPRESSION: 1. BASED ON THE ACR LUNG RADS FOR THE MOST SUSPICIOUS NODULE (IF ANY) DESCRIBEDIN THIS REPORT, THE OVERALL LUNG RADS SCORE IS 2.2 - BENIGN (BASED ON IMAGING FEATURES OR INDOLENT BEHAVIOR). RECOMMEND 12- MONTH SCREENING LDCT.. 2. SMOKING CESSATION COUNSELING IS RECOMMENDED IF THE PATIENT IS STILL SMOKING. 3. OTHER SIGNIFICANT FINDINGSNone. One or more dose reduction techniques were used (e.g., Automated exposure control, adjustment of the mA and/or kV according to patient size, use of iterative reconstruction technique). The following information is provided for reference:Lung-RADS 2022 Assessment Categories. Additional information involving Lung-RADS is available at www.acr.org. 0-INCOMPLETE 1-NEGATIVE:No nodules or definitely benign nodules. Complete, central, popcorn,or centric ring calcifications OR fat containing 2-BENIGN APPEARANCE (based on imaging features or indolent behavior). Juxtapleural nodule: < 10mm AND solid; smooth margins; oval, entiform, or triangular shape Solid nodule: <6mm at baseline or new< 4mm Part solid Nodule: < 6mm total mean diameter at baseline Nonsolid nodule:(GGN) < 30mm OR >=30mm stable or slowly growing Airway nodule, subsegmental at baseline, new, or stable Category 3 nodule stableor decreased in size at 6-month follow-up CT or Category 3 or 4A nodules that resolve on follow-up OR category 4B findings proven to be benign following diagnotic work up. 3 - Probably Benign (Based on imaging features or behavior) Solid Nodule: >= 6 to <8mm at baseline OR new 4 to <6mm Part-solid nodule: >= 6mm toal mean diam. with solid component <6mm at baseline OR new < 6mm total mean diam. Non-solid nodule: GGN >= 30mm at baseline or new Atypical pulmonary cyst: Growing cystic component (mean diam.) of thick-walled cyst Category 4A nodule stable or decreased in size at 3-month follow-up CT (excl.airway). 4A - Suspicious Solid nodule: >=8 to < 15mm at baseline OR growing < 8mm OR new 6 to < 8mm Part solid nodule: >= 6mm total mean diam. w/ solid component >=6mm to < 8mm at baseline OR new or growing < 4mm solid component Airway nodule, segmental or more proximal at baseline or new Atypical pulmonary cyst: Thick-walled OR multilocular at baseline OR becomes multilocular 4B - Very Suspicious Airway nodule, segmental or more proximal, and stable or growing Solid nodule: >= 15mm at baseline OR new or growing >= 8mm Part solid nodule: Solid component >= 8mm OR new or growing >= 4mm solid component Atypical pulmonary cyst: Thick-walled with growing wall thickness/nodularity OR Growing multilocular (mean diam.) OR Multilocular with increased loculation or new/increased opacity Slow-growing solid or part solid nodule w/ growth over multiple screening exams 4X - Very Suspicious Category 3 or 4 nodules with additional features that increase the suspicion forlung cancer. S - Clinically Significant or potentially significant findings (non-lung cancer) Reading Location: [facility] CC: GINO Delacruz; FABRICIO CHRISTIAN BEN ~ Clinical Implementation Specialist: Signed [facility]02-21-2025 Evaluation note* Diagnosis Onset Date Resolution Status Admit Date PHILOMENA (obstructive sleep apnea) acute September 17, 2024 1:18pm COPD (chronic obstructive pulmonary disease) chronic August 1:18pm Smoking greater than 20 pack years chronic September 17, 025 1:18pm PHILOMENA (obstructive sleep apnea) acute October 13, 2024 2:37pm COPD (chronic obstructive pulmonary disease) chronic October 13, 025 2:37pm Smoking greater than 20 pack years chronic October 13, 2024 2:37pm PHILOMENA (obstructive sleep apnea) acute December 14, 2024 2:58pm COPD (chronic obstructive pulmonary disease) chronic December 14 2:58pm Smoking greater than 20 pack years chronic December 14, 2024 2 :58pm [facility] Work Phone: [phone] 480-600401-28-2025 Evaluation note* Diagnosis Onset Date Resolution Status Admit Date Atrial flutter chronic August 242024 2:40pm Cardiomyopathy chronic August 242024 2:40pm COPD (chronic obstructive pulmonary disease) chronic August 24, 2024 2:40pm Coronary artery disease chronic J anuary 2024 2:40pm Dyslipidemia chronic July 2:40pm PHILOMENA (obstructive sleep apnea) acute September 17, 2024 1:18pm COPD (chronic obstructive pulmonary disease) chronic August 1:18pm Smoking greater than 20 pack years chronic September 17, 2 025 1:18pm [facility] Work Phone: [phone]) 351-133201-28-2025 Evaluation note* Diagnosis Onset Date Resolution Status Admit Date Atrial flutter chronic August 242024 2:40pm Cardiomyopathy chronic August 242024 2:40pm COPD (chronic obstructive pulmonary disease) chronic August 24, 2024 2:40pm Coronary artery disease chronic J anuary 2024 2:40pm Dyslipidemia chronic July 2:40pm PHILOMENA (obstructive sleep apnea) acute September 17, 2024 1:18pm COPD (chronic obstructive pulmonary disease) chronic August 1:18pm Smoking greater than 20 pack years chronic September 17, 2 025 1:18pm PHLIOMENA (obstructive sleep apnea) acute October 13, 2024 2:37pm COPD (chronic obstructive pulmonary disease) chronic October 13, 2 025 2:37pm Smoking greater than 20 pack years chronic October 13, 2024 2:37pm [facility] Work Phone: 1(430) 153-513001-04-2024 Discharge summary Author Allison Silvestre [facility] July 31, 2023 10:19am Note Date/Time July 31, 2023 10 :15am [facility] Medical Records Department [address] [place] [address] Instructions for Home/Discharge Instructions 07/31/23 1013 MR#: [id number] Acct: [id number] Name: DOYLE ESTEVEZ Rep #:[id number] : 1950 73 From: Allison Silvestre MD PCP: FABRICIO CONTRERAS 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 / 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 TECHNICIAN-C Status:REG S DC Discharge Instructions Diet Discharge Diet: Low fat / Low cholesterol Activity Discharge Activity: Return to Normal Activity May resume sexual activity in: No Restrictions Dressing / Incision Call your doctor if your incision/area has: Continuous Slow Oozing, Sudden Increased Bleeding, Increased Pain/ Swelling, Increased Redness, Foul Smelling Discharge and Swelling at the incision site Follow Up Care Please Follow Up With: Allison Silvestre MD When: 2-4 weeks Test Results: Test results from this visit will be discussed in further detail at your follow- up appointment, if applicable. Discharge Plan Admission Attending Provider: Allison Silvestre Primary Care Provider: FABRICIO CONTRERAS Discharge Orders/Prescriptions Prescriptions: New clopidogrel 75 mg Tablet 75 mg PO DAILY Qty: 30 11RF Continued PreserVision AREDS [phone] ywyk-zw-ylox capsule 1 cap PO BID omeprazole magnesium 20 mg tablet,delayed release (DR/EC) 20 mg PO DAILY PRN (Reason: heartburn) pravastatin 20 mg tablet 20 mg PO QHS Qty: 30 11RF Eliquis 5 mg tablet 5 mg PO BID 30 Days Qty: 60 11RF diltiazem HCl 240 mg capsule,extended release 24hr 240 mg PO DAILY 30 Days Qty: 90 3RF glucosamine HCl 500 mg tablet 500 mg PO DAILY Rx Instructions: administer with a meal lisinopril 5 mg tablet 5 mg PO DAILY Qty: 90 3RF triamcinolone acetonide 0.1 % cream 1 applic TOPICAL DAILY Spiriva Respimat 2.5 mcg/actuation mist 2 puff inhalation DAILY Qty: 4 6RF metoprolol tartrate 25 mg tablet 25 mg PO BID Qty: 180 3RF albuterol sulfate [Ventolin HFA] 90 mcg/actuation HFA aerosol inhaler 1 puff inhalation Q6H PRN (Reason: shortness of breath or wheezing) Qty: 8.5 11RF Rx Instructions: 1-2 puffs q6hr prn shortness of breath or wheezing Discontinued aspirin 81 mg capsule 81 mg PO DAILY Qty: 30 0RF Referrals / Follow Up: FABRICIO CONTRERAS NP-C [Primary Care Provider] - Disposition Disposition (needs filled in before D/C Order can be placed): Home, Self Care 07/31/23 1019<Electronically signed by Allison Silvestre MD>Allison Silvestre MD CC: FABRICIO CONTRERAS ~ Signed [facility] Work Phone: 1(888) 995-400210-17-2023 History and physical note Author Jeannie Richardson [facility] May 13, 2023 12:43pm Note Date/Time May 13, 2023 1 2:43pm [facility] Medical Records Department [address] [place] [address] History & Physical Exam 05/13/23 1232 MR#: [id number] Acct: [id number] Name: DOYLE ESTEVEZ Rep #:[id number] : 1950 73 From: Jeannie DUKE PCP: FABRICIO CONTRERAS Status:PRE S DC Location: [facility] History and Physical TTmir Estevez is a 73 year old male that presents here today for a diagnostic heart cath. He was admitted to the hospital on 12/26/22 with shortness of breath. He was diagnosed with atrial fibrillation with rapid ventricular response. He also has bronchospastic disease with COPD. He had an echocardiogram done whichshowed ejection fraction of 40%. Mild to moderate right ventricular dysfunctionwas also noted. Patient had a CT scan of his chest done which showed coronary calcification as an incidental finding. He had a stress test which demonstrated Peak pharmacologic ECG with no diagnostic changes secondary to baseline abnormality, Atrial flutter/fibrillation at baseline. No ventricular arrhythmias noted, Rest and stress SPECT Cardiolite nuclear imaging demonstrate relative uniform tracer uptake and myocardial perfusion appearing within normal limits. He had called our office in March with concerns over increase in fatigue and SOB. She underwent a Cardiac CTA, this demonstrated moderate coronary disease involving the proximal and mid LAD with areas of hard and soft plaque. Because of this and pts symptoms would like to pursue a heart cath. Medications omega-3 fatty acids 1,000 mg capsule (Fish Oil Concentrate) 1,000 mg PO DAILY 03/21/21 [History Confirmed 01/23/23] vitamins A,C,N-bnde-ltzpxk 4,296 mcg-226 mg-90 mg capsule (PreserVision AREDS) 1cap PO BID 03/21/21 [History Confirmed 01/23/23] triamcinolone acetonide 0.1 % topical cream 1 applic topical DAILY 12/26/22 [History Confirmed 01/23/23] albuterol sulfate 90 mcg/actuation aerosol inhaler (Ventolin HFA) 1 puff inhalation Q6H PRN shortness of breath or wheezing #8.5 grams 12/29/22 [Rx Confirmed 01/23/23] apixaban 5 mg tablet (Eliquis) 5 mg PO BID 30 days #60 tabs 12/29/22 [Rx Confirmed 01/23/23] aspirin 81 mg capsule 81 mg PO DAILY #30 caps 12/29/22 [Rx Confirmed 01/23/23] diltiazem HCl 240 mg capsule,extended release 24 hr 240 mg PO DAILY 30 days #30 caps 12/29/22 [Rx Confirmed 01/23/23] lisinopril 2.5 mg tablet 2.5 mg PO QHS 30 days #30 tabs 12/29/22 [Rx Confirmed 01/23/23] metoprolol tartrate 25 mg tablet 25 mg PO BID 30 days #60 tabs 12/29/22 [Rx Confirmed 01/23/23] tiotropium bromide 2.5 mcg/actuation mist for inhalation (Spiriva Respimat) 2 puff inhalation DAILY #4 grams 12/29/22 [Rx Confirmed 01/23/23] doxycycline hyclate 100 mg tablet 100 mg PO BID 01/23/23 [History Confirmed 01/23/23] omeprazole magnesium 20 mg tablet,delayed release 20 mg PO DAILY PRN 01/23/23 [History Confirmed 01/23/23] Ejection fraction %: 40 to 44 PFSH Medical History Diverticulosis Hydrocele Obesity Right bundle branch block (RBBB) with left anterior fascicular block Surgical History H/O total colectomy History of appendectomy Family History Father CAD (coronary artery disease) CABGBrother CAD (coronary artery disease), Onset Age: 56 stents Social History (Updated 01/23/23 @ 14:30 by Yisel Arshad) Smoking Status: Former smoker quit date: 05/28/20 pack-years: 45 alcohol intake: current alcohol intake frequency: a few times a month Alcohol type: beer substance use type: marijuana caffeine: Yes Type: coffee Number of servings: 2 ROS Const Const: Positive for fatigue, daytime sleepiness and difficulty sleeping; Negative for weakness, headache(s), frequent falls or excessive sweating Eyes Eyes: Negative for loss of peripheral vision, transient loss of vision, blurry vision, double vision or tunnel vision ENT ENT: Negative for headache(s), dizziness, Nosebleed/epistaxis or balance problems Cardio Chest Pain: Yes Frequency: other Character: sharp Location: mid sternal Duration: minutes Palpitations: No Edema: None Muscle aches with walking: None Resp Respiratory: Positive for SOB with activity; Negative for SOB at rest, SOB orthopnea\SOB lying down, Cough or paroxysmal nocturnal dyspnea GI GI: Positive for heartburn; Negative nausea, vomiting or black,tarry stools : Positive for frequent nighttime urination/ nocturia and erectile dysfunction; Negative for hematuria Musc Musc: Positive for muscle weakness and joint pain; Negative for muscle aches/ myalgia or balance problems Skin Skin: Negative non-healing lesions, rash or unusual bruising Neuro Neuro: Positive for lightheadedness; Negative for dizziness, near syncope, syncope, frequent falls, headache(s), weakness, blurry vision, double vision or lack of coordination Luke Hematologic/Lymphatic: Negative for easy bleeding or easy bruising Endo Endo: Positive for fatigue; Negative for excessive sweating or increased thirst/drinking Psych Psych: Negative for anxiety or depression Allergy Allergy/Immunology: Negative for hives and Negative for rash Cardiology Exam Const Appearance: comfortable and no acute distress Nutritional Appearance: well nourished Neck Neck: no JVD Carotids: Negative bruit Chest Auscultation: Bilateral: Diminished Lung Sounds Cardio Rhythm: irregularly irregular Heart sounds: S1 normal and S2 normal Neuro General: patient alert, patient awake and patient oriented x3 Extremities Lower Extremity Edema: None: Bilateral Assessment and Plan Assessment and Plan (1) Atrial flutter: Status: Chronic Plan: Continue Eliquis. Continue diltiazem and metoprolol for rate control. (2) Cardiomyopathy: Status: Chronic Plan: Functional class II. Will check Lexiscan stress Myoview to rule out ischemic heart disease. (3) Coronary artery disease: Status: Chronic Plan: Coronary calcification noted as incidental finding on CT scan of the chest. Check Lexiscan stress Myoview to evaluate physiological significance. For risk factor modification. Start on pravastatin 20 mg once daily. (4) COPD (chronic obstructive pulmonary disease): Status: Chronic Plan: Severe COPD. Follow as per pulmonology. (5) Dyslipidemia: Status: Chronic Plan: Target LDL cholesterol less than 70 mg/dL. Start on pravastatin. Repeat Assessment & Plan Assessment/Plan (1) Fatigue: (2) Cardiomyopathy: (3) Shortness of breath: (4) Paroxysmal atrial fibrillation: (5) Abnormal findings diagnostic imaging of heart and coronary circulation: PLAN: Plan Pt will undergo a diagnostic heart cath based on her Coronary Angiography CT andsymptoms. Follow up will be based on findings. 05/13/23 1243 <Electronically signed by Jeannie DUKE> Cosigner Signature (if applicable): CC: FABRICIO CONTRERAS; SRIKANTH Oreilly~ Signed [facility] Work Phone: 1(471) 698-470606-23-2023 Procedure [facility] 01-07-2023 Procedure [facility]06-04-[address] Silvestre [facility] December 29, 2022 11:03am Note Date/Time December 29, 2022 11:03 am [facility] Medical Records Department [address] [place] [address] Progress Note - Cardiology 12/29/22 1101 MR#: [id number] Acct: [id number] Name: DOYLE ESTEVEZ Rep #:[id number] : 1950 72 From: Allison Silvestre MD PCP: Care Physician,No Primary Status :ADM IN Location: [place] [address] Subjective Subjective Feels good. No complaints. Objective Data Vital Signs: Vital Signs Temp Pulse Resp BP Pulse Ox O2 Del Method O2 Flow Rate 98.2 F 79 14 119/75 96 Room Air 2 12/29/22 07:30 12/29/22 09:15 12/29/22 07:30 12/29/22 09:15 12/29/22 07:30 12/29/22 08:08 12/26/22 23:00 Oxygen Flow Rate (L/min) 2 Oxygen Delivery Method Room Air Weight: 212 lb 1.355 oz Body Mass Index (BMI) 30.4 Intake & Output: Intake and Output for Last 24 Hours 12/27/22 12/28/22 12/29/22 23:59 23:59 23:59 Intake Total 1128.71 / 1128.71 640 / 880 540 / 540 Output Total 850 / 850 1050 / 1650 1000 / 1000 Balance 278.71 / 278.71 -410 / -770 -460 / -460 Lab / Micro Data Result Diagrams: 12/29/22 05:57 12/29/22 05:57 Labs: Laboratory Results - last 24 hr 12/29/22 05:57: WBC 8.0, RBC 4.18 L, Hgb 13.5, Hct 41.1, MCV 98.3 H, MCH 32.3 H,MCHC 32.8, RDW Std Deviation 53.1 H, RDW Coeff of Jessica 14.6, Plt Count 207, MPV 9.0, Immature Gran % (Auto) 0.400, Neut % (Auto) 68.1, Lymph % (Auto) 18.5 L, Donley % (Auto) 10.8 H, Eos % (Auto) 1.9, Baso % (Auto) 0.3, Absolute Neuts (auto)5.5, Absolute Lymphs (auto) 1.48, Nucleated RBC % 0 12/29/22 05:57: Sodium 138, Potassium 4.0, Chloride 105, Carbon Dioxide 29.0, Anion Gap 4 L, BUN 16, Creatinine 1.04, Estim Creat Clear Calc 67.27, Est GFR (MDRD) Af Amer 90, Est GFR (MDRD) Non-Af 75, BUN/Creatinine Ratio 15.4, Glucose 102, Calcium 8.5 Rhythm Strip Rhythm Strip: A-fib Cardiology Labs/Tests 12/29/22 05:57: WBC 8.0, RBC 4.18 L, Hgb 13.5, Hct 41.1, MCV 98.3 H, MCH 32.3 H,MCHC 32.8, Plt Count 207, MPV 9.0, Immature Gran % (Auto) 0.400, Neut % (Auto) 68.1, Lymph % (Auto) 18.5 L, Donley % (Auto) 10.8 H, Eos % (Auto) 1.9, Baso % (Auto) 0.3, Absolute Neuts (auto) 5.5, Nucleated RBC % 0 12/29/22 05:57: Sodium 138, Potassium 4.0, Chloride 105, Carbon Dioxide 29.0, Anion Gap 4 L, BUN 16, Creatinine 1.04, Est GFR (MDRD) Af Amer 90, Est GFR (MDRD) Non- Af 75, BUN/Creatinine Ratio 15.4, Glucose 102, Calcium 8.5 Rhythm: EKG: ECHO: Stress Test: Cardiac Cath: PCI: CT Surgery: Holter monitor: EPS: PPM: CXR: Chest CT Scan: Physical Exam Narrative Comfortable. No distress. Heart sounds 1 and 2 noted. Irregularly irregular. Chest clear to auscultation bilaterally. Abdomen soft. Alert oriented x3. No ankle edema. Assessment & Plan Assessment/Plan (1) Paroxysmal atrial fibrillation: PLAN: Atrial flutter/fibrillation. Ventricular rate controlled. Change diltiazem to long-acting. Continue beta-blockers. Continue Eliquis. (2) Cardiomyopathy: PLAN: Started on low-dose beta-blockers and COREY inhibitors. Presently not volume overloaded. Will need coronary angiography versus stress test as outpatient. (3) Coronary artery disease: PLAN: Coronary calcifications noted as an incidental finding on her CT scan of the chest. (4) COPD (chronic obstructive pulmonary disease): PLAN: Wheezing improved since starting on bronchodilators. Follow as per internal medicine. PLAN: Plan May discharge home today from cardiology standpoint. Follow-up as outpatient. 12/29/22 1103 <Electronically signed by Allison Silvestre MD> Cosigner Signature (if applicable): CC: ~ Signed [facility] Work Phone: 1(378) 784-757106-03-[address] Willingham [facility] December 28, 2022 12:56pm Note Date/Time December 28, 2022 12:34 pm [facility] Medical Records Department [address] [place] [address] [place] [address] Progress Note - Hospitalist 12/28/22 1230 MR#: [id number] Acct: [id number] Name: DOYLE ESTEVEZ Rep #:[id number] : 1950 72 From: Kaila Willingham MD PCP: Care Physician,No Primary Status :ADM IN Location: [place] [address] Reason for Visit Reason for Visit: Diagnoses Atherosclerotic heart disease of [place] coronary artery without angina pectoris (12/26/22) Cardiomyopathy, unspecified (12/26/22) Paroxysmal atrial fibrillation (12/26/22) Unspecified atrial flutter (12/26/22) Chronic obstructive pulmonary disease, unspecified (12/26/22) Pleurodynia (12/26/22) Subjective Subjective Still having shortness of breath but does feel the breathing treatment was helpful. No chest pain, did have increased. Overnight had metoprolol added this morning which has been helpful. Objective Data Objective Data Vital Signs: Vital Signs Temp Pulse Resp BP Pulse Ox O2 Del Method O2 Flow Rate 98.1 F 96 18 112/74 96 Room Air 2 12/28/22 10:30 12/28/22 10:37 12/28/22 10:30 12/28/22 10:37 12/28/22 10:30 12/28/22 10:30 12/26/22 23:00 Oxygen Flow Rate (L/min) 2 Oxygen Delivery Method Room Air Weight: 96.2 kg Body Mass Index (BMI) 30.4 Intake & Output: Intake and Output for Last 24 Hours 12/26/22 12/27/22 12/28/22 23:59 23:59 23:59 Intake Total 10..50 1128.71 / 1128.71 340 / 340 Output Total 850 / 850 650 / 650 Balance 05.2150 278.71 / 278.71 -310 / -310 Lab / Micro Data Result Diagrams: 12/28/22 05:17 12/28/22 05:17 Labs: Laboratory Results - last 24 hr 12/27/22 04:24: Diff Path Review Reviewed 12/28/22 05:17: WBC 10.3, RBC 4.16 L, Hgb 13.5, Hct 41.4, MCV 99.5 H, MCH 32.5 H, MCHC 32.6, RDW Std Deviation 54.4 H, RDW Coeff of Jessica 14.7 H, Plt Count 184, MPV 8.2, Immature Gran % (Auto) 0.300, Neut % (Auto) 71.1 H, Lymph % (Auto) 12.7L, Donley % (Auto) 15.0 H, Eos % (Auto) 0.7, Baso % (Auto) 0.2, Absolute Neuts (auto) 7.3, Absolute Lymphs (auto) 1.31, Nucleated RBC % 0, Differential CommentSCANNED 12/28/22 05:17: Sodium 137, Potassium 4.0, Chloride 106, Carbon Dioxide 26.0, Anion Gap 5, BUN 16, Creatinine 1.03, Estim Creat Clear Calc 67.92, Est GFR (MDRD) Af Amer 91, Est GFR (MDRD) Non-Af 76, BUN/Creatinine Ratio 15.5, Glucose 106, Calcium 8.8 Rhythm Strip Rhythm Strip: A-fib Physical Exam Narrative General: Alert, oriented, no apparent distress HEENT: Atraumatic, normocephalic Eyes: Anicteric, normal conjunctiva, extraocular movements grossly intact Neck: Supple Respiratory: Diffuse wheezes but slightly improved, dyspnea slightly improved Cardiovascular: Regular rate, appears fib/flutter GI: Soft, nontender, nondistended Extremities: No edema Musculoskeletal: Moving all extremities Neuro: No overt focal neurological deficits Skin: No rashes appreciated Psych: Cooperative Assessment & Plan Assessment/Plan (1) Atrial flutter with rapid ventricular response: PLAN: Plan #New onset a flutter with RVR -Rate control with diltiazem. Initial on diltiazem drip and amio and this is being cross titrated with oral diltiazem, amio has been discontinued -There had been concern especially given his chest pain that there may be a component of pericarditis so he had been started on high-dose ibuprofen and PPI but ibuprofen discontinued per cardiology recommendations for low suspicion -Trops unremarkable -D-dimer very mildly elevated at 0.71 so CTA obtained which demonstrated some atelectatic changes versus infiltrate posterior right lower lobe but otherwise unremarkable -Last echocardiogram 04/16/2021 with EF of 55%, PASP 24, stage I diastolic dysfunction -Repeat echo ordered which showed mild global left ventricular systolic dysfunction with an EF of 40%, moderately dilated right ventricle with mild to moderate global right ventricular systolic dysfunction. -Cardiology consulted and noted CHADS2-VASc score of 2 and recommended anticoagulation, patient started on Eliquis -12/28: Tolerating Eliquis, did have elevated heart rates overnight despite Cardizem 60 every 6 and had metoprolol 25 twice daily added which is improved. Discussed with cardiology, will monitor today given medication changes and reevaluate how he is doing tomorrow. #Cardiomyopathy -Unclear etiology, could be ischemic or rate dependent versus other etiology -12/27/2022 echocardiogram with mild global left ventricular systolic dysfunction EF of 40% -Stress test versus heart cath in the future -On Cardizem, metoprolol and lisinopril added to medications -Does not appear overloaded so have not started any diuretics #Shortness of breath -Patient has diffuse wheezing and shortness of breath despite his heart rate nowunder control -Has borderline EF but does not appear volume overloaded -Has a significant smoking history and quit 1 week ago, suspect underlying COPD and he reports he has been told he has this in the past -We will start ipratropium nebs so as not to exacerbate heart rate with albuterol and may need inhaler on discharge and will provide information to follow-up with pulmonology for further work-up and management of COPD -CTA obtained on admissions which was negative for PE but did demonstrate some atelectatic changes versus infiltrate posterior right lower lobe. Patient has not had any increased cough or sputum production only increased shortness of breath and wheezing, will hold off on antibiotics at this time and treat with inhaler with a low threshold for antibiotics and further work-up for pneumonia ifnot improving -12/28: Again verified no increased cough or sputum production, responded to ipratropium but does still have wheezing, will give trial of albuterol not metoprolol's been added in regards to heart rate as he will likely need albuterol rescue upon discharge. If he continues to have difficulties after receiving both may need steroids. Discussed importance of outpatient follow-up and patient verbalizes understanding #Concern for coronary artery disease -Seen incidentally on CT scan, outpatient pharmacologic stress test versus cardiac cath -Lipid panel with LDL of 81 and HDL of 32 and total cholesterol of 129 #DVT ppx: zhen Willingham MD Time spent in the patient's overall evaluation,decision-making process, review of diagnostic data, adjustment of management, discussion with other providers, nursing nursing and ancillary staff involved in patient's care documentation, 30minutes Charges/Coding Visit Charges Inpatient E&M: 43154 Subs Hosp L2 12/28/22 1255 <Electronically signed by Kaila Willingham MD> Cosigner Signature (if applicable): CC: ~ Signed ADDENDUM by Dr. Kaila Willingham MD on 12/28/22 at 1255 Addendum - Lipoma versus cyst on mid back on right side, able to move entire lump back and forth to some extent, slightly red around it where he was laying on it, not fluctuant, seems to be more cystic or lipomatous in nature 12/28/22 1256<Electronically signed by Kaila Willingham MD> Cosigner Signature (if applicable): cc: ~* Signed [facility] Work Phone: 1(764) 777-259106-03-[address] Silvestre [facility] December 28, 2022 10:30am Note Date/Time December 28, 2022 10:30 am [facility] Medical Records Department [address] [place] [id number] Progress Note - Cardiology 12/28/22 1026 MR#: [id number] Acct: [id number] Name: DOYLE ESTEVEZ Rep #:[id number] : 1950 72 From: Allison Silvestre MD PCP: Care Physician,No Primary Status :ADM IN Location: [place] [address] Subjective Subjective Started on [place] dilators. Feels much better. Breathing improved. No chest tightness. Objective Data Vital Signs: Vital Signs Temp Pulse Resp BP Pulse Ox O2 Del Method O2 Flow Rate 98.9 F 77 16 105/79 94 Room Air 2 12/28/22 05:22 12/28/22 08:14 12/28/22 08:14 12/28/22 05:22 12/28/22 08:14 12/28/22 08:14 12/26/22 23:00 Oxygen Flow Rate (L/min) 2 Oxygen Delivery Method Room Air Weight: 212 lb 1.355 oz Body Mass Index (BMI) 30.4 Intake & Output: Intake and Output for Last 24 Hours 12/26/22 12/27/22 12/28/22 23:59 23:59 23:59 Intake Total 10.25 / 27.50 1128.71 / 1128.71 100 / 100 Output Total 850 / 850 250 / 250 Balance 10.25 / 27.50 278.71 / 278.71 -150 / -150 Lab / Micro Data Result Diagrams: 12/28/22 05:17 12/28/22 05:17 Labs: Laboratory Results - last 24 hr 12/27/22 04:24: Diff Path Review Reviewed 12/27/22 04:24: Triglycerides 67, Cholesterol 129, LDL Cholesterol 81, VLDL Cholesterol 13, HDL Cholesterol 35 L 12/28/22 05:17: WBC 10.3, RBC 4.16 L, Hgb 13.5, Hct 41.4, MCV 99.5 H, MCH 32.5 H, MCHC 32.6, RDW Std Deviation 54.4 H, RDW Coeff of Jessica 14.7 H, Plt Count 184, MPV 8.2, Immature Gran % (Auto) 0.300, Neut % (Auto) 71.1 H, Lymph % (Auto) 12.7L, Donley % (Auto) 15.0 H, Eos % (Auto) 0.7, Baso % (Auto) 0.2, Absolute Neuts (auto) 7.3, Absolute Lymphs (auto) 1.31, Nucleated RBC % 0, Differential CommentSCANNED 12/28/22 05:17: Sodium 137, Potassium 4.0, Chloride 106, Carbon Dioxide 26.0, Anion Gap 5, BUN 16, Creatinine 1.03, Estim Creat Clear Calc 67.92, Est GFR (MDRD) Af Amer 91, Est GFR (MDRD) Non-Af 76, BUN/Creatinine Ratio 15.5, Glucose 106, Calcium 8.8 Rhythm Strip Rhythm Strip: A-fib Cardiology Labs/Tests 12/27/22 04:24: Triglycerides 67, Cholesterol 129, LDL Cholesterol 81, VLDL Cholesterol 13, HDL Cholesterol 35 L 12/28/22 05:17: WBC 10.3, RBC 4.16 L, Hgb 13.5, Hct 41.4, MCV 99.5 H, MCH 32.5 H, MCHC 32.6, Plt Count 184, MPV 8.2, Immature Gran % (Auto) 0.300, Neut % (Auto)71.1 H, Lymph % (Auto) 12.7 L, Donley % (Auto) 15.0 H, Eos % (Auto) 0.7, Baso % (Auto) 0.2, Absolute Neuts (auto) 7.3, Nucleated RBC % 0 12/28/22 05:17: Sodium 137, Potassium 4.0, Chloride 106, Carbon Dioxide 26.0, Anion Gap 5, BUN 16, Creatinine 1.03, Est GFR (MDRD) Af Amer 91, Est GFR (MDRD) Non-Af 76, BUN/Creatinine Ratio 15.5, Glucose 106, Calcium 8.8 Rhythm: EKG: ECHO: Stress Test: Cardiac Cath: PCI: CT Surgery: Holter monitor: EPS: PPM: CXR: Chest CT Scan: Radiography Diagnostic Testing: Radiology Impression Echocardiogram 12/26/22 23:38 Interpretation Summary Mild global left ventricular systolic dysfunction. The left ventricular ejection fraction is 40 %. Moderately dilated right ventricle. Mild to moderate global right ventricular systolic dysfunction. The left atrium is mildly enlarged. The right atrium is mildly enlarged. Mild (1+) mitral valve insufficiency. Mild tricuspid valve insufficiency. Ordering Physician: Neo Mckeon Performed By: Margret Khanna RDCS Physical Exam Narrative Comfortable. No apparent distress. Heart sounds 1 and 2 are noted. Irregularly irregular. No murmurs or rubs are noted. Chest examination shows bilateral minimal wheezing. Abdomen soft. Alert oriented x3. No ankle edema noted. Assessment & Plan Assessment/Plan (1) Paroxysmal atrial fibrillation: PLAN: Back in atrial fibrillation. Continue diltiazem. Start low-dose metoprolol. Continue Eliquis. Discussed with patient. He agrees with the planfor chronic oral anticoagulation. (2) Cardiomyopathy: PLAN: Start on low-dose beta-blockers and COREY inhibitors. Presently not volume overloaded. Will need coronary angiography versus stress test as outpatient. (3) Coronary artery disease: PLAN: Coronary calcifications noted as an incidental finding on her CT scan of the chest. (4) COPD (chronic obstructive pulmonary disease): PLAN: Wheezing improved since starting on bronchodilators. Follow as per internal medicine. 12/28/22 1030 <Electronically signed by Allison Silvestre MD> Cosigner Signature (if applicable): CC: ~ Signed [facility] Work Phone: 1(381) 341-416906-02-[address] Willingham [facility] December 27, 2022 2:34pm Note Date/Time December 27, 2022 8:05a [facility] Medical Records Department [address] [place] [address] Progress Note - Hospitalist 12/27/22 08 MR#: [id number] Acct: [id number] Name: DOYLE ESTEVEZ Rep #:[id number] : 1950 72 From: Kaila Willingham MD PCP: Care Physician,No Primary Status :ADM IN Location: [place] [address] Reason for Visit Reason for Visit: Diagnoses Unspecified atrial flutter (12/26/22) Subjective Subjective Still short of breath, feeling slightly better today but has wheezes and some conversational dyspnea despite heart rate improving. Denies cough that is any different from previous, no chest pain Objective Data Objective Data Vital Signs: Vital Signs Temp Pulse Resp BP Pulse Ox O2 Del Method O2 Flow Rate 98.2 F 76 20 H 100/69 94 Room Air 2 12/27/22 00:36 12/27/22 07:00 12/27/22 07:00 12/27/22 07:00 12/27/22 07:20 12/27/22 07:20 12/26/22 23:00 Oxygen Flow Rate (L/min) 2 Oxygen Delivery Method Room Air Weight: 96.2 kg Body Mass Index (BMI) 30.4 Intake & Output: Intake and Output for Last 24 Hours 12/25/22 12/26/22 12/27/22 23:59 23:59 23:59 Intake Total 10.25 / 27.50 418.39 / 418.39 Output Total 0 / 0 Balance 10.25 / 27.50 418.39 / 418.39 Lab / Micro Data Result Diagrams: 12/27/22 04:24 12/26/22 19:25 Labs: Laboratory Results - last 24 hr 12/26/22 19:25: WBC 12.8 H, RBC 4.75, Hgb 15.3, Hct 47.9, MCV 100.8 H, MCH 32.2 H, MCHC 31.9 L, RDW Std Deviation 55.1 H, RDW Coeff of Jessica 14.6, Plt Count 225, MPV 8.5, Immature Gran % (Auto) 0.500, Neut % (Auto) 75.2 H, Lymph % (Auto) 13.2L, Donley % (Auto) 10.6 H, Eos % (Auto) 0.3, Baso % (Auto) 0.2, Absolute Neuts (auto) 9.6 H, Absolute Lymphs (auto) 1.68, Nucleated RBC % 0 12/26/22 19:25: PT 14.3, INR 1.1 12/26/22 19:25: Sodium 142, Potassium 4.1, Chloride 108 H, Carbon Dioxide 28.0, Anion Gap 6, BUN 12, Creatinine 1.14, Estim Creat Clear Calc 61.37, Est GFR (MDRD) Af Amer 81, Est GFR (MDRD) Non-Af 67, BUN/Creatinine Ratio 10.5, Glucose 119 H, Calcium 9.0, Troponin I High Sens 33 12/26/22 19:25: D-Dimer Quant (PE/DVT) 0.75 H* 12/26/22 21:47: Troponin I High Sens 35 12/27/22 04:24: WBC 12.5 H, RBC 4.49 L, Hgb 14.3, Hct 45.3, MCV 100.9 H, MCH 31.8, MCHC 31.6 L, RDW Std Deviation 55.5 H, RDW Coeff of Jessica 14.8 H, Plt Count 214, MPV 9.0, Immature Gran % (Auto) 0.300, Neut % (Auto) 77.2 H, Lymph % (Auto)8.9 L, Donley % (Auto) 13.4 H, Eos % (Auto) 0.0, Baso % (Auto) 0.2, Absolute Neuts(auto) 9.6 H, Absolute Lymphs (auto) 1.11, Nucleated RBC % 0, Diff Path Review May foll, Anisocytosis 1+, Macrocytosis 1+ 12/27/22 04:24: TSH 1.48 Radiography Diagnostic Testing: Radiology Impression Chest X-Ray 12/26/22 19:30 IMPRESSION: Question right basilar pneumonia. Electronically Signed: Juliano Mauricio DO at 19:49 EDT Reading Location ID and State: [address] [place] [address] Tel [phone], Service support , Chest CTA 12/26/22 20:58 IMPRESSION: Atelectatic changes versus infiltrate in the posterior right lower lobe. The study is otherwise unremarkable. Electronically Signed: Juliano Mauricio DO at 21:28 EDT Reading Location ID and State: [facility] / [place] Tel [phone], Service support , Physical Exam Narrative General: Alert, oriented, no apparent distress HEENT: Atraumatic, normocephalic Eyes: Anicteric, normal conjunctiva, extraocular movements grossly intact Neck: Supple Respiratory: Diffuse wheezes, component of conversational dyspnea Cardiovascular: Regular rate, appears fib/flutter GI: Soft, nontender, nondistended Extremities: No edema Musculoskeletal: Moving all extremities Neuro: No overt focal neurological deficits Skin: No rashes appreciated Psych: Cooperative Assessment & Plan Assessment/Plan (1) Atrial flutter with rapid ventricular response: PLAN: Plan #New onset a flutter with RVR -Rate control with diltiazem. Initial on diltiazem drip and amio and this is being cross titrated with oral diltiazem, amio has been discontinued -There had been concern especially given his chest pain that there may be a component of pericarditis so he had been started on high-dose ibuprofen and PPI but ibuprofen discontinued per cardiology recommendations for low suspicion -Trops unremarkable -D-dimer very mildly elevated at 0.71 so CTA obtained which demonstrated some atelectatic changes versus infiltrate posterior right lower lobe but otherwise unremarkable -Last echocardiogram 04/16/2021 with EF of 55%, PASP 24, stage I diastolic dysfunction -Repeat echo ordered which showed mild global left ventricular systolic dysfunction with an EF of 40%, moderately dilated right ventricle with mild to moderate global right ventricular systolic dysfunction. -Cardiology consulted and noted CHADS2-VASc score of 2 and recommended anticoagulation, patient started on Eliquis #Shortness of breath -Patient has diffuse wheezing and shortness of breath despite his heart rate nowunder control -Has borderline EF but does not appear volume overloaded -Has a significant smoking history and quit 1 week ago, suspect underlying COPD and he reports he has been told he has this in the past -We will start ipratropium nebs so as not to exacerbate heart rate with albuterol and may need inhaler on discharge and will provide information to follow-up with pulmonology for further work-up and management of COPD -CTA obtained on admissions which was negative for PE but did demonstrate some atelectatic changes versus infiltrate posterior right lower lobe. Patient has not had any increased cough or sputum production only increased shortness of breath and wheezing, will hold off on antibiotics at this time and treat with inhaler with a low threshold for antibiotics and further work-up for pneumonia if not improving #Concern for coronary artery disease -Seen incidentally on CT scan, outpatient pharmacologic stress test recommended #DVT ppx: millerqulena Willingham MD Time spent in the patient's overall evaluation,decision-making process, review of diagnostic data, adjustment of management, discussion with other providers, nursing nursing and ancillary staff involved in patient's care documentation, 30minutes Charges/Coding Visit Charges Inpatient E&M: 99195 Subs Hosp L2 12/27/22 1434 <Electronically signed by Kaila Willingham MD> Cosigner Signature (if applicable): CC: ~ Signed [facility] Work Phone: 1(774) 199-227306-02-[address] Silvestre [facility] December 27, 2022 10:02am Note Date/Time December 27, 2022 10:01 am [facility] Medical Records Department [address] [place] [address] Consultation - Cardiology 12/27/22 0954 MR#: [id number] Acct: [id number] Name: DOYLE ESTEVEZ Rep #:[id number] : 1950 72 From: Allison Silvestre MD PCP: Care Physician,No Primary Status :ADM IN Location: [place] [address] Assessment & Plan Assessment/Plan (1) Atrial flutter: PLAN: Patient's CHADS2?VASc score is 2. Recommend oral anticoagulation. Start on Eliquis. Start on p.o. diltiazem. Stop amiodarone. For rate control with diltiazem. An echo has already been ordered for the patient. Recommend pharmacological stress test as outpatient. (2) Coronary artery disease: PLAN: Coronary calcifications noted as an incidental finding on her CT scan of the chest. Recommend pharmacological stress test to evaluate for physiological significance. Please see above. Check lipid profile. (3) COPD (chronic obstructive pulmonary disease): PLAN: Bilateral wheezing. Per patient, he has been told in the past by his doctor that he probably has COPD. Consider pulmonology consult. (4) Pleuritic chest pain: PLAN: No pericardial friction rub. Doubt that the patient has pericarditis. HPI Consult Data Date of Consult: 12/27/22 HPI Narrative Reason for Consultation: Atrial flutter HPI Narrative: This gentleman presented to the hospital with chest congestion and palpitations. Patient denies any previous cardiac history. Denies any angina with exertion. According to him, he has been having chest pain with deep inspiration. Denies any recent fevers or chills. No recent viral illness. No orthopnea. No PND. No ankle edema. Patient was noted to have atrial flutter with rapid ventricular response in the emergency room. He has since been started on amiodarone and diltiazem infusions. Presently feels better but still having some pleuritic chest discomfort. [facility] Medical History Diverticulosis Hydrocele Obesity Right bundle branch block (RBBB) with left anterior fascicular block Home Medications omega-3 fatty acids 1,000 mg capsule (Fish Oil Concentrate) 1,000 mg PO DAILY 03/21/21 [History Last Taken Unknown] vitamins A,C,Z-exqc-mfxeht 4,296 mcg-226 mg-90 mg capsule (PreserVision AREDS) 1cap PO BID 03/21/21 [History Last Taken Unknown] triamcinolone acetonide 0.1 % topical cream 1 applic topical DAILY 12/26/22 [History Last Taken Unknown] Allergy/AdvReac Type Severity Reaction Status Date / Time No Known Allergies Allergy Verified 12/26/22 19:24 Family History Father CAD (coronary artery disease) CABG Brother CAD (coronary artery disease), Onset Age: 56 stents Surgical History H/O total colectomy History of appendectomy Social History Smoking Status: Former smoker quit date: 05/28/20 pack-years: 45 alcohol intake: current alcohol intake frequency: other Alcohol type: beer substance use type: marijuana Physical Exam Narrative Comfortable. No apparent distress. Heart sounds 1 and 2 are noted. No murmursor rubs are noted. Chest examination shows bilateral mild wheezing. Abdomen soft. Alert oriented x3. No ankle edema noted. Risk Stratification Risk Stratification Applicable: No Objective Data Vital Signs: Vital Signs Temp Pulse Resp BP Pulse Ox O2 Del Method O2 Flow Rate 98.2 F 76 20 H 100/69 94 Room Air 2 12/27/22 00:36 12/27/22 07:00 12/27/22 07:00 12/27/22 07:00 12/27/22 07:20 12/27/22 09:35 12/26/22 23:00 Oxygen Flow Rate (L/min) 2 Oxygen Delivery Method Room Air Weight: 212 lb 1.355 oz Body Mass Index (BMI) 30.4 Intake & Output: Intake and Output for Last 24 Hours 12/25/22 12/26/22 12/27/22 23:59 23:59 23:59 Intake Total 10.25 / 27.50 418.39 / 418.39 Output Total 0 / 0 Balance 10.25 / 27.50 418.39 / 418.39 Lab / Micro Data Result Diagrams: 12/27/22 04:24 12/26/22 19:25 Labs: Laboratory Results - last 24 hr 12/26/22 19:25: WBC 12.8 H, RBC 4.75, Hgb 15.3, Hct 47.9, MCV 100.8 H, MCH 32.2 H, MCHC 31.9 L, RDW Std Deviation 55.1 H, RDW Coeff of Jessica 14.6, Plt Count 225, MPV 8.5, Immature Gran % (Auto) 0.500, Neut % (Auto) 75.2 H, Lymph % (Auto) 13.2L, Donley % (Auto) 10.6 H, Eos % (Auto) 0.3, Baso % (Auto) 0.2, Absolute Neuts (auto) 9.6 H, Absolute Lymphs (auto) 1.68, Nucleated RBC % 0 12/26/22 19:25: PT 14.3, INR 1.1 12/26/22 19:25: Sodium 142, Potassium 4.1, Chloride 108 H, Carbon Dioxide 28.0, Anion Gap 6, BUN 12, Creatinine 1.14, Estim Creat Clear Calc 61.37, Est GFR (MDRD) Af Amer 81, Est GFR (MDRD) Non-Af 67, BUN/Creatinine Ratio 10.5, Glucose 119 H, Calcium 9.0, Troponin I High Sens 33 12/26/22 19:25: D-Dimer Quant (PE/DVT) 0.75 H* 12/26/22 21:47: Troponin I High Sens 35 12/27/22 04:24: WBC 12.5 H, RBC 4.49 L, Hgb 14.3, Hct 45.3, MCV 100.9 H, MCH 31.8, MCHC 31.6 L, RDW Std Deviation 55.5 H, RDW Coeff of Jessica 14.8 H, Plt Count 214, MPV 9.0, Immature Gran % (Auto) 0.300, Neut % (Auto) 77.2 H, Lymph % (Auto)8.9 L, Donley % (Auto) 13.4 H, Eos % (Auto) 0.0, Baso % (Auto) 0.2, Absolute Neuts(auto) 9.6 H, Absolute Lymphs (auto) 1.11, Nucleated RBC % 0, Diff Path Review May foll, Anisocytosis 1+, Macrocytosis 1+ 12/27/22 04:24: TSH 1.48 Cardiology Labs/Tests 12/26/22 19:25: WBC 12.8 H, RBC 4.75, Hgb 15.3, Hct 47.9, MCV 100.8 H, MCH 32.2 H, MCHC 31.9 L, Plt Count 225, MPV 8.5, Immature Gran % (Auto) 0.500, Neut % (Auto) 75.2 H, Lymph % (Auto) 13.2 L, Donley % (Auto) 10.6 H, Eos % (Auto) 0.3, Baso % (Auto) 0.2, Absolute Neuts (auto) 9.6 H, Nucleated RBC % 0 12/26/22 19:25: PT 14.3, INR 1.1 12/26/22 19:25: Sodium 142, Potassium 4.1, Chloride 108 H, Carbon Dioxide 28.0, Anion Gap 6, BUN 12, Creatinine 1.14, Est GFR (MDRD) Af Amer 81, Est GFR (MDRD) Non-Af 67, BUN/Creatinine Ratio 10.5, Glucose 119 H, Calcium 9.0 12/26/22 19:25: D-Dimer Quant (PE/DVT) 0.75 H* 12/27/22 04:24: WBC 12.5 H, RBC 4.49 L, Hgb 14.3, Hct 45.3, MCV 100.9 H, MCH 31.8, MCHC 31.6 L, Plt Count 214, MPV 9.0, Immature Gran % (Auto) 0.300, Neut % (Auto) 77.2 H, Lymph % (Auto) 8.9 L, Donley % (Auto) 13.4 H, Eos % (Auto) 0.0, Baso % (Auto) 0.2, Absolute Neuts (auto) 9.6 H, Nucleated RBC % 0 Rhythm: EKG: ECHO: Stress Test: Cardiac Cath: PCI: CT Surgery: Holter monitor: EPS: PPM: CXR: Chest CT Scan: Radiography Diagnostic Testing: Radiology Impression Chest X-Ray 12/26/22 19:30 IMPRESSION: Question right basilar pneumonia. Electronically Signed: Juliano Mauricio DO at 19:49 EDT Reading Location ID and State: [facility] / [place] Tel [phone], Service support , Chest CTA 12/26/22 20:58 IMPRESSION: Atelectatic changes versus infiltrate in the posterior right lower lobe. The study is otherwise unremarkable. Electronically Signed: Jluiano Mauricio DO at 21:28 EDT Reading Location ID and State: [facility] / [place] Tel [phone], Service support , 12/27/22 1002 <Electronically signed by Allison Silvestre MD> Cosigner Signature (if applicable): CC: RADIATION / CHEMISTRY TECHNICIAN-Jefe Jerez; RADIATION / CHEMISTRY TECHNICIANJamie Smiley; SRIKANTH Richardson; Tk Rm MD; Dr. Allison Silvestre MD; Dr. Reilly Garcia MD; Dr. Roger Love MD; Dr.Emile Kehinde MD; Dr. Neo Mckeon DO; Dr. Neo Anderson MD; Dr. Don Nicolas MD; Dr. Willow Calderon MD; Dr. Nakul Johnson MD; Dr. Valerie Sims MD; Dr. Ned Collazo MD; Dr. João David MD; Dr. Jeronimo Valle MD; Yisel Arshad; [facility] Physician~ Signed [facility] Work Phone: 1(881) 742-110506-02-2023 History and physical note Author Dr. Mckeon [facility] December 26, 2022 11:20pm Note Date/Time December 26, 2022 10:44 pm [facility] Medical Records Department [address] [place] [address] H&P Exam - Hospitalist 12/26/225 MR#: [id number] Acct: [id number] Name: DOYLE ESTEVEZ Rep #:[id number] : 1950 72 From: Neo Mckeon DO PCP: Care Physician,No Primary Status :ADM IN Location: [place] [address] HPI - General General Date of Admission: 12/26/22 Date of Service: 12/26/22 Chief Complaint: chest pain HPI Narrative DOYLE ESTEVEZ, is a 72 M who presents awoke with chest pain today. Said its been constant but worse with movements and deep respirations. States that it ismidsternal but goes to his back. Denies ever having had this before. Patient presented to the emergency room with this and there was concerning the patient may have SVT so did have adenosine. The underlying rhythm appeared to be atrialflutter. Patient received 40 mg of IV diltiazem bolus and then was placed on diltiazem drip. Heart rate improved from the 150s to 120s. Despite the improved heart rate, patient is still having chest pain. Patient did have an elevated D-dimer and went to CAT scan when he lied flat he became very short of breath. [facility] Medical History Diverticulosis Hydrocele Obesity Right bundle branch block (RBBB) with left anterior fascicular block Home Medications omega-3 fatty acids 1,000 mg capsule (Fish Oil Concentrate) 1,000 mg PO DAILY 03/21/21 [History Last Taken Unknown] vitamins A,C,U-clqs-grdyyc 4,296 mcg-226 mg-90 mg capsule (PreserVision AREDS) 1cap PO BID 03/21/21 [History Last Taken Unknown] triamcinolone acetonide 0.1 % topical cream 1 applic topical DAILY 12/26/22 [History Last Taken Unknown] Allergy/AdvReac Type Severity Reaction Status Date / Time No Known Allergies Allergy Verified 12/26/22 19:24 Family History Father CAD (coronary artery disease) CABG Brother CAD (coronary artery disease), Onset Age: 56 stents Surgical History H/O total colectomy History of appendectomy Social History Smoking Status: Former smoker quit date: 05/28/20 pack-years: 45 alcohol intake: current alcohol intake frequency: other Alcohol type: beer substance use type: marijuana ROS ROS Narrative States he has been feeling rundown over the past few weeks. Denies any fever chills or sore throat or rhinitis. Stated that he did previous feel like he hada chest cold. All review of systems were negative except as mentioned above in the history of present illness and the other review of systems. Vital Signs Vital Signs Vital Signs: 12/26/22 19:18 12/26/22 19:21 12/26/22 20:16 Temperature 36.8 C Temperature Source Temporal Pulse Rate 152 H 120 H Respiratory Rate 21 H 25 H Respiratory Effort Short of Breath Blood Pressure 98/75 Blood Pressure Mean 82 Blood Pressure Position Blood Pressure Location Pulse Ox 97 96 Oxygen Delivery Method Room Air Room Air Oxygen Flow Rate (L/min) 12/26/22 20:44 12/26/22 21:27 12/26/22 21:00 Temperature Temperature Source Pulse Rate 118 H 112 H 106 H Respiratory Rate 19 H 17 17 Respiratory Effort Blood Pressure 130/105 H 146/98 H 146/98 H Blood Pressure Mean 113 114 114 Blood Pressure Position Semi-Fowlers Blood Pressure Location Right Arm Pulse Ox 95 99 96 Oxygen Delivery Method Room Air Nasal Cannula Nasal Cannula Oxygen Flow Rate (L/min) 2 2 12/26/22 22:00 12/26/22 22:12 Temperature Temperature Source Pulse Rate 115 H 121 H Respiratory Rate 15 18 Respiratory Effort Blood Pressure 141/85 H 141/85 H Blood Pressure Mean 103 103 Blood Pressure Position Semi-Fowlers Blood Pressure Location Right Arm Pulse Ox 99 98 Oxygen Delivery Method Room Air Oxygen Flow Rate (L/min) 2 Weight Weight: 98.4 kg Body Mass Index (BMI) 31.1 Physical Exam Const alert and no apparent distress HEENT normocephalic, head/scalp atraumatic, hearing grossly normal bilaterally and moist oral mucous membranes Eyes EOMs intact bilaterally Eyes Narrative: No icterus Neck no lymphadenopathy Neck Narrative: No thyromegaly. Resp normal respiratory effort, no retractions and no use of accessory muscles Cardio Cardio Narrative: Distant heart sounds irregularly irregular GI normal to inspection, nondistended, normoactive bowel sounds and soft to palpation Extremity normal to inspection and full ROM Neuro oriented x3 and CN's II-XII intact bilaterally Psych affect normal Results Lab / Micro Data Attestation: I reviewed the patient's lab results. Result Diagrams: 12/26/22 19:25 12/26/22 19:25 Labs: Laboratory Results - last 24 hr 12/26/22 19:25: WBC 12.8 H, RBC 4.75, Hgb 15.3, Hct 47.9, MCV 100.8 H, MCH 32.2 H, MCHC 31.9 L, RDW Std Deviation 55.1 H, RDW Coeff of Jessica 14.6, Plt Count 225, MPV 8.5, Immature Gran % (Auto) 0.500, Neut % (Auto) 75.2 H, Lymph % (Auto) 13.2L, Donley % (Auto) 10.6 H, Eos % (Auto) 0.3, Baso % (Auto) 0.2, Absolute Neuts (auto) 9.6 H, Absolute Lymphs (auto) 1.68, Nucleated RBC % 0 12/26/22 19:25: PT 14.3, INR 1.1 12/26/22 19:25: Sodium 142, Potassium 4.1, Chloride 108 H, Carbon Dioxide 28.0, Anion Gap 6, BUN 12, Creatinine 1.14, Estim Creat Clear Calc 61.37, Est GFR (MDRD) Af Amer 81, Est GFR (MDRD) Non-Af 67, BUN/Creatinine Ratio 10.5, Glucose 119 H, Calcium 9.0, Troponin I High Sens 33 12/26/22 19:25: D-Dimer Quant (PE/DVT) 0.75 H* 12/26/22 21:47: Troponin I High Sens 35 EKG Initial EKG: Attestation: I personally reviewed and interpreted this EKG as follows: Prior EKG tracings: available for review EKG Rhythm Intrepretation: Atrial Flutter Radiology Impression Chest X-Ray 12/26/22 19:30 IMPRESSION: Question right basilar pneumonia. Electronically Signed: Juliano Mauricio DO at 19:49 EDT Reading [facility] Tel [phone], Service support , Chest CTA 12/26/22 20:58 IMPRESSION: Atelectatic changes versus infiltrate in the posterior right lower lobe. The study is otherwise unremarkable. Electronically Signed: Juliano Mauricio DO at 21:28 EDT Reading Location ID and State: [address] [place] [address] Tel [phone], Service support , Assessment & Plan Assessment/Plan (1) Atrial flutter with rapid ventricular response: PLAN: New onset [id number] score of 1 Given the patient's symptoms, I am concerned the patient may have some underlying pericarditis. In addition to rate control which she is currently on diltiazem, patient may need to be added additional agent such as amiodarone if that does not seem to be sufficient. Since I am concerned that this could be pericarditis we will initiate high-dose ibuprofen as well as PPI therapy. Thus far, the patient's troponins are unremarkable and if they do become elevated then patient may need to be started on anticoagulation. PLAN: Plan VTE prophylaxis with enoxaparin. Charges/Coding Visit Charges Inpatient E&M: 74256 Init Hosp L3 12/26/22 2244 <Electronically signed by Neo Mckeon DO> Cosigner Signature (if applicable): CC: Dr. Neo Mckeon DO; No Primary Care Physician~ Signed ADDENDUM by Dr. Neo Mckeon DO on 12/26/22 at 2320 Addendum Notified by the nurse in the ER that the patient's heart rate has been stable inthe 150s. Patient's maxed out on the diltiazem drip. We will bolus patient with amiodarone and start him on amiodarone drip. Consult cardiology. 12/26/220<Electronically signed by Neo Mckeon DO> Cosigner Signature (if applicable): cc: Dr. Neo Mckeon DO; No Primary Care Physician ~* Signed [facility] Work Phone: [phone]) [phone] Carty [facility] December 26, 2022 10:37pm Note Date/Time December 26, 2022 8:55p [facility] Medical Records Department [address] [place] [address] Emergency Department Summary 12/26/22 MR#: [id number] Acct: [id number] Name: DOYLE ESTEVEZ Rep #:[id number] : 1950 72 From: Reina DUKE PCP: Care Physician,No Primary Status :ADM IN Location: [place] [address] HPI <SRIKANTH Mcfadden - Last Filed: 12/26/22 20:59> History of Present Illness Chief Complaint: Chest Pain Narrative Narrative: Patient presenting today with midsternal aching chest pain that he has had intermittently all day. He reports that the pain is worsened when he takes a deep breath. He denies any cardiac history, history of arrhythmia, or history of blood clots. He denies any recent surgery/procedures, recent immobilization. He denies any fever, chills, abdominal pain, nausea, and vomiting. PMH includes macular degeneration and psoriasis. PFSH <SRIKANTH Mcfadden - Last Filed: 12/26/22 20:59> PFSH Medical History Diverticulosis Hydrocele Obesity Right bundle branch block (RBBB) with left anterior fascicular block Home Medications omega-3 fatty acids 1,000 mg capsule (Fish Oil Concentrate) 1,000 mg PO DAILY 03/21/21 [History Last Taken Unknown] vitamins A,C,Y-njcj-rfygno 4,296 mcg-226 mg-90 mg capsule (PreserVision AREDS) 1cap PO BID 03/21/21 [History Last Taken Unknown] triamcinolone acetonide 0.1 % topical cream 1 applic topical DAILY 12/26/22 [History Last Taken Unknown] Allergy/AdvReac Type Severity Reaction Status Date / Time No Known Allergies Allergy Verified 12/26/22 19:24 Family History Father CAD (coronary artery disease) CABG Brother CAD (coronary artery disease), Onset Age: 56 stents Surgical History H/O total colectomy History of appendectomy Social History Smoking Status: Former smoker quit date: 05/28/20 pack-years: 45 alcohol intake: current alcohol intake frequency: other Alcohol type: beer substance use type: marijuana ROS <SRIKANTH Mcfadden - Last Filed: 12/26/22 20:59> ROS ED Constitutional Constitutional ED: Denies chills or fever(s) Eyes Eyes: Denies change in vision Cardiovascular Cardiovascular: Reports chest pain; Denies palpitations Respiratory/Chest Respiratory/Chest: Denies cough, dyspnea or dyspnea on exertion Gastrointestinal Gastrointestinal: Denies abdominal pain, nausea or vomiting Musculoskeletal Musculoskeletal: Denies arthralgias or myalgias Integumentary Denies abscess, Abrasions or rash Neurologic Neurologic: Denies dizziness or weakness EXAM <SRIKANTH Mcfadden - Last Filed: 06/01/23 20:59> Physical Exam Const Vital Signs: 12/26/22 19:18 12/26/22 19:21 12/26/22 20:16 Temperature 98.2 F Temperature Source Temporal Pulse Rate 152 H 120 H Respiratory Rate 21 H 25 H Respiratory Effort Short of Breath Blood Pressure 98/75 Blood Pressure Mean 82 Blood Pressure Position Blood Pressure Location Pulse Ox 97 96 Oxygen Delivery Method Room Air Room Air Oxygen Flow Rate (L/min) 12/26/22 20:44 12/26/22 21:27 12/26/22 21:00 Temperature Temperature Source Pulse Rate 118 H 112 H 106 H Respiratory Rate 19 H 17 17 Respiratory Effort Blood Pressure 130/105 H 146/98 H 146/98 H Blood Pressure Mean 113 114 114 Blood Pressure Position Semi-Fowlers Blood Pressure Location Right Arm Pulse Ox 95 99 96 Oxygen Delivery Method Room Air Nasal Cannula Nasal Cannula Oxygen Flow Rate (L/min) 2 2 12/26/22 22:00 12/26/22 22:12 Temperature Temperature Source Pulse Rate 115 H 121 H Respiratory Rate 15 18 Respiratory Effort Blood Pressure 141/85 H 141/85 H Blood Pressure Mean 103 103 Blood Pressure Position Semi-Fowlers Blood Pressure Location Right Arm Pulse Ox 99 98 Oxygen Delivery Method Room Air Oxygen Flow Rate (L/min) 2 Positive well nourished, well developed and no apparent distress General Appearance ED: well developed HEENT Reports normocephalic and head/scalp atraumatic Mouth ED: Yes moist mucous membranes normal Eyes PERRL and EOMs intact bilaterally Neck full ROM and supple Chest Wall inspection of chest normal Resp normal respiratory effort and clear to auscultation bilaterally Cardio regular rhythm Rate: tachycardic GI soft to palpation, non-tender, non-distended and no masses Back/Spine normal ROM and normal to inspection Extremity normal to inspection and full ROM Neuro oriented x3, CN's II-XII intact bilaterally, moves all extremities, no focal motor deficits and no sensory deficits noted Sensorium / Orientation: awake and alert Psych mental status grossly normal and thought process normal Skin no rashes or lesions noted and no wounds <Dr. Sandeep Carty, DO - Last Filed: 12/26/22 22:37> Physical Exam Const Vital Signs: 12/26/22 19:18 12/26/22 19:21 12/26/22 20:16 Temperature 98.2 F Temperature Source Temporal Pulse Rate 152 H 120 H Respiratory Rate 21 H 25 H Respiratory Effort Short of Breath Blood Pressure 98/75 Blood Pressure Mean 82 Blood Pressure Position Blood Pressure Location Pulse Ox 97 96 Oxygen Delivery Method Room Air Room Air Oxygen Flow Rate (L/min) 12/26/22 20:44 12/26/22 21:27 12/26/22 21:00 Temperature Temperature Source Pulse Rate 118 H 112 H 106 H Respiratory Rate 19 H 17 17 Respiratory Effort Blood Pressure 130/105 H 146/98 H 146/98 H Blood Pressure Mean 113 114 114 Blood Pressure Position Semi-Fowlers Blood Pressure Location Right Arm Pulse Ox 95 99 96 Oxygen Delivery Method Room Air Nasal Cannula Nasal Cannula Oxygen Flow Rate (L/min) 2 2 12/26/22 22:00 12/26/22 22:12 Temperature Temperature Source Pulse Rate 115 H 121 H Respiratory Rate 15 18 Respiratory Effort Blood Pressure 141/85 H 141/85 H Blood Pressure Mean 103 103 Blood Pressure Position Semi-Fowlers Blood Pressure Location Right Arm Pulse Ox 99 98 Oxygen Delivery Method Room Air Oxygen Flow Rate (L/min) 2 [facility] <SRIKANTH Mcfadden - Last Filed: 12/26/22 20:59> [facility] Narrative Medical decision making narrative: Patient presenting due to midsternal chest pain he has had intermittently since this morning. Patient was tachycardic in the ambulance at 150 bpm, he was [id number] of adenosine. On arrival, he was still tachycardic at 152 bpm. Patient wasgiven 12 mg of adenosine. This did not seem to slow patient down very much, he was then given 20 mg Cardizem, this brought him down to around 120 BPM, was given another 20 mg of Cardizem which brought him down to around 100 bpm. D-dimer will be obtained to rule out PE, labs to be obtained to rule out leukocytosis, anemia, electrolyte abnormality. Patient is in atrial flutter andhas no prior history of atrial flutter or any arrhythmia, he is not on any bloodthinners. D-dimer is positive, CTA will be obtained to rule out PE. Lab Data Attestation: I reviewed the patient's lab results. Lab results narrative: WBC 12.88, troponin 33 Labs: Laboratory Results - last 24 hr 12/26/22 12/26/22 12/26/22 19:25 19:25 19:25 WBC 12.8 H RBC 4.75 Hgb 15.3 Hct 47.9 MCV 100.8 H MCH 32.2 H MCHC 31.9 L RDW Std Deviation 55.1 H RDW Coeff of Jessica 14.6 Plt Count 225 MPV 8.5 Immature Gran % (Auto) 0.500 Neut % (Auto) 75.2 H Lymph % (Auto) 13.2 L Donley % (Auto) 10.6 H Eos % (Auto) 0.3 Baso % (Auto) 0.2 Absolute Neuts (auto) 9.6 H Absolute Lymphs (auto) 1.68 Nucleated RBC % 0 PT 14.3 INR 1.1 D-Dimer Quant (PE/DVT) Sodium 142 Potassium 4.1 Chloride 108 H Carbon Dioxide 28.0 Anion Gap 6 BUN 12 Creatinine 1.14 Estim Creat Clear Calc 61.37 Est GFR (MDRD) Af Amer 81 Est GFR (MDRD) Non-Af 67 BUN/Creatinine Ratio 10.5 Glucose 119 H Calcium 9.0 Troponin I High Sens 33 12/26/22 12/26/22 19:25 21:47 WBC RBC Hgb Hct MCV MCH MCHC RDW Std Deviation RDW Coeff of Jessica Plt Count MPV Immature Gran % (Auto) Neut % (Auto) Lymph % (Auto) Donley % (Auto) Eos % (Auto) Baso % (Auto) Absolute Neuts (auto) Absolute Lymphs (auto) Nucleated RBC % PT INR D-Dimer Quant (PE/DVT) 0.75 H* Sodium Potassium Chloride Carbon Dioxide Anion Gap BUN Creatinine Estim Creat Clear Calc Est GFR (MDRD) Af Amer Est GFR (MDRD) Non-Af BUN/Creatinine Ratio Glucose Calcium Troponin I High Sens 35 Radiography X-Ray: Read by ED Physician and Read by Radiologist Diagnostic Testing: Clinical Impression(s) from Imaging Studies Chest X-Ray 12/26/22 19:30 IMPRESSION: Question right basilar pneumonia. Electronically Signed: Juliano Mauricio DO at 19:49 EDT Reading Location ID and State: [address] [place] [address] Tel [phone], Service support , Chest CTA 12/26/22 20:58 IMPRESSION: Atelectatic changes versus infiltrate in the posterior right lower lobe. The study is otherwise unremarkable. Electronically Signed: Juliano Mauricio DO at 21:28 EDT Reading Location ID and State: [address] [place] [address] Tel [phone], Service support , EKG Initial EKG: Comments: Initial EKG shows 152 bpm, atrial flutter, no ST elevation. Reviewed and interpreted by attending ED physician. <Dr. Sandeep Carty DO - Last Filed: 12/26/22 22:37> [facility] MDM Narrative Medical decision making narrative: Patient presenting due to midsternal chest pain he has had intermittently since this morning. Patient was tachycardic in the ambulance at 150 bpm, he was iklos3li of adenosine. On arrival, he was still tachycardic at 152 bpm. Patient wasgiven 12 mg of adenosine. This slowed the patient down enough to I could see the rhythm is a flutter. he was then given 20 mg Cardizem, this brought him downto around 120 BPM, was given another 20 mg of Cardizem which brought him down toaround 100 bpm. D- dimer will be obtained to rule out PE, labs to be obtained torule out leukocytosis, anemia, electrolyte abnormality. Patient is in atrial flutter and has no prior history of atrial flutter or any arrhythmia, he is not on any blood thinners. D-dimer is positive, CTA will be obtained to rule out PE. This patient was seen with a PA/RADIATION / CHEMISTRY TECHNICIAN Individually assessed they patient including history and physical. I have reviewed everything on the chart that is availableand agree with the documentation provided by the PA/RADIATION / CHEMISTRY TECHNICIAN including discussion about the assessment, treatment plan, discussion, and return precautions. Afterpatient's heart rate came down to about 100 I did obtain a CTA of the chest which does not show evidence of PE. There is a small area in the right lung which is identified on the CTA as atelectasis or infiltrate. Patient has not any fevers, chills, cough Solox unclear whether this is pneumonia. There is no evidence of PE or aortic dissection otherwise. Patient's heart rate came back up and has been between 100?130 beats per minute. At this point it was determined he would need a Cardizem drip. I was informed that the patient became hypoxic while getting his CTA and was placed on oxygen. When the patientcame back he was still complaining of some sharp pain in the chest and the site he was given morphine and Zofran. CBC shows a slight leukocytosis at 12.8, hemoglobin hematocrit are stable. Platelets are normal. PT/INR normal. Renal function and electrolytes unremarkable. Delta troponin came back at 35 therefore there is no significant interval change from his initial 33. I discussed him with the hospitalist for admission. Impression: 1. Chest pain 2. Atrial flutter Lab Data Labs: Laboratory Results - last 24 hr 12/26/22 12/26/22 12/26/22 19:25 19:25 19:25 WBC 12.8 H RBC 4.75 Hgb 15.3 Hct 47.9 MCV 100.8 H MCH 32.2 H MCHC 31.9 L RDW Std Deviation 55.1 H RDW Coeff of Jessica 14.6 Plt Count 225 MPV 8.5 Immature Gran % (Auto) 0.500 Neut % (Auto) 75.2 H Lymph % (Auto) 13.2 L Donley % (Auto) 10.6 H Eos % (Auto) 0.3 Baso % (Auto) 0.2 Absolute Neuts (auto) 9.6 H Absolute Lymphs (auto) 1.68 Nucleated RBC % 0 PT 14.3 INR 1.1 D-Dimer Quant (PE/DVT) Sodium 142 Potassium 4.1 Chloride 108 H Carbon Dioxide 28.0 Anion Gap 6 BUN 12 Creatinine 1.14 Estim Creat Clear Calc 61.37 Est GFR (MDRD) Af Amer 81 Est GFR (MDRD) Non-Af 67 BUN/Creatinine Ratio 10.5 Glucose 119 H Calcium 9.0 Troponin I High Sens 33 12/26/22 12/26/22 19:25 21:47 WBC RBC Hgb Hct MCV MCH MCHC RDW Std Deviation RDW Coeff of Jessica Plt Count MPV Immature Gran % (Auto) Neut % (Auto) Lymph % (Auto) Donley % (Auto) Eos % (Auto) Baso % (Auto) Absolute Neuts (auto) Absolute Lymphs (auto) Nucleated RBC % PT INR D-Dimer Quant (PE/DVT) 0.75 H* Sodium Potassium Chloride Carbon Dioxide Anion Gap BUN Creatinine Estim Creat Clear Calc Est GFR (MDRD) Af Amer Est GFR (MDRD) Non-Af BUN/Creatinine Ratio Glucose Calcium Troponin I High Sens 35 Radiography Diagnostic Testing: Clinical Impression(s) from Imaging Studies Chest X-Ray 12/26/22 19:30 IMPRESSION: Question right basilar pneumonia. Electronically Signed: Juliano Mauricio at 19:49 EDT Reading Location ID and State: [address] [place] [address] Tel [phone], Service support , Chest CTA 12/26/22 20:58 IMPRESSION: Atelectatic changes versus infiltrate in the posterior right lower lobe. The study is otherwise unremarkable. Electronically Signed: Juliano Mauricio at 21:28 EDT , Discharge Plan Triage Chief Complaint: Chest Pain ED Midlevel Provider: Reina Paris ED Provider: Sandeep Carty Dx/Rx/DC Orders Primary Care Provider: Care Physician,No Primary What to do if you have Problems For any increased pain, shortness of breath, bleeding, nausea or vomiting, chestpain, or any unexpected problems, contact your Primary Care Provider. Call [facility] ([phone]) or report to the closest Emergency Room. Call 911 if necessary. 12/26/222058 <Electronically signed by Reina DUKE> Cosigner Signature (if applicable): 12/26/222236 <Electronically signed by Sandeep Carty DO> CC: No Primary Care Physician ~ Signed [facility] Work Phone: [phone] 525-149506-01-[address] Carty [facility] December 26, 2022 10:37pm Note Date/Time December 26, 2022 8:55p m [facility] Medical Records Department [address] [place] [address] Emergency Department Summary 12/26/22 MR#: [id number] Acct: [id number] Name: DOYLE ESTEVEZ Rep #:[id number] : 1950 72 From: Reina DUKE PCP: Care Physician,No Primary Status :ADM IN Location: [place] [address] HPI <SRIKANTH Mcfadden - Last Filed: 12/26/22 20:59> History of Present Illness Chief Complaint: Chest Pain Narrative Narrative: Patient presenting today with midsternal aching chest pain that he has had intermittently all day. He reports that the pain is worsened when he takes a deep breath. He denies any cardiac history, history of arrhythmia, or history of blood clots. He denies any recent surgery/procedures, recent immobilization. He denies any fever, chills, abdominal pain, nausea, and vomiting. PMH includes macular degeneration and psoriasis. PFSH <SRIKANTH Mcfadden - Last Filed: 12/26/22 20:59> PFSH Medical History Diverticulosis Hydrocele Obesity Right bundle branch block (RBBB) with left anterior fascicular block Home Medications omega-3 fatty acids 1,000 mg capsule (Fish Oil Concentrate) 1,000 mg PO DAILY 03/21/21 [History Last Taken Unknown] vitamins A,C,T-jwwj-gddyzh 4,296 mcg-226 mg-90 mg capsule (PreserVision AREDS) 1cap PO BID 03/21/21 [History Last Taken Unknown] triamcinolone acetonide 0.1 % topical cream 1 applic topical DAILY 12/26/22 [History Last Taken Unknown] Allergy/AdvReac Type Severity Reaction Status Date / Time No Known Allergies Allergy Verified 12/26/22 19:24 Family History Father CAD (coronary artery disease) CABG Brother CAD (coronary artery disease), Onset Age: 56 stents Surgical History H/O total colectomy History of appendectomy Social History Smoking Status: Former smoker quit date: 05/28/20 pack-years: 45 alcohol intake: current alcohol intake frequency: other Alcohol type: beer substance use type: marijuana ROS <SRIKANTH Mcfadden - Last Filed: 12/26/22 20:59> ROS ED Constitutional Constitutional ED: Denies chills or fever(s) Eyes Eyes: Denies change in vision Cardiovascular Cardiovascular: Reports chest pain; Denies palpitations Respiratory/Chest Respiratory/Chest: Denies cough, dyspnea or dyspnea on exertion Gastrointestinal Gastrointestinal: Denies abdominal pain, nausea or vomiting Musculoskeletal Musculoskeletal: Denies arthralgias or myalgias Integumentary Denies abscess, Abrasions or rash Neurologic Neurologic: Denies dizziness or weakness EXAM <SRIKANTH Mcfadden - Last Filed: 12/26/22 20:59> Physical Exam Const Vital Signs: 12/26/22 19:18 12/26/22 19:21 12/26/22 20:16 Temperature 98.2 F Temperature Source Temporal Pulse Rate 152 H 120 H Respiratory Rate 21 H 25 H Respiratory Effort Short of Breath Blood Pressure 98/75 Blood Pressure Mean 82 Blood Pressure Position Blood Pressure Location Pulse Ox 97 96 Oxygen Delivery Method Room Air Room Air Oxygen Flow Rate (L/min) 12/26/22 20:44 12/26/22 21:27 12/26/22 21:00 Temperature Temperature Source Pulse Rate 118 H 112 H 106 H Respiratory Rate 19 H 17 17 Respiratory Effort Blood Pressure 130/105 H 146/98 H 146/98 H Blood Pressure Mean 113 114 114 Blood Pressure Position Semi-Fowlers Blood Pressure Location Right Arm Pulse Ox 95 99 96 Oxygen Delivery Method Room Air Nasal Cannula Nasal Cannula Oxygen Flow Rate (L/min) 2 2 12/26/22 22:00 12/26/22 22:12 Temperature Temperature Source Pulse Rate 115 H 121 H Respiratory Rate 15 18 Respiratory Effort Blood Pressure 141/85 H 141/85 H Blood Pressure Mean 103 103 Blood Pressure Position Semi-Fowlers Blood Pressure Location Right Arm Pulse Ox 99 98 Oxygen Delivery Method Room Air Oxygen Flow Rate (L/min) 2 Positive well nourished, well developed and no apparent distress General Appearance ED: well developed HEENT Reports normocephalic and head/scalp atraumatic Mouth ED: Yes moist mucous membranes normal Eyes PERRL and EOMs intact bilaterally Neck full ROM and supple Chest Wall inspection of chest normal Resp normal respiratory effort and clear to auscultation bilaterally Cardio regular rhythm Rate: tachycardic GI soft to palpation, non-tender, non-distended and no masses Back/Spine normal ROM and normal to inspection Extremity normal to inspection and full ROM Neuro oriented x3, CN's II-XII intact bilaterally, moves all extremities, no focal motor deficits and no sensory deficits noted Sensorium / Orientation: awake and alert Psych mental status grossly normal and thought process normal Skin no rashes or lesions noted and no wounds <Dr. Sandeep Carty DO - Last Filed: 12/26/22 22:37> Physical Exam Const Vital Signs: 12/26/22 19:18 12/26/22 19:21 12/26/22 20:16 Temperature 98.2 F Temperature Source Temporal Pulse Rate 152 H 120 H Respiratory Rate 21 H 25 H Respiratory Effort Short of Breath Blood Pressure 98/75 Blood Pressure Mean 82 Blood Pressure Position Blood Pressure Location Pulse Ox 97 96 Oxygen Delivery Method Room Air Room Air Oxygen Flow Rate (L/min) 12/26/22 20:44 12/26/22 21:27 12/26/22 21:00 Temperature Temperature Source Pulse Rate 118 H 112 H 106 H Respiratory Rate 19 H 17 17 Respiratory Effort Blood Pressure 130/105 H 146/98 H 146/98 H Blood Pressure Mean 113 114 114 Blood Pressure Position Semi-Fowlers Blood Pressure Location Right Arm Pulse Ox 95 99 96 Oxygen Delivery Method Room Air Nasal Cannula Nasal Cannula Oxygen Flow Rate (L/min) 2 2 12/26/22 22:00 12/26/22 22:12 Temperature Temperature Source Pulse Rate 115 H 121 H Respiratory Rate 15 18 Respiratory Effort Blood Pressure 141/85 H 141/85 H Blood Pressure Mean 103 103 Blood Pressure Position Semi-Fowlers Blood Pressure Location Right Arm Pulse Ox 99 98 Oxygen Delivery Method Room Air Oxygen Flow Rate (L/min) 2 MDM <Reina Paris PA - Last Filed: 12/26/22 20:59> [facility] Narrative Medical decision making narrative: Patient presenting due to midsternal chest pain he has had intermittently since this morning. Patient was tachycardic in the ambulance at 150 bpm, he was [id number] of adenosine. On arrival, he was still tachycardic at 152 bpm. Patient wasgiven 12 mg of adenosine. This did not seem to slow patient down very much, he was then given 20 mg Cardizem, this brought him down to around 120 BPM, was given another 20 mg of Cardizem which brought him down to around 100 bpm. D-dimer will be obtained to rule out PE, labs to be obtained to rule out leukocytosis, anemia, electrolyte abnormality. Patient is in atrial flutter andhas no prior history of atrial flutter or any arrhythmia, he is not on any bloodthinners. D-dimer is positive, CTA will be obtained to rule out PE. Lab Data Attestation: I reviewed the patient's lab results. Lab results narrative: WBC 12.88, troponin 33 Labs: Laboratory Results - last 24 hr 12/26/22 12/26/22 12/26/22 19:25 19:25 19:25 WBC 12.8 H RBC 4.75 Hgb 15.3 Hct 47.9 MCV 100.8 H MCH 32.2 H MCHC 31.9 L RDW Std Deviation 55.1 H RDW Coeff of Jessica 14.6 Plt Count 225 MPV 8.5 Immature Gran % (Auto) 0.500 Neut % (Auto) 75.2 H Lymph % (Auto) 13.2 L Donley % (Auto) 10.6 H Eos % (Auto) 0.3 Baso % (Auto) 0.2 Absolute Neuts (auto) 9.6 H Absolute Lymphs (auto) 1.68 Nucleated RBC % 0 PT 14.3 INR 1.1 D-Dimer Quant (PE/DVT) Sodium 142 Potassium 4.1 Chloride 108 H Carbon Dioxide 28.0 Anion Gap 6 BUN 12 Creatinine 1.14 Estim Creat Clear Calc 61.37 Est GFR (MDRD) Af Amer 81 Est GFR (MDRD) Non-Af 67 BUN/Creatinine Ratio 10.5 Glucose 119 H Calcium 9.0 Troponin I High Sens 33 12/26/22 12/26/22 19:25 21:47 WBC RBC Hgb Hct MCV MCH MCHC RDW Std Deviation RDW Coeff of Jessica Plt Count MPV Immature Gran % (Auto) Neut % (Auto) Lymph % (Auto) Donley % (Auto) Eos % (Auto) Baso % (Auto) Absolute Neuts (auto) Absolute Lymphs (auto) Nucleated RBC % PT INR D-Dimer Quant (PE/DVT) 0.75 H* Sodium Potassium Chloride Carbon Dioxide Anion Gap BUN Creatinine Estim Creat Clear Calc Est GFR (MDRD) Af Amer Est GFR (MDRD) Non-Af BUN/Creatinine Ratio Glucose Calcium Troponin I High Sens 35 Radiography X-Ray: Read by ED Physician and Read by Radiologist Diagnostic Testing: Clinical Impression(s) from Imaging Studies Chest X-Ray 12/26/22 19:30 IMPRESSION: Question right basilar pneumonia. Electronically Signed: Juliano Mauricio DO at 19:49 EDT , Chest CTA 12/26/22 20:58 IMPRESSION: Atelectatic changes versus infiltrate in the posterior right lower lobe. The study is otherwise unremarkable. Electronically Signed: Juliano Mauricio DO at 21:28 EDT , EKG Initial EKG: Comments: Initial EKG shows 152 bpm, atrial flutter, no ST elevation. Reviewed and interpreted by attending ED physician. <Dr. Sandeep Carty, DO - Last Filed: 12/26/22 22:37> [facility] Narrative Medical decision making narrative: Patient presenting due to midsternal chest pain he has had intermittently since this morning. Patient was tachycardic in the ambulance at 150 bpm, he was [id number] of adenosine. On arrival, he was still tachycardic at 152 bpm. Patient wasgiven 12 mg of adenosine. This slowed the patient down enough to I could see the rhythm is a flutter. he was then given 20 mg Cardizem, this brought him downto around 120 BPM, was given another 20 mg of Cardizem which brought him down toaround 100 bpm. D- dimer will be obtained to rule out PE, labs to be obtained torule out leukocytosis, anemia, electrolyte abnormality. Patient is in atrial flutter and has no prior history of atrial flutter or any arrhythmia, he is not on any blood thinners. D-dimer is positive, CTA will be obtained to rule out PE. This patient was seen with a PA/RADIATION / CHEMISTRY TECHNICIAN Individually assessed they patient including history and physical. I have reviewed everything on the chart that is availableand agree with the documentation provided by the PA/RADIATION / CHEMISTRY TECHNICIAN including discussion about the assessment, treatment plan, discussion, and return precautions. Afterpatient's heart rate came down to about 100 I did obtain a CTA of the chest which does not show evidence of PE. There is a small area in the right lung which is identified on the CTA as atelectasis or infiltrate. Patient has not any fevers, chills, cough Solox unclear whether this is pneumonia. There is no evidence of PE or aortic dissection otherwise. Patient's heart rate came back up and has been between 100?130 beats per minute. At this point it was determined he would need a Cardizem drip. I was informed that the patient became hypoxic while getting his CTA and was placed on oxygen. When the patientcame back he was still complaining of some sharp pain in the chest and the site he was given morphine and Zofran. CBC shows a slight leukocytosis at 12.8, hemoglobin hematocrit are stable. Platelets are normal. PT/INR normal. Renal function and electrolytes unremarkable. Delta troponin came back at 35 therefore there is no significant interval change from his initial 33. I discussed him with the hospitalist for admission. Impression: 1. Chest pain 2. Atrial flutter Lab Data Labs: Laboratory Results - last 24 hr 12/26/22 12/26/22 12/26/22 19:25 19:25 19:25 WBC 12.8 H RBC 4.75 Hgb 15.3 Hct 47.9 MCV 100.8 H MCH 32.2 H MCHC 31.9 L RDW Std Deviation 55.1 H RDW Coeff of Jessica 14.6 Plt Count 225 MPV 8.5 Immature Gran % (Auto) 0.500 Neut % (Auto) 75.2 H Lymph % (Auto) 13.2 L Donley % (Auto) 10.6 H Eos % (Auto) 0.3 Baso % (Auto) 0.2 Absolute Neuts (auto) 9.6 H Absolute Lymphs (auto) 1.68 Nucleated RBC % 0 PT 14.3 INR 1.1 D-Dimer Quant (PE/DVT) Sodium 142 Potassium 4.1 Chloride 108 H Carbon Dioxide 28.0 Anion Gap 6 BUN 12 Creatinine 1.14 Estim Creat Clear Calc 61.37 Est GFR (MDRD) Af Amer 81 Est GFR (MDRD) Non-Af 67 BUN/Creatinine Ratio 10.5 Glucose 119 H Calcium 9.0 Troponin I High Sens 33 12/26/22 12/26/22 19:25 21:47 WBC RBC Hgb Hct MCV MCH MCHC RDW Std Deviation RDW Coeff of Jessica Plt Count MPV Immature Gran % (Auto) Neut % (Auto) Lymph % (Auto) Donley % (Auto) Eos % (Auto) Baso % (Auto) Absolute Neuts (auto) Absolute Lymphs (auto) Nucleated RBC % PT INR D-Dimer Quant (PE/DVT) 0.75 H* Sodium Potassium Chloride Carbon Dioxide Anion Gap BUN Creatinine Estim Creat Clear Calc Est GFR (MDRD) Af Amer Est GFR (MDRD) Non-Af BUN/Creatinine Ratio Glucose Calcium Troponin I High Sens 35 Radiography Diagnostic Testing: Clinical Impression(s) from Imaging Studies Chest X-Ray 12/26/22 19:30 IMPRESSION: Question right basilar pneumonia. Electronically Signed: Juliano Mauricio DO at 19:49 EDT Reading Location ID and State: [employer] [facility] [employer] Tel [phone], Service support , Chest CTA 12/26/22 20:58 IMPRESSION: Atelectatic changes versus infiltrate in the posterior right lower lobe. The study is otherwise unremarkable. Electronically Signed: Juliano Mauricio DO at 21:28 EDT Reading Location ID and State: [employer] [facility] [employer] Tel [phone], Service support , Discharge Plan Triage Chief Complaint: Chest Pain ED Midlevel Provider: Reina Paris ED Provider: Sandeep Carty Dx/Rx/DC Orders Primary Care Provider: Care Physician,No Primary What to do if you have Problems For any increased pain, shortness of breath, bleeding, nausea or vomiting, chestpain, or any unexpected problems, contact your Primary Care Provider. Call [facility] ([phone]) or report to the closest Emergency Room. Call 911 if necessary. 12/26/222058 <Electronically signed by Reina Paris PA> Cosigner Signature (if applicable): 12/26/222236 <Electronically signed by Sandeep Carty DO> CC: No Primary Care Physician ~ Signed [facility] Work Phone: Consult note Author Charanjit Drake [facility] August 01, 2023 11:07am Note Date/Time August 01, 2023 11 :07am [facility] Medical Records Department [address] [place] [address] Counseling Note - Pharmacy 08/01/23 1107 MR#: [id number] Acct: [id number] Name: DOYLE ESTEVEZ Rep #:[id number] : 1950 73 From: Charanjit Drake PCP: FABRICIO CONTRERAS Status:ADM I NO Y Location: [place] [address] Pharmacy [facility] has performed discharge medication reconciliation and counseling for this patient. The patient's discharge medication list was reviewed for discrepancies and discrepancies were resolved. The patient was counseled on the following discharge medications and changes in medications for homegoing were reviewed. The Reason for Use, instructions for use, and potential side effects were reviewed for all new medications. The patient's questions regarding all of their medications were answered. 1. Clopidogrel 75 mg PO daily The patient was able to verbally demonstrate an understanding of their dischargemedications. Medications at Discharge Home Medications vitamins A,C,H-gzqf-cyghia 4,296 mcg-226 mg-90 mg capsule (PreserVision AREDS) 1cap PO BID 03/21/21 triamcinolone acetonide 0.1 % topical cream 1 applic topical DAILY 12/26/22 apixaban 5 mg tablet (Eliquis) 5 mg PO BID 30 days #60 tabs 01/23/23 diltiazem HCl 240 mg capsule,extended release 24 hr 240 mg PO DAILY 30 days #90 caps 01/23/23 omeprazole magnesium 20 mg tablet,delayed release 20 mg PO DAILY PRN heartburn 01/23/23 pravastatin 20 mg tablet 20 mg PO QHS #30 tabs 01/23/23 tiotropium bromide 2.5 mcg/actuation mist for inhalation (Spiriva Respimat) 2 puff inhalation DAILY #4 grams 04/07/23 metoprolol tartrate 25 mg tablet 25 mg PO BID #180 tabs 05/26/23 albuterol sulfate 90 mcg/actuation aerosol inhaler (Ventolin HFA) 1 puff inhalation Q6H PRN shortness of breath or wheezing #8.5 grams 05/27/23 glucosamine HCl 500 mg tablet 500 mg PO DAILY 07/08/23 lisinopril 5 mg tablet 5 mg PO DAILY #90 tabs 07/08/23 clopidogrel 75 mg tablet 75 mg PO DAILY #30 tabs 07/31/23 08/01/23 1107 <Electronically signed by Charanjit lazaro> Date _ Charanjit Drake Cosigner Signature (if applicable): Date __ CC: ~ Signed [facility] Work Phone: Discharge summary Author Dr. Willingham [facility] December 29, 2022 11:46am Note Date/Time December 29, 2022 11:35 am [facility] Medical Records Department [address] [place] [address] Instructions for Home/Discharge Instructions 12/29/22 1135 MR#: [id number] Acct: [id number] Name: DOYLE ESTEVEZ Rep #:[id number] : 1950 72 From: Kaila Willingham MD PCP: Care Physician,No Primary Status :ADM IN Discharge Instructions Diet Discharge Diet: - (DASH diet) Activity Discharge Activity: Return to Normal Activity Follow Up Care Test Results: Test results from this visit will be discussed in further detail at your follow- up appointment, if applicable. Discharge Plan Admission Admit Date/Time: 12/26/22 22:14 Primary Reason for Your Visit: Shortness of breath Attending Provider: Kaila Willingham Primary Care Provider: Care Physician,No Primary Consulting Providers: Neo Mckeon ; Yisel Arshad ; Allison Silvestre ; Reilly Garcia ; Tk Rm ; Roger Love ; Rajesh Busby ; Neo Anderson ; Don Nicolas ; Nakul Johnson ; Willow Calderon ; Valerie Sims ; Ned Collazo ; João David ; Jeronimo Valle ; Reynaldo Jerez RADIATION / CHEMISTRY TECHNICIAN ; Yisel Smiley NP ; Jeannie Richardson Instructions Patient Instructions: ED Atrial Flutter Additional Instructions / Restrictions: DISCHARGE INSTRUCTIONS PLEASE READ *Please take this with you to your next doctors appointment* -Please follow-up with cardiology upon discharge. Please call their office to schedule hospital follow-up appointment upon discharge. You will need either stress test or heart catheterization moving forward and this can be coordinated through their office -You have been started on a blood thinner for your abnormal heart rhythm, atrialflutter, and you have also been started on a medication called diltiazem as wellas metoprolol to help with your heart rate and lisinopril to help with your heart health and an aspirin was added. -You will be discharged with an inhaler to use routinely and another to use as needed and would recommend following up with pulmonology upon discharge for evaluation for COPD with pulmonary function tests and management. Please call their office upon discharge to schedule an establish care appointment. -You have indicated that throughout your life you have had problems with feelinglike something sticks in the back of her throat, please discuss this with your primary care physician as well as he may need further evaluation or swallow study on outpatient basis -Please call your primary care provider's office upon discharge to schedule a hospital follow up within 1 week. -If you do not have a primary care physician of list of local primary care physicians can be provided for you upon discharge. Please ask for this list prior to discharge -For any concerning signs or symptoms please call 911 or proceed to the nearest emergency department Discharge Orders/Prescriptions Prescriptions: New Spiriva Respimat 2.5 mcg/actuation mist 2 puff inhalation DAILY Qty: 4 0RF albuterol sulfate [Ventolin HFA] 90 mcg/actuation HFA aerosol inhaler 1 puff inhalation Q6H PRN (Reason: shortness of breath or wheezing) Qty: 8.5 0RF Rx Instructions: 1-2 puffs q6hr prn shortness of breath or wheezing diltiazem HCl 240 mg Capsule,Extended Release 24hr 240 mg PO DAILY 30 Days Qty: 30 0RF lisinopril 2.5 mg Tablet 2.5 mg PO QHS 30 Days Qty: 30 0RF metoprolol tartrate 25 mg Tablet 25 mg PO BID 30 Days Qty: 60 0RF Eliquis 5 mg Tablet 5 mg PO BID 30 Days Qty: 60 0RF aspirin 81 mg capsule 81 mg PO DAILY Qty: 30 0RF Continued omega-3 fatty acids [Fish Oil Concentrate] 1,000 mg capsule 1,000 mg PO DAILY PreserVision AREDS 14,320-226-200 dpvu-mc-koxt capsule 1 cap PO BID triamcinolone acetonide 0.1 % cream 1 applic TOPICAL DAILY Referrals / Follow Up: [facility] [Provider Group] - See Referral Note (It is recommended you call the [facility] pulmonology office to schedule an appointment to establish care for evaluation and possible treatment for COPD) Allison Silvestre MD [Med Staff - Active Staff] - Within 1 Month (Please follow-up with cardiology upon discharge. Please call their office to schedule hospital follow- up appointment upon discharge.) Care Physician,No Primary [Primary Care Provider] - Within 1 Week (-If you do not have a primary care physician of list of local primary care physicians can be provided for you upon discharge. Please ask for this list prior to discharge) Disposition Disposition (needs filled in before D/C Order can be placed): Home, Self Care 12/29/22 1146<Electronically signed by Kaila Willingham MD>Kaila Willingham MD CC: RADIATION / CHEMISTRY TECHNICIAN-Jefe Jerez; RADIATION / CHEMISTRY TECHNICIAN-Jefe Smiley; PA Jeannie Richardson; Tk Rm MD; Dr. Allison Silvestre MD; Dr. Reilly Garcia MD; Dr. Roger Love MD; Dr.Emile Kehinde MD; Dr. Neo Mckeon DO; Dr. Neo Anderson MD; Dr. Don Nicolas MD; Dr. Willow Calderon MD; Dr. Nakul Johnson MD; Dr. Valerie Sims MD; Dr. Ned Collazo MD; Dr. João David MD; Dr. Jeronimo Valle MD; Yisel Arshad; [facility] Care Physician ~ Signed [facility] Work Phone: Evaluation noteNo assessment information available [facility] Work Phone: Evaluation note* Diagnosis Onset Date Resolution Status Atrial flutter with rapid ventricular response acute [facility] Work Phone: Evaluation note* Diagnosis Onset Date Resolution Status Atrial flutter acute Atrial flutter with rapid ventricular response acute Cardiomyopathy acute Coronary artery disease acut e Paroxysmal atrial fibrillation acute Pleuritic chest pain acute COPD (chronic obstructive pulmonary disease) [facility] Work Phone: Evaluation note* Diagnosis Onset Date Resolution Status Atrial flutter with rapid ventricular response acute Cardiomyopathy acute Coronary artery disease acut e Paroxysmal atrial fibrillation acute COPD (chronic obstructive pulmonary disease) chronic Pleuritic chest pain resolve d Nicotine dependence, cigarettes, in remission acute COPD (chronic obstructive pulmonary disease) [facility] Work Phone: Evaluation note* Diagnosis Onset Date Resolution Status Atrial flutter with rapid ventricular response acute Paroxysmal atrial fibrillation acute Cardiomyopathy chronic COPD (chronic obstructive pulmonary disease) chronic Coronary artery disease smocker madeline Pleuritic chest pain resolve d Nicotine dependence, cigarettes, in remission acute COPD (chronic obstructive pulmonary disease) chronic Atrial flutter chronic Cardiomyopathy chronic COPD (chronic obstructive pulmonary disease) chronic Coronary artery disease smocker madeline Dyslipidemia chronic [facility] Work Phone: Evaluation note* Diagnosis Onset Date Resolution Status Atrial flutter with rapid ventricular response acute Paroxysmal atrial fibrillation acute Cardiomyopathy chronic COPD (chronic obstructive pulmonary disease) chronic Coronary artery disease smocker madeline Pleuritic chest pain resolve d Nicotine dependence, cigarettes, in remission acute COPD (chronic obstructive pulmonary disease) chronic Atrial flutter chronic Cardiomyopathy chronic COPD (chronic obstructive pulmonary disease) chronic Coronary artery disease smocker madeline Dyslipidemia chronic Nicotine dependence, cigarettes, in remission acute COPD (chronic obstructive pulmonary disease) [facility] Work Phone: Evaluation note* Diagnosis Onset Date Resolution Status Paroxysmal atrial fibrillation acute Shortness of breath acute Cardiomyopathy chronic Atrial flutter chronic Cardiomyopathy chronic Coronary artery disease smocker madeline Dyslipidemia chronic [facility] Work Phone: Evaluation note* Diagnosis Onset Date Resolution Status Paroxysmal atrial fibrillation acute Shortness of breath acute Cardiomyopathy chronic Atrial flutter chronic Cardiomyopathy chronic Coronary artery disease smocker madeline Dyslipidemia chronic Nicotine dependence, cigarettes, in remission acute [facility] Work Phone: Evaluation note* Diagnosis Onset Date Resolution Status Atrial flutter chronic Cardiomyopathy chronic Coronary artery disease smocker madeline Dyslipidemia chronic Nicotine dependence, cigarettes, in remission acute [facility] Work Phone: History and physical note Author Dr. Mckeon [facility] December 26, 2022 11:20pm Note Date/Time December 26, 2022 10:44 pm [facility] Medical Records Department [address] [place] [address] H&P Exam - Hospitalist 12/26/225 MR#: [id number] Acct: [id number] Name: DOYLE ESTEVEZ Rep #:[id number] : 1950 72 From: Neo Mckeon DO PCP: Care Physician,No Primary Status :ADM IN [facility] H[facility] - General General Date of Admission: 12/26/22 Date of Service: 12/26/22 Chief Complaint: chest pain HPI Narrative DOYLE ESTEVEZ, is a 72 M who presents awoke with chest pain today. Said its been constant but worse with movements and deep respirations. States that it ismidsternal but goes to his back. Denies ever having had this before. Patient presented to the emergency room with this and there was concerning the patient may have SVT so did have adenosine. The underlying rhythm appeared to be atrialflutter. Patient received 40 mg of IV diltiazem bolus and then was placed on diltiazem drip. Heart rate improved from the 150s to 120s. Despite the improved heart rate, patient is still having chest pain. Patient did have an elevated D-dimer and went to CAT scan when he lied flat he became very short of breath. [facility] Medical History Diverticulosis Hydrocele Obesity Right bundle branch block (RBBB) with left anterior fascicular block Home Medications omega-3 fatty acids 1,000 mg capsule (Fish Oil Concentrate) 1,000 mg PO DAILY 03/21/21 [History Last Taken Unknown] vitamins A,C,H-xvuw-xudxnz 4,296 mcg-226 mg-90 mg capsule (PreserVision AREDS) 1cap PO BID 03/21/21 [History Last Taken Unknown] triamcinolone acetonide 0.1 % topical cream 1 applic topical DAILY 12/26/22 [History Last Taken Unknown] Allergy/AdvReac Type Severity Reaction Status Date / Time No Known Allergies Allergy Verified 12/26/22 19:24 Family History Father CAD (coronary artery disease) CABG Brother CAD (coronary artery disease), Onset Age: 56 stents Surgical History H/O total colectomy History of appendectomy Social History Smoking Status: Former smoker quit date: 05/28/20 pack-years: 45 alcohol intake: current alcohol intake frequency: other Alcohol type: beer substance use type: marijuana ROS ROS Narrative States he has been feeling rundown over the past few weeks. Denies any fever chills or sore throat or rhinitis. Stated that he did previous feel like he hada chest cold. All review of systems were negative except as mentioned above in the history of present illness and the other review of systems. Vital Signs Vital Signs Vital Signs: 12/26/22 19:18 12/26/22 19:21 12/26/22 20:16 Temperature 36.8 C Temperature Source Temporal Pulse Rate 152 H 120 H Respiratory Rate 21 H 25 H Respiratory Effort Short of Breath Blood Pressure 98/75 Blood Pressure Mean 82 Blood Pressure Position Blood Pressure Location Pulse Ox 97 96 Oxygen Delivery Method Room Air Room Air Oxygen Flow Rate (L/min) 12/26/22 20:44 12/26/22 21:27 12/26/22 21:00 Temperature Temperature Source Pulse Rate 118 H 112 H 106 H Respiratory Rate 19 H 17 17 Respiratory Effort Blood Pressure 130/105 H 146/98 H 146/98 H Blood Pressure Mean 113 114 114 Blood Pressure Position Semi-Fowlers Blood Pressure Location Right Arm Pulse Ox 95 99 96 Oxygen Delivery Method Room Air Nasal Cannula Nasal Cannula Oxygen Flow Rate (L/min) 2 2 12/26/22 22:00 12/26/22 22:12 Temperature Temperature Source Pulse Rate 115 H 121 H Respiratory Rate 15 18 Respiratory Effort Blood Pressure 141/85 H 141/85 H Blood Pressure Mean 103 103 Blood Pressure Position Semi-Fowlers Blood Pressure Location Right Arm Pulse Ox 99 98 Oxygen Delivery Method Room Air Oxygen Flow Rate (L/min) 2 Weight Weight: 98.4 kg Body Mass Index (BMI) 31.1 Physical Exam Const alert and no apparent distress HEENT normocephalic, head/scalp atraumatic, hearing grossly normal bilaterally and moist oral mucous membranes Eyes EOMs intact bilaterally Eyes Narrative: No icterus Neck no lymphadenopathy Neck Narrative: No thyromegaly. Resp normal respiratory effort, no retractions and no use of accessory muscles Cardio Cardio Narrative: Distant heart sounds irregularly irregular GI normal to inspection, nondistended, normoactive bowel sounds and soft to palpation Extremity normal to inspection and full ROM Neuro oriented x3 and CN's II-XII intact bilaterally Psych affect normal Results Lab / Micro Data Attestation: I reviewed the patient's lab results. Result Diagrams: 12/26/22 19:25 12/26/22 19:25 Labs: Laboratory Results - last 24 hr 12/26/22 19:25: WBC 12.8 H, RBC 4.75, Hgb 15.3, Hct 47.9, MCV 100.8 H, MCH 32.2 H, MCHC 31.9 L, RDW Std Deviation 55.1 H, RDW Coeff of Jessica 14.6, Plt Count 225, MPV 8.5, Immature Gran % (Auto) 0.500, Neut % (Auto) 75.2 H, Lymph % (Auto) 13.2L, Donley % (Auto) 10.6 H, Eos % (Auto) 0.3, Baso % (Auto) 0.2, Absolute Neuts (auto) 9.6 H, Absolute Lymphs (auto) 1.68, Nucleated RBC % 0 12/26/22 19:25: PT 14.3, INR 1.1 12/26/22 19:25: Sodium 142, Potassium 4.1, Chloride 108 H, Carbon Dioxide 28.0, Anion Gap 6, BUN 12, Creatinine 1.14, Estim Creat Clear Calc 61.37, Est GFR (MDRD) Af Amer 81, Est GFR (MDRD) Non-Af 67, BUN/Creatinine Ratio 10.5, Glucose 119 H, Calcium 9.0, Troponin I High Sens 33 12/26/22 19:25: D-Dimer Quant (PE/DVT) 0.75 H* 12/26/22 21:47: Troponin I High Sens 35 EKG Initial EKG: Attestation: I personally reviewed and interpreted this EKG as follows: Prior EKG tracings: available for review EKG Rhythm Intrepretation: Atrial Flutter Radiology Impression Chest X-Ray 12/26/22 19:30 IMPRESSION: Question right basilar pneumonia. Electronically Signed: Juliano Mauricio at 19:49 EDT Reading Location ID and State: [facility] / [place] Tel [phone], Service support , Chest CTA 12/26/22 20:58 IMPRESSION: Atelectatic changes versus infiltrate in the posterior right lower lobe. The study is otherwise unremarkable. Electronically Signed: Juliaon MauricioDO at 21:28 EDT Reading Location ID and State: [facility] / [place] Tel [phone], Service support , Assessment & Plan Assessment/Plan (1) Atrial flutter with rapid ventricular response: PLAN: New onset [id number] score of 1 Given the patient's symptoms, I am concerned the patient may have some underlying pericarditis. In addition to rate control which she is currently on diltiazem, patient may need to be added additional agent such as amiodarone if that does not seem to be sufficient. Since I am concerned that this could be pericarditis we will initiate high-dose ibuprofen as well as PPI therapy. Thus far, the patient's troponins are unremarkable and if they do become elevated then patient may need to be started on anticoagulation. PLAN: Plan VTE prophylaxis with enoxaparin. Charges/Coding Visit Charges Inpatient E&M: 96521 Init Hosp 12/26/22 3613 <Electronically signed by Neo Mckeon DO> Cosigner Signature (if applicable): CC: Dr. Neo Mckeon DO; No Primary Care Physician~ Signed ADDENDUM by Dr. Neo Mckeon DO on 12/26/22 at 0361 Addendum Notified by the nurse in the ER that the patient's heart rate has been stable inthe 150s. Patient's maxed out on the diltiazem drip. We will bolus patient with amiodarone and start him on amiodarone drip. Consult cardiology. 12/26/22 3740<Electronically signed by Neo Mckeon DO> Cosigner Signature (if applicable): cc: Dr. Neo Mckeon, ; No Primary Care Physician ~* Signed [facility] Work Phone: Hospital Discharge instructionsAmbulatory Orders* Phase II, Outpatient Cardiac Rehab Location: None Selected [facility] Work Phone: Reason for referral (narrative)No reason for referral information availableWKettering [facility] Work Phone: Summary Purpose Family History No Family History Records Found Relationship Condition Age at Onset Recorded Date/T reny father Coronary artery disease Unknown brother Coronary artery disease 56 Relationship Condition Age at Onset Recorded Date/T reny Not Specified Dyspnea Unknown Paroxysmal atrial fibrillation Unknown Chronic obstructive pulmonary disease Unk nown father Coronary artery disease Unknown brother Coronary artery disease 56 Colon Cancer Status:Active Comments:Brother . Diabetes Mellitus Status:Active Comments:Fathe r. Paternal Aunt. Maternal Aunt. Sister. Heart Disease Status:Active Comments:Father. Brother. Skin Cancer Status:Active Comments:Brother . Colon Cancer Status:Active Comments:Brother . Diabetes Mellitus Status:Active Comments:Fathe r. Paternal Aunt. Maternal Aunt. Sister. Heart Disease Status:Active Comments:Father. Brother. Skin Cancer Status:Active Comments:Brother . Colon Cancer Status:Active Comments:Brother . Diabetes Mellitus Status:Active Comments:Fathe r. Paternal Aunt. Maternal Aunt. Sister. Heart Disease Status:Active Comments:Father. Brother. Skin Cancer Status:Active Comments:Brother . Colon Cancer Status:Active Comments:Brother . Diabetes Mellitus Status:Active Comments:Fathe r. Paternal Aunt. Maternal Aunt. Sister. Heart Disease Status:Active Comments:Father. Brother. Skin Cancer Status:Active Comments:Brother . Advance Directives No Advanced Directives Records Found Advance Directive Response Recorded Date/ Time Living Will No December 26, 2022 7 :21pm Power of Cracking Machine Operator No December 26, 2022 7:21pm Advance Directive Response Recorded Date/ Time Living Will No December 26, 2022 1 1:38pm Power of Cracking Machine Operator No December 26, 2022 11:38pm Advance Directive Response Recorded Date/ Time Living Will No April 03, 2 023 10:06am Power of Cracking Machine Operator No April 03, 2023 10:06am Advance Directive Response Recorded Date/ Time Advance Directives No July 31, 2023 8:52am Living Will No July 31 11:00am Power of Cracking Machine Operator No July 31, 2 024 11:00am Advance Directive Response Recorded Date/ Time Advance Directives on File No Antony 2023 1:00pm Advance Directives No July 31, 2023 8:52am Living Will No August 22 1:00pm Power of Cracking Machine Operator No August 22, 2023 1:00pm Advance Directive Response Recorded Date/ Time Advance Directives on File No Antony ry 2023 2:00pm Advance Directives No July 31, 2023 9:52am Living Will No August 22 2:00pm Power of Cracking Machine Operator No August 22, 2023 2:00pm Advance Directive Response Recorded Date/ Time Living Will No August 22 2:00pm Power of Cracking Machine Operator No August 22, 2023 2:00pm Advance Directives No July 31, 2023 9:52am Advance Directive Response Recorded Date/ Time Living Will No August 22 2:00pm Do you have a [facility] Power of Cracking Machine Operator? No August 22, 2023 2:00pm Advance Directives No July 31, 2023 9:52am Advance Directive Response Recorded Date/ Time Advance Directives No July 31, 2023 9:52am Chief Complaint and Reason for Visit Chief Complaint AFLUTTER W RVR AFLUTTER W RVR Reason for Visit Atrial flutter with rapid ventricular response Chief Complaint AFLUTTER W RVR AFLUTTER W RVR AFLUTTER W RVR AFLUTTER W RVR AFLUTTER W RVR AFLUTTER W RVR AFLUTTER W RVR Reason for Visit Atrial flutter Atrial flutter with rapid ventricular response Cardiomyopathy Coronary artery disease Paroxysmal atrial fibrillation Pleuritic chest pain COPD (chronic obstructive pulmonary disease) Chief Complaint AFLUTTER W RVR AFLUTTER W RVR AFLUTTER W RVR AFLUTTER W RVR AFLUTTER W RVR AFLUTTER W RVR AFLUTTER W RVR AFLUTTER W RVR Hospital COPD COPD Reason for Visit Atrial flutter with rapid ventricular response Cardiomyopathy Coronary artery disease Paroxysmal atrial fibrillation COPD (chronic obstructive pulmonary disease) Pleuritic chest pain Nicotine dependence, cigarettes, in remission COPD (chronic obstructive pulmonary disease) Chief Complaint AFLUTTER W RVR AFLUTTER W RVR AFLUTTER W RVR AFLUTTER W RVR AFLUTTER W RVR AFLUTTER W RVR AFLUTTER W RVR AFLUTTER W RVR Hospital FU COPD COPD COPD COPD Reason for Visit Atrial flutter with rapid ventricular response Cardiomyopathy Coronary artery disease Paroxysmal atrial fibrillation COPD (chronic obstructive pulmonary disease) Pleuritic chest pain Nicotine dependence, cigarettes, in remission COPD (chronic obstructive pulmonary disease) Chief Complaint AFLUTTER W RVR AFLUTTER W RVR AFLUTTER W RVR AFLUTTER W RVR AFLUTTER W RVR AFLUTTER W RVR AFLUTTER W RVR AFLUTTER W RVR Hospital FU COPD COPD COPD COPD s/p [facility] A-FIB A-FIB Reason for Visit Atrial flutter with rapid ventricular response Paroxysmal atrial fibrillation Cardiomyopathy COPD (chronic obstructive pulmonary disease) Coronary artery disease Pleuritic chest pain Nicotine dependence, cigarettes, in remission COPD (chronic obstructive pulmonary disease) Atrial flutter Cardiomyopathy COPD (chronic obstructive pulmonary disease) Coronary artery disease Dyslipidemia Chief Complaint AFLUTTER W RVR AFLUTTER W RVR AFLUTTER W RVR AFLUTTER W RVR AFLUTTER W RVR AFLUTTER W RVR AFLUTTER W RVR AFLUTTER W RVR Hospital FU COPD COPD COPD COPD s/p [facility] A-FIB A-FIB A-FIB 6 wk FU E ORDER SOB, r/o a-fib L.Lorson Reason for Visit Atrial flutter with rapid ventricular response Paroxysmal atrial fibrillation Cardiomyopathy COPD (chronic obstructive pulmonary disease) Coronary artery disease Pleuritic chest pain Nicotine dependence, cigarettes, in remission COPD (chronic obstructive pulmonary disease) Atrial flutter Cardiomyopathy COPD (chronic obstructive pulmonary disease) Coronary artery disease Dyslipidemia Nicotine dependence, cigarettes, in remission COPD (chronic obstructive pulmonary disease) Chief Complaint SOB, r/o a-fib L.Cira son SEVERE FATIGUE, SEGOVIA, EF 45% SEVERE FATIGUE, SEGOVIA, EF 45% ABN CTA, SEGOVIA Amb Documentation ABN CTA, SEGOVIA 6 M FU ABN CORANRY ANGIO CT, SEGOVIA Reason for Visit Paroxysmal atrial fi brillation Shortness of breath Cardiomyopathy Atrial flutter Cardiomyopathy Coronary artery disease Dyslipidemia Chief Complaint SEVERE FATIGUE, SEGOVIA, EF 45% SEVERE FATIGUE, SEGOVIA, EF 45% ABN CTA, SEGOVIA Amb Documentation ABN CTA, SEGOVIA 6 M FU ABN CORANRY ANGIO CT, SEGOVIA PCI with stenting Reason for Visit Paroxysmal atrial fi brillation Shortness of breath Cardiomyopathy Atrial flutter Cardiomyopathy Coronary artery disease Dyslipidemia Chief Complaint SEVERE FATIGUE, SEGOVIA, EF 45% SEVERE FATIGUE, SEGOVIA, EF 45% ABN CTA, SEGOVIA Amb Documentation ABN CTA, SEGOVIA 6 M FU ABN CORANRY ANGIO CT, SEGOVIA PCI with stenting 6 M FU Reason for Visit Paroxysmal atrial fi brillation Shortness of breath Cardiomyopathy Atrial flutter Cardiomyopathy Coronary artery disease Dyslipidemia Nicotine dependence, cigarettes, in remission Chief Complaint 6 M FU ABN CORANRY ANGIO CT, SEGOVIA PCI with stenting 6 M FU NICOTINE DEP Reason for Visit Atrial flutter Cardiomyopathy Coronary artery disease Dyslipidemia Nicotine dependence, cigarettes, in remission Chief Complaint Admit Date 7 M FU August 24, 2024 2 :40pm G47.33 - Obstructive sleep apnea (adult) (pediatri September 09, 2024 1:00pm CAD/ASHD September 10, 2024 2:01pm 4 M FU September 17, 2024 1:18pm NICOTINE DEPENDENCE September 27, 2024 1:59 pm PHILOMENA, failing Autopap September 30, 2024 8:1 4pm Reason for Visit Admit Date Atrial flutter August 24, 2024 2 :40pm Cardiomyopathy August 24, 2024 2 :40pm COPD (chronic obstructive pulmonary dise ase) August 24, 2024 2:40pm Coronary artery disease August 24 2:40pm Dyslipidemia August 24, 2024 2 :40pm PHILOMENA (obstructive sleep apnea) August 292024 1:18pm COPD (chronic obstructive pulmonary dise ase) September 17, 2024 1:18pm Smoking greater than 20 pack years Febru [id number] 1:18pm Chief Complaint Admit Date 7 M FU August 24, 2024 2 :40pm G47.33 - Obstructive sleep apnea (adult) (pediatri September 09, 2024 1:00pm CAD/ASHD September 10, 2024 2:01pm 4 M FU September 17, 2024 1:18pm NICOTINE DEPENDENCE September 27, 2024 1:59 pm PHILOMENA, failing Autopap September 30, 2024 8:1 4pm 4 WK FU October 13, 2024 2:3 7pm Compliance December 14, 2024 2:58p m Reason for Visit Admit Date Atrial flutter August 24, 2024 2 :40pm Cardiomyopathy August 24, 2024 2 :40pm COPD (chronic obstructive pulmonary dise ase) August 24, 2024 2:40pm Coronary artery disease August 24 2:40pm Dyslipidemia August 24, 2024 2 :40pm PHILOMENA (obstructive sleep apnea) August 292024 1:18pm COPD (chronic obstructive pulmonary dise ase) September 17, 2024 1:18pm Smoking greater than 20 pack years 2024 1:18pm PHILOMENA (obstructive sleep apnea) September 2:37pm COPD (chronic obstructive pulmonary dise ase) October 13, 2024 2:37pm Smoking greater than 20 pack years October 13, 2024 2:37pm Chief Complaint Admit Date G47.33 - Obstructive sleep apnea (adult) (pediatri September 09, 2024 1:00pm CAD/ASHD September 10, 2024 2:01pm 4 M FU September 17, 2024 1:18pm NICOTINE DEPENDENCE September 27, 2024 1:59 pm PHILOMENA, failing Autopap September 30, 2024 8:1 4pm 4 WK FU October 13, 2024 2:3 7pm Compliance December 14, 2024 2:58p m PALPITATIONS, DIZZINESS, GIDDINESS December 30, 2024 1:23pm Reason for Visit Admit Date PHILOMENA (obstructive sleep apnea) August 292024 1:18pm COPD (chronic obstructive pulmonary dise ase) September 17, 2024 1:18pm Smoking greater than 20 pack years 2024 1:18pm PHILOMENA (obstructive sleep apnea) September 2:37pm COPD (chronic obstructive pulmonary dise ase) October 13, 2024 2:37pm Smoking greater than 20 pack years October 13, 2024 2:37pm PHIOLMENA (obstructive sleep apnea) December 14, 2024 2:58pm COPD (chronic obstructive pulmonary dise ase) December 14, 2024 2:58pm Smoking greater than 20 pack years November 262024 2:58pm Chief Complaint Admit Date Compliance December 14, 2024 2:58p m PALPITATIONS, DIZZINESS, GIDDINESS December 30, 2024 1:23pm PALPITATIONS, DIZZINESS, GIDDINESS December 30, 2024 1:40pm 6 M FU February 17, 2025 3:01 pm Reason for Visit Admit Date PHILOMENA (obstructive sleep apnea) December 14, 2024 2:58pm COPD (chronic obstructive pulmonary dise ase) December 14, 2024 2:58pm Smoking greater than 20 pack years November 262024 2:58pm Second degree atrioventricular block, Mo bitz (type) I February 17, 2025 3:01pm Atrial flutter February 17, 2025 3:01 pm Cardiomyopathy February 17, 2025 3:01 pm COPD (chronic obstructive pulmonary dise ase) February 17, 2025 3:01pm Coronary artery disease February 17, 2025 3:01pm Dyslipidemia February 17, 2025 3:01 pm Chief Complaint Admit Date Compliance December 14, 2024 2:58p m PALPITATIONS, DIZZINESS, GIDDINESS December 30, 2024 1:23pm PALPITATIONS, DIZZINESS, GIDDINESS December 30, 2024 1:40pm 6 M FU February 17, 2025 3:01 pm ESTABLISH March 17, 2025 1: 51pm Reason for Visit Admit Date PHILOMENA (obstructive sleep apnea) December 14, 2024 2:58pm COPD (chronic obstructive pulmonary dise ase) December 14, 2024 2:58pm Smoking greater than 20 pack years November 262024 2:58pm Second degree atrioventricular block, Mo bitz (type) I February 17, 2025 3:01pm Atrial flutter February 17, 2025 3:01 pm Cardiomyopathy February 17, 2025 3:01 pm COPD (chronic obstructive pulmonary dise ase) February 17, 2025 3:01pm Coronary artery disease February 17, 2025 3:01pm Dyslipidemia February 17, 2025 3:01 pm Paroxysmal atrial fibrillation March 172024 1:51pm Second degree atrioventricular block, Mo bitz (type) I March 17, 2025 1:51pm Coronary artery disease March 17 1:51pm Additional Source Comments (unrecognized sect ion and content) No Status Records FoundNo Status Records FoundNo Status Records FoundNo Status Records Found INFORMATION SOURCE (unrecogn ized section and content) DATE CREATED AUTHOR 03/11/2020 [facility] ([place]) DATE CREATED AUTHOR AUTHOR'S ORGANIZ ATION 05/26/2024 [facility] DATE CREATED AUTHOR AUTHOR'S ORGANIZ ATION 03/19/2025 [facility] DATE CREATED AUTHOR AUTHOR'S ORGANIZ ATION 04/29/[address] [facility] Care Teams (unrecognized sec tion and content) Team Status: Active Member Role Status Dates Dr. Juan Alberto Coker , DO Family Provider Active No Primary Care Physician Primary Care Provider Active Team Status: Inactive Member Role Status Dates No Primary Care Physician Primary Care Provider Active Dr. Yang Hernandez MD Attending Provider, Referr ing Provider Active Team Status: Active Member Role Status Dates No Primary Care Physician Primary Care Provider Active Dr. Sandeep Carty , DO Emergency Provider Active Dr. Neo Mckeon DO Admit Provider, At tending Provider, Other Provider Active Team Status: Active Member Role Status Dates No Primary Care Physician Primary Care Provider Active Dr. Sandeep Carty , DO Emergency Provider Active Dr. Neo Mckeon DO Admit Provider, Attending Provid er Active Team Status: Active Member Role Status Dates No Primary Care Physician Primary Care Provider Active Dr. Sandeep Carty , Emergency Provider Active Dr. Neo Mckeon DO Admit Provider, Other Provider A ctive Dr. Kaila Willingham MD Other Provider Active Yisel Arshad Other Provider Active Dr. Allison Silvestre MD Attending Provider, Other Provid er Active Dr. Reilly Garcia MD Other Provider Active Dr. Tk Rm MD Other Provider Active Dr. Roger Love MD Other Provider Active Dr. Rajesh Busby MD Other Provider Active Dr. Neo Anderson MD Other Provider Active Dr. Don Nicolas MD Other Provider Active Dr. Nakul Johnson MD Other Provider Active Dr. Willow Calderon MD Other Provider Active Dr. Valerie Sims MD Other Provider Active Dr. Ned Collazo MD Other Provider Active Dr. João David MD Other Provider Active Dr. Jeronimo Valle MD Other Provider Active Reynaldo Jerez RADIATION / CHEMISTRY TECHNICIAN, RADIATION / CHEMISTRY TECHNICIAN-C Other Provider Active Yisel Smiley RADIATION / CHEMISTRY TECHNICIAN, RADIATION / CHEMISTRY TECHNICIAN-C Other Provider Active Jeannie Richardson PA, PA Other Provider Active Team Status: Active Member Role Status Dates No Primary Care Physician Primary Care Provider Active Dr. Sandeep Carty , Emergency Provider Active Dr. Neo Mckeon DO Admit Provider, Other Provider A ctive Dr. Kaila Willingham MD Attending Provider, Other Provid er Active Yisel Arshad Other Provider Active Dr. Allison Silvestre MD Other Provider Active Dr. Reilly Garcia MD Other Provider Active Dr. Tk Rm MD Other Provider Active Dr. Roger Love MD Other Provider Active Dr. Rajesh Busby MD Other Provider Active Dr. Neo Anderson MD Other Provider Active Dr. Don Nicolas MD Other Provider Active Dr. Nakul Johnson MD Other Provider Active Dr. Willow Calderon MD Other Provider Active Dr. Valerie Sims MD Other Provider Active Dr. Ned Collazo MD Other Provider Active Dr. João David MD Other Provider Active Dr. Jeronimo Valle MD Other Provider Active Reynaldo Jerez RADIATION / CHEMISTRY TECHNICIAN, RADIATION / CHEMISTRY TECHNICIAN-C Other Provider Active Yisel Smiley RADIATION / CHEMISTRY TECHNICIAN, RADIATION / CHEMISTRY TECHNICIAN-C Other Provider Active Jeannie Richardson PA, PA Other Provider Active Team Status: Active Member Role Status Dates No Primary Care Physician Primary Care Provider Active Dr. Sandeep Carty , DO Emergency Provider Active Dr. Neo Mckeon , DO Admit Provider, Other Provider A ctive Yisel Arshad Other Provider Active Dr. Allison Silvestre MD Attending Provider, Other Provid er Active Dr. Reilly Garcia MD Other Provider Active Dr. Tk Rm MD Other Provider Active Dr. Roger Love MD Other Provider Active Dr. Rajesh Busby MD Other Provider Active Dr. Neo Anderson MD Other Provider Active Dr. Don Nicolas MD Other Provider Active Dr. Nakul Johnson MD Other Provider Active Dr. Willow Calderon MD Other Provider Active Dr. Valerie Sims MD Other Provider Active Dr. Ned Collazo MD Other Provider Active Dr. João David MD Other Provider Active Dr. Jeronimo Valle MD Other Provider Active Reynaldo Jerez RADIATION / CHEMISTRY TECHNICIAN, RADIATION / CHEMISTRY TECHNICIAN-C Other Provider Active Yisel Smiley RADIATION / CHEMISTRY TECHNICIAN, RADIATION / CHEMISTRY TECHNICIAN-C Other Provider Active Jeannie Richardson PA, PA Other Provider Active Dr. Kaila Willingham MD Other Provider Active Team Status: Active Member Role Status Dates No Primary Care Physician Primary Care Provider Active Dr. Sandeep Carty , DO Emergency Provider Active Dr. Neo Mckeon , Admit Provider, Other Provider A ctive Yisel Pavithra Other Provider Active Dr. Allison Silvestre MD Other Provider Active Dr. Reilly Garcia MD Other Provider Active Dr. Tk Rm MD Other Provider Active Dr. Roger Love MD Other Provider Active Dr. Rajesh Busby MD Other Provider Active Dr. Neo Anderson MD Other Provider Active Dr. Don Nicolas MD Other Provider Active Dr. Nakul Johnson MD Other Provider Active Dr. Willow Calderon MD Other Provider Active Dr. Valerie Sims MD Other Provider Active Dr. Ned Collazo MD Other Provider Active Dr. João David MD Other Provider Active Dr. Jeronimo Valle MD Other Provider Active Reynaldo Jerez RADIATION / CHEMISTRY TECHNICIAN, RADIATION / CHEMISTRY TECHNICIAN-C Other Provider Active Yisel Smiley RADIATION / CHEMISTRY TECHNICIAN, RADIATION / CHEMISTRY TECHNICIAN-C Other Provider Active Jeannie Richardson PA, PA Other Provider Active Dr. Kaila Willingham MD Attending Provider, Other Provid er Active Team Status: Inactive Member Role Status Dates No Primary Care Physician Primary Care Provider Active Dr. Sandeep Carty , Emergency Provider Active Dr. Neo Mckeon , Admit Provider, Other Provider A ctive Yisel Arshad Other Provider Active Dr. Allison Silvestre MD Other Provider Active Dr. Reilly Garcia MD Other Provider Active Dr. Tk Rm MD Other Provider Active Dr. Roger Love MD Other Provider Active Dr. Rajesh Busby MD Other Provider Active Dr. Neo Anderson MD Other Provider Active Dr. Don Nicolas MD Other Provider Active Dr. Nakul Johnson MD Other Provider Active Dr. Willow Calderon MD Other Provider Active Dr. Valerie Sims MD Other Provider Active Dr. Ned Collazo MD Other Provider Active Dr. João David MD Other Provider Active Dr. Jeronimo Valle MD Other Provider Active Reynaldo Jerez RADIATION / CHEMISTRY TECHNICIAN, RADIATION / CHEMISTRY TECHNICIAN-C Other Provider Active Yisel Smiley RADIATION / CHEMISTRY TECHNICIAN, RADIATION / CHEMISTRY TECHNICIAN-C Other Provider Active Jeannie Richardson PA, PA Other Provider Active Dr. Kaila Willingham MD Attending Provider Active Team Status: Active Member Role Status Dates Dr. Juan Alberto Coker , DO Family Provider Active FABRICIO CONTRERAS NP-C Primary Care Provider Active Team Status: Inactive Member Role Status Dates No Primary Care Physician Primary Care Provider, Refer ring Provider Active Dr. Yohan Stanley DO Attending Provider Active Team Status: Active Member Role Status Dates Dr. Yohan Stanley DO Attending Provider, Referring Provider, Other Provider Active FABRICIO BEN , RADIATION / CHEMISTRY TECHNICIAN-C Primary Care Provider Active Team Status: Inactive Member Role Status Dates Dr. Yohan Stanley DO Attending Provider, Referring Pro vider Active FABRICIO BEN , RADIATION / CHEMISTRY TECHNICIAN-C Primary Care Provider Active Team Status: Active Member Role Status Dates Dr. Yohan Stanley DO Referring Provider, Other Provide r Active FABRICIO BEN , RADIATION / CHEMISTRY TECHNICIAN-C Primary Care Provider Active Dr. Georgi Simmons MD Attending Provider Active Team Status: Inactive Member Role Status Dates No Primary Care Physician Referring Provider Active Dr. Allison Silvestre MD Attending Provider Active FABRICIO BEN , RADIATION / CHEMISTRY TECHNICIAN-C Primary Care Provider Active Team Status: Active Member Role Status Dates FABRICIO CONTRERAS , RADIATION / CHEMISTRY TECHNICIAN-C Primary Care Provider Active Dr. Allison Silvestre MD Attending Provider , Referring Provider, Other Provider Active Team Status: Inactive Member Role Status Dates FABRICIO CONTRERAS , RADIATION / CHEMISTRY TECHNICIAN-C Primary Care Provider Active Dr. Allison Silvestre MD Attending Provider, Referring Pr ovider Active Team Status: Inactive Member Role Status Dates No Primary Care Physician Referring Provider Active Dr. Yohan Stanley DO Attending Provider Active FABRICIO BEN , RADIATION / CHEMISTRY TECHNICIAN-C Primary Care Provider Active Team Status: Active Member Role Status Dates FABRICIO VALIENTEETLER , RADIATION / CHEMISTRY TECHNICIAN-C Primary Care Provider Active Dr. lAlison Silvestre MD Attending Provider, Referring Pr ovider Active Team Status: Inactive Member Role Status Dates FABRICIO CONTRERAS , RADIATION / CHEMISTRY TECHNICIAN-C Primary Care Provider, Referrin g Provider Active Jeannie Richardson PA, PA Attending Provider Active Team Status: Inactive Member Role Status Dates FABRICIO BEN , RADIATION / CHEMISTRY TECHNICIAN-C Primary Care Provider Active Yisel Smiley RADIATION / CHEMISTRY TECHNICIAN, RADIATION / CHEMISTRY TECHNICIAN-C Attending Provider, Referring P amelieder Active Team Status: Active Member Role Status Dates FABRICIO VALIENTEETLER , RADIATION / CHEMISTRY TECHNICIAN-C Primary Care Provider Active Dr. Allison Silvestre MD Referring Provider, Other Provid er Active Dr. Roger Love MD Attending Provider Active Team Status: Active Member Role Status Dates FABRICIO CONTRERAS , RADIATION / CHEMISTRY TECHNICIAN-C Primary Care Provider Active Dr. Allison Silvestre MD Other Provider Active Jeannie Richardson PA, PA Attending Provider Active Team Status: Active Member Role Status Dates FABRICIO BEN , RADIATION / CHEMISTRY TECHNICIAN-C Primary Care Provider Active Reynaldo Jerez RADIATION / CHEMISTRY TECHNICIAN, RADIATION / CHEMISTRY TECHNICIAN-C Attending Provider Active Team Status: Inactive Member Role Status Dates FABRICIO BEN , RADIATION / CHEMISTRY TECHNICIAN-C Primary Care Provider, Referrin g Provider Active Dr. Allison Silvestre MD Attending Provider Active Team Status: Active Member Role Status Dates FABRICIO VALIENTEETLER , RADIATION / CHEMISTRY TECHNICIAN-C Primary Care Provider Active Dr. Allison Silvestre MD Attending Provider Active Team Status: Inactive Member Role Status Dates FABRICIO BEN , RADIATION / CHEMISTRY TECHNICIAN-C Primary Care Provider Active Dr. Allison Silvestre MD Admit Provider, At tending Provider, Referring Provider Active Team Status: Inactive Member Role Status Dates FABRICIO BEN , RADIATION / CHEMISTRY TECHNICIAN-C Primary Care Provider, Referrin g Provider Active Dr. Yohan Stanley DO Attending Provider Active Team Status: Inactive Member Role Status Dates FABRICIO BEN , RADIATION / CHEMISTRY TECHNICIAN-C Primary Care Provider Active Dr. Yohan Stanley DO Attending Provider, Referring Pro vider Active Team Status: Active Member Role Status Dates FABRICIO BEN , RADIATION / CHEMISTRY TECHNICIAN-C Primary Care Provider Active Team Status: Inactive Member Role Status Dates FABRICIO BEN , RADIATION / CHEMISTRY TECHNICIAN-C Primary Care Provider Active Start: August 24, 2024 End: August 24, 2024 FABRICIO BEN , RADIATION / CHEMISTRY TECHNICIAN-C Referring Provider Active Start: August 24, 2024 End: August 24, 2024 Dr. Allison Silvestre MD Attending Provider Active Start: August 24, 2024 End: August 24, 2024 Team Status: Inactive Member Role Status Dates FABRICIO BEN , RADIATION / CHEMISTRY TECHNICIAN-C Primary Care Provider Active Start: September 09, 2024 End: September 09, 2024 Marissa Delacruz RADIATION / CHEMISTRY TECHNICIAN, RADIATION / CHEMISTRY TECHNICIAN-C Attending Provider Active Start: September 09, 2024 End: September 09, 2024 Marissa Delacruz RADIATION / CHEMISTRY TECHNICIAN, RADIATION / CHEMISTRY TECHNICIAN-C Referring Provider Active Start: September 09, 2024 End: September 09, 2024 Team Status: Inactive Member Role Status Dates FABRICIO BEN , RADIATION / CHEMISTRY TECHNICIAN-C Primary Care Provider Active Start: September 10, 2024 End: September 10, 2024 Dr. Allison Silvestre MD Attending Provider Active Start: September 10, 2024 End: September 10, 2024 Dr. Allison Silvestre MD Referring Provider Active Start: September 10, 2024 End: September 10, 2024 Team Status: Active Member Role Status Dates FABRICIO CONTRERAS , RADIATION / CHEMISTRY TECHNICIAN-C Primary Care Provider Active Start: September 10, 2024 Dr. Allison Silvestre MD Attending Provider Active Start: September 10, 2024 Team Status: Inactive Member Role Status Dates FABRICIO BEN , RADIATION / CHEMISTRY TECHNICIAN-C Primary Care Provider Active Start: September 17, 2024 End: September 17, 2024 FABRICIO CONTRERAS RADIATION / CHEMISTRY TECHNICIAN-C Referring Provider Active Start: September 17, 2024 End: September 17, 2024 Bhumi Gomez RADIATION / CHEMISTRY TECHNICIAN-C Attending Provider Active Start: September 17, 2024 End: September 17, 2024 Team Status: Inactive Member Role Status Dates FABRICIO VALIENTEETSOHA RADIATION / CHEMISTRY TECHNICIAN-C Primary Care Provider Active Start: September 17, 2024 End: September 17, 2024 Dr. Allison Silvestre MD Attending Provider Active Start: September 17, 2024 End: September 17, 2024 Dr. Allison Silvestre MD Referring Provider Active Start: September 17, 2024 End: September 17, 2024 Team Status: Inactive Member Role Status Dates FABRICIO VALIENTEETLER , RADIATION / CHEMISTRY TECHNICIAN-C Primary Care Provider Active Start: September 27, 2024 End: September 27, 2024 Marissa Delacruz RADIATION / CHEMISTRY TECHNICIAN, RADIATION / CHEMISTRY TECHNICIAN-C Attending Provider Active Start: September 27, 2024 End: September 27, 2024 Marissa Delacruz RADIATION / CHEMISTRY TECHNICIAN, RADIATION / CHEMISTRY TECHNICIAN-C Referring Provider Active Start: September 27, 2024 End: September 27, 2024 Team Status: Active Member Role Status Dates FABRICIO VALIENTEETSOHA RADIATION / CHEMISTRY TECHNICIAN-C Primary Care Provider Active Start: September 30, 2024 Bhumi Gomez RADIATION / CHEMISTRY TECHNICIAN-C Attending Provider Active Start: September 30, 2024 Bhumi Gomez RADIATION / CHEMISTRY TECHNICIAN-C Referring Provider Active Start: September 30, 2024 Team Status: Inactive Member Role Status Dates FABRICIO VALIENTEETLER , RADIATION / CHEMISTRY TECHNICIAN-C Primary Care Provider Active Start: September 30, 2024 End: September 30, 2024 Bhumi Gomez RADIATION / CHEMISTRY TECHNICIAN-C Attending Provider Active Start: September 30, 2024 End: September 30, 2024 Bhumi Gomez RADIATION / CHEMISTRY TECHNICIAN-C Referring Provider Active Start: September 30, 2024 End: September 30, 2024 Team Status: Inactive Member Role Status Dates FABRICIO BEN , RADIATION / CHEMISTRY TECHNICIAN-C Primary Care Provider Active Start: October 13, 2024 End: October 13, 2024 FABRICIO BEN , RADIATION / CHEMISTRY TECHNICIAN-C Referring Provider Active Start: October 13, 2024 End: October 13, 2024 Bhumi Gomez RADIATION / CHEMISTRY TECHNICIAN-C Attending Provider Active Start: October 13, 2024 End: October 13, 2024 Team Status: Inactive Member Role Status Dates FABRICIO BEN , RADIATION / CHEMISTRY TECHNICIAN-C Primary Care Provider Active Start: December 14, 2024 End: December 14, 2024 FABRICIO BEN , RADIATION / CHEMISTRY TECHNICIAN-C Referring Provider Active Start: December 14, 2024 End: December 14, 2024 Bhumi Gomez RADIATION / CHEMISTRY TECHNICIAN-C Attending Provider Active Start: December 14, 2024 End: December 14, 2024 Team Status: Inactive Member Role Status Dates FABRICIO BEN , RADIATION / CHEMISTRY TECHNICIAN-C Primary Care Provider Active Start: December 30, 2024 End: December 30, 2024 Yisel Smiley RADIATION / CHEMISTRY TECHNICIAN, RADIATION / CHEMISTRY TECHNICIAN-C Attending Provider Active Start: December 30, 2024 End: December 30, 2024 Yisel Smiley RADIATION / CHEMISTRY TECHNICIAN, RADIATION / CHEMISTRY TECHNICIAN-C Referring Provider Active Start: December 30, 2024 End: December 30, 2024 Team Status: Active Member Role/Relationship Status Dates FABRICIO BEN , RADIATION / CHEMISTRY TECHNICIAN-C Primary Care Provider Active Team Status: Inactive Member Role/Relationship Status Dates FABRICIO BEN , RADIATION / CHEMISTRY TECHNICIAN-C Primary Care Provider Active Start: December 14, 2024 End: December 14, 2024 FABRICIO BEN , RADIATION / CHEMISTRY TECHNICIAN-C Referring Provider Active Start: December 14, 2024 End: December 14, 2024 Bhumi Gomez , RADIATION / CHEMISTRY TECHNICIAN-C Attending Provider Active Start: December 14, 2024 End: December 14, 2024 Team Status: Inactive Member Role/Relationship Status Dates FABRICIO BEN , RADIATION / CHEMISTRY TECHNICIAN-C Primary Care Provider Active Start: December 30, 2024 End: December 30, 2024 Yisel Smiley NP, RADIATION / CHEMISTRY TECHNICIAN-C Attending Provider Active Start: December 30, 2024 End: December 30, 2024 Yisel Smiley RADIATION / CHEMISTRY TECHNICIAN, RADIATION / CHEMISTRY TECHNICIAN-C Referring Provider Active Start: December 30, 2024 End: December 30, 2024 Team Status: Active Member Role/Relationship Status Dates FABRICIO BEN , RADIATION / CHEMISTRY TECHNICIAN-C Primary Care Provider Active Start: December 30, 2024 Dr. Allison Silvestre MD Attending Provider Active Start: December 30, 2024 Yisel Smiley RADIATION / CHEMISTRY TECHNICIAN, RADIATION / CHEMISTRY TECHNICIAN-C Referring Provider Active Start: December 30, 2024 Team Status: Inactive Member Role/Relationship Status Dates FABRICIO BEN , RADIATION / CHEMISTRY TECHNICIAN-C Primary Care Provider Active Start: February 17, 2025 End: February 17, 2025 FABRICIO BEN , RADIATION / CHEMISTRY TECHNICIAN-C Referring Provider Active Start: February 17, 2025 End: February 17, 2025 Reynaldo Jerez RADIATION / CHEMISTRY TECHNICIAN, RADIATION / CHEMISTRY TECHNICIAN-C Attending Provider Active S tart: February 17, 2025 End: February 17, 2025 Team Status: Inactive Member Role/Relationship Status Dates FABRICIO BEN , RADIATION / CHEMISTRY TECHNICIAN-C Primary Care Provider Active Start: March 17, 2025 End: March 17, 2025 FABRICIO BEN , RADIATION / CHEMISTRY TECHNICIAN-C Referring Provider Active Start: March 17, 2025 End: March 17, 2025 Dr. Jose Villegas MD Attending Provider Active Start: March 17, 2025 End: March 17, 2025 Goals (unrecognized section and content) Goals may be documented in a n alternate sectionGoals may be documented in an alternate sectionGoals may be documented in an alternate sectionGoals may be documented in an alternate sectionGoals may be documented in an alternate sectionGoals may be documented in an alternate sectionGoals may be documented in an alternate sectionGoals may be documented in an alternate section FOR RECORDS PERTAINING TO PATIENTS WHO ARE [...] BE BASED ON THE PRIMARY CLINICAL RECORDS. [facility] [employer] provides no warranty or guarantee of the accuracy or completeness of information in this document.
--- NOTE | 2025-07-18 10:46 | PCM.PSN.6M ---
PSN 6 Minute Walk Test 6 Minute Walk Test 6 Minute Walk Test: 6 Minute Walk Test PSN:6-Minute Walk Test Start: 07/11/25 13:45 Freq: Status: Active Protocol: [id number].6MINW Document 07/11/25 13:30 AEH (Rec: 07/11/25 13:57 AEH [email or web address]) 6 Minute Walk Test Date Performed 07/11/25 Time Performed 13:30 Height 5 ft 10 in Weight: 220 lb Weight in Pounds [address]: Aura Assistive device None used: Pre-test Oxygen Delivery Room Air Method Pulse Ox (%) 95 Pulse Rate (60-100 60 beats/min) Dyspnea Tahmina Scale ( 0.5 0-10) Exertion Tahmina Scale 6 (6-20) 1st minute Oxygen Delivery Room Air Method Pulse Ox (%) 95 Pulse Rate (60-100 89 beats/min) 2nd minute Oxygen Delivery Room Air Method Pulse Ox (%) 95 Pulse Rate (60-100 92 beats/min) 3rd minute Oxygen Delivery Room Air Method Pulse Ox (%) 95 Pulse Rate (60-100 91 beats/min) 4th minute Oxygen Delivery Room Air Method Pulse Ox (%) 96 Pulse Rate (60-100 92 beats/min) Number of Rests 1 Taken 5th minute Oxygen Delivery Room Air Method Pulse Ox (%) 96 Pulse Rate (60-100 88 beats/min) 6th minute Oxygen Delivery Room Air Method Pulse Ox (%) 95 Pulse Rate (60-100 95 beats/min) Dyspnea Tahmina Scale ( 3 0-10) Exertion Tahmina Scale 12 (6-20) Post-test Oxygen Delivery Room Air Method Pulse Ox (%) 97 Pulse Rate (60-100 73 beats/min) Full Laps Walked 18 Partial Lap, Number 39 of Tiles Walked Total Distance 1101 Walked (ft) 07/11/25 13:55 Cardiopulmonary Services by Peyton Donovan Pt needed to take a rest at 4minutes into walk for hip pain. Initialized on 07/11/25 13:55 - END OF NOTE Interpretation Interpretation: The patient ambulated 1101 feet over the course of 6 minutes beginning on room air without assistive devices. Pretesting oxygen saturation was noted to be 95% on room air. With ambulation, the sofy oxygen saturation was 95%. There was no significant exertional oxygen desaturation. Recommendations Recommendations: There is no indication for the use of supplemental oxygen at this time.
== END | disposition home or self-care (01) ==
LOC: PSN 13:14
PROVIDERS: PCP Internal Medicine; Referring Provider Nurse Practitioner Family; Visit Provider Nurse Practitioner Family
DX: J43.2 Centrilobular emphysema (principal)
CPT/HCPCS: 94618